=== PATIENT | female | born 1940 | race Caucasian/White ===

== ENCOUNTER → 2016-09-07 | Outpatient (CLI) | payer MEDICARE, OTHER ==
[~2016-09-07] MED LIST: ALB2.5NEB INH; ALBU17IN INH; ALBU20IN INH; AMIT50TA PO; CALC600T57 PO; CHLO25TA PO; EQ A1TAB12 PO; FLUT11IN INH; FLUTISP; LEVO125T3 PO; LIPI10TA PO; MAGN250T2 PO; NEXI40CA PO; OMEG12002 PO; PRESCAP6 PO; REFRSOL OU; SPIR25TA2 PO; VITA-112 PO; VITA-130 PO
--- NOTE | 2016-09-07 17:24 | REP ---
RIGHT KNEE, TWO VIEWS: HISTORY: Contusion. There is no acute fracture or dislocation. There is narrowing of the joint spaces. Osteophytes are present on the patella. IMPRESSION: Degenerative change as described above. Signed by Porfirio Ballard MD 09/07/2016 05:42 P
== END ==
LOC: M ADAMS 14:16
PROVIDERS: ATTEND Physician Assistant
DX: S80.01XA Contusion of right knee, initial encounter (principal); M17.31 Unilateral post-traumatic osteoarthritis, right knee; W19.XXXA Unspecified fall, initial encounter; Y93.9 Activity, unspecified; Y92.9 Unspecified place or not applicable; Y99.8 Other external cause status; X58.XXXA Exposure to other specified factors, initial encounter
CPT/HCPCS: 73560; G0463

== ENCOUNTER → 2016-09-22 | Outpatient (CLI) | payer MEDICARE, OTHER ==
--- NOTE | 2016-09-22 15:22 | REPMRS ---
Patient History The patient states she had a clinical breast exam in 09/21 Patient is postmenopausal. No known family history of cancer. 3 benign excisional biopsies of the left breast, 1965. Digital Woman Screen Mammo: September 22, 2016 - Exam #: [id number] Bilateral CC and MLO view(s) were taken. Technologist: Maureen Lozano, Technologist Prior study comparison: March 05, 2015, digital bilateral screening mammo, performed at [facility]. April 09, 2013, diagnostic bilateral mammo, performed at [facility]. July 01, 2008, diagnostic bilateral mammo, performed at [facility]. FINDINGS: There are scattered fibroglandular densities. There has been no change in the appearance of the mammogram from the prior studies. There is a mild amount of scattered fibroglandular density which is fairly symmetric. There is no interval development of dominant mass, architectural distortion, or clustered microcalcification suggestive of malignancy. ASSESSMENT: BI-RADS/ACR category 1 mammogram. Negative. Recommendation Routine screening mammogram in 1 year (for women over age 40). This mammogram was interpreted with the aid of an FDA-approved computer-aided dectection system. Electronically Signed By: Stefano Santos MD 09/22/16 [id number]
--- NOTE | 2016-10-06 11:20 | DEXA ---
AP SPINE L1 - L4 0.974 -1.8 -1.1 LT FEMUR TOTAL 0.891 -0.9 0.2 RT FEMUR TOTAL 0.897 -0.9 0.2 TOTAL BODY TOTAL OTHER DUAL FEMUR FRAX* ASSESSMENT Risk factors: Family history (parent hip fracture). History of fracture (adult). 10 year probability of fracture Major osteoporotic fracture 32.3 % Hip fracture 18.6 % COMMENTS: There is low bone density of the spine and hips. The density of the spine is increased 23.0% since the initial exam on 2001. The spine density has increased 4.7% since the most recent exam on 04/09/2013. The density of the left hip has decreased 1.2% since the initial exam on 2001. The density of the left hip has decreased 4.9% since the most recent exam on 01/2013. The density of the right hip has increased 1.2% since the initial exam on 2006. The density of the right hip has decreased 4.5% since the most recent exam on . FOLLOW-UP: Recommendation for the next bone density exam: 2 years. FRANKIE
== END ==
LOC: M WHC 13:57
PROVIDERS: ATTEND Nurse Practitioner Women's Health
DX: Z12.31 Encounter for screening mammogram for malignant neoplasm of breast (principal); Z78.0 Asymptomatic menopausal state; M81.0 Age-related osteoporosis without current pathological fracture; Z92.89 Personal history of other medical treatment
CPT/HCPCS: 77080; G0202; G0463

== ENCOUNTER → 2016-10-19 | Outpatient (CLI) | payer MEDICARE, OTHER ==
[2016-10-19 09:45] LABS: MEAN CORPUSCULAR HEMOGLOBIN 31.6 pg (27.0-33.0); MEAN CORPUSCULAR VOLUME 90.3 fl (80.0-96.0); RED CELL DISTRIBUTION WIDTH 11.8 % (11.5-14.5); WHITE BLOOD COUNT 7.2 K/mm3 (4.0-10.0)
[2016-10-19 10:36] LABS: ALBUMIN 3.5 GM/DL (3.2-5.2); ALBUMIN/GLOBULIN RATIO 1.03 (1.00-1.93); ALKALINE PHOSPHATASE 112 U/L (45-117); ALT/SGPT 27 U/L (12-78); ANION GAP 7 MEQ/L (8-16); AST/SGOT 19 U/L (15-37); BILIRUBIN,TOTAL 1.4 MG/DL (0.2-1.0); BLOOD UREA NITROGEN 19 MG/DL (7-18); CARBON DIOXIDE LEVEL 30 MEQ/L (21-32); CHLORIDE LEVEL 104 MEQ/L (98-107); CREATININE FOR GFR 0.95 MG/DL (0.55-1.02); FREE T4 1.37 NG/DL (0.76-1.46); GLOMERULAR FILTRATION RATE > 60.0 (>39); GLUCOSE, FASTING 163 MG/DL (83-110); SODIUM LEVEL 141 MEQ/L (136-145); TOTAL PROTEIN 6.9 GM/DL (6.4-8.2)
== END ==
LOC: M LAB 08:34
PROVIDERS: ATTEND Physician Assistant
DX: I10 Essential (primary) hypertension (principal); E11.21 Type 2 diabetes mellitus with diabetic nephropathy; E03.9 Hypothyroidism, unspecified; I65.22 Occlusion and stenosis of left carotid artery; H35.30 Unspecified macular degeneration; I11.9 Hypertensive heart disease without heart failure; E11.42 Type 2 diabetes mellitus with diabetic polyneuropathy; Z86.73 Personal history of transient ischemic attack (TIA), and cerebral infarction without residual deficits

== ENCOUNTER → 2016-11-30 | Outpatient (CLI) | payer MEDICARE, OTHER ==
--- NOTE | 2016-11-30 15:06 | REP ---
Clinical: Cough . Comparison: 07/22/2016 . Technique: PA and lateral. Findings: The mediastinum and cardiac silhouette are normal. The lung silver are clear and without acute consolidation, effusion, or pneumothorax. Scattered stable calcified granulomata again noted. The skeletal structures are intact and normal. Impression: 1. No acute cardiopulmonary process. 2. Evidence for prior granulomatous disease. Signed by Sukumar Barker MD 11/30/2016 02:57 P
== END ==
LOC: M RAD 14:32
PROVIDERS: ATTEND Internal Medicine Pulmonary Disease
DX: R05 Cough (principal)

== ENCOUNTER 2017-01-05 09:58 | Emergency (ER) | payer MEDICARE, OTHER ==
[~2017-01-05] VITALS: Ht 157.5 cm; Wt 92.5 kg
[2017-01-05] MEDS ORDERED: AMLO5TAB2 PO (10:14)
[2017-01-05] MEDS ORDERED: METF500T PO (10:14)
[2017-01-05] MEDS ORDERED: BIMA01SOL OU (10:14)
[2017-01-05] MEDS ORDERED: CRES20TA PO (10:14)
[2017-01-05] MEDS ORDERED: ACETAMINOPHEN 325 MG TAB PO ONE (10:45)
[2017-01-05] MEDS ORDERED: MAGNESIUM OXIDE 400 MG TAB (MAG-OX) PO ONE (10:45)
--- NOTE | 2017-01-05 11:23 | REP ---
CT HEAD WITHOUT CONTRAST: HISTORY: Headache. COMPARISON: 10/30/2011. An area of decreased attenuation is present in the left thalamus. This represents an old lacunar infarction. Areas of decreased attenuation are present in the periventricular white matter. This represents small vessel ischemic disease. There is no intraparenchymal hemorrhage, mass or midline shift. The ventricular system and cortical sulci as well as subarachnoid space in the posterior fossa are dilated consistent with mild volume loss. There is no extracerebral collection. Mucosal thickening is present in the ethmoid and left maxillary sinuses. IMPRESSION: 1. Old left thalamic lacunar infarction. 2. Small vessel ischemic disease. 3. Mild volume loss. Signed by Porfirio Ballard MD 01/05/2017 11:24 A
[2017-01-05 12:11] VITALS: BP 115/69
== END 2017-01-05 12:12 | disposition home or self-care (01) ==
LOC: M ED 10:38
DX: R51 Headache (principal)

== ENCOUNTER → 2017-01-25 | Outpatient (CLI) | payer MEDICARE, OTHER ==
[~2017-01-25] MED LIST changes: +AMLO5TAB2 PO; +BIMA01SOL OU; +CRES20TA PO; +METF500T PO
[2017-01-25 09:05] LABS: ALBUMIN 3.6 GM/DL (3.2-5.2); ALBUMIN/GLOBULIN RATIO 1.13 (1.00-1.93); BILIRUBIN,TOTAL 1.7 MG/DL (0.2-1.0); CALCIUM LEVEL 9.4 MG/DL (8.8-10.2); CREATININE FOR GFR 0.98 MG/DL (0.55-1.02); GLOMERULAR FILTRATION RATE 58.4 (>39); POTASSIUM SERUM 3.9 MEQ/L (3.5-5.1); TOTAL PROTEIN 6.8 GM/DL (6.4-8.2)
== END ==
LOC: M LAB 08:12
PROVIDERS: ATTEND Family Medicine
DX: E11.21 Type 2 diabetes mellitus with diabetic nephropathy (principal)
CPT/HCPCS: 36415; 80053; 80061; 83036; G0463

== ENCOUNTER → 2017-04-05 | Outpatient (REF) | payer MEDICARE, OTHER ==
[~2017-04-05] MED LIST changes: +ALPH0.156 OD; +BOTO10VL OU; +CIPR-249 PO; +FISH1200 PO; +FLON1SPR; +FLUT22IN INH; +LEVO100T5 PO; -LEVO125T3 PO; +LEVO125T4 PO; +LUBRIFRESH OU; +MACR100C43 PO; -MAGN250T2 PO; +MAGN250T7 PO; +MAGN500T5 PO; +MAPA325T3 PO; -METF500T PO; +METF500T13 PO; +METR1TAB66 PO; +MULT1TAB10 PO; +NORC1TAB4 PO; +PANT40TA2 PO; +PHEN-501 PO; +REFR0.1D OU; +REFR1DRO6 OU; -VITA-130 PO; +VITA200016 PO; +VITA500T PO
== END ==
LOC: M LAB REF 20:37
PROVIDERS: ATTEND Physician Assistant
DX: R30.0 Dysuria (principal)

== ENCOUNTER 2017-04-10 07:38 | Inpatient (IN) | payer MEDICARE, OTHER ==
[~2017-04-10] VITALS: Ht 165.1 cm; Wt 94.0 kg
[~2017-04-10 07:38] MED LIST changes: -ALPH0.156 OD; -BOTO10VL OU; -CIPR-249 PO; -FISH1200 PO; -FLON1SPR; -FLUT22IN INH; -LEVO100T5 PO; -LUBRIFRESH OU; -MACR100C43 PO; -MAGN500T5 PO; -MAPA325T3 PO; -METR1TAB66 PO; -MULT1TAB10 PO; -NORC1TAB4 PO; -PANT40TA2 PO; -PHEN-501 PO; -REFR0.1D OU; -REFR1DRO6 OU; -VITA200016 PO
[2017-04-10] MEDS ORDERED: MACR100C43 PO (07:46)
[2017-04-10] MEDS ORDERED: PHEN-501 PO (07:46)
[2017-04-10] MEDS ORDERED: ALPH0.156 OD (07:53)
[2017-04-10] MEDS: NS 1,000 ML IV SCH ×2 (08:45→17:52)
[2017-04-10 08:53] LABS: BASO # 0.1 K/mm3 (0.0-0.2); BASO % 0.9 % (0.0-1.0); EOS # 0.4 K/mm3 (0.0-0.50); EOS % 4.6 % (0.0-3.0); LARGE UNSTAINED CELL # 0.1 K/mm3 (0.0-0.4); LARGE UNSTAINED CELL % 1.8 % (0.0-4.0); LYMPH # 2.5 K/mm3 (1.5-4.5); LYMPH % 31.4 % (24.0-44.0); MEAN CORPUSCULAR HEMOGLOBIN 31.5 pg (27.0-33.0); MEAN CORPUSCULAR HGB CONC 34.5 g/dl (32.0-36.5); MEAN CORPUSCULAR VOLUME 91.2 fl (80.0-96.0); MONO # 0.4 K/mm3 (0.0-0.8); MONO % 5.5 % (0.0-5.0); NEUTROPHILS # 4.2 K/mm3 (1.8-7.7); NEUTROPHILS % 55.8 % (36.0-66.0); PLATELET COUNT, AUTOMATED 204 k/mm3 (150-450); RED CELL DISTRIBUTION WIDTH 12.2 % (11.5-14.5); WHITE BLOOD COUNT 7.6 K/mm3 (4.0-10.0)
[2017-04-10 09:17] LABS: ALBUMIN 3.6 GM/DL (3.2-5.2); ALBUMIN/GLOBULIN RATIO 1.16 (1.00-1.93); BILIRUBIN,DIRECT 0.3 MG/DL (0.0-0.2); BILIRUBIN,TOTAL 1.2 MG/DL (0.2-1.0); CALCIUM LEVEL 9.2 MG/DL (8.8-10.2); CREATININE FOR GFR 1.06 MG/DL (0.55-1.02); GLOMERULAR FILTRATION RATE 53.4 (>39); POTASSIUM SERUM 3.6 MEQ/L (3.5-5.1); TOTAL PROTEIN 6.7 GM/DL (6.4-8.2)
[2017-04-10] MEDS ORDERED: GASTROGRAFIN SOLUTION 30ML PO ONE (11:20)
--- NOTE | 2017-04-10 11:22 | REP ---
ACUTE ABDOMINAL SERIES: 04/10/2017. Comparison chest x-ray 11/30/2016. Clinical history: Abdominal pain. PA chest: The lung silver are less inflated than on the previous study. Some minor basilar fibrotic change but no effusion, infiltrate or mass. There is some calcified atheromatous change in the bases of both sides. No gross cardiomegaly, vascular redistribution, or edema. The aorta is calcified at the arch without aneurysm. Airway intact. There is no free air under the diaphragm. Flat upright abdomen: Stool and gas in the colon with more stool in the right and transverse colon near the splenic flexure than elsewhere. No dilated loops, air-fluid levels, masses or free air. Small bowel loops are mostly fluid-filled but no air-fluid levels or dilatation. Pelvic phleboliths are seen and minor degenerative changes in the lower lumbar spine more at the thoracolumbar junction and with some bilateral hip degenerative changes. No mass or free air. Impression: 1. Nonspecific gas pattern without obstruction, mass or free air. No abnormal calcifications or masses. Some degenerative changes in the hips and spine. 2. PA chest with some basilar fibrotic changes and calcified granulomas. No acute cardiopulmonary change. Signed by Hong Sawyer MD 04/10/2017 06:01 P
[2017-04-10] MEDS ORDERED: GASTROGRAFIN SOLUTION 30ML (Q9963) PO ONE (11:50)
[2017-04-10] MEDS ORDERED: ISOVUE-370 76% 100ML VIAL (Q9967) As Ordered ONE (12:34)
--- NOTE | 2017-04-10 13:14 | REP ---
RENAL ULTRASOUND: 04/10/2017. Clinical history: Evaluate for possible left hydronephrosis. No prior study. Findings: The right kidney is 11.7 x 3.8 x 4.3 cm. No hydronephrosis, hydroureter, cyst, stone or mass. Sinus lipomatosis is seen. There is a cortical atrophy and thinning. As an incidental note there is calcified shadowing gallstone in the lower or dependent gallbladder, near the neck. Left kidney is 12.8 x 3.7 x 4.7 cm. Sinus lipomatosis is also noted on the left. Cortical thinning is noted. Lower pole cyst 12.8 x 10.4 x 9 mm. No definite stone in either kidney. There are some echogenic linear foci consistent with calcified vessels. Impression: 1. Renal cortex is thinned and there is sinus lipomatosis consistent with some atrophy. Somewhat increased echogenicity of the cortex may reflect some mild chronic medical renal disease. 2. Lower pole cyst 12.8 x 10.4 mm off the left kidney. 3. No hydronephrosis, hydroureter, stone, mass or other cyst. Signed by Hong Sawyer MD 04/10/2017 06:08 P
[2017-04-10] MEDS ORDERED: CIPROFLOXACIN 400 MG in APPROPRIATE DILUENT 1 EA IV ONE (13:45)
[2017-04-10] MEDS ORDERED: metroNIDAZOLE 500 MG in APPROPRIATE DILUENT 1 EA IV ONE (13:45)
[2017-04-10] MEDS ORDERED: ONDANSETRON 4MG/2ML VIAL (J2405) IV ONE (14:00)
[2017-04-10] MEDS ORDERED: MORPHINE 2 MG/ML 1ML SYRINGE IV ONE (14:00)
--- NOTE | 2017-04-10 14:22 | REP ---
CT ABDOMEN AND PELVIS WITH IV AND ORAL CONTRAST: 04/10/2017. Clinical history: Left lower quadrant pain, no diverticulosis. Comparison: Renal ultrasound today. Technique: Oral Gastrografin mixture 10 mL in 290 mL of flavored water for two doses per our bowel contrast protocol and a bolus of 100 mL Isovue 370 scanning through the abdomen pelvis with both coronal and sagittal reconstructions provided. Findings: CT abdomen: Lung bases show dependent atelectatic change without pleural effusion, pulmonary nodules or definite infiltrate. Small Bochdalek hernia posteriorly along the right diaphragm as a benign finding. Prominent epicardial fat pad on the right. There is a small to moderate sized hiatal hernia present. Heart is not enlarged and with no pericardial thickening or effusion. Slight elevation of the right diaphragm. I see no hepatosplenomegaly, focal hepatic or splenic mass nor intrahepatic biliary dilatation. There may be some fatty infiltration of the liver. Dependent stone in the gallbladder up to 9 mm as seen on the renal ultrasound today. Kidneys show symmetric homogeneous enhancement and there is no renal stone, solid mass or hydronephrosis. There is a lower pole cyst on the left about 12 mm. No hydroureter or ureteral stone on either side. The aorta has atherosclerotic calcifications without aneurysm. Small bowel loops are contrast or fluid-filled and otherwise unremarkable. The colon shows diverticulosis on the right, transverse and left segments. Mid left colon does suggest some infiltration of fat adjacent to it and suggesting some diverticulitis. The splenic flexure, transverse colon and hepatic flexure as well as the right colon without definite diverticulitis. No definite colitis, mass or stricture in the colon. Lung window review for all slices shows no perforation, free air or abscess. Bone windows show lumbar spine with degenerative changes mild and slightly greater in the thoracic spine with the facet arthropathy lower lumbar spine. Visualized ribs without focal lesion. CT pelvis: Sacrum, SI joints, pelvis, hips and symphysis pubis show degenerative changes at the hips and SI joints, but no fracture or destructive lesion. The bladder shape is distorted and elevated by pelvic lipomatosis. There is no distal ureteral dilatation or stone. Multiple pelvic phleboliths are seen. Uterus absent and the vaginal cuff intact. No pelvic lymphadenopathy or any definite free fluid. Extensive diverticulosis distal left colon and sigmoid. No definite diverticulitis in this portion. No ventral or inguinal hernia nor pathologic inguinal adenopathy. Impression: 1. There is some mild diverticulitis along the mid course of the left colon at and just above the iliac crest with more extensive diverticulosis distal left colon and sigmoid without definite diverticulitis there. Scattered diverticula elsewhere in the colon without acute finding. 2. Atherosclerotic calcifications aorta without aneurysm. There is no abdominal or pelvic lymphadenopathy of pathologic size. 3. No renal or ureteral stone. 4. Fatty infiltration of liver suspected and there is a calcified gallstone about 9 mm. No biliary dilatation and pancreas unremarkable. Adrenal glands normal. Moderate sized hiatal hernia. Signed by Hong Sawyer MD 04/10/2017 06:19 P
[2017-04-10] MEDS ORDERED: REFR0.1D OU (14:49)
[2017-04-10] MEDS ORDERED: MAGN500T5 PO (14:49)
[2017-04-10] MEDS ORDERED: REFR1DRO6 OU (14:49)
[2017-04-10] MEDS ORDERED: FISH1200 PO (14:49)
[2017-04-10] MEDS ORDERED: BOTO10VL OU (14:49)
[2017-04-10] MEDS ORDERED: PANT40TA2 PO (14:49)
[2017-04-10] MEDS ORDERED: FLON1SPR (14:49)
[2017-04-10] MEDS ORDERED: CHLO25TA PO (14:49)
[2017-04-10] MEDS ORDERED: REFRESH PLUS EYE OU PRN (15:00)
[2017-04-10] MEDS ORDERED: ALBUTEROL SULFATE 2.5 MG/0.5 ML INH NEB SOLN INH PRN (15:00)
[2017-04-10] MEDS ORDERED: PERCOCET 5MG/325MG TAB PO PRN (15:00)
[2017-04-10] MEDS ORDERED: ALBUTEROL 90 MCG/ACT 8GM HFA INHALER INH PRN (15:00)
[2017-04-10] MEDS ORDERED: DEXTROSE 50% 50 ML SYRINGE IV PRN (15:45)
[2017-04-10] MEDS ORDERED: GLUCAGON FOR INJ 1 MG VIAL (J1610) SC PRN (15:45)
[2017-04-10] MEDS ORDERED: GLUCOSE 4 GM CHEW TABLET PO PRN (15:45)
[2017-04-10 16:55] VITALS: BP 177/79
[2017-04-10] MEDS: amLODIPine 5 MG TAB PO SCH (17:59)
[2017-04-10] MEDS: HumaLOG INSULIN (NovoLOG) PER UNIT SC SCH (18:00)
[2017-04-10] MEDS: SPIRONOLACTONE 25 MG TAB PO SCH (18:10)
[2017-04-10] MEDS: BRIMONIDINE 0.15% OPHTH SOLN 5 ML OD SCH (20:34)
[2017-04-10] MEDS: LUMIGAN 0.01% EYE DROPS (PATIENT'S OWN MED) OU SCH (20:34)
[2017-04-10] MEDS: metroNIDAZOLE 500 MG in APPROPRIATE DILUENT 1 EA IV SCH (20:35)
[2017-04-10] MEDS: FLUTICASONE HFA 110 MCG 12 GM INHALER (FLOVENT) INH SCH (21:00)
[2017-04-10 22:00] VITALS: BP 135/68
[2017-04-11] MEDS: metroNIDAZOLE 500 MG in APPROPRIATE DILUENT 1 EA IV SCH ×4 (01:51→20:07)
[2017-04-11] MEDS: CIPROFLOXACIN 400 MG in APPROPRIATE DILUENT 1 EA IV SCH ×2 (03:05→15:20)
[2017-04-11] MEDS: NS 1,000 ML IV SCH ×2 (05:09→08:08)
[2017-04-11] MEDS: LEVOTHYROXINE 125MCG TABLET (0.125MG) PO SCH (05:09)
[2017-04-11 06:00] VITALS: BP 117/56
[2017-04-11 07:12] LABS: ALBUMIN 3.2 GM/DL (3.2-5.2); ALBUMIN/GLOBULIN RATIO 0.94 (1.00-1.93); ALKALINE PHOSPHATASE 81 U/L (45-117); ALT/SGPT 26 U/L (12-78); ANION GAP 6 MEQ/L (8-16); AST/SGOT 22 U/L (15-37); BILIRUBIN,TOTAL 1.8 MG/DL (0.2-1.0); BLOOD UREA NITROGEN 11 MG/DL (7-18); CALCIUM LEVEL 9.1 MG/DL (8.8-10.2); CARBON DIOXIDE LEVEL 28 MEQ/L (21-32); CHLORIDE LEVEL 107 MEQ/L (98-107); GLOMERULAR FILTRATION RATE > 60.0 (>39); GLUCOSE, FASTING 129 MG/DL (83-110); POTASSIUM SERUM 3.8 MEQ/L (3.5-5.1); SODIUM LEVEL 141 MEQ/L (136-145); TOTAL PROTEIN 6.6 GM/DL (6.4-8.2)
[2017-04-11] MEDS: PANTOPRAZOLE 40MG TAB (PROTONIX) PO SCH (08:06)
[2017-04-11] MEDS: amLODIPine 5 MG TAB PO SCH (08:06)
[2017-04-11] MEDS: CHLORTHALIDONE 12.5MG PER 1/2 TABLET PO SCH (08:06)
[2017-04-11] MEDS: HumaLOG INSULIN (NovoLOG) PER UNIT SC SCH ×3 (08:07→16:50)
[2017-04-11] MEDS: SPIRONOLACTONE 25 MG TAB PO SCH (08:07)
[2017-04-11] MEDS: BRIMONIDINE 0.15% OPHTH SOLN 5 ML OD SCH ×2 (08:08→20:07)
[2017-04-11] MEDS: ACETAMINOPHEN TAB 650MG DOSE (2X325MG) PO PRN ×2 (08:16→17:12)
--- NOTE | 2017-04-11 10:01 | IPNPDOC ---
Subjective Date Seen The patient was seen on 04/11/17. Subjective Chief Complaint/HPI The patient is a 76-year-old female admitted with a reason for visit of Diverticulitis. Events since last encounter Pt still with some lower abd discomfort but she states pain is decreasing and she is overall improving. She denies CP, SOB. Constitutional: Denies: Chills, Fever Pulmonary: Denies: Dyspnea Cardiovascular: Denies: Chest Pain Gastrointestinal: Reports: Abdominal Pain Objective Physical Examination General Exam: Positive: Alert, No Acute Distress Neck Exam: Positive: Supple, Negative: JVD Chest Exam: Positive: Clear to auscultation Heart Exam: Positive: Rate Normal, Regular Rhythm Abdomen Exam: Positive: BS Hypoactive, Soft, Tenderness Assessment /Plan Problems (1) Diverticulitis Status: Acute Problem Specific Plan: Monitor Clinically, Repeat Labs Problem Text: On Cipro and Flagyl. Last colonoscopy was in 10/[address] Benson. (2) DM2 (diabetes mellitus, type 2) Status: Chronic Problem Specific Plan: Monitor Clinically, Repeat Labs Problem Text: On Metformin as an outpt. (3) HHD (hypertensive heart disease) Status: Chronic Problem Specific Plan: Monitor Clinically Problem Text: On Norvasc, Chlorthalidone, and Spironolactone. (4) GERD (gastroesophageal reflux disease) Status: Chronic Problem Specific Plan: Monitor Clinically Problem Text: On Protonix. (5) Hypothyroidism Status: Chronic Problem Specific Plan: Monitor Clinically Problem Text: On Synthroid. Plan/VTE VTE Prophylaxis Ordered?: Yes (Start Lovenox) VS, I&O, 24H, Fishbone Vital Signs/I&O Vital Signs Date Time Temp Pulse Resp B/P (MAP) Pulse Ox O2 Delivery O2 Flow Rate FiO2 04/11/17 08:06 62 117/56 04/11/17 06:00 97.4 18 94 Room Air I&O- Last 24 Hours up to 6 AM 04/11/17 06:00 Intake Total 2040 ml Output Total 2331 ml Balance -291 ml Laboratory Data 24H LABS Laboratory Tests 2 04/10/17 17:49: Bedside Glucose (Misc Panel) 129H 04/10/17 20:39: Bedside Glucose (Misc Panel) 110 04/10/17 21:37: Lactic Acid Followup at 4 Hours 1.0 04/11/17 06:10: Anion Gap 6L, Glomerular Filtration Rate > 60.0, Blood Urea Nitrogen 11, Creatinine 0.90, Sodium Level 141, Potassium Level 3.8, Chloride Level 107, Carbon Dioxide Level 28, Calcium Level 9.1, Aspartate Amino Transf (AST/SGOT) 22 , Alanine Aminotransferase (ALT/SGPT) 26, Alkaline Phosphatase 81, Total Bilirubin 1.8H, Total Protein 6.6, Albumin 3.2, Albumin/Globulin Ratio 0.94L CBC/BMP Laboratory Tests 04/11/17 06:10 Calcium Level 9.1, Aspartate Amino Transf (AST/SGOT) 22, Alanine Aminotransferase (ALT/SGPT) 26, Alkaline Phosphatase 81, Total Bilirubin 1.8 H, Total Protein 6.6, Albumin 3.2 Microbiology Microbiology 04/10/17 Urine Culture, Received Pending Georgi Escalante Apr 11, 2017 10:01
[2017-04-11 10:54] LABS: BASO # 0.1 K/mm3 (0.0-0.2); BASO % 0.9 % (0.0-1.0); EOS # 0.2 K/mm3 (0.0-0.50); LARGE UNSTAINED CELL # 0.2 K/mm3 (0.0-0.4); LARGE UNSTAINED CELL % 3.1 % (0.0-4.0); LYMPH # 2.2 K/mm3 (1.5-4.5); LYMPH % 32.2 % (24.0-44.0); MEAN CORPUSCULAR HEMOGLOBIN 31.9 pg (27.0-33.0); MEAN CORPUSCULAR HGB CONC 35.1 g/dl (32.0-36.5); MEAN CORPUSCULAR VOLUME 90.7 fl (80.0-96.0); MONO # 0.4 K/mm3 (0.0-0.8); MONO % 6.3 % (0.0-5.0); NEUTROPHILS # 3.6 K/mm3 (1.8-7.7); NEUTROPHILS % 54.6 % (36.0-66.0); PLATELET COUNT, AUTOMATED 203 k/mm3 (150-450); RED CELL DISTRIBUTION WIDTH 11.9 % (11.5-14.5); WHITE BLOOD COUNT 6.7 K/mm3 (4.0-10.0)
--- NOTE | 2017-04-11 11:17 | HPE ---
DATE OF ADMISSION: 04/10/2017 PRIMARY CARE PHYSICIAN: Dr. Kris Polk. ATTENDING PHYSICIAN: Dr. Gloria Rodriguez. CHIEF COMPLAINT: Lower abdominal pain. HISTORY OF PRESENT ILLNESS: This is a 76-year-old woman who presents with 8 weeks of worsening lower abdominal and lower back pain. Pain has waxed and waned since then but became worse within the last week. She states she was constipated about 4-5 weeks ago but since then, she has been having watery diarrhea. She denies any blood in her stool. She has been nauseated but has not had any vomiting. She has felt chilled but has not had any fevers. She states that she was treated for a urinary tract infection about 8 weeks ago but that she now has recurrence of burning with urination and urinary frequency which prompted her to come to the emergency department. At present, she states her pain is very mild. In the emergency department, she was found to have mild diverticulitis of the descending colon on abdominal/pelvis CT as well as extensive diverticulosis of the left colon and sigmoid without any definitive diverticulitis. PAST MEDICAL HISTORY: 1. History of multiple strokes, major one in 1998 and transient ischemic attack (TIA)s in 1984 and 1985. 2. Atrial septal defect. 3. Diabetes mellitus type 2. 4. Mild intermittent asthma. 5. Obstructive sleep apnea. 6. Osteoarthritis of both hips. 7. History of cataracts and retinitis. 8. Blepharospasm. 9. Hypertension. 10. Hypothyroidism. 11. Gastroesophageal reflux disease (GERD). 12. Hyperlipidemia. 13. Left ICA stenosis. SURGICAL HISTORY: 1. Right knee arthroscopic surgery for torn meniscus in 2004. 2. PFO closure in 2001. 3. Hysterectomy in the . Patient is not certain at the extent of organs that were removed. FAMILY HISTORY: Noncontributory. SOCIAL HISTORY: Patient is not a smoker. Does not drink alcohol and does not use any drugs. She lives at home with her . HOME MEDICATIONS: - Refresh plus one to two drops in both eyes four times daily as needed for dry eyes - vitamin C 500 mg by mouth daily - Botox 70 unit solution injection in both eyes per Dr. River. - magnesium oxide 1000 mg by mouth daily - Flovent 110 mg per actuation two puffs by inhalation twice daily as needed seasonally - Champlin 3 1200 mg capsule once a day - albuterol sulfate HFA two puffs as needed every 4 hours - albuterol sulfate 2.5 mg per 3 mL 0.083% nebulization solution 3 mL inhalation three times a day as needed - Lumigan 0.01% solution one drop into both eyes in the evening - spironolactone 25 mg by mouth daily - chlorthalidone 25 mg one half tablet by mouth once a day - aspirin 325 mg by mouth daily - amlodipine 5 mg by mouth daily - levothyroxine 125 mcg one tablet by mouth daily - Crestor 20 mg by mouth daily - metformin 1000 mg by mouth twice daily REVIEW OF SYSTEMS: General: Positive for chills. Negative for fevers, changes in weight. ENT: Negative for rhinorrhea, ear pain, recent cold symptoms. Cardiac: Negative for chest pain, palpitations, lightheadedness or leg edema. Pulmonary: Negative for shortness of breath, cough, wheezing. Gastroenterology: Positive for watery diarrhea over the past 4 weeks and constipation prior to that. Positive for left lower quadrant abdominal pain. Negative for blood in stool or dark tarry stools. Positive for nausea. Negative for vomiting. Genitourinary: Positive for urinary burning and urinary frequency. Neurologic: Negative for any chronic deficits from prior brenner. Negative for new focal weakness or changes in sensation. Musculoskeletal: Positive for chronic low back pain that is different than the back pain she has been experiencing more recently. PHYSICAL EXAMINATION: Vital signs: Temperature 97.1, pulse 66, respirations 20, blood pressure 131/60 , pulse oximetry 98% on room air. General: Alert and oriented times three, no apparent distress. Head: Normocephalic, atraumatic. ENT: Mucous membranes moist. Extraocular movements are intact. Cardiac: Regular rate and rhythm. No murmurs, rubs or gallops. Pulmonary: Lungs are clear to auscultation bilaterally. No wheezes, rales or rhonchi. Abdominal: Soft, nondistended. Left lower quadrant is tender with deep palpation only. No tenderness with light palpation. Bowel sounds are positive in all four quadrants. Neurologic: No focal neurological deficit. Sensation intact to gross touch in all four extremities. Cranial nerves II-XII intact. Musculoskeletal: Strength 5/5 in all four extremities. Left lower paraspinal muscles are mildly tender to palpation. Back: No costovertebral angle (CVA) tenderness. Skin: No rashes or bruising. Lymphatics: No cervical lymphadenopathy. Labs: WBCs 7.6, Hgb 15.9, Hct 43.5, Plt 2014; CMP within normal limits except for Total bilirubin on 1.2. ASSESSMENT AND PLAN: This is a 76-year-old woman with: 1. Acute mild diverticulitis: Patient has risk factors of advanced age and severe left lower quadrant abdominal pain with deep palpation. We will place on observation on medical floor and start IV ciprofloxacin and IV metronidazole. We will allow a clear liquid diet tonight and will hopefully be able to advance tomorrow as pain is well tolerated. Patient would prefer to not receive opioid medications if possible and so we will give her Tylenol as needed for pain. Blood cultures are pending. 2. Dysuria: Urinalysis is largely unremarkable and urine culture is pending. 3. Chronic blepharitis and dry eye: Will allow patient to use her home eye drops. 4. History of obstructive sleep apnea: Will allow patient to use home CPAP machine. 5. Hypertension: Will continue hypertensive medications. 6. Hypothyroidism: Will continue levothyroxine. 7. Diabetes mellitus: hold metformin; check chemsticks QACHS and cover pre-meal glucose with an insuling sliding scale Will hold all other medications except those noted above. MTDD
[2017-04-11] MEDS: ENOXAPARIN 40 MG/0.4 ML SYRINGE (J1650) SC SCH (11:47)
[2017-04-11 14:00] VITALS: BP 130/65
[2017-04-11] MEDS: LUMIGAN 0.01% EYE DROPS (PATIENT'S OWN MED) OU SCH (20:07)
[2017-04-11] MEDS: FLUTICASONE HFA 110 MCG 12 GM INHALER (FLOVENT) INH SCH (21:16)
[2017-04-11 22:00] VITALS: BP 115/66
[2017-04-12] MEDS: metroNIDAZOLE 500 MG in APPROPRIATE DILUENT 1 EA IV SCH ×2 (01:23→08:57)
[2017-04-12] MEDS: CIPROFLOXACIN 400 MG in APPROPRIATE DILUENT 1 EA IV SCH (02:26)
[2017-04-12] MEDS: LEVOTHYROXINE 125MCG TABLET (0.125MG) PO SCH (05:48)
[2017-04-12 06:00] VITALS: BP 118/86
[2017-04-12 06:55] LABS: BASO % 0.6 % (0.0-1.0); EOS # 0.3 K/mm3 (0.0-0.50); EOS % 4.1 % (0.0-3.0); LARGE UNSTAINED CELL # 0.2 K/mm3 (0.0-0.4); LARGE UNSTAINED CELL % 2.3 % (0.0-4.0); LYMPH # 2.3 K/mm3 (1.5-4.5); LYMPH % 31.6 % (24.0-44.0); MEAN CORPUSCULAR HGB CONC 35.5 g/dl (32.0-36.5); MEAN CORPUSCULAR VOLUME 90.2 fl (80.0-96.0); MONO # 0.6 K/mm3 (0.0-0.8); MONO % 8.1 % (0.0-5.0); NEUTROPHILS # 3.6 K/mm3 (1.8-7.7); NEUTROPHILS % 53.3 % (36.0-66.0); PLATELET COUNT, AUTOMATED 198 k/mm3 (150-450); RED CELL DISTRIBUTION WIDTH 12.2 % (11.5-14.5); WHITE BLOOD COUNT 6.7 K/mm3 (4.0-10.0)
[2017-04-12 07:12] LABS: ALBUMIN 3.2 GM/DL (3.2-5.2); ALKALINE PHOSPHATASE 75 U/L (45-117); ALT/SGPT 26 U/L (12-78); ANION GAP 7 MEQ/L (8-16); AST/SGOT 19 U/L (15-37); BILIRUBIN,TOTAL 1.6 MG/DL (0.2-1.0); BLOOD UREA NITROGEN 7 MG/DL (7-18); CALCIUM LEVEL 9.2 MG/DL (8.8-10.2); CARBON DIOXIDE LEVEL 28 MEQ/L (21-32); CHLORIDE LEVEL 109 MEQ/L (98-107); CREATININE FOR GFR 0.91 MG/DL (0.55-1.02); GLOMERULAR FILTRATION RATE > 60.0 (>39); GLUCOSE, FASTING 118 MG/DL (83-110); POTASSIUM SERUM 3.4 MEQ/L (3.5-5.1); SODIUM LEVEL 144 MEQ/L (136-145); TOTAL PROTEIN 6.4 GM/DL (6.4-8.2)
[2017-04-12] MEDS: BRIMONIDINE 0.15% OPHTH SOLN 5 ML OD SCH (08:55)
[2017-04-12] MEDS: PANTOPRAZOLE 40MG TAB (PROTONIX) PO SCH (08:55)
[2017-04-12] MEDS: SPIRONOLACTONE 25 MG TAB PO SCH (08:55)
[2017-04-12] MEDS: CHLORTHALIDONE 12.5MG PER 1/2 TABLET PO SCH (08:55)
[2017-04-12 08:56] VITALS: BP 118/86
[2017-04-12] MEDS: amLODIPine 5 MG TAB PO SCH (08:56)
[2017-04-12] MEDS: ENOXAPARIN 40 MG/0.4 ML SYRINGE (J1650) SC SCH (08:56)
[2017-04-12] MEDS: HumaLOG INSULIN (NovoLOG) PER UNIT SC SCH ×2 (08:57→12:00)
[2017-04-12] MEDS ORDERED: MAPA325T3 PO (10:26)
[2017-04-12] MEDS ORDERED: CIPR-249 PO (10:26)
[2017-04-12] MEDS ORDERED: METR1TAB66 PO (10:26)
[2017-04-12] MEDS ORDERED: POTASSIUM CHLORIDE 10 MEQ SR TABLET PO ONE (10:45)
--- NOTE | 2017-04-12 11:00 | DSES ---
DATE OF ADMISSION: 04/11/2017 DATE OF DISCHARGE: 04/12/2017 PRIMARY CARE PROVIDER: Dr. Kris Polk ATTENDING PHYSICIAN: Dr. Marilee Clement HISTORY OF PRESENT ILLNESS: Analilia Ramos is a 68-year-old female patient of Dr. Polk who presented to the emergency department with worsening lower abdominal pain. Workup showed acute mild diverticulitis, and the patient was admitted for further evaluation and treatment. She was started on IV Cipro and Flagyl. Diet was gradually increased and on day of discharge the patient was tolerating carbohydrate consistent diet. The patient had a CT of the abdomen and pelvis done in the ER that showed mild diverticulitis. Also showed fatty infiltration of the liver and a calcified gallstone. I will defer to the patient's primary care provider on further evaluation and treatment of gallstone. During the course of hospitalization, the patient was afebrile. WBC was within normal limits. On day of discharge, the patient was doing well with no abdominal discomfort and as noted above was tolerating oral diet. The patient was placed on sliding-scale insulin for diabetes mellitus. She will be discharged back home on her outpatient metformin. She was maintained on her blood pressure medications, including chlorthalidone, spironolactone and Norvasc. She was continued on home dose of Synthroid. She will be discharged home on 10 additional days of oral Cipro and Flagyl. On the day of discharge, the patient' s potassium was slightly low at 3.4. She will be given a dose of potassium 20 mEq prior to discharge. PHYSICAL EXAMINATION: Temperature 97.5, pulse 57, respiratory rate 18, blood pressure 118/86, pulse oximetry 97% on room air. GENERAL: The patient is alert, no acute distress. No respiratory distress. CHEST: Clear to auscultation bilaterally. HEART: Regular rate and rhythm. ABDOMEN: Positive bowel sounds, soft, nontender, nondistended. No rebound or guarding. EXTREMITIES: With no clubbing, cyanosis or edema. LABORATORY DATA: WBC 6.7, hemoglobin 14.2, hematocrit 40.0, platelets 198. Sodium 144, potassium 3.4, chloride 109, carbon dioxide 20, BUN 7, creatinine 0.91, glucose 118, calcium 9.2, total bilirubin 1.6, AST 19, ALT 26, alkaline phosphatase 75, total protein 6.4, albumin 3.2. Urine culture was negative. MEDICATIONS: - acetaminophen 650 mg by mouth every 6 hours as needed for pain - Cipro 500 mg by mouth twice a day times 10 days - metronidazole 5 mg three times a day times 10 days - albuterol nebs every 4 hours as needed for shortness of breath - albuterol puffer two puffs twice a day as needed for shortness of breath - amlodipine 5 mg by mouth daily - vitamin C 500 mg by mouth daily - aspirin 325 mg by mouth daily - Lumigan drops both eyes at night - Alphagan drops OD twice a day - calcium with vitamin D twice a day - chlorthalidone 12.5 mg daily - fish oil by mouth twice a day - Flonase two sprays each nostril daily - Flovent two puffs daily - Synthroid 125 mcg daily - magnesium oxide 500 mg by mouth daily - metformin 500 mg two tablets twice a day - Protonix 40 mg by mouth daily - PreserVision capsules daily - Crestor 20 mg by mouth at night - spironolactone 25 mg by mouth daily DISCHARGE INSTRUCTIONS: Followup with Dr. Polk in 1 week. Diet: Carbohydrate consistent as tolerated. Activity as tolerated. DISCHARGE DIAGNOSES: 1. Diverticulitis. 2. Diabetes mellitus type 2. 3. Hypertensive heart disease. 4. Gastroesophageal reflux disease (GERD). 5. Hypothyroidism. MTDD
[2017-06-13] MEDS ORDERED: FLUT22IN INH (13:05)
[2017-06-13] MEDS ORDERED: LEVO100T5 PO (13:05)
[2017-06-13] MEDS ORDERED: MULT1TAB10 PO (13:05)
[2017-06-13] MEDS ORDERED: LUBRIFRESH OU (13:05)
[2017-06-13] MEDS ORDERED: VITA200016 PO (13:05)
== END 2017-04-12 15:30 | disposition home or self-care (01) | DRG 392 ==
LOC: M ED 07:38 → M ED INP 14:48 → M MS5PR 16:55 → OBSVTOIN 04-11 13:29 → M MS5PR 04-12 00:30
PROVIDERS: ADMIT Family Medicine; ATTEND Family Medicine
DX: K57.32 Diverticulitis of large intestine without perforation or abscess without bleeding (principal); E11.9 Type 2 diabetes mellitus without complications; J45.20 Mild intermittent asthma, uncomplicated; G47.33 Obstructive sleep apnea (adult) (pediatric); M16.0 Bilateral primary osteoarthritis of hip; I11.9 Hypertensive heart disease without heart failure; E03.9 Hypothyroidism, unspecified; K21.9 Gastro-esophageal reflux disease without esophagitis; E78.5 Hyperlipidemia, unspecified; R30.0 Dysuria; M54.5 Low back pain; I65.22 Occlusion and stenosis of left carotid artery; Z79.84 Long term (current) use of oral hypoglycemic drugs; Z79.82 Long term (current) use of aspirin; Z79.899 Other long term (current) drug therapy

== ENCOUNTER 2017-04-14 11:56 | Emergency (ER) | payer MEDICARE, OTHER ==
[~2017-04-14] VITALS: Ht 160 cm; Wt 85.5 kg
[~2017-04-14 11:56] MED LIST changes: +ALPH0.156 OD; +BOTO10VL OU; +CIPR-249 PO; +FISH1200 PO; +FLON1SPR; +MACR100C43 PO; +MAGN500T5 PO; +MAPA325T3 PO; +METR1TAB66 PO; +PANT40TA2 PO; +PHEN-501 PO; +REFR0.1D OU; +REFR1DRO6 OU
[2017-04-14] MEDS ORDERED: NS 1,000 ML IV SCH (12:21)
[2017-04-14 13:04] LABS: BASO # 0.1 K/mm3 (0.0-0.2); BASO % 0.8 % (0.0-1.0); EOS # 0.3 K/mm3 (0.0-0.50); EOS % 4.4 % (0.0-3.0); LARGE UNSTAINED CELL # 0.1 K/mm3 (0.0-0.4); LARGE UNSTAINED CELL % 1.7 % (0.0-4.0); LYMPH # 2.5 K/mm3 (1.5-4.5); LYMPH % 32.2 % (24.0-44.0); MEAN CORPUSCULAR HEMOGLOBIN 32.9 pg (27.0-33.0); MEAN CORPUSCULAR HGB CONC 35.9 g/dl (32.0-36.5); MEAN CORPUSCULAR VOLUME 91.4 fl (80.0-96.0); MONO # 0.5 K/mm3 (0.0-0.8); MONO % 6.7 % (0.0-5.0); NEUTROPHILS # 4.1 K/mm3 (1.8-7.7); NEUTROPHILS % 54.1 % (36.0-66.0); PLATELET COUNT, AUTOMATED 193 k/mm3 (150-450); RED CELL DISTRIBUTION WIDTH 12.3 % (11.5-14.5); WHITE BLOOD COUNT 7.5 K/mm3 (4.0-10.0)
--- NOTE | 2017-04-14 13:07 | REP ---
CHEST, TWO VIEWS: Two views of the chest are performed and compared to prior study of 11/30/2016. Once again, there appear to be a couple of tiny calcified granulomas in the left lung base. There is no acute infiltrate. Heart is normal in size. There is mild calcification of the thoracic aorta. The mediastinal silhouette is unchanged. There are degenerative changes of the spine. IMPRESSION: No evidence of acute infiltrate. Signed by Jd Mas MD 04/14/2017 01:32 P
--- NOTE | 2017-04-14 13:07 | REP ---
CT Head without contrast HISTORY: Weakness COMPARISON: 01/05/2017 An area of decreased attenuation is present in the left thalamus. This represents an old lacunar infarction. Areas of decreased attenuation are present in the periventricular white matter. This represents small-vessel ischemic disease. There is no intraparenchymal hemorrhage, acute infarct, mass or midline shift. The ventricular system and cortical sulci as well as subarachnoid space in the posterior fossa are dilated consistent with mild volume loss. There is no extra cerebral collection. There is no fracture. The visualized sinuses are clear. IMPRESSION: 1. Old left thalamic lacunar infarction. 2. Small vessel ischemic disease. 3. Mild volume loss. Signed by Porfirio Ballard MD 04/14/2017 12:57 P
[2017-04-14 13:41] LABS: ANION GAP 8 MEQ/L (8-16); BLOOD UREA NITROGEN 20 MG/DL (7-18); CALCIUM LEVEL 9.7 MG/DL (8.8-10.2); CARBON DIOXIDE LEVEL 26 MEQ/L (21-32); CHLORIDE LEVEL 105 MEQ/L (98-107); CREATININE FOR GFR 1.06 MG/DL (0.55-1.02); GLOMERULAR FILTRATION RATE 53.4 (>39); GLUCOSE, FASTING 199 MG/DL (83-110); POTASSIUM SERUM 3.4 MEQ/L (3.5-5.1); SODIUM LEVEL 139 MEQ/L (136-145)
[2017-04-14 13:46] LABS: ALBUMIN 3.7 GM/DL (3.2-5.2); ALBUMIN/GLOBULIN RATIO 1.06 (1.00-1.93); BILIRUBIN,DIRECT 0.3 MG/DL (0.0-0.2); BILIRUBIN,TOTAL 1.3 MG/DL (0.2-1.0); TOTAL PROTEIN 7.2 GM/DL (6.4-8.2)
[2017-04-14 14:31] VITALS: O2SAT 96
[2017-04-14 15:03] VITALS: BP 114/89
--- NOTE | 2017-04-14 20:58 | ECGEPIP ---
Stationary ECG Study [facility] - ED Test Date: 2017-04-14 Pat Name: HONG SCALES Department: Room: - Gender: F Hands Parter: jimmy : 1940 Requested By: Germania Singh Order Number: [id number] Reading MD: Germania Singh Measurements Intervals [place] Rate: 57 P: 3 MS: 159 QRS: 11 QRSD: 100 T: 21 QT: 422 QTc: 412 Interpretive Statements SINUS BRADYCARDIA SIMILAR 08/26/16 Electronically Signed On 04-14-2017 20:58:53 EDT by Germania Singh
[2017-06-13] MEDS ORDERED: FLUT22IN INH (13:05)
[2017-06-13] MEDS ORDERED: MULT1TAB10 PO (13:05)
[2017-06-13] MEDS ORDERED: LEVO100T5 PO (13:05)
[2017-06-13] MEDS ORDERED: VITA200016 PO (13:05)
[2017-06-13] MEDS ORDERED: LUBRIFRESH OU (13:05)
== END 2017-04-14 15:04 | disposition home or self-care (01) ==
LOC: M ED 11:56
DX: M79.1 Myalgia (principal); K57.92 Diverticulitis of intestine, part unspecified, without perforation or abscess without bleeding; E11.9 Type 2 diabetes mellitus without complications; I10 Essential (primary) hypertension; E03.9 Hypothyroidism, unspecified; E78.4 Other hyperlipidemia

== ENCOUNTER → 2017-04-22 | Outpatient (REF) | payer MEDICARE, OTHER ==
[~2017-04-22] MED LIST changes: +FLUT22IN INH; +LEVO100T5 PO; +LUBRIFRESH OU; +MULT1TAB10 PO; +NORC1TAB4 PO; +VITA200016 PO
[2017-04-22 11:56] LABS: MEAN CORPUSCULAR HEMOGLOBIN 32.4 pg (27.0-33.0); RED CELL DISTRIBUTION WIDTH 12.4 % (11.5-14.5); WHITE BLOOD COUNT 7.1 K/mm3 (4.0-10.0)
[2017-04-22 12:18] LABS: ANION GAP 9 MEQ/L (8-16); BLOOD UREA NITROGEN 13 MG/DL (7-18); CALCIUM LEVEL 9.3 MG/DL (8.8-10.2); CARBON DIOXIDE LEVEL 27 MEQ/L (21-32); CHLORIDE LEVEL 101 MEQ/L (98-107); CREATININE FOR GFR 0.94 MG/DL (0.55-1.02); FREE T4 1.26 NG/DL (0.76-1.46); GLOMERULAR FILTRATION RATE > 60.0 (>39); GLUCOSE, FASTING 184 MG/DL (83-110); POTASSIUM SERUM 3.8 MEQ/L (3.5-5.1); SODIUM LEVEL 137 MEQ/L (136-145)
== END ==
LOC: M SFHCPLAZ 09:11
PROVIDERS: ATTEND Family Medicine
DX: K57.32 Diverticulitis of large intestine without perforation or abscess without bleeding (principal); E03.9 Hypothyroidism, unspecified; E11.21 Type 2 diabetes mellitus with diabetic nephropathy; T36.8X5D Adverse effect of other systemic antibiotics, subsequent encounter
CPT/HCPCS: 36415; 80048; 83036; 84439; 84443; 85027; G0463

== ENCOUNTER → 2017-05-03 | Outpatient (REF) | payer MEDICARE, OTHER | LOC: M LAB REF 15:00 | PROVIDERS: ATTEND Ophthalmology | DX: L98.9 Disorder of the skin and subcutaneous tissue, unspecified (principal) ==

== ENCOUNTER → 2017-05-04 | Outpatient (CLI) | payer MEDICARE, OTHER ==
[2017-05-04 12:24] LABS: ALBUMIN 3.8 GM/DL (3.2-5.2); ALBUMIN/GLOBULIN RATIO 1.09 (1.00-1.93); BILIRUBIN,DIRECT 0.3 MG/DL (0.0-0.2); BILIRUBIN,TOTAL 1.5 MG/DL (0.2-1.0); TOTAL PROTEIN 7.3 GM/DL (6.4-8.2)
== END ==
LOC: M LAB 11:34
PROVIDERS: ATTEND Physician Assistant Medical
DX: R10.11 Right upper quadrant pain (principal)

== ENCOUNTER → 2017-05-06 | Outpatient (CLI) | payer MEDICARE, OTHER ==
--- NOTE | 2017-05-06 15:22 | REP ---
Right upper quadrant sonography: History: Right upper quadrant pain. Known gallstones. Comparison CT study April 10, 2017. Findings: Scanning through the right upper quadrant of the abdomen demonstrates multiple shadowing calculi within the poorly distended gallbladder. The gallbladder wall is difficult to measure because of lack of filling of the gallbladder. No pericholecystic fluid is seen. Common bile duct is at the upper range of normal measuring 0.7 cm. No focal hepatic lesion is seen. Limited images of the pancreas show no abnormality. There is no evidence of ascites or right renal abnormality. The right kidney measures 11.1 x 5.9 x 4.6 cm. Impression: Cholelithiasis. Signed by Nathan Santos MD 05/06/2017 03:27 P
== END ==
LOC: M RAD 06:25
PROVIDERS: ATTEND Physician Assistant Medical
DX: R10.11 Right upper quadrant pain (principal); K80.20 Calculus of gallbladder without cholecystitis without obstruction; R11.0 Nausea

== ENCOUNTER 2017-05-18 09:15 | Emergency (ER) | payer MEDICARE, OTHER ==
[~2017-05-18] VITALS: Ht 160 cm; Wt 95.5 kg
[~2017-05-18 09:15] MED LIST changes: -FLUT22IN INH; -LEVO100T5 PO; -LUBRIFRESH OU; -MULT1TAB10 PO; -NORC1TAB4 PO; -VITA200016 PO
[2017-05-18] MEDS ORDERED: MORPHINE 2 MG/ML 1ML SYRINGE IV PRN (10:00)
[2017-05-18] MEDS ORDERED: ONDANSETRON 4MG/2ML VIAL (J2405) IV PRN (10:00)
[2017-05-18] MEDS ORDERED: NS 500 ML IV ONE (10:00)
[2017-05-18 10:10] LABS: BASO % 0.4 % (0.0-1.0); EOS # 0.2 K/mm3 (0.0-0.50); EOS % 2.6 % (0.0-3.0); LARGE UNSTAINED CELL # 0.2 K/mm3 (0.0-0.4); LARGE UNSTAINED CELL % 2.3 % (0.0-4.0); LYMPH # 2.2 K/mm3 (1.5-4.5); LYMPH % 23.5 % (24.0-44.0); MEAN CORPUSCULAR HEMOGLOBIN 31.9 pg (27.0-33.0); MEAN CORPUSCULAR HGB CONC 35.2 g/dl (32.0-36.5); MEAN CORPUSCULAR VOLUME 90.5 fl (80.0-96.0); MONO # 0.5 K/mm3 (0.0-0.8); MONO % 4.8 % (0.0-5.0); NEUTROPHILS # 6.3 K/mm3 (1.8-7.7); NEUTROPHILS % 66.4 % (36.0-66.0); PLATELET COUNT, AUTOMATED 237 k/mm3 (150-450); RED CELL DISTRIBUTION WIDTH 11.7 % (11.5-14.5); WHITE BLOOD COUNT 9.5 K/mm3 (4.0-10.0)
[2017-05-18 10:44] LABS: ALBUMIN 3.8 GM/DL (3.2-5.2); BILIRUBIN,DIRECT 0.3 MG/DL (0.0-0.2); BILIRUBIN,TOTAL 1.6 MG/DL (0.2-1.0); CALCIUM LEVEL 9.7 MG/DL (8.8-10.2); CREATININE FOR GFR 0.96 MG/DL (0.55-1.02); GLOMERULAR FILTRATION RATE 59.8 (>39); POTASSIUM SERUM 3.7 MEQ/L (3.5-5.1); TOTAL PROTEIN 7.6 GM/DL (6.4-8.2)
[2017-05-18] MEDS ORDERED: GASTROGRAFIN SOLUTION 30ML (Q9963) As Ordered ONE (11:17)
[2017-05-18] MEDS ORDERED: GASTROGRAFIN SOLUTION 30ML PO ONE (11:30)
[2017-05-18] MEDS ORDERED: GASTROGRAFIN SOLUTION 30ML (Q9963) PO ONE (12:00)
[2017-05-18] MEDS ORDERED: ISOVUE-370 76% 100ML VIAL (Q9967) As Ordered ONE (12:17)
--- NOTE | 2017-05-18 13:17 | REP ---
Clinical: Acute lower abdominal pain. Technique: Axial contrast enhanced images from the lung bases to the pubic symphysis using oral and 100 ml Isovue 370 intravenous contrast material with coronal and sagittal re-formations. Comparison: 04/10/2017. Findings: Lung bases are clear. Mild cardiomegaly along with atherosclerotic changes to the coronary arteries and thoracic aorta noted. Moderate hiatal hernia identified at the gastroesophageal junction. Stable fatty infiltration to the liver and splenic calcifications appreciated. Pancreas, bilateral adrenal glands and kidneys remain stable including a 1.2 cm hyperdense lesion along the posterior aspect of the left kidney (image 79) which likely represents complex cyst although small neoplasm cannot be excluded. Cholelithiasis appreciated without CT evidence for acute cholecystitis. The enteric system demonstrates diffuse diverticulosis without evidence for acute diverticulitis. There is no evidence for bowel obstruction or acute inflammatory process. Pelvis demonstrates normal bladder and evidence for prior hysterectomy. No pelvic fluid or ascites. No free air. No significant adenopathy. Atherosclerotic changes of the aorta without aneurysm. Musculoskeletal structures demonstrate degenerative changes without focal osseous abnormality. Impression: 1. No obvious acute abdominopelvic pathology. 2. Cholelithiasis without evidence for acute cholecystitis. 3. Hepatic steatosis. 4. Diffuse diverticulosis without evidence for acute diverticulitis and no evidence for obstruction or acute inflammatory process involving the enteric system. 5. A 1.2 cm hyperdense lesion along the posterior aspect of the left kidney which was evaluated by ultrasound and felt to reflect complex cyst. 6. No free fluid, free air or adenopathy. Signed by Sukumar Barker MD 05/18/2017 01:08 P
[2017-05-18] MEDS ORDERED: NORC1TAB4 PO (13:29)
[2017-05-18 13:52] VITALS: BP 126/73
[2017-06-13] MEDS ORDERED: LUBRIFRESH OU (13:05)
[2017-06-13] MEDS ORDERED: LEVO100T5 PO (13:05)
[2017-06-13] MEDS ORDERED: FLUT22IN INH (13:05)
[2017-06-13] MEDS ORDERED: MULT1TAB10 PO (13:05)
[2017-06-13] MEDS ORDERED: VITA200016 PO (13:05)
== END 2017-05-18 13:53 | disposition home or self-care (01) ==
LOC: M ED 09:15
DX: K80.20 Calculus of gallbladder without cholecystitis without obstruction (principal); K57.90 Diverticulosis of intestine, part unspecified, without perforation or abscess without bleeding
CPT/HCPCS: 74177; 80048; 80076; 81001; 83690; 85025; 99283; Q9963; Q9967

== ENCOUNTER → 2017-05-31 | Outpatient (CLI) | payer MEDICARE, OTHER ==
[~2017-05-31] MED LIST changes: +FLUT22IN INH; +LEVO100T5 PO; +LUBRIFRESH OU; +MULT1TAB10 PO; +NORC1TAB4 PO; +VITA200016 PO
[2017-05-31 07:51] LABS: BASO # 0.1 10^3/uL (0.0-0.2); BASO % 0.7 % (0.0-1.0); EOS # 0.4 10^3/uL (0.0-0.50); EOS % 5.7 % (0.0-3.0); IMMATURE GRANULOCYTE % 0.4 % (0-0); LYMPH # 2.9 10^3/uL (1.5-4.5); LYMPH % 38.1 % (24.0-44.0); MEAN CORPUSCULAR HEMOGLOBIN 31.4 pg (27.0-33.0); MEAN CORPUSCULAR HGB CONC 34.6 g/dl (32.0-36.5); MEAN CORPUSCULAR VOLUME 90.8 fl (80.0-96.0); MONO # 0.6 10^3/uL (0.0-0.8); MONO % 7.9 % (0.0-5.0); NEUTROPHILS # 3.6 10^3/uL (1.8-7.7); NEUTROPHILS % 47.2 % (36.0-66.0); PLATELET COUNT, AUTOMATED 218 10^3/uL (150-450); RED CELL DISTRIBUTION WIDTH 11.9 % (11.5-14.5); WHITE BLOOD COUNT 7.6 10^3/uL (4.0-10.0)
[2017-05-31 08:25] LABS: ERYTHROCYTE SEDIMENTATION RATE 6 mm/hr (0-30)
[2017-05-31 08:33] LABS: ALBUMIN 3.4 GM/DL (3.2-5.2); ALKALINE PHOSPHATASE 93 U/L (45-117); ALT/SGPT 29 U/L (12-78); ANION GAP 9 MEQ/L (8-16); AST/SGOT 19 U/L (15-37); BILIRUBIN,TOTAL 1.1 MG/DL (0.2-1.0); BLOOD UREA NITROGEN 23 MG/DL (7-18); CALCIUM LEVEL 9.4 MG/DL (8.8-10.2); CARBON DIOXIDE LEVEL 27 MEQ/L (21-32); CHLORIDE LEVEL 106 MEQ/L (98-107); CREATININE FOR GFR 0.92 MG/DL (0.55-1.02); FREE T4 1.13 NG/DL (0.76-1.46); GLOMERULAR FILTRATION RATE > 60.0 (>39); GLUCOSE, FASTING 136 MG/DL (83-110); POTASSIUM SERUM 4.1 MEQ/L (3.5-5.1); SODIUM LEVEL 142 MEQ/L (136-145); TOTAL PROTEIN 6.5 GM/DL (6.4-8.2)
== END ==
LOC: M LAB 07:13
PROVIDERS: ATTEND Physician Assistant
DX: M54.5 Low back pain (principal); E11.21 Type 2 diabetes mellitus with diabetic nephropathy; E03.9 Hypothyroidism, unspecified; G89.29 Other chronic pain; R42 Dizziness and giddiness; K80.12 Calculus of gallbladder with acute and chronic cholecystitis without obstruction; Z79.82 Long term (current) use of aspirin; Z79.84 Long term (current) use of oral hypoglycemic drugs; Z79.899 Other long term (current) drug therapy

== ENCOUNTER → 2017-06-03 | Outpatient (CLI) | payer MEDICARE, OTHER ==
--- NOTE | 2017-06-06 07:36 | REP ---
MR LUMBAR SPINE WITHOUT CONTRAST: HISTORY: Back pain. Decreased signal intensity on T2-weighted images is present in the T12-L1 through L5-S1 intervertebral discs. The L2-3 through L5-S1 intervertebral discs are decreased in height. These findings are consistent with disc degeneration. There is no disc bulge or herniation at the L1-2 through L3-4 levels. There is hypertrophy of the posterior articulating facets at the L2-3 and L3-4 levels. The nerves exit the neural foramina without compression. A diffuse disc bulge is present at the L4-5 level. This abuts the thecal sac. There is hypertrophy of the posterior articulating facets. The L4 nerves exit the neural foramina without compression. A diffuse disc bulge is present at the L5-S1 level. There is no thecal sac compression. There is hypertrophy of the posterior articulating facets. The L5 nerves exit the neural foramina without compression. The conus medullaris is normal in appearance, terminating at the level of the T12-L1 intervertebral disc. Normal signal intensity is present in the lumbar vertebral bodies. IMPRESSION: 1. Diffuse disc bulge at the L4-5 level. This abuts the thecal sac. 2. Diffuse disc bulge at the L5-S1 level without thecal sac or nerve compression. Signed by Porfirio Ballard MD 06/06/2017 09:02 A
== END ==
LOC: M RAD 18:19
PROVIDERS: ATTEND Physician Assistant
DX: M54.5 Low back pain (principal)

== ENCOUNTER → 2017-06-13 | Outpatient (CLI) | payer MEDICARE, OTHER ==
--- NOTE | 2017-06-13 09:37 | REP ---
Gastric emptying nuclear scintigraphy: History: Nausea, early satiety. Technique: 1.06 mCi of technetium-99m sulfur colloid was ingested in two scrambled eggs and 6 ounces of water and sequential anterior and posterior images are acquired for an 89-minute imaging observation period. Regions of interest are drawn around the stomach to plot gastric emptying. Scintigraphic findings: Expected T1/2 is 90 minutes. 51 % emptying is observed in this patient during the 89-minute imaging observation period, for a calculated T1/2 in this patient of 87 minutes. Impression: Normal gastric emptying. Signed by Nathan Santos MD 06/13/2017 09:28 A
== END ==
LOC: M RAD 07:19
PROVIDERS: ATTEND Physician Assistant Medical
DX: R11.0 Nausea (principal); R68.81 Early satiety
CPT/HCPCS: 78264; A9541

== ENCOUNTER 2017-06-17 06:32 | Outpatient (CLI) | payer MEDICARE, OTHER ==
[~2017-06-17] VITALS: Ht 165.1 cm; Wt 94.3 kg
[2017-06-17] MEDS ORDERED: NS 1,000 ML IV ONE (07:30)
[2017-06-17] MEDS ORDERED: PROPOFOL 200 MG/20 ML VIAL As Ordered ONE (07:45)
[2017-06-17] MEDS ORDERED: LIDOCAINE 2% INJ 100 MG/5 ML SDV (FOR ANES.) As Ordered ONE (07:45)
--- NOTE | 2017-06-17 07:52 | ROOR ---
Patient Name: Analilia Ramos Procedure Date: 06/17/2017 7:33 AM Date of : 1940 Age: 76 Room: [facility] Gender: Female Note Status: Finalized Procedure: Upper GI endoscopy Indications: Abdominal pain in the right upper quadrant, Oropharyngeal phase dysphagia, Nausea Providers: Jacobo CARVALHO MD Referring MD: Kris Polk MD Requesting Provider: Medicines: Monitored Anesthesia Care Complications: No immediate complications. Procedure: Pre-Anesthesia Assessment: - The heart rate, respiratory rate, oxygen saturations, blood pressure, adequacy of pulmonary ventilation, and response to care were monitored throughout the procedure. The Endoscope was introduced through the mouth, and advanced to the second part of duodenum. The upper GI endoscopy was accomplished without difficulty. The patient tolerated the procedure well. Findings: A web was found at the cricopharyngeus. The scope was withdrawn. Dilation was performed with a Cox dilator with no resistance at 54 Fr. The dilation site was examined and showed complete resolution of luminal narrowing. A widely patent Schatzki ring (acquired) was found at the gastroesophageal junction. A TTS dilator was passed through the scope. Dilation with an 18-19-20 mm balloon dilator was performed to 20 mm. The dilation site was examined and showed no change. A medium-sized hiatal hernia was present. The exam of the stomach was otherwise normal. The examined duodenum was normal. Impression: - Web at the cricopharyngeus. Dilated. - Widely patent Schatzki ring. Dilated. - Medium-sized hiatal hernia. - Normal examined duodenum. - No specimens collected. Recommendation: - Observe patient's clinical course. - Continue present medications. Jacobo Carvalho MD Jacobo CARVALHO MD 06/17/2017 7:51:39 AM This report has been signed electronically. Number of Addenda: 0 Note Initiated On: 06/17/2017 7:33 AM Estimated Blood Loss: Estimated blood loss: none.
[2017-06-17 08:10] VITALS: BP 124/58
== END 2017-06-17 08:33 | disposition home or self-care (01) ==
LOC: M OPP 06:32
PROVIDERS: ATTEND Internal Medicine Gastroenterology
DX: R10.11 Right upper quadrant pain (principal); R13.12 Dysphagia, oropharyngeal phase; R11.0 Nausea; Q39.4 Esophageal web; K22.2 Esophageal obstruction; K44.9 Diaphragmatic hernia without obstruction or gangrene; I10 Essential (primary) hypertension; E78.5 Hyperlipidemia, unspecified; Z86.79 Personal history of other diseases of the circulatory system; E11.9 Type 2 diabetes mellitus without complications; E03.9 Hypothyroidism, unspecified; K21.9 Gastro-esophageal reflux disease without esophagitis; K80.20 Calculus of gallbladder without cholecystitis without obstruction; K57.32 Diverticulitis of large intestine without perforation or abscess without bleeding; R12 Heartburn; R06.02 Shortness of breath; M54.2 Cervicalgia; M51.9 Unspecified thoracic, thoracolumbar and lumbosacral intervertebral disc disorder; M81.0 Age-related osteoporosis without current pathological fracture; I63.9 Cerebral infarction, unspecified; G24.9 Dystonia, unspecified; Z86.73 Personal history of transient ischemic attack (TIA), and cerebral infarction without residual deficits; Z78.0 Asymptomatic menopausal state; J45.909 Unspecified asthma, uncomplicated; G47.30 Sleep apnea, unspecified; R06.83 Snoring; Z88.8 Allergy status to other drugs, medicaments and biological substances; Z88.1 Allergy status to other antibiotic agents; Z88.0 Allergy status to penicillin; Z91.018 Allergy to other foods; Z79.82 Long term (current) use of aspirin; Z79.899 Other long term (current) drug therapy

== ENCOUNTER 2017-06-18 19:32 | Emergency (ER) | payer MEDICARE, OTHER ==
[~2017-06-18] VITALS: Ht 160 cm; Wt 95.5 kg
[2017-06-18 20:28] LABS: BASO # 0.1 10^3/uL (0.0-0.2); BASO % 0.7 % (0.0-1.0); EOS # 0.5 10^3/uL (0.0-0.50); EOS % 4.9 % (0.0-3.0); IMMATURE GRANULOCYTE % 0.3 % (0-0); LYMPH # 3.2 10^3/uL (1.5-4.5); LYMPH % 34.5 % (24.0-44.0); MEAN CORPUSCULAR HEMOGLOBIN 31.3 pg (27.0-33.0); MEAN CORPUSCULAR HGB CONC 34.9 g/dl (32.0-36.5); MEAN CORPUSCULAR VOLUME 89.7 fl (80.0-96.0); MONO # 0.7 10^3/uL (0.0-0.8); NEUTROPHILS # 4.7 10^3/uL (1.8-7.7); NEUTROPHILS % 51.6 % (36.0-66.0); PLATELET COUNT, AUTOMATED 238 10^3/uL (150-450); RED CELL DISTRIBUTION WIDTH 11.9 % (11.5-14.5); WHITE BLOOD COUNT 9.1 10^3/uL (4.0-10.0)
[2017-06-18 20:40] LABS: INR 0.83
[2017-06-18 20:52] LABS: ANION GAP 8 MEQ/L (8-16); BLOOD UREA NITROGEN 19 MG/DL (7-18); CALCIUM LEVEL 9.8 MG/DL (8.8-10.2); CARBON DIOXIDE LEVEL 28 MEQ/L (21-32); CHLORIDE LEVEL 108 MEQ/L (98-107); CREATININE FOR GFR 0.99 MG/DL (0.55-1.02); GLOMERULAR FILTRATION RATE 57.8 (>39); GLUCOSE, FASTING 118 MG/DL (83-110); POTASSIUM SERUM 3.8 MEQ/L (3.5-5.1); SODIUM LEVEL 144 MEQ/L (136-145)
[2017-06-18] MEDS ORDERED: ISOVUE-370 76% 100ML VIAL (Q9967) As Ordered ONE (20:56)
--- NOTE | 2017-06-18 21:40 | REPUSA ---
CT angiogram of the chest Clinical statement: Chest pain, perforation. Technique: Multiple axial CT images were obtained from the thoracic inlet through the upper abdomen a fter a bolus administration of nonionic intravenous contrast. Coronal and sagittal reconstructions we re also obtained. No comparison is available. Findings: The pulmonary arteries are well-opacified with contrast, with no intraluminal filling defec ts to suggest embolism. The thoracic aorta is unremarkable. Thyroid gland is within normal limits. Th ere is no thoracic lymphadenopathy. There are no pericardial or pleural effusions. The lungs are courtney r. Limited imaging of the upper abdomen demonstrates several gallstones within the gallbladder. No pe richolecystic inflammatory changes are seen. There is a moderate sized hiatal hernia. There are no s uspicious osseous lesions. Impression: No evidence of pulmonary embolism. No acute intrapulmonary disease. Moderate sized hiatal hernia. Cholelithiasis.
--- NOTE | 2017-06-18 21:40 | REPUSA ---
CT of the soft tissue of the neck with contrast. Clinical history: possible perforation. Technique: Multiple axial CT images were obtained from the base of the skull to the upper thorax afte r ministration of non-ionic intravenous contrast. Coronal and sagittal reconstructions were also obta ined. Findings: The visualized paranasal sinuses are clear. The pterygopalatine fossa, pterygoid plates and pterygoid muscles are unremarkable. The mucosa of the naso- and oropharynx appears unremarkable. The hypopharynx and larynx show no pathology. The visualized osseous structures are intact. Mild degener ative disc disease is seen at C5/C6 and C6/C7. The airway is patent. No focal mass is appreciated. Th ere is no evidence of lymphadenopathy. The thyroid gland appears unremarkable. The superficial soft t issues are unremarkable. Impression: Unremarkable CT examination of the soft tissues of the neck. No acute traumatic injury ap preciated.
[2017-06-18] MEDS ORDERED: GI COCKTAIL 50ML BTL(HYOSCYAMINE/MAALOX/LIDOCAINE VISCOUS)(1:3:1) PO ONE (21:45)
[2017-06-18 23:12] LABS: ABG BASE EXCESS 0.4 (-2.0-2.0); ABG HCO3 23.5 MEQ/L (22.0-26.0); ABG PARTIAL PRESSURE CO2 33.6 mmHg (35.0-45.0); ABG PARTIAL PRESSURE O2 66.2 mmHg (75.0-100.0); ABG STANDARD HCO3 24.7 MEQ/L (22.0-26.0); ABG TOTAL CO2 24.5 MEQ/L (23.0-31.0); ABG pH (ARTERIAL) 7.462 UNITS (7.350-7.450)
[2017-06-18 23:44] VITALS: BP 131/90
--- NOTE | 2017-06-19 11:30 | REP ---
Portable chest x-ray: Sitting AP view. History: Chest pain Comparison study April 14, 2017. Findings: EKG electrodes are seen. The lungs are symmetrically aerated and clear. Cardiomediastinal silhouette is unremarkable. No significant bony abnormality is seen. Impression: No active disease. Signed by Nathan Santos MD 06/19/2017 09:39 A
--- NOTE | 2017-06-20 07:55 | ECGEPIP ---
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
== END 2017-06-19 00:15 | disposition home or self-care (01) ==
LOC: M ED 19:32
DX: K21.0 Gastro-esophageal reflux disease with esophagitis (principal); R06.02 Shortness of breath; E11.9 Type 2 diabetes mellitus without complications; I10 Essential (primary) hypertension; J44.9 Chronic obstructive pulmonary disease, unspecified; E78.5 Hyperlipidemia, unspecified; E03.9 Hypothyroidism, unspecified; Z86.73 Personal history of transient ischemic attack (TIA), and cerebral infarction without residual deficits; Z79.899 Other long term (current) drug therapy; Z79.82 Long term (current) use of aspirin; Z79.84 Long term (current) use of oral hypoglycemic drugs; Z79.51 Long term (current) use of inhaled steroids; Z88.0 Allergy status to penicillin; Z88.1 Allergy status to other antibiotic agents; Z88.8 Allergy status to other drugs, medicaments and biological substances; Z91.018 Allergy to other foods
CPT/HCPCS: 36415; 70491; 71010; 71260; 80048; 82550; 82553; 82803; 83880; 84484; 85025; 85610; 93005; 99285; Q9967

== ENCOUNTER → 2017-08-31 | Outpatient (CLI) | payer MEDICARE, OTHER ==
[2017-08-31 09:47] LABS: ANION GAP 5 MEQ/L (8-16); BLOOD UREA NITROGEN 21 MG/DL (7-18); CALCIUM LEVEL 9.3 MG/DL (8.8-10.2); CARBON DIOXIDE LEVEL 30 MEQ/L (21-32); CHLORIDE LEVEL 108 MEQ/L (98-107); CREATININE FOR GFR 0.99 MG/DL (0.55-1.02); FREE T4 0.97 NG/DL (0.76-1.46); GLOMERULAR FILTRATION RATE 57.8 (>39); GLUCOSE, FASTING 140 MG/DL (83-110); POTASSIUM SERUM 4.4 MEQ/L (3.5-5.1); SODIUM LEVEL 143 MEQ/L (136-145)
[2017-08-31 10:01] LABS: ESTIMATED AVERAGE GLUCOSE 137 MG/DL (60-110)
== END ==
LOC: M LAB 08:47
DX: E03.9 Hypothyroidism, unspecified (principal); R73.01 Impaired fasting glucose
CPT/HCPCS: 84443

== ENCOUNTER → 2017-10-21 | Outpatient (CLI) | payer MEDICARE, OTHER | LOC: M WHC 13:17 | DX: Z12.31 Encounter for screening mammogram for malignant neoplasm of breast (principal); Z78.0 Asymptomatic menopausal state; Z92.89 Personal history of other medical treatment | CPT/HCPCS: 77067 ==

== ENCOUNTER → 2017-12-01 | Outpatient (REF) | payer MEDICARE, OTHER ==
[2017-12-01 12:13] LABS: BASO % 0.5 % (0.0-1.0); EOS # 0.4 10^3/uL (0.0-0.50); EOS % 5.3 % (0.0-3.0); HEMATOCRIT 43.5 % (36.0-47.0); HEMOGLOBIN 15.1 g/dl (12.0-15.5); IMMATURE GRANULOCYTE % 0.4 % (0-3.0); LYMPH % 37.9 % (24.0-44.0); MEAN CORPUSCULAR HGB CONC 34.7 g/dl (32.0-36.5); MEAN CORPUSCULAR VOLUME 89.3 fl (80.0-96.0); MONO # 0.7 10^3/uL (0.0-0.8); MONO % 9.2 % (0.0-5.0); NEUTROPHILS # 3.6 10^3/uL (1.8-7.7); NEUTROPHILS % 46.7 % (36.0-66.0); PLATELET COUNT, AUTOMATED 233 10^3/uL (150-450); RED BLOOD COUNT 4.87 10^6/uL (4.00-5.40); RED CELL DISTRIBUTION WIDTH 11.9 % (11.5-14.5); WHITE BLOOD COUNT 7.8 10^3/uL (4.0-10.0)
[2017-12-01 12:45] LABS: C REACTIVE PROTEIN QUANTITATIV 0.47 MG/DL (0.00-0.30)
[2017-12-01 12:45] LABS: RHEUMATOID FACTOR QUANT < 10.0 IU/ML (<15.0)
[2017-12-01 12:51] LABS: ERYTHROCYTE SEDIMENTATION RATE 4 mm/hr (0-30)
[2017-12-02 14:16] LABS: ANTINUCLEAR ANTIBODIES DIRECT Negative (Negative); Lyme Disease IgG/IgM Antibodie <0.91 ISR (0.00-0.90); Lyme Disease IgM Ab Quantitati <0.80 index (0.00-0.79)
== END ==
LOC: M LABDRAW1 11:36
DX: M18.0 Bilateral primary osteoarthritis of first carpometacarpal joints (principal)
CPT/HCPCS: 86140

== ENCOUNTER → 2018-01-03 | Outpatient (CLI) | payer MEDICARE, OTHER | LOC: M WUC 12:27 | DX: S60.022A Contusion of left index finger without damage to nail, initial encounter (principal); W18.30XA Fall on same level, unspecified, initial encounter; Y92.009 Unspecified place in unspecified non-institutional (private) residence as the place of occurrence of the external cause | CPT/HCPCS: 73140 ==

== ENCOUNTER → 2018-01-18 | Outpatient (CLI) | payer MEDICARE, OTHER | LOC: M ADAMS 15:08 | DX: M77.32 Calcaneal spur, left foot (principal) | CPT/HCPCS: 73610 ==

== ENCOUNTER → 2018-03-20 | Outpatient (CLI) | payer MEDICARE, OTHER ==
[2018-03-20 15:26] LABS: ALBUMIN 3.5 GM/DL (3.2-5.2); ALBUMIN/GLOBULIN RATIO 1.09 (1.00-1.93); ALKALINE PHOSPHATASE 106 U/L (45-117); ALT/SGPT 29 U/L (12-78); ANION GAP 10 MEQ/L (8-16); AST/SGOT 19 U/L (7-37); BILIRUBIN,TOTAL 1.2 MG/DL (0.2-1.0); BLOOD UREA NITROGEN 17 MG/DL (7-18); CALCIUM LEVEL 9.3 MG/DL (8.8-10.2); CARBON DIOXIDE LEVEL 24 MEQ/L (21-32); CHLORIDE LEVEL 110 MEQ/L (98-107); CREATININE FOR GFR 1.05 MG/DL (0.55-1.30); GLOMERULAR FILTRATION RATE 53.8 (>39); GLUCOSE, FASTING 174 MG/DL (70-100); POTASSIUM SERUM 4.1 MEQ/L (3.5-5.1); SODIUM LEVEL 144 MEQ/L (136-145); TOTAL PROTEIN 6.7 GM/DL (6.4-8.2)
[2018-03-20 17:21] LABS: ESTIMATED AVERAGE GLUCOSE 146 MG/DL (60-110); HEMOGLOBIN A1c 6.7 %
[2018-03-20 18:12] LABS: FREE T4 > 8.00 NG/DL (0.76-1.46)
== END ==
LOC: M WUC 09:06
DX: E11.21 Type 2 diabetes mellitus with diabetic nephropathy (principal); E03.9 Hypothyroidism, unspecified; I11.9 Hypertensive heart disease without heart failure
CPT/HCPCS: 84443

== ENCOUNTER 2018-05-21 17:59 | Emergency (ER) | payer MEDICARE, OTHER ==
[2018-05-21] MEDS ORDERED: METOCLOPRAMIDE INJ 10MG/2ML VIAL (J2765) IV (18:45)
[2018-05-21] MEDS: diphenhydrAMINE INJ 50MG/ML VIAL (J1200) IV (19:13)
[2018-05-21 19:14] LABS: HEMATOCRIT 46.7 % (36.0-47.0); HEMOGLOBIN 16.2 g/dl (12.0-15.5); MEAN CORPUSCULAR HEMOGLOBIN 31.3 pg (27.0-33.0); MEAN CORPUSCULAR HGB CONC 34.7 g/dl (32.0-36.5); MEAN CORPUSCULAR VOLUME 90.3 fl (80.0-96.0); PLATELET COUNT, AUTOMATED 243 10^3/uL (150-450); RED BLOOD COUNT 5.17 10^6/uL (4.00-5.40); RED CELL DISTRIBUTION WIDTH 11.7 % (11.5-14.5); WHITE BLOOD COUNT 9.5 10^3/uL (4.0-10.0)
[2018-05-21 19:27] LABS: ANION GAP 12 MEQ/L (8-16); BLOOD UREA NITROGEN 20 MG/DL (7-18); CALCIUM LEVEL 9.9 MG/DL (8.8-10.2); CARBON DIOXIDE LEVEL 26 MEQ/L (21-32); CHLORIDE LEVEL 105 MEQ/L (98-107); GLUCOSE, FASTING 122 MG/DL (70-100); INR 0.81; POTASSIUM SERUM 4.4 MEQ/L (3.5-5.1); PROTHROMBIN TIME 11.2 SECONDS (12.1-14.4); SODIUM LEVEL 143 MEQ/L (136-145)
[2018-05-21] MEDS: KETOROLAC 30 MG/ML VIAL (J1885) IV (19:52)
== END 2018-05-21 20:36 | disposition home or self-care (01) ==
LOC: M ED 17:59
DX: G44.209 Tension-type headache, unspecified, not intractable (principal); I51.9 Heart disease, unspecified; E11.9 Type 2 diabetes mellitus without complications; E07.9 Disorder of thyroid, unspecified; J45.909 Unspecified asthma, uncomplicated; Z86.73 Personal history of transient ischemic attack (TIA), and cerebral infarction without residual deficits; Z79.82 Long term (current) use of aspirin; Z79.84 Long term (current) use of oral hypoglycemic drugs; Z79.899 Other long term (current) drug therapy; Z88.1 Allergy status to other antibiotic agents; Z88.0 Allergy status to penicillin; Z88.8 Allergy status to other drugs, medicaments and biological substances; Z91.018 Allergy to other foods
CPT/HCPCS: J1200

== ENCOUNTER → 2018-06-07 | Outpatient (REF) | payer MEDICARE, OTHER ==
[2018-06-07 18:52] LABS: HEMATOCRIT 46.4 % (36.0-47.0); HEMOGLOBIN 15.5 g/dl (12.0-15.5); MEAN CORPUSCULAR HEMOGLOBIN 31.5 pg (27.0-33.0); MEAN CORPUSCULAR HGB CONC 33.4 g/dl (32.0-36.5); MEAN CORPUSCULAR VOLUME 94.3 fl (80.0-96.0); PLATELET COUNT, AUTOMATED 225 10^3/uL (150-450); RED BLOOD COUNT 4.92 10^6/uL (4.00-5.40)
[2018-06-07 18:58] LABS: ANION GAP 9 MEQ/L (8-16); BLOOD UREA NITROGEN 18 MG/DL (7-18); CARBON DIOXIDE LEVEL 29 MEQ/L (21-32); CHLORIDE LEVEL 105 MEQ/L (98-107); CREATININE FOR GFR 1.08 MG/DL (0.55-1.30); GLOMERULAR FILTRATION RATE 52.1 (>39); GLUCOSE, FASTING 151 MG/DL (70-100); SODIUM LEVEL 143 MEQ/L (136-145)
[2018-06-07 20:40] LABS: ERYTHROCYTE SEDIMENTATION RATE 3 mm/hr (0-30)
== END ==
LOC: M SFHCADAM 14:16
DX: M54.2 Cervicalgia (principal)
CPT/HCPCS: 80048

== ENCOUNTER → 2018-07-06 | Outpatient (REF) | payer MEDICARE, OTHER ==
[2018-07-06 14:26] LABS: APPEARANCE, URINE CLEAR (CLEAR); BACTERIA, URINE AUTO NEGATIVE (NEGATIVE); BILIRUBIN, URINE AUTO NEGATIVE (NEGATIVE); BLOOD, URINE BLOOD NEGATIVE (NEGATIVE); COLOR, URINE YELLOW (YELLOW); GLUCOSE, URINE (UA) AUTO 1+ mg/dL (NEGATIVE); KETONE, URINE AUTO NEGATIVE (NEGATIVE); LEUKOCYTE ESTERASE, URINE AUTO TRACE (NEGATIVE); NITRITE, URINE AUTO NEGATIVE (NEGATIVE); PROTEIN, URINE AUTO NEGATIVE (NEGATIVE); RBC, URINE AUTO 0 /HPF (0-3); SPECIFIC GRAVITY URINE AUTO 1.006 (1.002-1.035); SQUAMOUS EPITHELIAL CELL UR AU 0 /HPF (0-6); UROBILINOGEN, URINE AUTO 0.2 mg/dL (0.0-2.0); WBC, URINE AUTO 3 /HPF (0-3)
== END ==
LOC: M LAB REF 13:23
DX: N39.0 Urinary tract infection, site not specified (principal)
CPT/HCPCS: 81001

== ENCOUNTER → 2018-10-31 | Outpatient (CLI) | payer MEDICARE, OTHER ==
[~2018-10-31] MED LIST changes: -AMLO5TAB2 PO; +AMLO5TAB6 PO; +GABA-1171 PO; +METR-201 PO; -METR1TAB66 PO; +NAPR-50 PO; -PANT40TA2 PO; +PANT40TA3 PO; +SPIR-10 PO; -SPIR25TA2 PO
--- NOTE | 2018-10-31 08:56 | REP ---
Clinical: Palpable mass. Technique: Real time sanchez scale and color evaluation using linear high frequency and curved array transducers. Findings: Directed ultrasound examination at the site of palpable mass in the subcutaneous tissues overlying the right upper quadrant demonstrates an ovoid 17 x 5 x 25 mm lesion compatible with small lipoma. No further abnormality appreciated. Impression: Palpable mass may represent small benign appearing lipoma in the subcutaneous tissue. Electronically Signed by Sukumar Barker MD 10/31/2018 08:48 A
== END ==
LOC: M RAD 06:00
PROVIDERS: ATTEND Dermatology
DX: D49.2 Neoplasm of unspecified behavior of bone, soft tissue, and skin (principal)

== ENCOUNTER → 2018-12-13 | Outpatient (REF) | payer MEDICARE, OTHER ==
[~2018-12-13] MED LIST changes: +AKWA1OIN OU; +ARTIDRO OU; +ASPI1TAB22 PO; +CHLO125TA PO; -CRES20TA PO; +CRES20TA2 PO; -EQ A1TAB12 PO; +FLUT50SP12; -FLUTISP; +MAGN1CAP PO; +MAGN500C2 PO; -METR-201 PO; +METR-265 PO; +MULT-77 PO; -NAPR-50 PO; +NAPR-837 PO; -NORC1TAB4 PO; +NORC1TAB7 PO; +PRESCAP PO; +PROAAER10 INH
[2018-12-13 13:28] LABS: APPEARANCE, URINE CLEAR (CLEAR); BACTERIA, URINE AUTO NEGATIVE (NEGATIVE); BILIRUBIN, URINE AUTO NEGATIVE (NEGATIVE); BLOOD, URINE BLOOD NEGATIVE (NEGATIVE); COLOR, URINE YELLOW (YELLOW); GLUCOSE, URINE (UA) AUTO NEGATIVE (NEGATIVE); KETONE, URINE AUTO NEGATIVE (NEGATIVE); LEUKOCYTE ESTERASE, URINE AUTO TRACE (NEGATIVE); MUCUS, URINE SMALL (NEGATIVE); NITRITE, URINE AUTO NEGATIVE (NEGATIVE); PROTEIN, URINE AUTO NEGATIVE (NEGATIVE); RBC, URINE AUTO 0 /HPF (0-3); SPECIFIC GRAVITY URINE AUTO 1.009 (1.002-1.035); SQUAMOUS EPITHELIAL CELL UR AU 0 /HPF (0-6); UROBILINOGEN, URINE AUTO 0.2 mg/dL (0.0-2.0); WBC, URINE AUTO 2 /HPF (0-3)
== END ==
LOC: M LAB REF 12:48
PROVIDERS: ATTEND Physician Assistant
DX: N39.0 Urinary tract infection, site not specified (principal)

== ENCOUNTER 2018-12-22 07:37 | Day surgery (SDC) | payer MEDICARE, OTHER ==
[~2018-12-22] VITALS: Ht 165.1 cm; Wt 98.9 kg
[2018-12-22] MEDS ORDERED: NS 1,000 ML IV SCH (08:00)
[2018-12-22] MEDS ORDERED: PROPOFOL 500 MG/50 ML VIAL As Ordered ONE (09:55)
[2018-12-22] MEDS ORDERED: LIDOCAINE 2% INJ 100 MG/5 ML SDV (FOR ANES.) As Ordered ONE (09:55)
--- NOTE | 2018-12-22 10:01 | ROOR ---
Patient Name: Analilia Ramos Procedure Date: 12/22/2018 9:29 AM Date of : 1940 Age: 78 Room: [facility] Gender: Female Note Status: Finalized Procedure: Colonoscopy Indications: High risk colon cancer surveillance: Personal history of colonic polyps, Last colonoscopy: November 2015 Providers: Jacobo CARVALHO MD Referring MD: MATIAS Mooney Requesting Provider: Medicines: Monitored Anesthesia Care Complications: No immediate complications. Procedure: Pre-Anesthesia Assessment: - The heart rate, respiratory rate, oxygen saturations, blood pressure, adequacy of pulmonary ventilation, and response to care were monitored throughout the procedure. The Colonoscope was introduced through the anus and advanced to the cecum, identified by appendiceal orifice and ileocecal valve. The colonoscopy was somewhat difficult due to inadequate bowel prep. Successful completion of the procedure was aided by lavage. The patient tolerated the procedure well. The quality of the bowel preparation was fair. Findings: The perianal and digital rectal examinations were normal. A 4 mm polyp was found in the hepatic flexure. The polyp was sessile. The polyp was removed with a jumbo cold forceps. Resection and retrieval were complete. Multiple small and large-mouthed diverticula were found in the sigmoid colon. There was evidence of diverticular spasm. The exam was otherwise without abnormality. Impression: - Preparation of the colon was suboptimal/fair after extensive lavage. - One 4 mm polyp at the hepatic flexure, removed with a jumbo cold forceps. Resected and retrieved. - Moderate diverticulosis in the sigmoid colon. There was evidence of diverticular spasm. - The examination was otherwise normal. Recommendation: - Repeat colonoscopy in 2 years because the bowel preparation was suboptimal. - (-Clenpik Prep was not adequate-You will need additional preparation for your next colonoscopy) Jacobo Carvalho MD Jacobo CARVALHO MD 12/22/2018 10:00:27 AM Electronically signed by Jacobo CARVALHO MD Number of Addenda: 0 Note Initiated On: 12/22/2018 9:29 AM Estimated Blood Loss: Estimated blood loss: none.
[2018-12-22 10:15] VITALS: BP 140/64
== END 2018-12-22 10:28 | disposition home or self-care (01) ==
LOC: M OPP 07:37
PROVIDERS: ATTEND Internal Medicine Gastroenterology
DX: Z12.11 Encounter for screening for malignant neoplasm of colon (principal); Z86.010 Personal history of colon polyps; D12.3 Benign neoplasm of transverse colon; K57.30 Diverticulosis of large intestine without perforation or abscess without bleeding; G47.30 Sleep apnea, unspecified; Z79.899 Other long term (current) drug therapy; Z88.0 Allergy status to penicillin; Z88.8 Allergy status to other drugs, medicaments and biological substances; Z91.018 Allergy to other foods

== ENCOUNTER → 2019-01-03 | Outpatient (REF) | payer MEDICARE, OTHER ==
[~2019-01-03] MED LIST changes: +CALC1TAB19 PO; +IBUP200T45 PO; +MV-M1TAB13 PO
== END ==
LOC: M LAB REF 17:40
PROVIDERS: ATTEND Surgery
DX: D17.1 Benign lipomatous neoplasm of skin and subcutaneous tissue of trunk (principal)

== ENCOUNTER 2019-01-07 12:53 | Observation (INO) | payer MEDICARE, OTHER ==
[~2019-01-07] VITALS: Ht 160 cm; Wt 103.8 kg
[~2019-01-07 12:53] MED LIST changes: -CALC1TAB19 PO; -IBUP200T45 PO; -MV-M1TAB13 PO
[2019-01-07 13:33] LABS: BASO # 0.1 10^3/uL (0.0-0.2); BASO % 0.9 % (0.0-1.0); EOS # 0.3 10^3/uL (0.0-0.50); EOS % 4.6 % (0.0-3.0); HEMATOCRIT 44.3 % (36.0-47.0); HEMOGLOBIN 14.9 g/dl (12.0-15.5); LYMPH # 2.6 10^3/uL (1.5-4.5); LYMPH % 37.2 % (24.0-44.0); MEAN CORPUSCULAR HGB CONC 33.6 g/dl (32.0-36.5); MEAN CORPUSCULAR VOLUME 92.1 fl (80.0-96.0); MONO # 0.6 10^3/uL (0.0-0.8); MONO % 8.6 % (0.0-5.0); NEUTROPHILS # 3.3 10^3/uL (1.8-7.7); NEUTROPHILS % 48.4 % (36.0-66.0); PLATELET COUNT, AUTOMATED 215 10^3/uL (150-450); RED BLOOD COUNT 4.81 10^6/uL (4.00-5.40); WHITE BLOOD COUNT 6.9 10^3/uL (4.0-10.0)
[2019-01-07 14:06] LABS: BLOOD UREA NITROGEN 13 MG/DL (7-18); CALCIUM LEVEL 9.4 MG/DL (8.8-10.2); CARBON DIOXIDE LEVEL 27 MEQ/L (21-32); CHLORIDE LEVEL 111 MEQ/L (98-107); CPK CREATINE PHOSPHOKINASE 50 U/L (26-192); CREATININE FOR GFR 0.93 MG/DL (0.55-1.30); GLOMERULAR FILTRATION RATE > 60.0 (>32); GLUCOSE, FASTING 125 MG/DL (70-100); NT-PRO BNP 53 PG/ML (<450); POTASSIUM SERUM 4.2 MEQ/L (3.5-5.1); SODIUM LEVEL 144 MEQ/L (136-145); TROPONIN I < 0.02 NG/ML (< 0.10)
--- NOTE | 2019-01-07 14:14 | REP ---
PORTABLE CHEST: AP portable view of the chest is performed and compared to a prior study of 06/18/2017. There is stable cardiomegaly. Mediastinal silhouette is unchanged. No new infiltrate is seen. There is mild elevation of the right hemidiaphragm. Mild chronic interstitial prominence in the lung bases is stable. IMPRESSION: Cardiomegaly. No evidence of acute pulmonary disease. Electronically Signed by Jd Mas MD 01/07/2019 03:01 P
[2019-01-07] MEDS ORDERED: cefTRIAXone SOD 2 GM in D5W MINI-BAG PLUS 50 ML IV ONE (14:30)
[2019-01-07] MEDS ORDERED: IBUP200T45 PO (15:09)
[2019-01-07] MEDS ORDERED: CALC1TAB19 PO (15:09)
[2019-01-07] MEDS ORDERED: MV-M1TAB13 PO (15:09)
[2019-01-07 17:15] LABS: MAGNESIUM LEVEL 1.4 MG/DL (1.8-2.4)
[2019-01-07 18:00] VITALS: BP 130/80
[2019-01-07] MEDS ORDERED: ALBUTEROL 90 MCG/ACT 8GM HFA INHALER INH PRN (18:30)
[2019-01-07] MEDS ORDERED: ALBUTEROL SULFATE 2.5 MG/0.5 ML INH NEB SOLN INH PRN (18:30)
[2019-01-07] MEDS ORDERED: LACRILUBE (AKWA TEARS) OPHTH OINT 3.5 GM OU ONE (18:30)
[2019-01-07] MEDS ORDERED: IBUPROFEN 400 MG TAB PO PRN (18:30)
[2019-01-07 18:58] LABS: CPK CREATINE PHOSPHOKINASE 50 U/L (26-192); TROPONIN I < 0.02 NG/ML (< 0.10)
[2019-01-07] MEDS ORDERED: GLUCAGON FOR INJ 1 MG VIAL (J1610) SC PRN (19:00)
[2019-01-07] MEDS ORDERED: DEXTROSE 50% 50 ML SYRINGE IV PRN (19:00)
[2019-01-07] MEDS ORDERED: GLUCOSE 4 GM CHEW TABLET PO PRN (19:00)
[2019-01-07 20:00] VITALS: BP 129/84
[2019-01-07] MEDS: HumaLOG INSULIN (NovoLOG) PER UNIT SC SCH (20:27)
[2019-01-07] MEDS: ASPIRIN 325 MG TAB PO SCH (20:39)
[2019-01-07] MEDS: ROSUVASTATIN 10 MG TAB (CRESTOR) PO SCH (20:39)
[2019-01-07] MEDS: MAG SULF 1GM/100ML (MAG RUN) 1 GM in APPROPRIATE DILUENT 1 EA IV SCH ×2 (20:39→21:00)
[2019-01-07] MEDS: BRIMONIDINE 0.15% OPHTH SOLN 5 ML OD SCH (20:51)
[2019-01-07] MEDS: FLUTICASONE PROP 0.05% NASAL SPRAY 16 GM (FLONASE) SCH (20:51)
--- NOTE | 2019-01-07 21:19 | ECGEPIP ---
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
[2019-01-08] VITALS (7 sets, daily range): BP systolic 118–142; BP diastolic 65–92
[2019-01-08 04:22] LABS: HEMOGLOBIN 14.5 g/dl (12.0-15.5); MEAN CORPUSCULAR HEMOGLOBIN 31.7 pg (27.0-33.0); MEAN CORPUSCULAR HGB CONC 33.7 g/dl (32.0-36.5); MEAN CORPUSCULAR VOLUME 94.1 fl (80.0-96.0); PLATELET COUNT, AUTOMATED 204 10^3/uL (150-450); RED BLOOD COUNT 4.57 10^6/uL (4.00-5.40); WHITE BLOOD COUNT 7.6 10^3/uL (4.0-10.0)
[2019-01-08 04:45] LABS: ALBUMIN 3.3 GM/DL (3.2-5.2); ALT/SGPT 21 U/L (12-78); BILIRUBIN,TOTAL 1.1 MG/DL (0.2-1.0); BLOOD UREA NITROGEN 14 MG/DL (7-18); CALCIUM LEVEL 9.1 MG/DL (8.8-10.2); CARBON DIOXIDE LEVEL 28 MEQ/L (21-32); CHLORIDE LEVEL 110 MEQ/L (98-107); CPK CREATINE PHOSPHOKINASE 41 U/L (26-192); CREATININE FOR GFR 1.04 MG/DL (0.55-1.30); GLOMERULAR FILTRATION RATE 54.3 (>32); GLUCOSE, FASTING 132 MG/DL (70-100); MB/CK RELATIVE INDEX 2.44 (< OR =4); SODIUM LEVEL 141 MEQ/L (136-145); TOTAL PROTEIN 6.7 GM/DL (6.4-8.2); TROPONIN I < 0.02 NG/ML (< 0.10)
[2019-01-08] MEDS: LEVOTHYROXINE 100MCG TABLET (0.1MG) PO SCH (05:28)
[2019-01-08] MEDS ORDERED: SLF 3 ML SYR IV PRN (08:45)
[2019-01-08] MEDS: HumaLOG INSULIN (NovoLOG) PER UNIT SC SCH ×4 (08:50→19:39)
[2019-01-08] MEDS: OCUVITE 1 TAB PO SCH (08:51)
[2019-01-08] MEDS: PANTOPRAZOLE 40MG TAB (PROTONIX) PO SCH (08:51)
[2019-01-08] MEDS: SPIRONOLACTONE 12.5MG PER 1/2 TABLET PO SCH (08:51)
[2019-01-08] MEDS: VITAMIN D 1,000 INTERNATIONAL UNITS TABLET PO SCH (08:51)
[2019-01-08] MEDS: amLODIPine 5 MG TAB PO SCH (08:52)
[2019-01-08] MEDS: BRIMONIDINE 0.15% OPHTH SOLN 5 ML OD SCH ×2 (08:54→19:38)
[2019-01-08] MEDS: FLUTICASONE HFA 220 MCG 12 GM INHALER (FLOVENT) INH SCH ×2 (09:02→21:48)
--- NOTE | 2019-01-08 11:35 | IPNPDOC ---
Subjective Date Seen The patient was seen on 01/08/19. Subjective Chief Complaint/HPI Pt this morning reports that for the last week she feels as though her cpap is suffocating her. She has used it for the last 7 years without difficulty. she had an episode this morning of chest pressure, she reports taking her Cpap off and her symptoms resolving. General: Reports: Fatigue Constitutional: Denies: Chills, Fever ENT: Denies: Head Aches Pulmonary: Reports: Dyspnea; Denies: Cough Cardiovascular: Reports: Chest Pain; Denies: Palpitations Gastrointestinal: Denies: Nausea, Vomiting Neurological: Reports: Weakness Psych: Reports: Mood Normal Objective Physical Examination General Exam: Positive: Alert, No Acute Distress ENT Exam: Positive: Mucous membr. moist/pink Neck Exam: Positive: Supple Chest Exam: Positive: Clear to auscultation, Normal air movement Heart Exam: Positive: Rate Normal, Normal S1, Normal S2 Abdomen Exam: Positive: Normal bowel sounds, Soft, Other Extremity Exam: Negative: Edema Neuro Exam: Positive: Normal Speech A-FIB/CHADSVASC A-FIB History Current/History of A-Fib/PAF?: No Assessment /Plan Problems (1) Chest pain Status: Acute Response to Treatment: Stable Discussed With: Nurse, Patient Problem Specific Plan: Consult Specialist, Monitor Clinically Problem Text: favoring viral pleurisy description is ~3D constant pleuritic chest pressure s radiation, improving since 01/0701/07/19 EKG with LBBB new cw 06/2017 check TTE, primary Supervisor Public Message Service consult P 06/2018 NSR: normal SPECT perfusion imaging -serial CIP/T-I x3 01/07 DD 400 Pt with concern for Lyme Disease cause given recent tick bite, lyme titer pending. Given timeframe my suspiscion for lyme carditis is quite low. (2) Fatigue Status: Chronic Response to Treatment: Stable Problem Specific Plan: Monitor Clinically (3) DM2 (diabetes mellitus, type 2) Status: Chronic Response to Treatment: Stable Problem Specific Plan: Monitor Clinically (4) HHD (hypertensive heart disease) Status: Chronic Response to Treatment: Stable Problem Specific Plan: Monitor Clinically (5) Hypothyroidism Status: Chronic Problem Specific Plan: Monitor Clinically Problem Text: on HD LT4 (6) GERD (gastroesophageal reflux disease) Status: Chronic Response to Treatment: Stable Problem Specific Plan: Monitor Clinically (7) LBBB (left bundle branch block) Plan/VTE VTE Prophylaxis Ordered?: Yes VS, I&O, 24H, Fishbone Vital Signs/I&O Vital Signs Date Time Temp Pulse Resp B/P (MAP) Pulse Ox O2 Delivery O2 Flow Rate FiO2 01/08/19 08:52 64 118/64 01/08/19 07:00 97.8 18 94 01/07/19 17:46 Room Air I&O- Last 24 Hours up to 6 AM 01/08/19 05:59 Intake Total 50 ml Output Total 1300 ml Balance -1250 ml Laboratory Data 24H LABS Laboratory Tests 2 01/07/19 13:13: Immature Granulocyte % (Auto) 0.3, White Blood Count 6.9, Red Blood Count 4.81, Hemoglobin 14.9, Hematocrit 44.3, Mean Corpuscular Volume 92.1, Mean Corpuscular Hemoglobin 31.0, Mean Corpuscular Hemoglobin Concent 33.6, Red Cell Distribution Width 12.3, Platelet Count 215, Neutrophils (%) (Auto) 48.4, Lymphocytes (%) (Auto) 37.2, Monocytes (%) (Auto) 8.6H, Eosinophils (%) (Auto) 4.6H, Basophils (%) (Auto) 0.9, Neutrophils # (Auto) 3.3, Lymphocytes # (Auto) 2.6, Monocytes # (Auto) 0.6, Eosinophils # (Auto) 0.3, Basophils # (Auto) 0.1, Nucleated Red Blood Cells % (auto) 0.0, Anion Gap 6L, Glomerular Filtration Rate > 60.0, Blood Urea Nitrogen 13, Creatinine 0.93, Sodium Level 144, Potassium Level 4.2, Chloride Level 111H, Carbon Dioxide Level 27, Calcium Level 9.4, Total Creatine Kinase 50, Magnesium Level 1.4L, Creatine Kinase MB 1.0, Creatine Kinase MB Relative Index 2.60, Troponin I < 0.02, EM-Oxg-R-Type Natriuretic Peptide 53 01/07/19 13:15: 01/07/19 18:08: Total Creatine Kinase 50, Creatine Kinase MB 2.0, Creatine Kinase MB Relative Index 3.60, Troponin I < 0.02 01/07/19 20:18: Bedside Glucose (Misc Panel) 162H 01/07/19 21:19: D-Dimer, Quantitative 400.64 01/08/19 04:00: Nucleated Red Blood Cells % (auto) 0.0, Anion Gap 3L, Glomerular Filtration Rate 54.3, Blood Urea Nitrogen 14, Creatinine 1.04, Sodium Level 141, Potassium Level 4.0, Chloride Level 110H, Carbon Dioxide Level 28, Calcium Level 9.1, Aspartate Amino Transf (AST/SGOT) 17, Alanine Aminotransferase (ALT/SGPT) 21, Total Creatine Kinase 41, Alkaline Phosphatase 98, Total Bilirubin 1.1H, Total Protein 6.7, Albumin 3.3, Creatine Kinase MB 1.0, Creatine Kinase MB Relative Index 2.44, Troponin I < 0.02, Albumin/Globulin Ratio 0.97L CBC/BMP Laboratory Tests 01/07/19 13:13 Red Blood Count 4.81, Mean Corpuscular Volume 92.1, Mean Corpuscular Hemoglobin 31.0, Mean Corpuscular Hemoglobin Concent 33.6, Red Cell Distribution Width 12.3, Neutrophils (%) (Auto) 48.4, Lymphocytes (%) (Auto) 37.2, Monocytes (%) (Auto) 8.6 H, Eosinophils (%) (Auto) 4.6 H, Basophils (%) (Auto) 0.9, Neutrophils # (Auto) 3.3, Lymphocytes # (Auto) 2.6, Monocytes # (Auto) 0.6, Eosinophils # (Auto) 0.3, Basophils # (Auto) 0.1, Calcium Level 9.4, Total Creatine Kinase 50 01/08/19 04:00 Red Blood Count 4.57, Mean Corpuscular Volume 94.1, Mean Corpuscular Hemoglobin 31.7, Mean Corpuscular Hemoglobin Concent 33.7, Red Cell Distribution Width 12.4, Calcium Level 9.1, Total Creatine Kinase 41, Aspartate Amino Transf (AST/SGOT) 17, Alanine Aminotransferase (ALT/SGPT) 21, Alkaline Phosphatase 98, Total Bilirubin 1.1 H, Total Protein 6.7, Albumin 3.3 ANITA BUCK PA-C January 08, 2019 11:35 Greg Asher M.D. January 08, 2019 16:46
[2019-01-08] MEDS: ASCORBIC ACID 500 MG TAB PO SCH (12:36)
[2019-01-08] MEDS: SLF 3 ML SYR IV SCH ×2 (15:29→19:54)
--- NOTE | 2019-01-08 19:06 | HPEPDOC ---
General Date of Admission January 07, 2019 at 16:43 Primary Care Physician: FREDY VILLALOBOS PA-C Attending Physician: SANDRITA JOHN DO Chief Complaint The patient is a 78-year-old female admitted with a reason for visit of Chest Pain, Fatigue. Source: Patient, Family, Old records Exam Limitations: No limitations Timing/Duration: Week(s) History of Present Illness This is an 78 year old female who presents with fatigue and concern about a tick bite. She was working outside on 12/29, and discovered a tick on her R abdomen 12.31. She went to Urgent Care on 01/01, and was treated with an unknown antibiotic for possible Lyme disease. She feels that since that time she has had increased fatigue. Her family is in the room with her and suggest that perhaps her increased fatigue started a bit earlier, perhaps 12/28. This morning she noticed chest pressure, and concern about fatigue, tick bite, and chest pressure brought her to the Emergency Department. An EKG performed in the ED showed a new left bundle branch block, and there was concern for possibly a Lyme carditis or similar situation. She was given 2 grams of ceftriaxone in the ED, and family medicine was called for admission. Home Medications Scheduled Amlodipine Besylate (Amlodipine Besylate) 5 Mg Tab, 5 MG PO DAILY, (Reported) Ascorbic Acid (Vitamin C) 500 Mg Tab, 1,000 MG PO DAILY, (Reported) TAKES AT NOON Aspirin (Aspirin) 325 Mg Tab, 325 MG PO QHS, (Reported) Bimatoprost (Lumigan) 50 Drop/2.5 Ml Frannie, 1 DROP OU QHS, (Reported) Botulinum Toxin Type A (Botox) 100 Units Soln, 1 DOSE OU Q3M, (Reported) Brimonidine Tartrate (Alphagan P) 0.15 % Frannie, 1 DROP OD BID, (Reported) Calcium Carbonate/Vitamin D3 (Calcium 600-Vit D3 800 Tablet) 1 Each Tablet, 1 TAB PO DAILY, (Reported) Cholecalciferol (Vitamin D3) (Vitamin D3) 2,000 Unit Cap, 2,000 UNIT PO DAILY, (Reported) Fluticasone Propionate (Flonase Allergy Relief) 50 Mcg/Act Spr, 2 SPRAY NA QHS, (Reported) Fluticasone Propionate (Flovent Hfa) 12 Gm Aer.w.adap, 2 PUFFS INH BID, (Reported) Levothyroxine Sodium (Levothyroxine Sodium) 100 Mcg Tab, 100 MCG PO DAILY, (Reported) Magnesium Oxide (Magnesium Oxide) 500 Mg Capsule, 500 MG PO DAILY, (Reported) TAKES AT NOON Metformin HCl (Metformin HCl) 500 Mg Tab, 500 MG PO TID, (Reported) WITH MEALS Mineral Oil/Petrolatum,White (Artificial Tears Eye Ointment) 3.5 Gm Oint...g., 1 APLCT OU QHS, (Reported) Mv-Mn/Folic Acid/Calcium/Vit K (Women's 50 Plus Multivit Tab) 1 Each Tablet, 1 EACH PO DAILY, (Reported) Catlett-3 Fatty Acids/Fish Oil (Fish Oil 1,200 mg Softgel) 1 Cap Cap, 2 CAP PO DAILY, (Reported) TAKES AT NOON Pantoprazole Sodium (Pantoprazole Sodium) 40 Mg Tab, 40 MG PO DAILY, (Reported) Rosuvastatin Calcium (Crestor) 20 Mg Tab, 20 MG PO QHS, (Reported) Spironolactone (Spironolactone) 25 Mg Tab, 12.5 MG PO DAILY, (Reported) Vit A/Vit C/Vit E/Zinc/Copper (Preservision Areds Softgel) 1 Each Capsule, 1 CAP PO DAILY, (Reported) Scheduled PRN Albuterol Sulfate (Albuterol Sulfate) 2.5 Mg/0.5 Ml Neb, 2.5 MG INH Q4HP PRN for SHORTNESS OF BREATH, (Reported) Albuterol Sulfate (Proair Hfa) 8.5 Gm Hfa.aer.ad, 2 PUFF INH BIDP PRN for SOB/WHEEZING, (Reported) Ibuprofen (Ibu-200) 200 Mg Tablet, 400 MG PO BID PRN for PAIN, (Reported) Allergies Coded Allergies: Eric (Verified Allergy, Intermediate, rash, 05/18/17) Penicillins (Verified Allergy, Intermediate, RASH, 12/14/18) ciprofloxacin (Verified Allergy, Intermediate, RASH, 12/14/18) cefaclor (Verified Allergy, Unknown, RASH, 01/07/19) metoclopramide (Verified Allergy, Unknown, UNKNOWN, 12/14/18) prochlorperazine (Verified Allergy, Unknown, UNKNOWN, 12/14/18) amitriptyline (Verified Adverse Reaction, Mild, NAUSEA, 12/14/18) cyclosporine (Verified Adverse Reaction, Unknown, BURNING EYES, 01/07/19) Past Medical History Medical History CVA and multiple TIAs, DM type 2, asthma, obstructive sleep apnea, osteoarthritis, hypertension, hypothyroidism, GERD, hyperlipidemia, di verticulitis Surgical History repair of patent foramen ovale, dilation of Schatzki's ring, R knee arthroscopy, hysterectomy, left rotator cuff repair, and excision of a lipoma fr om the R sided abdominal wall near the tick bite, performed on 01/03 Family History father with emphysema, mother with heart disease, and sister with diabetes mellitus type 2 Social History * Smoker: non-smoker Alcohol: Denies She is and lives with her . She states that she can walk a block, or ten minutes on a treadmill. She can climb a flight of stairs, but is a bit winded by the time she does so. A-FIB/CHADSVASC A-FIB History Current/History of A-Fib/PAF?: No Review of Systems Constitutional: Reports: Chills, Malaise, Fatigue; Denies: Fever Eyes: Reports: Vision change (chronic double vision) Skin: Reports: Rash (states erythema around tick bite initially visible, though now it is indistinguishable from bruising associated with recent surgical procedure), Other (incision with sutures intact in R sided abdomen) Cardiovascular: Reports: Chest Pain (specifically pressure), Edema (chronic, when on her feet); Denies: Palpitations Gastrointestinal: Denies: Nausea, Vomiting, Diarrhea, Constipation Genitourinary: Denies: Dysuria Hematologic: Reports: Bruising Musculoskeletal: Reports: Joint Pain (chronic), Muscle Pain (top of feet) Psych: Reports: Mood Normal Physical Examination General Exam: Positive: Alert, No Acute Distress ENT Exam: Positive: Mucous membr. moist/pink Neck Exam: Positive: Supple Chest Exam: Positive: Clear to auscultation, Normal air movement Heart Exam: Positive: Rate Normal, Normal S1, Normal S2 Abdomen Exam: Positive: Normal bowel sounds, Soft, Other Extremity Exam: Negative: Edema (she reports this is an intermittent problem; not present now) Skin Exam: Positive: Nl turgor and temperature, Lesion (incision healing well, with some surrounding bruising R abdomen) Neuro Exam: Positive: Normal Speech Vital Signs Vital Signs Date Time Temp Pulse Resp B/P (MAP) Pulse Ox O2 Delivery O2 Flow Rate FiO2 01/08/19 16:00 97.2 70 17 118/70 (86) 97 01/07/19 17:46 Room Air Laboratory Data Labs 24H Laboratory Tests 2 01/07/19 20:18: Bedside Glucose (Misc Panel) 162H 01/07/19 21:19: D-Dimer, Quantitative 400.64 01/08/19 04:00: Nucleated Red Blood Cells % (auto) 0.0, Anion Gap 3L, Glomerular Filtration Rate 54.3, Blood Urea Nitrogen 14, Creatinine 1.04, Sodium Level 141, Potassium Level 4.0, Chloride Level 110H, Carbon Dioxide Level 28, Calcium Level 9.1, Aspartate Amino Transf (AST/SGOT) 17, Alanine Aminotransferase (ALT/SGPT) 21, Total Crea yifan Kinase 41, Alkaline Phosphatase 98, Total Bilirubin 1.1H, Total Protein 6.7, Albumin 3.3, Creatine Kinase MB 1.0, Creatine Kinase MB Relative Index 2.44, Troponin I < 0.02, Albumin/Globulin Ratio 0.97L 01/08/19 12:30: Bedside Glucose (Misc Panel) 197H 01/08/19 17:35: Bedside Glucose (Misc Panel) 125H CBC/BMP Laboratory Tests 01/08/19 04:00 Red Blood Count 4.57, Mean Corpuscular Volume 94.1, Mean Corpuscular Hemoglobin 31.7, Mean Corpuscular Hemoglobin Concent 33.7, Red Cell Distribution Width 12.4, Calcium Level 9.1, Aspartate Amino Transf (AST/SGOT) 17, Alanine Aminotransferase (ALT/SGPT) 21, Total Creatine Kinase 41, Alkaline Phosphatase 98, Total Bilirubin 1.1 H, Total Protein 6.7, Albumin 3.3 Problems (1) Chest pain Status: Acute Response to Treatment: Stable Discussed With: Nurse, Patient Problem Specific Plan: Consult Specialist, Monitor Clinically Problem Text: favoring viral pleurisy description is ~3D constant pleuritic chest pressure s radiation, improving since 01/0701/07/19 EKG with LBBB new cw 06/2017 check TTE, 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 Given timeframe my suspiscion for lyme carditis is quite low. 01/07/19 -- Spoke with Dr. Hinds, covering for Dr. Baeza' office, who felt that the likelihood that this was Lyme carditis was low. Patient had Regadenoson stress test 06/2018, read as low risk for ischemia. Dr. Hinds advised that he would "just do a typical rule out." Cardiac enzymes negative twice in the ED, and a third set was ordered for the morning after admission. Admitted to telemetry. Cardiology consult. (2) Fatigue Status: Chronic Response to Treatment: Stable Problem Specific Plan: Monitor Clinically Problem Text: 01/07/19 -- labwork is, thus far, noncontributory. (3) DM2 (diabetes mellitus, type 2) Status: Chronic Response to Treatment: Stable Problem Specific Plan: Monitor Clinically Problem Text: 01/07/19 -- sliding scale insulin (4) HHD (hypertensive heart disease) Status: Chronic Response to Treatment: Stable Problem Specific Plan: Monitor Clinically (5) Hypothyroidism Status: Chronic Problem Specific Plan: Monitor Clinically Problem Text: on HD LT4 (6) GERD (gastroesophageal reflux disease) Status: Chronic Response to Treatment: Stable Problem Specific Plan: Monitor Clinically (7) LBBB (left bundle branch block) Problem Text: 01/07/19 -- This is a new finding, and of uncertain clinical significance. It is not a typical manifestation of Lyme disease. She is monitored on telemetry. (8) Tick bite of abdomen Problem Text: Assured patient that this did not necessarily indicate Lyme disease. She was given 2 g of ceftriaxone in the ED, but as my clinical suspicion is low, I did not continue her antibiotics. She states that this is the only tick bite she can ever remember having. Testing for Lyme and other tick-borne illnesses was drawn in the ED. Plan / VTE VTE Prophylaxis Ordered?: Yes SANDRITA JOHN DO January 08, 2019 19:06
[2019-01-08] MEDS: ASPIRIN 325 MG TAB PO SCH (19:37)
[2019-01-08] MEDS: ROSUVASTATIN 10 MG TAB (CRESTOR) PO SCH (19:37)
[2019-01-08] MEDS: FLUTICASONE PROP 0.05% NASAL SPRAY 16 GM (FLONASE) SCH (19:38)
--- NOTE | 2019-01-08 20:26 | ECHO ---
DATE OF PROCEDURE: 01/08/2019 Date of : 1940 Age: 78 Gender: Female. Height: 63 inches. Weight: 227 pounds Body surface area: 2.04 meters squared Inpatient: Progressive care unit (PCU), room 3216 REFERRING PHYSICIAN: Dr. Greg Asher INDICATION: Abnormal EKG - left bundle branch block. MEASUREMENTS: 2D Measurements: RV: 4.2 cm LV: 4.2 cm Septum: 1.2 cm Posterior wall: 1.2 cm Aortic root: 2.9 cm LA: 4.4 cm LVEF: 60% Doppler Measurements: AV: 1.52 meters per second LVOT: 1.28 meters per second LVOT diameter: 2.2 cm MV-E: 59, A: 82, EA ratio: 0.7 Early mitral deceleration time: 250 milliseconds E prime: 7.6, A prime: 10.6, E/E prime ratio: 7.8 PV: 1.0 meters per second Pulmonary artery acceleration time: 100 milliseconds PASP: 37 mmHg IVC: 1.9 cm COMMENTS: Normal sinus rhythm with left bundle branch block. Somewhat technically challenging study in light of the patient's body habitus but diagnostically useful information was still obtained. M-mode and two-dimensional echocardiography was performed with pulsed, continuous wave, color flow and tissue Doppler studies. Mild concentric left ventricular hypertrophy with proximal septal hypokinesis (related to left bundle branch block) yet other left ventricular mcelroy segments were hyperkinetic. Mildly dilated left atrium with Doppler evidence of an impairment of left ventricular (LV) diastolic function but currently normal estimated mean left atrial pressure. Mildly dilated right heart chambers with normal wall motion and Doppler evidence of mild pulmonary hypertension. Normal inferior vena cava (IVC) size and collapse against an elevated central venous pressure. Mild aortic valvular sclerosis without stenosis but mild insufficiency. Normal aortic root size. Normal appearing and functioning mitral valvular apparatus. Mild pulmonary and tricuspid insufficiency with normal appearing valvular structures. Obvious device closure of atrial septal defect with no persistent [id number] or [id number] intra-atrial shunting. No separate intracardiac mass or pericardial effusion. MTDD
[2019-01-08] MEDS ORDERED: ENOXAPARIN 40 MG/0.4 ML SYRINGE (J1650) SC SCH (21:00)
[2019-01-09 03:53] LABS: HEMATOCRIT 42.2 % (36.0-47.0); HEMOGLOBIN 14.1 g/dl (12.0-15.5); MEAN CORPUSCULAR HEMOGLOBIN 31.3 pg (27.0-33.0); MEAN CORPUSCULAR HGB CONC 33.4 g/dl (32.0-36.5); MEAN CORPUSCULAR VOLUME 93.8 fl (80.0-96.0); PLATELET COUNT, AUTOMATED 200 10^3/uL (150-450); WHITE BLOOD COUNT 7.7 10^3/uL (4.0-10.0)
[2019-01-09 04:00] VITALS: BP 118/55
[2019-01-09 04:19] LABS: ALBUMIN 3.3 GM/DL (3.2-5.2); BILIRUBIN,TOTAL 1.2 MG/DL (0.2-1.0); CALCIUM LEVEL 9.1 MG/DL (8.8-10.2); CREATININE FOR GFR 1.02 MG/DL (0.55-1.30); GLOMERULAR FILTRATION RATE 55.5 (>32); TOTAL PROTEIN 6.3 GM/DL (6.4-8.2)
[2019-01-09] MEDS: SLF 3 ML SYR IV SCH (06:00)
[2019-01-09] MEDS: LEVOTHYROXINE 100MCG TABLET (0.1MG) PO SCH (06:00)
[2019-01-09 07:16] VITALS: BP 136/71
[2019-01-09] MEDS: FLUTICASONE HFA 220 MCG 12 GM INHALER (FLOVENT) INH SCH (07:23)
[2019-01-09] MEDS: HumaLOG INSULIN (NovoLOG) PER UNIT SC SCH ×2 (08:37→12:00)
[2019-01-09] MEDS: VITAMIN D 1,000 INTERNATIONAL UNITS TABLET PO SCH (08:38)
[2019-01-09] MEDS: OCUVITE 1 TAB PO SCH (08:38)
[2019-01-09] MEDS: SPIRONOLACTONE 12.5MG PER 1/2 TABLET PO SCH (08:38)
[2019-01-09 08:39] VITALS: BP 136/71
[2019-01-09] MEDS: amLODIPine 5 MG TAB PO SCH (08:39)
[2019-01-09] MEDS: BRIMONIDINE 0.15% OPHTH SOLN 5 ML OD SCH (08:39)
[2019-01-09] MEDS: PANTOPRAZOLE 40MG TAB (PROTONIX) PO SCH (08:39)
--- NOTE | 2019-01-09 11:43 | DSES ---
DATE OF ADMISSION: 01/07/2019 DATE OF DISCHARGE: BRIEF HISTORY AND PHYSICAL: The patient is an 78-year-old patient who presented with complaints of fatigue and pleuritic heavy chest pain in her anterior chest as though an elephant was sitting on her chest but worse with deep breath. She had sustained a tick bite during the week of 12/29/2018, found a tick in the right abdomen on 12/31/2018, went to urgent care on 01/01/2019, was treated with antibiotics for Lyme and Lyme prophylaxis. Sounds like probably doxycycline. She said she took two tablets, one dose. She has had increased fatigue since then and then developed some chest pressure. EKG showed a left bundle branch block which was new and there was concern for Lyme carditis or similar situation. She was given 2 grams of ceftriaxone in the emergency room. Past medical history is significant for cerebrovascular accident (CVA), multiple transient ischemic attacks (TIAs), diabetes mellitus type 2, asthma, obstructive sleep apnea (PAUL), osteoarthritis, hypertension, hypothyroidism, gastroesophageal reflux disease, hyperlipidemia, diverticulitis. In the past, she has had surgical repair of paten foramen ovale, dilation of a Schatzki's ring. Pertinent labs on admission: White count 6.9, hemoglobin 14.9, platelets 215,000. Sodium 144, potassium 4.2, BUN 13, creatinine 0.93, magnesium 1.4, potassium 125. CIP and troponin and BNP were all normal. Serology including Babesia and Lyme, chaffeensis, and a phagocytophila DNA testing are all pending. Chest x-ray Showed cardiomegaly with no evidence of acute pulmonary disease. EKG showed left broad bundle branch block which was new compared with 06/18/2017. HOSPITAL COURSE: The patient was admitted for atypical chest type pain and generalized fatigue. Serial cardiac enzymes and troponins were negative. The chest pain is described as 3 days of constant pleuritic chest pain that has been improving since admission. D-dimer was normal. Therefore, pulmonary embolism was unlikely. CT was not obtained. Cardiology was consulted, however, it does not appear that they have yet seen the patient. I spoke with Dr. Baeza on the phone this morning he did not think, based on her echocardiogram, that there was any particularly concerning issues. She has normal sinus rhythm with left bundle branch block, mild concentric LVH with proximal septal hypokinesis related to the left bundle branch block. Yet other left ventricular wall segments were hyperkinetic. Mildly dilated left atrium with Doppler evidence of impairment of left ventricular diastolic function but currently normal estimated mean left atrial pressure and mildly dilated right heart chambers with normal wall motion and Doppler evidence of mild pulmonary hypertension, normal inferior cava size and collapse against an elevated central venous pressure. Mild aortic valve sclerosis without stenosis but mild insufficiency. Normal aortic root size. The patient feels better today. She feels she is not having any further chest discomfort. I have asked physical therapy is see her this morning do a home safety evaluation to determine if she is safe to go home. Her medications have not changed from admission. She will be discharged on her usual albuterol nebulizer every 4 hours as needed, amlodipine 5 mg daily, ascorbic acid 1000 mg daily, aspirin 325 mg daily, Lumigan one drop both eyes at bedtime, Botox one dose both eyes every 3 months, Alphagan one drop OD, twice a day, calcium carbonate on tablet daily, vitamin D 2000 international units daily, Flonase 2 sprays per nostril at bedtime, fluticasone two puffs twice a day, ibuprofen 400 mg twice a day, levothyroxine 100 mcg daily, magnesium 5 mg daily, metformin 500 mg three times a day, artificial tears supplement, omega 3 fatty acids pantoprazole 40 mg daily, rosuvastatin 20 mg at bedtime, spironolactone 12.5 mg daily, PreserVision one capsule daily. DISCHARGE DIAGNOSES: 1. Atypical chest pain. Myocardial infarction (GA) ruled out. 2. New left bundle branch block. 3. Recent tick bite without sequela of Lyme. Lyme titers are pending. 4. Diabetes.
[2019-01-09] MEDS: ASCORBIC ACID 500 MG TAB PO SCH (12:33)
[2019-01-10 00:06] LABS: Lyme Disease IgG/IgM Antibodie <0.91 ISR (0.00-0.90); Lyme Disease IgM Ab Quantitati <0.80 index (0.00-0.79)
--- NOTE | 2019-01-10 00:12 | ECGEPIP ---
Stationary ECG Study [facility] Test Date: 2019-01-08 Pat Name: HONG SCALES Department: Room: [place] [address] Gender: F French [employer] Binder: : 1940 Requested By: Greg TURNER Order Number: [id number] Reading MD: Max Banegas Measurements Intervals [place] Rate: 65 P: 18 OK: 171 QRS: -22 QRSD: 148 T: 125 QT: 443 QTc: 464 Interpretive Statements SINUS RHYTHM LEFT BUNDLE BRANCH BLOCK PRIOR TRACING ON 01/07/2019 AT 13:06:40 P.M.. LEFT BUNDLE-BRANCH BLOCK ALSO WAS PRESENT BUT NOT NOTED ON 06/18/2017 Electronically Signed On 01-10-2019 0:11:46 EDT by Max Banegas
== END 2019-01-09 14:19 | disposition home or self-care (01) ==
LOC: M ED 12:53 → M ED INP 16:43 → M PCU 17:53
PROVIDERS: ADMIT Family Medicine; ATTEND Family Medicine
DX: R07.89 Other chest pain (principal); I10 Essential (primary) hypertension; R53.83 Other fatigue; E11.9 Type 2 diabetes mellitus without complications; J45.909 Unspecified asthma, uncomplicated; G47.33 Obstructive sleep apnea (adult) (pediatric); I44.7 Left bundle-branch block, unspecified; E03.9 Hypothyroidism, unspecified; E78.49 Other hyperlipidemia; K21.9 Gastro-esophageal reflux disease without esophagitis; Z79.82 Long term (current) use of aspirin; Z79.84 Long term (current) use of oral hypoglycemic drugs; Z88.0 Allergy status to penicillin; Z88.1 Allergy status to other antibiotic agents; Z88.8 Allergy status to other drugs, medicaments and biological substances; Z86.73 Personal history of transient ischemic attack (TIA), and cerebral infarction without residual deficits
CPT/HCPCS: 36415; 71045; 80048; 80053; 82550; 82553; 83735; 83880; 84484; 85025; 85027; 85379; 86617; 87798; 93005; 93041; 93306; 94640; 94760; 96365; 96366; 96372; 97161; 99285; G0378; J0696; J1650; J3475

== ENCOUNTER → 2019-01-10 | Outpatient (CLI) | payer MEDICARE ==
[~2019-01-10] MED LIST changes: +CALC1TAB19 PO; +IBUP200T45 PO; +MV-M1TAB13 PO
[2019-01-10 09:37] LABS: BASO # 0.1 10^3/uL (0.0-0.2); BASO % 0.8 % (0.0-1.0); EOS # 0.3 10^3/uL (0.0-0.50); EOS % 3.6 % (0.0-3.0); HEMATOCRIT 45.6 % (36.0-47.0); HEMOGLOBIN 15.5 g/dl (12.0-15.5); LYMPH # 2.6 10^3/uL (1.5-4.5); LYMPH % 33.9 % (24.0-44.0); MEAN CORPUSCULAR HEMOGLOBIN 31.6 pg (27.0-33.0); MEAN CORPUSCULAR VOLUME 93.1 fl (80.0-96.0); MONO # 0.6 10^3/uL (0.0-0.8); MONO % 8.3 % (0.0-5.0); NEUTROPHILS # 4.1 10^3/uL (1.8-7.7); NEUTROPHILS % 52.9 % (36.0-66.0); PLATELET COUNT, AUTOMATED 209 10^3/uL (150-450); WHITE BLOOD COUNT 7.7 10^3/uL (4.0-10.0)
[2019-01-10 10:09] LABS: HEMOGLOBIN A1c 7.1 %
[2019-01-10 10:11] LABS: ALBUMIN 3.9 GM/DL (3.2-5.2); BILIRUBIN,TOTAL 1.5 MG/DL (0.2-1.0); CALCIUM LEVEL 9.6 MG/DL (8.8-10.2); CHOLESTEROL RISK RATIO 2.98 (<5); CREATININE FOR GFR 1.04 MG/DL (0.55-1.30); FREE T4 1.07 NG/DL (0.76-1.46); GLOMERULAR FILTRATION RATE 54.3 (>32); MAGNESIUM LEVEL 1.8 MG/DL (1.8-2.4); POTASSIUM SERUM 4.4 MEQ/L (3.5-5.1); THYROID STIMULATING HORMONE 4.54 uIU/ML (0.358-3.740); TOTAL PROTEIN 6.9 GM/DL (6.4-8.2)
== END ==
LOC: M WUC 08:19
PROVIDERS: ATTEND Physician Assistant
DX: I11.9 Hypertensive heart disease without heart failure (principal); E03.9 Hypothyroidism, unspecified; E55.9 Vitamin D deficiency, unspecified; E11.21 Type 2 diabetes mellitus with diabetic nephropathy; E78.49 Other hyperlipidemia

== ENCOUNTER → 2019-06-13 | Outpatient (CLI) | payer MEDICARE, OTHER ==
[2019-06-13 16:44] LABS: CALCIUM LEVEL 10.2 MG/DL (8.8-10.2); CREATININE FOR GFR 0.96 MG/DL (0.55-1.30); GLOMERULAR FILTRATION RATE 59.5 (>32); POTASSIUM SERUM 4.4 MEQ/L (3.5-5.1)
== END ==
LOC: M WUC 11:52
PROVIDERS: ATTEND Physician Assistant
DX: I44.7 Left bundle-branch block, unspecified (principal)

== ENCOUNTER → 2019-06-26 | Outpatient (REF) | payer MEDICARE, OTHER ==
[2019-06-26 14:15] LABS: APPEARANCE, URINE CLEAR (CLEAR); BACTERIA, URINE AUTO NEGATIVE (NEGATIVE); BILIRUBIN, URINE AUTO NEGATIVE (NEGATIVE); BLOOD, URINE BLOOD NEGATIVE (NEGATIVE); COLOR, URINE YELLOW (YELLOW); GLUCOSE, URINE (UA) AUTO 2+ mg/dL (NEGATIVE); KETONE, URINE AUTO NEGATIVE (NEGATIVE); LEUKOCYTE ESTERASE, URINE AUTO TRACE (NEGATIVE); MUCUS, URINE SMALL (NEGATIVE); NITRITE, URINE AUTO NEGATIVE (NEGATIVE); PROTEIN, URINE AUTO NEGATIVE (NEGATIVE); RBC, URINE AUTO 0 /HPF (0-3); SPECIFIC GRAVITY URINE AUTO 1.009 (1.002-1.035); SQUAMOUS EPITHELIAL CELL UR AU 1 /HPF (0-6); UROBILINOGEN, URINE AUTO 0.2 mg/dL (0.0-2.0); WBC, URINE AUTO 5 /HPF (0-3)
== END ==
LOC: M LAB REF 13:00
PROVIDERS: ATTEND Physician Assistant
DX: N39.0 Urinary tract infection, site not specified (principal)

== ENCOUNTER → 2019-07-10 | Outpatient (REF) | payer MEDICARE, OTHER ==
[2019-07-10 11:56] LABS: APPEARANCE, URINE CLEAR (CLEAR); BACTERIA, URINE AUTO NEGATIVE (NEGATIVE); BILIRUBIN, URINE AUTO NEGATIVE (NEGATIVE); BLOOD, URINE BLOOD NEGATIVE (NEGATIVE); COLOR, URINE YELLOW (YELLOW); GLUCOSE, URINE (UA) AUTO 2+ mg/dL (NEGATIVE); KETONE, URINE AUTO NEGATIVE (NEGATIVE); LEUKOCYTE ESTERASE, URINE AUTO TRACE (NEGATIVE); NITRITE, URINE AUTO NEGATIVE (NEGATIVE); PROTEIN, URINE AUTO NEGATIVE (NEGATIVE); RBC, URINE AUTO 0 /HPF (0-3); SPECIFIC GRAVITY URINE AUTO 1.011 (1.002-1.035); SQUAMOUS EPITHELIAL CELL UR AU 0 /HPF (0-6); UROBILINOGEN, URINE AUTO 0.2 mg/dL (0.0-2.0); WBC, URINE AUTO 3 /HPF (0-3)
== END ==
LOC: M LAB REF 11:37
PROVIDERS: ATTEND Physician Assistant Medical
DX: N39.0 Urinary tract infection, site not specified (principal)

== ENCOUNTER 2019-07-15 07:44 | Emergency (ER) | payer MEDICARE, OTHER ==
[~2019-07-15] VITALS: Ht 167.6 cm; Wt 99.5 kg
[2019-07-15 09:17] LABS: BASO # 0.1 10^3/uL (0.0-0.2); BASO % 0.7 % (0.0-1.0); EOS # 0.4 10^3/uL (0.0-0.5); HEMATOCRIT 45.7 % (36.0-47.0); HEMOGLOBIN 15.2 g/dl (12.0-15.5); LYMPH # 2.5 10^3/uL (1.5-5.0); LYMPH % 26.7 % (24.0-44.0); MEAN CORPUSCULAR HEMOGLOBIN 31.3 pg (27.0-33.0); MEAN CORPUSCULAR HGB CONC 33.3 g/dl (32.0-36.5); MONO # 0.7 10^3/uL (0.0-0.8); MONO % 6.9 % (0.0-5.0); NEUTROPHILS # 5.7 10^3/uL (1.5-8.5); NEUTROPHILS % 61.3 % (36.0-66.0); PLATELET COUNT, AUTOMATED 207 10^3/uL (150-450); RED BLOOD COUNT 4.86 10^6/uL (4.00-5.40); WHITE BLOOD COUNT 9.4 10^3/uL (4.0-10.0)
[2019-07-15 09:40] LABS: ALBUMIN 3.7 GM/DL (3.2-5.2); BILIRUBIN,TOTAL 1.6 MG/DL (0.2-1.0); CREATININE FOR GFR 1.11 MG/DL (0.55-1.30); GLOMERULAR FILTRATION RATE 50.3 (>32); TOTAL PROTEIN 7.2 GM/DL (6.4-8.2)
[2019-07-15] MEDS ORDERED: ISOVUE-370 76% 100ML VIAL (Q9967) As Ordered ONE (10:00)
--- NOTE | 2019-07-15 11:05 | REP ---
CT of the pelvis with IV contrast: The additional imaging is performed during the arterial phase of enhancement from the iliac crests to just below the pubic symphysis. A repeat scan is performed after a delay of approximately 30 minutes to allow for contrast to enter the bladder. Comparison is the abdomen/pelvis CT dated 04/10/2017. There are no bladder polyps or masses on either phase of the study. There is no focal fluid collection in the pelvis. There is no extravasation of the intraluminal bladder contrast on the delayed image. The bladder is unremarkable. There is a hysterectomy. Vaginal cuff and adnexa are unremarkable and unchanged. There is no pelvic adenopathy or ascites. There is colonic diverticulosis involving the visualized portions of the ascending colon, transverse colon, descending colon and sigmoid colon . There is no CT evidence of diverticulitis within the visualized portions of the colon. Impression: Diverticulosis without diverticulitis. No adenopathy or ascites. No focal fluid collections. No extravasation from the bladder. Hysterectomy. Electronically Signed by Jd Hernadez MD 07/15/2019 10:56 A
[2019-07-15] MEDS ORDERED: MACR100C43 PO (11:37)
[2019-07-15] MEDS ORDERED: NITROFURANTOIN (MACROBID) 100 MG CAP PO ONE (11:45)
[2019-07-15 11:50] VITALS: BP 169/81
== END 2019-07-15 11:51 | disposition home or self-care (01) ==
LOC: M ED 07:44
DX: S37.33XD Laceration of urethra, subsequent encounter (principal); X58.XXXA Exposure to other specified factors, initial encounter; K57.30 Diverticulosis of large intestine without perforation or abscess without bleeding; N39.0 Urinary tract infection, site not specified; Z78.0 Asymptomatic menopausal state; Z79.51 Long term (current) use of inhaled steroids; Z79.84 Long term (current) use of oral hypoglycemic drugs; Z79.82 Long term (current) use of aspirin; Z88.0 Allergy status to penicillin; Z88.8 Allergy status to other drugs, medicaments and biological substances; Z91.018 Allergy to other foods
CPT/HCPCS: 72193; 80053; 81001; 85025; 87086; 99284; Q9967

== ENCOUNTER → 2019-07-23 | Outpatient (CLI) | payer MEDICARE, OTHER ==
[2019-07-23 11:05] LABS: HEMOGLOBIN A1c 7.4 %
[2019-07-23 11:22] LABS: FOLATE 15.6 NG/ML
[2019-07-23 11:25] LABS: ALBUMIN 3.5 GM/DL (3.2-5.2); BILIRUBIN,TOTAL 1.4 MG/DL (0.2-1.0); CALCIUM LEVEL 9.5 MG/DL (8.8-10.2); CREATININE FOR GFR 1.06 MG/DL (0.55-1.30); FREE T4 0.97 NG/DL (0.76-1.46); GLOMERULAR FILTRATION RATE 53.1 (>32); POTASSIUM SERUM 4.4 MEQ/L (3.5-5.1); THYROID STIMULATING HORMONE 6.21 uIU/ML (0.358-3.740); TOTAL 25(OH) VITAMIN D 67.6 NG/ML (30.0-100.0); TOTAL PROTEIN 6.9 GM/DL (6.4-8.2)
[2019-07-23 11:27] LABS: MALB URINE SIEMENS 10.2 MG/L
== END ==
LOC: M LAB 08:52
PROVIDERS: ATTEND Physician Assistant
DX: E11.21 Type 2 diabetes mellitus with diabetic nephropathy (principal); G57.93 Unspecified mononeuropathy of bilateral lower limbs; E55.9 Vitamin D deficiency, unspecified

== ENCOUNTER → 2019-09-24 | Outpatient (CLI) | payer MEDICARE, OTHER ==
--- NOTE | 2019-09-24 11:50 | REP ---
Digital diagnostic unilateral right breast mammography with CAD and focused right breast sonography: History: History of two palpable lumps in the right breast one of which, the patient reports having been present for 1 year. Mammographic findings: Skin markers are affixed to the skin at the site of the two palpable lumps which project roughly at 12 o'clock and 6 o'clock. Routine views are obtained along with magnified focal spot compression images. There is a needle biopsy marker clip in the upper outer quadrant of the right breast. There are benign calcifications in the right breast. There is a stable nodular opacity medially in the right breast unchanged from September 22, 2016. No new density is seen mammographically at the site of either palpable lump. No architectural distortion or microcalcification is seen. Some vascular calcification is observed. No mammographically suspicious finding. Sonographic findings: Heterogeneous fibroglandular background echotexture is seen. At 6 o'clock there is a 6 mm x 5 mm x 4 mm simple cyst located 25 mm from the nipple. At 1 o'clock in the right breast there is a cluster of microcysts with overall dimensions of 19 x 7 x 10 mm. This is felt to account for the mammographic opacity which has been stable. Adjacent to the nipple at 12 to 1 o'clock position, there is an essentially isoechoic area 5 mm in greatest diameter which is not considered suspicious. Impression: BIRADS 3: BI-RADS/ACR category 3 mammogram. Probably Benign Findings. Recommend 6-month followup right breast sonography and mammography. This mammogram was interpreted with the aid of an FDA-approved computer-aided detection system. The patient states she had a clinical breast exam in over a year ago. The patient letter being requested is m3. This patient's estimated Tyrer-Cuzick lifetime risk assessment for the breast cancer is 1.3 %. Electronically Signed by Nathan Santos MD 09/24/2019 07:46 P
== END ==
LOC: M RAD 09:31
PROVIDERS: ATTEND Physician Assistant
DX: Z12.31 Encounter for screening mammogram for malignant neoplasm of breast (principal); D48.61 Neoplasm of uncertain behavior of right breast
CPT/HCPCS: 76642; 77065; G0279

== ENCOUNTER → 2019-10-23 | Outpatient (CLI) | payer MEDICARE, OTHER ==
--- NOTE | 2019-10-23 15:34 | REP ---
Focused right breast sonography: History: Palpable lump 9 o'clock and 11 o'clock in the right breast. Recent sonography showed a cluster of cysts at 1 o'clock and the simple cyst at 6 o'clock. Comparison mammography and sonography September 24, 2019. Findings: Scanning in the area of the palpable lump in the upper outer quadrant right breast demonstrates normal lymph nodes in the right axillary region. Normal breast parenchyma is seen. No cyst or mass is observed. Lymph nodes have a thin sliver of cortical tissue surrounding echogenic fatty hilus. They have a benign appearance. The largest measures 5.7 x 1.5 x 2.1 cm. There is a 1.2 x 0.5 x 0.8 cm lymph node seen as well. No suspicious finding. Impression: BIRADS category 2 benign findings. Clinical followup is advised.
== END ==
LOC: M WHC 14:11
PROVIDERS: ATTEND Surgery
DX: N63.15 Unspecified lump in the right breast, overlapping quadrants (principal)

== ENCOUNTER → 2019-10-24 | Outpatient (REF) | payer MEDICARE, OTHER | LOC: M LAB REF 11:37 | PROVIDERS: ATTEND Dermatology | DX: L57.0 Actinic keratosis (principal) ==

== ENCOUNTER → 2019-12-11 | Outpatient (REF) | payer MEDICARE, OTHER ==
[~2019-12-11] MED LIST changes: +ACET325T42 PO; -MAPA325T3 PO; +VITA-243 PO; -VITA500T PO
[2019-12-11 17:11] LABS: BASO # 0.1 10^3/uL (0.0-0.2); BASO % 0.6 % (0.0-1.0); EOS # 0.4 10^3/uL (0.0-0.5); EOS % 4.4 % (0.0-3.0); HEMATOCRIT 47.5 % (36.0-47.0); HEMOGLOBIN 15.7 g/dl (12.0-15.5); MEAN CORPUSCULAR HEMOGLOBIN 31.2 pg (27.0-33.0); MEAN CORPUSCULAR HGB CONC 33.1 g/dl (32.0-36.5); MEAN CORPUSCULAR VOLUME 94.2 fl (80.0-96.0); MONO # 0.7 10^3/uL (0.0-0.8); MONO % 7.9 % (0.0-5.0); NEUTROPHILS # 4.7 10^3/uL (1.5-8.5); NEUTROPHILS % 52.8 % (36.0-66.0); PLATELET COUNT, AUTOMATED 209 10^3/uL (150-450); RED BLOOD COUNT 5.04 10^6/uL (4.00-5.40); WHITE BLOOD COUNT 8.8 10^3/uL (4.0-10.0)
[2019-12-11 17:15] LABS: ALBUMIN 3.9 GM/DL (3.2-5.2); BILIRUBIN,TOTAL 1.3 MG/DL (0.2-1.0); CALCIUM LEVEL 10.5 MG/DL (8.8-10.2); CHOLESTEROL RISK RATIO 2.98 (<5); FREE T4 1.14 NG/DL (0.76-1.46); GLOMERULAR FILTRATION RATE 56.6 (>32); MAGNESIUM LEVEL 1.6 MG/DL (1.8-2.4); POTASSIUM SERUM 4.4 MEQ/L (3.5-5.1); THYROID STIMULATING HORMONE 1.9 uIU/ML (0.358-3.740); TOTAL PROTEIN 7.4 GM/DL (6.4-8.2)
[2019-12-11 17:19] LABS: FOLATE 19.9 NG/ML; TOTAL 25(OH) VITAMIN D 41.1 NG/ML (30.0-100.0)
[2019-12-11 17:22] LABS: HEMOGLOBIN A1c 7.3 %
== END ==
LOC: M SFHCADAM 12:25
PROVIDERS: ATTEND Physician Assistant
DX: K21.9 Gastro-esophageal reflux disease without esophagitis (principal); E03.9 Hypothyroidism, unspecified; I11.9 Hypertensive heart disease without heart failure; E11.21 Type 2 diabetes mellitus with diabetic nephropathy; E55.9 Vitamin D deficiency, unspecified; M79.661 Pain in right lower leg
CPT/HCPCS: 80053; 80061; 82306; 82607; 82746; 83036; 83735; 84439; 84443; 85025; G0463

== ENCOUNTER → 2020-01-06 | Outpatient (CLI) | payer MEDICARE, OTHER ==
[2020-01-06 17:41] LABS: ALBUMIN 3.5 GM/DL (3.2-5.2); CALCIUM LEVEL 9.6 MG/DL (8.8-10.2); CREATININE FOR GFR 0.97 MG/DL (0.55-1.30); GLOMERULAR FILTRATION RATE 58.7 (>32); MAGNESIUM LEVEL 1.7 MG/DL (1.8-2.4); POTASSIUM SERUM 4.2 MEQ/L (3.5-5.1); TOTAL PROTEIN 7.1 GM/DL (6.4-8.2)
[2020-01-07 10:24] LABS: PTH INTACT 62.8 PG/ML (18.5-88.0)
== END ==
LOC: M WUC 14:10
PROVIDERS: ATTEND Physician Assistant
DX: E83.52 Hypercalcemia (principal)

== ENCOUNTER → 2020-01-08 | Outpatient (REF) | payer MEDICARE, OTHER ==
[2020-01-08 19:02] LABS: APPEARANCE, URINE CLEAR (CLEAR); BACTERIA, URINE AUTO NEGATIVE (NEGATIVE); BILIRUBIN, URINE AUTO NEGATIVE (NEGATIVE); BLOOD, URINE BLOOD NEGATIVE (NEGATIVE); COLOR, URINE STRAW (YELLOW); GLUCOSE, URINE (UA) AUTO NEGATIVE (NEGATIVE); KETONE, URINE AUTO NEGATIVE (NEGATIVE); LEUKOCYTE ESTERASE, URINE AUTO NEGATIVE (NEGATIVE); NITRITE, URINE AUTO NEGATIVE (NEGATIVE); PROTEIN, URINE AUTO NEGATIVE (NEGATIVE); RBC, URINE AUTO 0 /HPF (0-3); SPECIFIC GRAVITY URINE AUTO 1.003 (1.002-1.035); SQUAMOUS EPITHELIAL CELL UR AU 0 /HPF (0-6); UROBILINOGEN, URINE AUTO 0.2 mg/dL (0.0-2.0); WBC, URINE AUTO 0 /HPF (0-3)
== END ==
LOC: M SFHCADAM 17:01
PROVIDERS: ATTEND Physician Assistant
DX: N30.00 Acute cystitis without hematuria (principal)

== ENCOUNTER → 2020-04-02 | Outpatient (REF) | payer MEDICARE, OTHER ==
[~2020-04-02] MED LIST changes: +AMLO1TAB24 PO; -AMLO5TAB6 PO; +DOXY100C37 PO; +PANT40TA29 PO; -PANT40TA3 PO
== END ==
LOC: M LAB REF 09:41
PROVIDERS: ATTEND Dermatology
DX: L08.9 Local infection of the skin and subcutaneous tissue, unspecified (principal)
CPT/HCPCS: 11102; 88305; 88313; G0463

== ENCOUNTER → 2020-04-28 | Outpatient (CLI) | payer MEDICARE, OTHER ==
[2020-04-28 09:03] LABS: HEMATOCRIT 44.3 % (36.0-47.0); HEMOGLOBIN 14.5 g/dl (12.0-15.5); MEAN CORPUSCULAR HEMOGLOBIN 30.8 pg (27.0-33.0); MEAN CORPUSCULAR HGB CONC 32.7 g/dl (32.0-36.5); MEAN CORPUSCULAR VOLUME 94.1 fl (80.0-96.0); PLATELET COUNT, AUTOMATED 201 10^3/uL (150-450); RED BLOOD COUNT 4.71 10^6/uL (4.00-5.40); WHITE BLOOD COUNT 7.1 10^3/uL (4.0-10.0)
[2020-04-28 09:21] LABS: ALBUMIN 3.7 GM/DL (3.2-5.2); BILIRUBIN,TOTAL 0.8 MG/DL (0.2-1.0); CALCIUM LEVEL 9.8 MG/DL (8.8-10.2); CREATININE FOR GFR 1.31 MG/DL (0.55-1.30); GLOMERULAR FILTRATION RATE 41.5 (>32); MAGNESIUM LEVEL 1.8 MG/DL (1.8-2.4); POTASSIUM SERUM 4.8 MEQ/L (3.5-5.1); TOTAL PROTEIN 6.8 GM/DL (6.4-8.2)
[2020-04-28 09:33] LABS: HEMOGLOBIN A1c 7.3 %
== END ==
LOC: M LAB 07:51
PROVIDERS: ATTEND Physician Assistant
DX: E83.42 Hypomagnesemia (principal); E11.21 Type 2 diabetes mellitus with diabetic nephropathy; Z86.73 Personal history of transient ischemic attack (TIA), and cerebral infarction without residual deficits; K21.9 Gastro-esophageal reflux disease without esophagitis; E83.52 Hypercalcemia; I11.9 Hypertensive heart disease without heart failure

== ENCOUNTER → 2020-05-20 | Outpatient (CLI) | payer MEDICARE, OTHER | LOC: M LABSMTC 09:42 | PROVIDERS: ATTEND Family Medicine | DX: Z20.828 Contact with and (suspected) exposure to other viral communicable diseases (principal) | CPT/HCPCS: C9803; U0003 ==

== ENCOUNTER → 2020-05-30 | Outpatient (CLI) | payer MEDICARE, OTHER ==
--- NOTE | 2020-06-06 11:20 | REP ---
RIGHT SHOULDER SERIES: 3-VIEWS HISTORY: Shoulder pain. FINDINGS: There is diffuse osteopenia. Osteoarthritic narrowing and minimal hypertrophy are noted at the acromioclavicular (AC) joint. The glenohumeral and acromioclavicular joints are normally aligned. Periarticular soft tissues are unremarkable. There is a granulomatous calcification in the right lung. IMPRESSION: Mild osteoarthritis of the acromioclavicular (AC) joint. Diffuse osteopenia. Otherwise negative. MTDD
== END ==
LOC: M ADAMS 08:47
PROVIDERS: ATTEND Family Medicine
DX: M85.811 Other specified disorders of bone density and structure, right shoulder (principal); M19.011 Primary osteoarthritis, right shoulder; R91.8 Other nonspecific abnormal finding of lung field; M25.511 Pain in right shoulder

== ENCOUNTER → 2020-06-04 | Outpatient (CLI) | payer MEDICARE, OTHER ==
[2020-06-04 09:38] LABS: CALCIUM LEVEL 9.6 MG/DL (8.8-10.2); CREATININE FOR GFR 0.96 MG/DL (0.55-1.30); GLOMERULAR FILTRATION RATE 59.4 (>32); POTASSIUM SERUM 4.3 MEQ/L (3.5-5.1)
== END ==
LOC: M LAB 08:19
PROVIDERS: ATTEND Physician Assistant
DX: N17.9 Acute kidney failure, unspecified (principal); E11.9 Type 2 diabetes mellitus without complications

== ENCOUNTER → 2020-06-04 | Outpatient (CLI) | payer MEDICARE, OTHER ==
[2020-06-04 09:38] LABS: C REACTIVE PROTEIN QUANTITATIV 0.31 MG/DL (0.00-0.30); RHEUMATOID FACTOR QUANT < 10.0 IU/ML (<15.0)
[2020-06-05 16:08] LABS: ANTINUCLEAR ANTIBODIES DIRECT Negative (Negative); Lyme Disease IgG/IgM Antibodie <0.91 ISR (0.00-0.90); Lyme Disease IgM Ab Quantitati <0.80 index (0.00-0.79)
== END ==
LOC: M LAB 08:17
PROVIDERS: ATTEND Family Medicine
DX: M25.50 Pain in unspecified joint (principal); N17.9 Acute kidney failure, unspecified; E11.9 Type 2 diabetes mellitus without complications

== ENCOUNTER 2020-07-01 14:48 | Emergency (ER) | payer MEDICARE, OTHER ==
[~2020-07-01] VITALS: Ht 165.1 cm; Wt 98.2 kg
[~2020-07-01 14:48] MED LIST changes: -DOXY100C37 PO
[2020-07-01] MEDS ORDERED: BOOSTRIX/ADACEL VACCINE (DIPHTH/PERTUSS/ACELL/TETANUS) 0.5ML SYR IM ONE (15:15)
--- NOTE | 2020-07-01 15:38 | REP ---
INDICATION: fall, heavy equipment fell on it, open lac. COMPARISON: Comparison left ankle radiographs January 18, 2018.. TECHNIQUE: Four views. FINDINGS: Four views left ankle demonstrate soft tissue swelling and an overlying dressing in the pretibial soft tissues above the ankle. Soft tissue irregularity and clothing artifacts are seen about the foot and ankle. There is plantar calcaneal spurring. Ankle mortise is intact. No fracture is seen. No opaque foreign body noted. IMPRESSION: No acute fracture noted. Clothing artifact and bandaging artifact noted. Pretibial soft tissue swelling and irregularity. Plantar heel spur. <Electronically signed by Stefano Santos > 07/01/20 [id number]
--- NOTE | 2020-07-01 15:40 | REP ---
INDICATION: fall, heavy equipment fell on it, open lac. COMPARISON: Comparison left ankle radiographs January 18, 2018.. TECHNIQUE: Four views. FINDINGS: Four views of the left tib fib demonstrate moderate pretibial soft tissue swelling over the distal calf. There is no evidence of acute fracture. Ankle mortise is intact. There is mild medial compartment knee joint space narrowing. Chondrocalcinosis is noted in the lateral compartment at the knee.. There is non articular spurring at the superior pole of the patella at the quadriceps tendon insertion site. Mild articular spurring of the patella superior pole is observed.. No opaque foreign body noted. IMPRESSION: Moderate area of soft tissue swelling in the pretibial soft tissues of the distal calf. Degenerative changes at the knee. No fracture or other acute abnormality seen. <Electronically signed by Stefano Santos > 07/01/20 [id number]
[2020-07-01] MEDS ORDERED: LIDOCAINE 2% MDV 20ML VIAL SC ONE (15:45)
[2020-07-01] MEDS ORDERED: LIDOCAINE W/EPINEPHRINE 1% 20ML VIAL SC ONE (17:15)
[2020-07-01 18:17] LABS: BASO # 0.1 10^3/uL (0.0-0.2); BASO % 0.5 % (0.0-1.0); EOS # 0.3 10^3/uL (0.0-0.5); HEMATOCRIT 45.1 % (36.0-47.0); LYMPH # 3.3 10^3/uL (1.5-5.0); LYMPH % 25.7 % (24.0-44.0); MEAN CORPUSCULAR HEMOGLOBIN 30.7 pg (27.0-33.0); MEAN CORPUSCULAR HGB CONC 33.3 g/dl (32.0-36.5); MEAN CORPUSCULAR VOLUME 92.2 fl (80.0-96.0); MONO # 0.8 10^3/uL (0.0-0.8); NEUTROPHILS # 8.3 10^3/uL (1.5-8.5); NEUTROPHILS % 65.3 % (36.0-66.0); PLATELET COUNT, AUTOMATED 229 10^3/uL (150-450); RED BLOOD COUNT 4.89 10^6/uL (4.00-5.40); WHITE BLOOD COUNT 12.7 10^3/uL (4.0-10.0)
[2020-07-01 18:29] LABS: INR 0.92; PROTHROMBIN TIME 12.5 SECONDS (12.5-14.3)
[2020-07-01 18:30] LABS: PARTIAL THROMBOPLASTIN TIME 28.6 SECONDS (24.2-38.5)
[2020-07-01] MEDS ORDERED: DOXY100C37 PO (20:08)
[2020-07-01 20:14] VITALS: BP 138/72
== END 2020-07-01 20:36 | disposition home or self-care (01) ==
LOC: M ED 14:48
DX: S81.812A Laceration without foreign body, left lower leg, initial encounter (principal); W20.8XXA Other cause of strike by thrown, projected or falling object, initial encounter; Y92.9 Unspecified place or not applicable; Y93.9 Activity, unspecified; Y99.9 Unspecified external cause status; K21.9 Gastro-esophageal reflux disease without esophagitis; E03.9 Hypothyroidism, unspecified; E11.9 Type 2 diabetes mellitus without complications; I10 Essential (primary) hypertension; Z79.51 Long term (current) use of inhaled steroids; Z79.82 Long term (current) use of aspirin; Z79.84 Long term (current) use of oral hypoglycemic drugs; Z79.899 Other long term (current) drug therapy; Z88.0 Allergy status to penicillin; Z88.1 Allergy status to other antibiotic agents; Z88.8 Allergy status to other drugs, medicaments and biological substances; Z91.018 Allergy to other foods

== ENCOUNTER → 2020-07-07 | Outpatient (CLI) | payer MEDICARE, OTHER ==
[~2020-07-07] MED LIST changes: +DOXY100C37 PO
[2020-07-07 11:06] LABS: BASO # 0.1 10^3/uL (0.0-0.2); BASO % 0.7 % (0.0-1.0); EOS # 0.3 10^3/uL (0.0-0.5); EOS % 4.2 % (0.0-3.0); HEMATOCRIT 39.4 % (36.0-47.0); HEMOGLOBIN 13.1 g/dl (12.0-15.5); LYMPH # 2.2 10^3/uL (1.5-5.0); LYMPH % 27.5 % (24.0-44.0); MEAN CORPUSCULAR HEMOGLOBIN 31.3 pg (27.0-33.0); MEAN CORPUSCULAR HGB CONC 33.2 g/dl (32.0-36.5); MEAN CORPUSCULAR VOLUME 94.3 fl (80.0-96.0); MONO # 0.7 10^3/uL (0.0-0.8); MONO % 8.3 % (0.0-5.0); NEUTROPHILS # 4.8 10^3/uL (1.5-8.5); NEUTROPHILS % 58.7 % (36.0-66.0); PLATELET COUNT, AUTOMATED 221 10^3/uL (150-450); RED BLOOD COUNT 4.18 10^6/uL (4.00-5.40); WHITE BLOOD COUNT 8.1 10^3/uL (4.0-10.0)
[2020-07-07 11:40] LABS: ERYTHROCYTE SEDIMENTATION RATE 12 mm/hr (0-30)
== END ==
LOC: M LAB 10:19
PROVIDERS: ATTEND Physician Assistant Surgical
DX: S80.12XD Contusion of left lower leg, subsequent encounter (principal); X58.XXXD Exposure to other specified factors, subsequent encounter; Y92.89 Other specified places as the place of occurrence of the external cause

== ENCOUNTER → 2020-09-11 | Outpatient (CLI) | payer MEDICARE, OTHER ==
[2020-09-11 09:44] LABS: ALBUMIN 3.7 GM/DL (3.2-5.2); BILIRUBIN,TOTAL 1.3 MG/DL (0.2-1.0); CALCIUM LEVEL 9.8 MG/DL (8.8-10.2); CHOLESTEROL RISK RATIO 2.578 (<5); CREATININE FOR GFR 1.01 MG/DL (0.55-1.30); POTASSIUM SERUM 4.3 MEQ/L (3.5-5.1); TOTAL PROTEIN 6.8 GM/DL (6.4-8.2)
== END ==
LOC: M LAB 08:37
PROVIDERS: ATTEND Physician Assistant
DX: E78.00 Pure hypercholesterolemia, unspecified (principal); I11.9 Hypertensive heart disease without heart failure

== ENCOUNTER → 2020-10-01 | Outpatient (CLI) | payer MEDICARE, OTHER ==
--- NOTE | 2020-10-01 14:16 | REP ---
INDICATION: RAINA BREAST PAIN, BIRADS3; BREAST LUMP - RIGHT. Patient reports that her lump is not changed from the previous year's study but she had difficulty placing the skin marker for today's exam and finding the lump. Intermittent pain in the region of the right breast upper outer quadrant. COMPARISON: Mammography from 24 September 2019, 23 November 2018, and 21 October 2017. TECHNIQUE: Bilateral CC and MLO) view(s) were taken. 3D tomography is carried out and targeted right breast sonography was performed. FINDINGS: There is a needle biopsy marker clip again noted in the upper outer quadrant of the right breast. The skin marker is affixed to the skin laterally in the upper outer quadrant on the right. Breast parenchyma in this location is predominantly fat replaced. No yrn density is seen. There are stable nodular densities bilaterally. Benign calcifications are observed bilaterally. There are normal appearing lymph nodes in each axilla. 3D tomography shows no new abnormality. The Volpara volumetric breast density pattern is B. Targeted sonography: Scanning of the right breast in the area the palpable lumps at 9 o'clock and 12 o'clock pointed out by the patient shows normal fairly homogeneous background echotexture. No cyst, mass or acoustic shadowing is seen. No suspicious sonographic finding... IMPRESSION: BIRADS/ACR category benign mammographic and sonographic findings. Clinical follow-up is advised.. This patient's Tyrer-Cuzick lifetime breast cancer risk assessment score is 1.1%. This mammogram was interpreted with the aid of an FDA-approved computer-aided detection system. The patient states she had a clinical breast exam in September of 2020. The patient letter being requested is M2. RECOMMENDATION: Repeat screening mammography recommended 1 year (for women over 40). <Electronically signed by Stefano Santos > 10/01/20 [id number]
== END ==
LOC: M WHC 11:59
PROVIDERS: ATTEND Surgery
DX: N63.15 Unspecified lump in the right breast, overlapping quadrants (principal); N64.4 Mastodynia; N64.52 Nipple discharge
CPT/HCPCS: 76642; 77066; G0279; G0463

== ENCOUNTER → 2020-10-30 | Outpatient (CLI) | payer MEDICARE, OTHER ==
--- NOTE | 2020-10-30 16:08 | REP ---
INDICATION: RIGHT BREAST LUMP. At 1 o'clock in the right breast, 3.5 cm from the nipple. Cluster of cysts. Previous BI-RADS 3. COMPARISON: Comparison mammography and targeted sonography 01 October 2020.. Comparison sonography 24 September 2019. TECHNIQUE: Targeted right breast sonography 1 o'clock position as requested. FINDINGS: 3.5 cm from the nipple in the 1 o'clock position of the right breast there is a 1.5 x 1.1 x 1.0 cm area characterized by clustered microcysts. This is felt to be unchanged from comparison sonography 24 September 2019. IMPRESSION: BI-RADS category 2 benign findings. <Electronically signed by Stefano Santos > 10/30/20 [id number]
== END ==
LOC: M WHC 15:00
PROVIDERS: ATTEND Surgery
DX: N63.12 Unspecified lump in the right breast, upper inner quadrant (principal)

== ENCOUNTER 2021-01-07 12:29 | Outpatient (CLI) | payer MEDICARE, OTHER ==
[~2021-01-07] VITALS: Ht 167.6 cm; Wt 96.2 kg
[2021-01-07] VITALS (7 sets, daily range): BP systolic 134–178; BP diastolic 65–90
[~2021-01-07 12:29] MED LIST changes: +ALBUTEROL 90 MCG/ACT 8GM HFA INHALER INH PRN; +ALBUTEROL SULFATE 2.5 MG/0.5 ML INH NEB SOLN INH PRN; +EPINEPHrine INJ 1 MG/ML 1ML AMP IM PRN; +NS 1,000 ML IV SCH; +diphenhydrAMINE 50MG/ML VIAL (J1200) IV ONE; +diphenhydrAMINE 50MG/ML VIAL (J1200) IV PRN; +methylPREDNISolone 125MG 2ML VIAL IV ONE; +methylPREDNISolone 125MG 2ML VIAL IV PRN
[2021-01-07 13:54] LABS: BASO % 0.4 % (0.0-1.0); EOS # 0.1 10^3/uL (0.0-0.5); EOS % 0.7 % (0.0-3.0); HEMATOCRIT 46.8 % (36.0-47.0); HEMOGLOBIN 15.9 g/dl (12.0-15.5); LYMPH # 3.3 10^3/uL (1.5-5.0); LYMPH % 34.1 % (24.0-44.0); MEAN CORPUSCULAR VOLUME 91.2 fl (80.0-96.0); MONO # 0.9 10^3/uL (0.0-0.8); MONO % 9.2 % (2.0-8.0); NEUTROPHILS # 5.3 10^3/uL (1.5-8.5); NEUTROPHILS % 54.5 % (36.0-66.0); PLATELET COUNT, AUTOMATED 238 10^3/uL (150-450); RED BLOOD COUNT 5.13 10^6/uL (4.00-5.40); WHITE BLOOD COUNT 9.7 10^3/uL (4.0-10.0)
[2021-01-07 14:17] LABS: ALBUMIN 3.6 GM/DL (3.2-5.2); BILIRUBIN,TOTAL 1.1 MG/DL (0.2-1.0); CALCIUM LEVEL 10.5 MG/DL (8.8-10.2); CREATININE FOR GFR 1.15 MG/DL (0.55-1.30); GLOMERULAR FILTRATION RATE 48.1 (>32); MAGNESIUM LEVEL 1.7 MG/DL (1.8-2.4); POTASSIUM SERUM 4.1 MEQ/L (3.5-5.1); TOTAL PROTEIN 7.1 GM/DL (6.4-8.2)
[2021-01-07] MEDS ORDERED: BAMLANIVIMAB 700 MG, ETESEVIMAB 1,400 MG in NS 250 ML IV ONE (15:00)
== END 2021-01-07 16:20 | disposition home or self-care (01) ==
LOC: M OPCLI4PR 12:29 → M 4MAIN 12:35 → M OPCLI4PR 16:20
PROVIDERS: ATTEND Family Medicine
DX: U07.1 COVID-19 (principal); Z88.0 Allergy status to penicillin; Z88.1 Allergy status to other antibiotic agents; Z88.8 Allergy status to other drugs, medicaments and biological substances
CPT/HCPCS: 36415; 80053; 83735; 85025; 96375; J1200; J2930; M0239; U0003

== ENCOUNTER → 2021-01-07 | Outpatient (REF) | payer MEDICARE, OTHER | LOC: M SFHCADAM 11:30 | PROVIDERS: ATTEND Physician Assistant | DX: J98.9 Respiratory disorder, unspecified (principal) ==

== ENCOUNTER 2021-01-12 12:44 | Emergency (ER) | payer MEDICARE, OTHER ==
[~2021-01-12] VITALS: Ht 160 cm; Wt 100.0 kg
[~2021-01-12 12:44] MED LIST changes: -ALBUTEROL 90 MCG/ACT 8GM HFA INHALER INH PRN; -ALBUTEROL SULFATE 2.5 MG/0.5 ML INH NEB SOLN INH PRN; -EPINEPHrine INJ 1 MG/ML 1ML AMP IM PRN; -NS 1,000 ML IV SCH; -diphenhydrAMINE 50MG/ML VIAL (J1200) IV ONE; -diphenhydrAMINE 50MG/ML VIAL (J1200) IV PRN; -methylPREDNISolone 125MG 2ML VIAL IV ONE; -methylPREDNISolone 125MG 2ML VIAL IV PRN
[2021-01-12 12:58] VITALS: BP 143/76
== END 2021-01-12 17:00 | disposition left against medical advice (07) ==
LOC: M ED 12:44
DX: Z53.21 Procedure and treatment not carried out due to patient leaving prior to being seen by health care provider (principal)

== ENCOUNTER → 2021-02-12 | Outpatient (CLI) | payer MEDICARE, OTHER ==
[2021-02-12 12:38] LABS: CALCIUM LEVEL 9.8 MG/DL (8.8-10.2); GLOMERULAR FILTRATION RATE 56.5 (>32); POTASSIUM SERUM 4.3 MEQ/L (3.5-5.1)
== END ==
LOC: M LAB 10:48
PROVIDERS: ATTEND Physician Assistant
DX: I11.9 Hypertensive heart disease without heart failure (principal)

== ENCOUNTER → 2021-02-19 | Outpatient (REF) | payer MEDICARE, OTHER ==
[~2021-02-19] MED LIST changes: -DOXY100C37 PO; +DOXY1CAP62 PO
[2021-02-19 17:54] LABS: BILIRUBIN,TOTAL 1.4 MG/DL (0.2-1.0); CHOLESTEROL RISK RATIO 2.735 (<5); CREATININE FOR GFR 1.02 MG/DL (0.55-1.30); FREE T4 1.1 NG/DL (0.76-1.46); GLOMERULAR FILTRATION RATE 55.2 (>32); POTASSIUM SERUM 4.3 MEQ/L (3.5-5.1); THYROID STIMULATING HORMONE 1.29 uIU/ML (0.358-3.740); TOTAL PROTEIN 7.1 GM/DL (6.4-8.2)
[2021-02-19 19:03] LABS: HEMOGLOBIN A1c 7.4 %
== END ==
LOC: M SFHCADAM 14:18
PROVIDERS: ATTEND Family Medicine
DX: E11.21 Type 2 diabetes mellitus with diabetic nephropathy (principal); E03.9 Hypothyroidism, unspecified; E78.49 Other hyperlipidemia
CPT/HCPCS: 80053; 80061; 83036; 84439; 84443; G0463

== ENCOUNTER 2021-04-03 09:10 | Emergency (ER) | payer MEDICARE, OTHER ==
[~2021-04-03] VITALS: Ht 160 cm; Wt 97.8 kg
[2021-04-03] MEDS: COMBIVENT RESPIMAT 100-20MCG INHALER 4GM INH SCH ×3 (09:45→10:25)
[2021-04-03] MEDS ORDERED: predniSONE 20 MG TAB PO ONE (09:45)
--- NOTE | 2021-04-03 10:05 | REP ---
INDICATION: DYSPNEA/COUGH. COMPARISON: CT and AP portable 06/18/2017 TECHNIQUE: AP upright FINDINGS: There are some scattered granulomatous calcifications and nodules in the lower lobes as on CT. There is no pleural effusion, lateral pleural thickening or apical scarring. No dense consolidation or parenchymal mass. The left atrium is mildly prominent but the heart is not grossly enlarged. The aorta is calcified at the arch and mildly tortuous but without aneurysm. Airway midline. No widening of the mediastinum. There is some very mild venous hypertension with engorgement of upper lobe vessels but the vessel margins are distinct. No interstitial edema. Bones show minor dextroconvex curve midthoracic spine with some degenerative changes spine and shoulders. IMPRESSION: 1. Some scattered granulomatous nodules at the bases and some mild pulmonary venous hypertension without evidence for interstitial edema, pleural effusion or acute infiltrate. 2. No cardiomegaly. There is some left atrial enlargement. Calcified aortic arch without aneurysm. <Electronically signed by Hong Sawyer > 04/03/21 1007
[2021-04-03 10:12] LABS: VENOUS BASE EXCESS -1.5 (-2.0-2.0); VENOUS HCO3 23.9 MEQ/L (23.0-27.0); VENOUS O2 SATURATION 84.7 % (60.0-80.0); VENOUS PARTIAL PRESSURE CO2 42.4 mmHg (38.0-50.0); VENOUS PARTIAL PRESSURE O2 48.6 mmHg (30.0-50.0); VENOUS PH 7.368 UNITS (7.330-7.430); VENOUS STANDARD HCO3 22.9 MEQ/L; VENOUS TOTAL CO2 25.2 MEQ/L (24.0-28.0)
[2021-04-03 10:22] LABS: BASO % 0.5 % (0.0-1.0); EOS # 0.2 10^3/uL (0.0-0.5); EOS % 2.8 % (0.0-3.0); HEMATOCRIT 41.4 % (36.0-47.0); HEMOGLOBIN 13.9 g/dl (12.0-15.5); LYMPH # 3.1 10^3/uL (1.5-5.0); LYMPH % 40.6 % (24.0-44.0); MEAN CORPUSCULAR HEMOGLOBIN 31.8 pg (27.0-33.0); MEAN CORPUSCULAR HGB CONC 33.6 g/dl (32.0-36.5); MEAN CORPUSCULAR VOLUME 94.7 fl (80.0-96.0); MONO # 0.7 10^3/uL (0.0-0.8); MONO % 8.9 % (2.0-8.0); NEUTROPHILS # 3.6 10^3/uL (1.5-8.5); NEUTROPHILS % 46.7 % (36.0-66.0); PLATELET COUNT, AUTOMATED 204 10^3/uL (150-450); RED BLOOD COUNT 4.37 10^6/uL (4.00-5.40); WHITE BLOOD COUNT 7.6 10^3/uL (4.0-10.0)
[2021-04-03 10:48] LABS: ALBUMIN 3.5 GM/DL (3.2-5.2); BILIRUBIN,DIRECT 0.2 MG/DL (0.0-0.2); THYROID STIMULATING HORMONE 1.92 uIU/ML (0.358-3.740); TOTAL PROTEIN 6.5 GM/DL (6.4-8.2)
[2021-04-03] MEDS ORDERED: PRED20TA PO (12:20)
[2021-04-03 12:32] VITALS: BP 119/60
--- NOTE | 2021-04-04 09:01 | ECGEPIP ---
[facility] - ED Test Date: 2021-04-03 Pat Name: HONG SCALES Department: Room: - Gender: Female Rand Butter: RS : 1940 Requested By: Germania Singh Order Number: [id number] Reading MD: Germania Singh Measurements Intervals [place] Rate: 64 P: 38 KS: 150 QRS: 19 QRSD: 86 T: 39 QT: 418 QTc: 431 Interpretive Statements Normal sinus rhythm prior LEFT BUNDLE BRANCH BLOCK not seen 01/08/19 Electronically Signed on 04-04-2021 9:01:24 EDT by Germania Singh
--- NOTE | 2021-04-04 09:47 | ED PDOC ---
Post-Departure Follow-Up radiology report faxed to Germania Connolly MD Apr 04, 2021 09:47
== END 2021-04-03 12:34 | disposition home or self-care (01) ==
LOC: M ED 09:10
DX: J44.1 Chronic obstructive pulmonary disease with (acute) exacerbation (principal); E11.9 Type 2 diabetes mellitus without complications; I10 Essential (primary) hypertension; J45.909 Unspecified asthma, uncomplicated; E78.5 Hyperlipidemia, unspecified; G47.33 Obstructive sleep apnea (adult) (pediatric); Z79.84 Long term (current) use of oral hypoglycemic drugs; Z79.890 Hormone replacement therapy; Z79.51 Long term (current) use of inhaled steroids; Z79.899 Other long term (current) drug therapy; Z79.82 Long term (current) use of aspirin; Z91.018 Allergy to other foods; Z88.0 Allergy status to penicillin; Z88.8 Allergy status to other drugs, medicaments and biological substances; Z88.1 Allergy status to other antibiotic agents; Z87.19 Personal history of other diseases of the digestive system; Z82.49 Family history of ischemic heart disease and other diseases of the circulatory system
CPT/HCPCS: 71045; 80047; 80076; 81001; 82803; 83880; 84443; 84484; 85025; 87086; 87798; 93005; 93041; 94640; 99285; J7512

== ENCOUNTER 2021-05-04 11:00 | Emergency (ER) | payer MEDICARE, OTHER ==
[~2021-05-04] VITALS: Ht 165.1 cm; Wt 92.3 kg
[~2021-05-04 11:00] MED LIST changes: +PRED20TA PO
--- NOTE | 2021-05-04 11:42 | REP ---
INDICATION: CHEST PAIN. COMPARISON: 04/03/2021. TECHNIQUE: Single portable AP view of the chest was performed. FINDINGS: There is no acute infiltrate or pulmonary edema. Lungs are clear. The heart appears slightly enlarged. The mediastinal silhouette is unremarkable and unchanged. The visualized osseous structures are intact.There is mild elevation of the right hemidiaphragm. IMPRESSION: No acute pulmonary disease. <Electronically signed by Jd Mas > 05/04/21 2077
[2021-05-04 11:51] LABS: BASO # 0.1 10^3/uL (0.0-0.2); BASO % 0.8 % (0.0-1.0); EOS # 0.3 10^3/uL (0.0-0.5); EOS % 3.8 % (0.0-3.0); HEMATOCRIT 44.7 % (36.0-47.0); HEMOGLOBIN 15.1 g/dl (12.0-15.5); LYMPH # 2.6 10^3/uL (1.5-5.0); LYMPH % 33.1 % (24.0-44.0); MEAN CORPUSCULAR HEMOGLOBIN 31.4 pg (27.0-33.0); MEAN CORPUSCULAR HGB CONC 33.8 g/dl (32.0-36.5); MEAN CORPUSCULAR VOLUME 92.9 fl (80.0-96.0); MONO # 0.7 10^3/uL (0.0-0.8); MONO % 8.8 % (2.0-8.0); NEUTROPHILS # 4.2 10^3/uL (1.5-8.5); NEUTROPHILS % 53.1 % (36.0-66.0); PLATELET COUNT, AUTOMATED 204 10^3/uL (150-450); RED BLOOD COUNT 4.81 10^6/uL (4.00-5.40); WHITE BLOOD COUNT 7.9 10^3/uL (4.0-10.0)
[2021-05-04 12:42] LABS: BLOOD UREA NITROGEN 13 MG/DL (7-18); CALCIUM LEVEL 9.7 MG/DL (8.8-10.2); CARBON DIOXIDE LEVEL 24 MEQ/L (21-32); CHLORIDE LEVEL 110 MEQ/L (98-107); CK-MB VALUE MASS 2.1 NG/ML (<3.6); CPK CREATINE PHOSPHOKINASE 58 U/L (26-192); CREATININE FOR GFR 0.93 MG/DL (0.55-1.30); GLOMERULAR FILTRATION RATE > 60.0 (>32); GLUCOSE, FASTING 151 MG/DL (70-100); MB/CK RELATIVE INDEX 3.62 (< OR =4); POTASSIUM SERUM 4.6 MEQ/L (3.5-5.1); SODIUM LEVEL 141 MEQ/L (136-145); TROPONIN I < 0.02 NG/ML (< 0.10)
--- NOTE | 2021-05-04 13:38 | REP ---
INDICATION: bilateral calf pain and swelling x3 days, post covid. COMPARISON: None. TECHNIQUE: Bilateral lower extremity duplex venous scanning is performed from the groin to the ankle level. FINDINGS: The deep veins are anechoic and fully compressible from the groin to the popliteal fossa in the left and right lower extremity. Color flow imaging is homogeneous. Spectral Doppler interrogation demonstrates intact respiratory variation in flow and normal manual augmentation of flow. There is no evidence of deep vein thrombosis in the femoropopliteal veins. There is no evidence of deep vein thrombosis in the visualized calf veins. IMPRESSION: No evidence of DVT in the femoropopliteal veins. No DVT in the visible portions of the calf veins. <Electronically signed by Stefano Santos > 05/04/21 0175
[2021-05-04 14:30] VITALS: BP 155/72
--- NOTE | 2021-05-05 15:43 | ECGEPIP ---
[facility] - ED Test Date: 2021-05-04 Pat Name: HONG SCALES Department: Room: - Gender: Female Medical Social Consultant: : 1940 Requested By: Leydi Brownlee Order Number: [id number] Reading MD: Germania Singh Measurements Intervals [place] Rate: 71 P: 30 OR: 148 QRS: -7 QRSD: 80 T: 65 QT: 394 QTc: 428 Interpretive Statements Normal sinus rhythm Low voltage QRS Cannot rule out Anterior infarct , age undetermined Electronically Signed on 05-05-2021 15:43:04 EDT by Germania Singh
== END 2021-05-04 14:56 | disposition home or self-care (01) ==
LOC: M ED 11:00
DX: G25.81 Restless legs syndrome (principal); U07.1 COVID-19; I50.9 Heart failure, unspecified; I11.0 Hypertensive heart disease with heart failure; J44.9 Chronic obstructive pulmonary disease, unspecified; J45.909 Unspecified asthma, uncomplicated; E11.9 Type 2 diabetes mellitus without complications; Z79.899 Other long term (current) drug therapy; Z79.890 Hormone replacement therapy; Z79.84 Long term (current) use of oral hypoglycemic drugs; Z79.82 Long term (current) use of aspirin; Z79.51 Long term (current) use of inhaled steroids; Z88.0 Allergy status to penicillin; Z88.1 Allergy status to other antibiotic agents; Z88.8 Allergy status to other drugs, medicaments and biological substances; Z91.018 Allergy to other foods
CPT/HCPCS: 36415; 71045; 80048; 82550; 82553; 84484; 85025; 93005; 93041; 93970; 94760; 99285; U0002

== ENCOUNTER 2021-05-04 19:19 | Emergency (ER) | payer MEDICARE, OTHER ==
[~2021-05-04] VITALS: Ht 160 cm; Wt 92.3 kg
[~2021-05-04 19:19] MED LIST changes: +DOXY-443 PO; -DOXY1CAP62 PO; -IBUP200T45 PO; +IBUP200T46 PO
[2021-05-04 19:20] VITALS: BP 136/85
== END 2021-05-04 21:48 | disposition left against medical advice (07) ==
LOC: M ED 19:19
DX: Z53.29 Procedure and treatment not carried out because of patient's decision for other reasons (principal)

== ENCOUNTER 2021-05-05 10:31 | Outpatient (CLI) | payer MEDICARE, OTHER ==
[2021-05-05] VITALS (7 sets, daily range): BP systolic 115–176; BP diastolic 53–79
[~2021-05-05] VITALS: Ht 160 cm; Wt 95.6 kg
[~2021-05-05 10:31] MED LIST changes: -DOXY-443 PO; +DOXY1CAP62 PO; +IBUP200T45 PO; -IBUP200T46 PO; +NS 1,000 ML IV SCH
[2021-05-05] MEDS ORDERED: diphenhydrAMINE 50MG CAP PO ONE (12:30)
[2021-05-05] MEDS ORDERED: ACETAMINOPHEN TAB 650MG DOSE (2X325MG) PO ONE (12:30)
[2021-05-05] MEDS ORDERED: methylPREDNISolone 40MG 1ML VIAL IV ONE (12:30)
[2021-05-05] MEDS ORDERED: ALBUTEROL 90 MCG/ACT 8GM HFA INHALER INH PRN (13:00)
[2021-05-05] MEDS ORDERED: EPINEPHrine INJ 1 MG/ML 1ML AMP IM PRN (13:00)
[2021-05-05] MEDS ORDERED: methylPREDNISolone 125MG 2ML VIAL IV PRN (13:00)
[2021-05-05] MEDS ORDERED: ALBUTEROL SULFATE 2.5 MG/0.5 ML INH NEB SOLN INH PRN (13:00)
[2021-05-05] MEDS ORDERED: diphenhydrAMINE 50MG/ML VIAL (J1200) IV PRN (13:00)
[2021-05-05] MEDS ORDERED: CASIRIVIMAB/IMDEVIMAB 1,200 MG in NS 250 ML IV ONE (13:00)
== END 2021-05-05 15:11 | disposition home or self-care (01) ==
LOC: M OPCLI4 10:31 → M 4MAIN 10:35 → M OPCLI4 15:11
PROVIDERS: ATTEND Physician Assistant
DX: U07.1 COVID-19 (principal); Z88.0 Allergy status to penicillin; Z88.1 Allergy status to other antibiotic agents; Z88.8 Allergy status to other drugs, medicaments and biological substances
CPT/HCPCS: 96375; J2920; M0243

== ENCOUNTER 2021-05-07 10:01 | Emergency (ER) | payer MEDICARE, OTHER ==
[~2021-05-07 10:01] MED LIST changes: -NS 1,000 ML IV SCH
[2021-05-07] MEDS ORDERED: ACETAMINOPHEN 500 MG TAB PO ONE (10:15)
[2021-05-07] MEDS ORDERED: LIDOCAINE 5% (LIDODERM) PATCH TD ONE (10:15)
[2021-05-07 10:56] LABS: BASO # 0.1 10^3/uL (0.0-0.2); BASO % 0.6 % (0.0-1.0); EOS # 0.3 10^3/uL (0.0-0.5); EOS % 2.5 % (0.0-3.0); HEMATOCRIT 46.6 % (36.0-47.0); HEMOGLOBIN 15.5 g/dl (12.0-15.5); LYMPH % 39.4 % (24.0-44.0); MEAN CORPUSCULAR HEMOGLOBIN 31.4 pg (27.0-33.0); MEAN CORPUSCULAR HGB CONC 33.3 g/dl (32.0-36.5); MEAN CORPUSCULAR VOLUME 94.5 fl (80.0-96.0); MONO # 0.8 10^3/uL (0.0-0.8); MONO % 7.8 % (2.0-8.0); NEUTROPHILS % 49.5 % (36.0-66.0); PLATELET COUNT, AUTOMATED 234 10^3/uL (150-450); RED BLOOD COUNT 4.93 10^6/uL (4.00-5.40)
[2021-05-07 11:21] LABS: ALBUMIN 3.6 GM/DL (3.2-5.2); BILIRUBIN,TOTAL 1.2 MG/DL (0.2-1.0); CALCIUM LEVEL 9.9 MG/DL (8.8-10.2); CREATININE FOR GFR 1.06 MG/DL (0.55-1.30); GLOMERULAR FILTRATION RATE 52.8 (>32); POTASSIUM SERUM 4.1 MEQ/L (3.5-5.1); TOTAL PROTEIN 6.9 GM/DL (6.4-8.2)
--- NOTE | 2021-05-07 12:12 | REP ---
INDICATION: flank pain COMPARISON: 05/18/2017. TECHNIQUE: CT Scan of the abdomen and pelvis was performed without intravenous contrast. Sagittal and coronal reconstruction images performed. FINDINGS: Lung bases: There are calcified granulomas in each lung base. There is a large hiatal hernia. Liver: Grossly unremarkable. Gallbladder: Gallstones are seen in the gallbladder, without gallbladder wall edema or thickening. Spleen: There are a few tiny calcified granulomas in the spleen. Adrenals: Normal. Pancreas: Grossly unremarkable.. Kidneys: No hydronephrosis or nephrolithiasis. Ureters demonstrate no dilatation or calculus. There is an exophytic hyperdense nodule the lower pole the left kidney posteriorly measuring 1.4 cm in diameter most compatible with a hyperdense cyst, not significantly changed since the prior exam. Small and large bowel: There is diffuse colonic diverticulosis without acute diverticulitis. There is no free air or obstruction. Free fluid: None. Abdominal aorta: No aneurysm. Adenopathy: None. Appendix: Not inflamed. Osseous structures: There are degenerative changes of the spine without compression deformity. Pelvis: No mass. Prior hysterectomy. No bladder calculus seen. IMPRESSION: Cholelithiasis. No CT evidence of gallbladder wall edema or biliary dilatation. No free air, free fluid or bowel obstruction. No evidence of bowel inflammation. <Electronically signed by Jd Mas > 05/07/21 4102
[2021-05-07] MEDS ORDERED: LIDO5DIS41 TD (13:55)
[2021-05-07 15:06] VITALS: BP 162/79
[2021-05-07] MEDS ORDERED: **NOTE PATIENT COMMENT** MISC XX SCH (21:00)
== END 2021-05-07 15:05 | disposition home or self-care (01) ==
LOC: EDBD 10:01 → M ED 10:01
DX: M54.9 Dorsalgia, unspecified (principal); K80.20 Calculus of gallbladder without cholecystitis without obstruction; U07.1 COVID-19; Z91.018 Allergy to other foods; Z79.52 Long term (current) use of systemic steroids; Z79.899 Other long term (current) drug therapy; Z79.82 Long term (current) use of aspirin; Z79.890 Hormone replacement therapy; Z79.51 Long term (current) use of inhaled steroids; Z79.84 Long term (current) use of oral hypoglycemic drugs; Z88.0 Allergy status to penicillin; Z88.8 Allergy status to other drugs, medicaments and biological substances; Z88.1 Allergy status to other antibiotic agents

== ENCOUNTER → 2021-05-19 | Outpatient (REF) | payer MEDICARE, OTHER ==
[~2021-05-19] MED LIST changes: +LIDO5DIS41 TD
== END ==
LOC: M SFHCADAM 12:06
PROVIDERS: ATTEND Physician Assistant
DX: E11.69 Type 2 diabetes mellitus with other specified complication (principal)
CPT/HCPCS: 83036; G0463

== ENCOUNTER → 2021-05-26 | Outpatient (CLI) | payer MEDICARE, OTHER ==
[~2021-05-26] MED LIST changes: +PROHANCE 279.3MG/ML 5ML VIAL As Ordered ONE
--- NOTE | 2021-05-26 10:52 | REP ---
INDICATION: LUMBAR PAIN W/ RAINA RADICULAR SYMPTOMS H/O DDD. COMPARISON: Comparison MRI study of the lumbar spine is from June 03, 2017. TECHNIQUE: Sagittal and axial T1 and T2-weighted scans are acquired in the usual fashion with and without fat saturation. Sequences include spin echo, turbo spin-echo, and STIR imaging sequences. Gadolinium enhancement dose is given is 10 mL of intravenous ProHance. Post gadolinium enhanced T1 fat sat sagittal and T1 axial images are included. FINDINGS: Lumbar vertebral body heights are preserved. Alignment is normal. Cortical and medullary bone signal intensity are normal. No bony destructive lesion is seen. No extra vertebral abnormality is observed. The tip of the conus medullaris is normal in position and appearance at the T12-L1 disc level. At the L1-2 disc level, axial and sagittal images show minimal diffuse disc bulging. No central canal stenosis or foraminal narrowing is seen. At L2-3, there is degenerative narrowing of the disc and mild diffuse disc bulging of its margin. This is slightly more prominent than on the 2017 prior study but there is no evidence of spinal stenosis or foraminal narrowing. There is somewhat asymmetric facet hypertrophy on the right at L2-3 and there is some arthritis associated enhancement at the medial aspect of the L2-3 facet. Minimal ligamentum flavum hypertrophy is present. At L3-4, there is minimal diffuse disc bulging. Mild facet hypertrophy and ligamentum flavum hypertrophy are seen at L3-4. Findings are unchanged. No foraminal narrowing is seen. At L4-5, there is mild decreased disc space height and signal intensity. Minimal diffuse disc bulging is present. There is facet hypertrophy. These findings are unchanged. At L5-S1, there is facet hypertrophy bilaterally, left more advanced than right. No disc protrusion or thecal sac compression is seen. No other abnormal gadolinium enhancement is seen. IMPRESSION: Degenerative spondylosis changes as noted above. No evidence of focal disc protrusion or central canal stenosis seen. Osteoarthritic facet hypertrophy noted at multiple levels. <Electronically signed by Stefano Santos > 05/26/21 9947
== END ==
LOC: M RAD 09:14
PROVIDERS: ATTEND Physician Assistant
DX: M51.9 Unspecified thoracic, thoracolumbar and lumbosacral intervertebral disc disorder (principal)
CPT/HCPCS: 72158; A9576

== ENCOUNTER 2021-06-19 11:04 | Emergency (ER) | payer MEDICARE, OTHER ==
[~2021-06-19] VITALS: Ht 160 cm; Wt 95.3 kg
[~2021-06-19 11:04] MED LIST changes: -PROHANCE 279.3MG/ML 5ML VIAL As Ordered ONE
[2021-06-19 11:06] VITALS: BP 149/72
--- OUTSIDE RECORDS SUMMARY | 2021-06-19 11:18 | CCD ---
Author Author [facility] Organization [facility] Address Unknown Phone Unavailable Care Team Providers Care Cat Operator Name Role Phone Lilian Polk Unavailable PROBLEMS Type Condition ICD9-CM Code [id number] Code Onset Dates Condition S tatus W/U Status Risk SNOMED Code Notes Problem Calculus of gallbladder with acute on chronic cholecystitis without obstruction K80.12 Active confirmed 022790918 Problem Diverticulitis of large inte irvin without perforation or abscess without bleeding K57.32 Active confirmed 1525533 Problem Adverse effect of ciprofloxacin, subsequent encounter T36.8X5D Active confirmed 783989068 Problem Esophageal dysphagia R13.10 Active confirmed 44679734 Problem Other chronic pain G89.29 Active confirmed 8 7047139 Problem Neuropathy G62.9 Active confirmed 433179991 Problem Other hyperlipidemia E78.4 Active confirmed 07128550 Problem 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.710 Active confirmed 002083041 Problem Melanocytic nevi of face D22.30 Active confirmed 582546499 Problem Occipital neuralgia of right side M54.81 Active confirmed 75258198 Problem Xerosis of skin L85.3 Active confirmed 8910 5000 Problem Osteoporosis M81.0 Active confirmed 3791513 6 Problem Dry mouth R68.2 Active confirmed 48286840 Problem Lumbago with sciatica, left side M54.42 Active confirmed 997044923 Problem Melanocytic nevi of left lower limb, including hip D22.72 Active confirmed 990482534 Problem 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 Active confirmed 68102 01 Problem Melanocytic nevi of left upper limb, including shoulder D22.62 Active confirmed 645749088 Problem H/O: CVA (cerebrovascular accident) Z86.73 Acti ve confirmed 972650381 Problem Melanocytic nevi of right lower limb, including hip D22.71 Active confirmed 222665095 Problem Amaurosis fugax, both eyes G45.3 Active confirmed 43670065 Problem Melanocytic nevi of trunk D22.5 Active confirmed 914337446 Problem Hypertensive heart disease without heart failure I 11.9 Active confirmed 78990034 Problem Melanocytic nevi of right upper limb, including shoulder D22.61 Active confirmed 873305238 Problem Left carotid stenosis I65.22 Active confirmed 792809477283808 Problem Sebaceous hyperplasia L73.8 Active confirmed 827277083 Problem Macular degeneration H35.30 Active confirmed 755106347 Problem SK (seborrheic keratosis) L82.1 Active confirmed 995309266 Problem 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 Active confir med 138225978 Problem Lipoma of abdominal wall D17.1 Active confirmed 849063815 Problem Intertrigo L30.4 Active confirmed 45660468 Problem Type 2 diabetes mellitus wit h other specified complication, unspecified whether vermin 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 E11.69 Active confirmed 72853569 Problem Type 2 diabetes mellitus with other specified complication E11.69 Active confirmed 12047139 Problem Neuropathy of both feet G57.93 Active confirmed 952570837 Problem Personal history of transien t ischemic attack (TIA), and cerebral infarction without residual deficits Z86.73 Active confirmed 351215633 Problem History of COVID-19 Z86.16 Active confirmed 657721016269771394 Problem Unspecified osteoarthritis, unspecified site M19.9 0 Active confirmed 665430604 Problem Vitamin D deficiency, unspecified E55.9 Active con firmed 06095809 Problem Hypothyroidism, unspecified E03.9 Active confirmed 82341157 Problem New onset left bundle branch block (LBBB) I44.7 Active confirmed 20687100 Problem Type 2 diabetes mellitus with diabetic nephropathy E11.21 Active confirmed 745370280 Problem Hypercalcemia E83.52 Active confirmed 710772 09 Problem Hypomagnesemia E83.42 Active confirmed 83123 5004 Problem GERD (gastroesophageal reflux disease) K21.9 A ctive confirmed 748363509 Problem Non-pressure chronic ulcer o f other part of left lower leg with fat layer exposed L97.822 Active confirmed 71554657 Problem Chronic venous hypertension (idiopathic) with ulcer of left lower extremity I87.312 Active confirmed 453676278919872 ALLERGIES Allergen (clinical drug ingredient) Drug/Non Drug Allergy do cumented on EMR Reaction Allergy Type Onset Date Status POLLEN/ DUST/MOLD RESPIRATORY Non Drug Allergy Active gabapentin Gabapentin hallucinations Non Drug Allergy Acti ve ENVIRONMENTAL RESPIRATORY Non Drug Allergy 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) Non Drug Allergy Acti ve antipsychotics/ anti-nausea meds Compazine/Reglan Avoid Non Drug Allergy Active Penicillin PENICILLIN Rash Non Drug Allergy Active fluconazole Fluconazole([facility] Code:[address]-26) Concern for drug reaction Drug Allergy Active CATS/DOGS DANDER RESPIRATORY Non Drug Allergy A ctive ceclor Rash Drug Allergy Active amitriptyline Amitriptyline HCl([facility] Code:[address]-55) Halluc inations Drug Allergy Active narinder Hives, rash Non Drug Allergy Active ENCOUNTERS from 1940 to 2021-06-11 Encounter Location Date Provider Diagnosis [facility] [address] [place] [address], Lilian Polk Hypothyroidism, unspecified E03.9 IMMUNIZATIONS Vaccine Route Administration Date Status COVID-19 dose #2 given elsewhere Unspecified Unknown Nov Administered COVID-19 dose #1 given elsewhere Unspecified Unknown Oct 31, 2020 Administered Influenza (High Dose 65 & up) IM Intramuscular Aug 06, 2016 A dministered Influenza (High Dose 65 & up) IM Intramuscular Jul 29, 2015 A dministered Influenza (High Dose 65 & up) IM Intramuscular Jul 24, 2014 A dministered Pneumococcal Adult 0.5mL Pneumovax 23 IM Intramuscular Sep 29 013 Administered Influenza 18 yrs & older Flublok IM Intramuscular Aug 01, 2018 Administered TDAP IM Intramuscular January 24, 2013 Administered Influenza 18 yrs & older Flublok IM Intramuscular Jul 24, 2019 Administered Pneumococcal 0.5mL Prevnar 13 IM Intramuscular Jul 19, 2012 A dministered Influenza 6mo & up Fluzone IM Intramuscular Jul 23, 2013 Admi nistered SOCIAL HISTORY Tobacco Use: Social History Observation Description Date Details (start date - stop date) Never Smoker Sex Assigned At : Social History Observation Description Sex Assigned At Unknown Education: Question Answer Notes Level of Education: High School Audit Question Answer Notes Total Score: 0 Interpretation: Alcohol Education Scientology: Question Answer Notes Scientology No orthodoxy beliefs that would impact health care. Drug and Alcohol Question Answer Notes Total Score: 0 Interpretation: No problems reported Alcohol Screening: Question Answer Notes Did you have a drink containing alcohol in the past year? No Points 0 Interpretation Negative BMI Care Goal Follow-Up Question Answer Notes Above Normal BMI Follow-Up Dietary management educatio n, guidance, and counseling Tobacco Use: Question Answer Notes Are you a: never smoker never smoker REASON FOR REFERRAL No Information VITAL SIGNS No information MEDICATIONS Medication SIG (Take, Route, Frequency, Duration) Notes Start Da te End Date Status PreserVision AREDS 2 - Orally Ac tive Ibuprofen 200 MG 2 tablets Orally twice daily as needed Active metFORMIN HCl 500 MG 1 tablet with meals Orally 1 tab am, 2 tabs at noon, 1 tab in pm Oct, Active Flonase Allergy Relief 50 MCG/ACT 2 sprays Nasally Once a day si g change January, Active Vitamin B-12 1000 MCG 1 tablet Orally Once a day for 90 days Dec, Active Spironolactone 25 mg 1/2 tablet Orally daily Active Lumigan 0.01 % 1 drop into each eye in the evening Ophthalmic Once a day Active Doxycycline Monohydrate 100 MG 1 tablet Orally twice daily for 1 0 day(s) Mar, Not-Taking CPAP mask Active Multivitamin Adult - Orally daily women's 50 plus Active Alphagan P 0.1 % 1 drop into right eye Ophthalmic twice daily si g change January, Active Magnesium Oxide 400 MG 1 cap Orally daily for 90 day(s) January, Active Buffered Aspirin 325 MG 1 tab(s) Orally daily Active Vitamin C 1000 MG 1 tablet Orally Once a day for 30 day(s) Active FreeStyle Lite Test - as directed In Vitro dx:e11.21 Daily for 9 0 day(s) January, Active Botox 70 units injections Injection both eyes DR. River every thre e months Active Flovent HFA 110 MCG/ACT 2 puff Inhalation Twice daily sig change Active Protonix 40 MG 1 tablet Orally Once a day for 90 days Active Calcium Carbonate-Vit D-Min 600-800 MG-UNIT 1 tablet Orally Once a da y Active Vitamin D 2000 units Orally Daily A ctive Levothyroxine Sodium 100 MCG 1 tablet in the morning o n an empty stomach Orally Once a day for 90 day(s) Sep, Active Amlodipine 5mg 1 tab(s) oral daily for 90 day(s) Active Albuterol Sulfate (2.5 MG/3ML) 0.083% 3 ml Inhalation every 4 hours as neede for SOB sig change January, Active Vitamin D 1000 UNIT 2 tablet Orally Once a day for 90 days Active Crestor 20 MG 1 tablet Orally Once a day for 90 day(s) May, Active PROCEDURES No Information RESULTS No Results REASON FOR VISIT New Refill Request 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) Medical History ASD , PFO closed with Amplat zer Septal Occluder, 15mm (06-04-02)- [facility] Medical History DM-2 () with Neuropathy Medical History Asthma - mild intermittent - normal spirometry 08/2015 - per pulmonary Medical History PAUL Medical History Schatzki's ring, s/p dilatio n w/balloon EGD at [facility] 07-21-04, Dr Benson 06/21 Medical History 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 Bloom -Antonioing levels of stenosis per testing done (MRA 60% stenosis LEft ICA origin, CTA 1 - 30% stenosis Left ICA origin ) Medical History diverticulitis 04/21 admitted Medical History fatty liver 04/21 CT Medical History normal gastric emptying study 06/21 Medical History DDD L/S spine MRI 05/22 Medical History Diabetic NEuropathy per [facility] Medical History Stress Test 06/2018 - low risk Medical History DDD Cervical Spine per MRI 06/2018 - SOS Medical History yeast infection under breast Medical History R breast biopsy 2007 Medical History abnormal EKG lef tbundle branch block Medical History R endoscopic carpal tunnel release Medical History Tibia Fibula lower leg, left, laceration , complex repair Medical History botox injections both eyes Medical History sleep apnea Medical History COVID vaccines given - Had C OVID 19 (01/23), received Monoclonal ab, COVID again 04/2021, another monoclonal ab given Surgical History Right knee arthroscopic surgery for torn meniscus 04/2005 Surgical History PFO closure Surgical History EGD with dilation Surgical History Colonoscopy at [facility] 04/2013 Surgical History Colonoscopy, tubular adenoma tous polyps and hyoperplastic polyps 10/2013 & 2018 Surgical History hysterectomy pt not sure if total or not Surgical History left rotator cuff surgery 08/2001 Surgical History bottom leg suture 08/24 Hospitalization History CVA and surgeries Hospitalization History diverticulosis 04/10/17 Hospitalization History stroke 1990 Hospitalization History chest pain 01/2019 Goals Section No Information Health Concerns No Information MEDICAL EQUIPMENT No Information MENTAL STATUS No Information FUNCTIONAL STATUS No Information ASSESSMENTS Encounter Date Diagnosis Assessment Notes Treatment Notes Treatm ent Clinical Notes Jun, Hypothyroidism, unspecified (ICD-10 - E03.9) PLAN OF TREATMENT Medication Medication Name Sig Start Date Stop Date Amlodipine 5mg 1 tab(s) oral daily for 90 day(s) Crestor 20 MG 1 tablet Orally Once a day for 90 day(s) May, Protonix 40 MG 1 tablet Orally Once a day for 90 days Levothyroxine Sodium 100 MCG 1 tablet in the morning o n an empty stomach Orally Once a day for 90 day(s) Sep, metFORMIN HCl 500 MG 1 tablet with meals Orally 1 tab am, 2 tabs at noon, 1 tab in pm Oct, Next Appt Details Provider Name:Lilian Polk, 2021-08 08:30:00 AM, [address], , [place], [address], Provider Name:Martha Salas, 2021-10-26 11:00:00 AM, [address] [place] [address], , [place], [address], Insurance Providers Payer Name Payer Address Payer Phone Insured Name Patient Relati onship to Insured Coverage Start Date Coverage End Date MEDICARE Part A and B [address] [facility] [address] HONG SCALES self FOR LIFE [address] [facility] [address] HONG SCALES [id number]
--- OUTSIDE RECORDS SUMMARY | 2021-06-19 11:18 | CCD ---
Author Author [facility] Organization [facility] Address Unknown Phone Unavailable Care Team Providers Care Self Pay Specialist Name Role Phone Lilian Polk Unavailable PROBLEMS Type Condition ICD9-CM Code [id number] Code Onset Dates Condition S tatus W/U Status Risk SNOMED Code Notes Problem Calculus of gallbladder with acute on chronic cholecystitis without obstruction K80.12 Active confirmed 044268710 Problem Diverticulitis of large inte irvin without perforation or abscess without bleeding K57.32 Active confirmed 7312655 Problem Adverse effect of ciprofloxacin, subsequent encounter T36.8X5D Active confirmed 727013735 Problem Esophageal dysphagia R13.10 Active confirmed 20369201 Problem Other chronic pain G89.29 Active confirmed 8 4664492 Problem Neuropathy G62.9 Active confirmed 220825290 Problem Other hyperlipidemia E78.4 Active confirmed 44942664 Problem 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.710 Active confirmed 414767938 Problem Melanocytic nevi of face D22.30 Active confirmed 364458273 Problem Occipital neuralgia of right side M54.81 Active confirmed 74300874 Problem Xerosis of skin L85.3 Active confirmed 8910 5000 Problem Osteoporosis M81.0 Active confirmed 0584270 6 Problem Dry mouth R68.2 Active confirmed 30930835 Problem Lumbago with sciatica, left side M54.42 Active confirmed 075714564 Problem Melanocytic nevi of left lower limb, including hip D22.72 Active confirmed 212288226 Problem 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 Active confirmed 86569 01 Problem Melanocytic nevi of left upper limb, including shoulder D22.62 Active confirmed 688636216 Problem H/O: CVA (cerebrovascular accident) Z86.73 Acti ve confirmed 689422254 Problem Melanocytic nevi of right lower limb, including hip D22.71 Active confirmed 776516178 Problem Amaurosis fugax, both eyes G45.3 Active confirmed 78417570 Problem Melanocytic nevi of trunk D22.5 Active confirmed 390779105 Problem Hypertensive heart disease without heart failure I 11.9 Active confirmed 38474125 Problem Melanocytic nevi of right upper limb, including shoulder D22.61 Active confirmed 709703489 Problem Left carotid stenosis I65.22 Active confirmed 006366360840217 Problem Sebaceous hyperplasia L73.8 Active confirmed 210682330 Problem Macular degeneration H35.30 Active confirmed 824160418 Problem SK (seborrheic keratosis) L82.1 Active confirmed 606652490 Problem 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 Active confir med 283453843 Problem Lipoma of abdominal wall D17.1 Active confirmed 798999676 Problem Intertrigo L30.4 Active confirmed 33148284 Problem Type 2 diabetes mellitus wit h other specified complication, 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.69 Active confirmed 37142363 Problem Type 2 diabetes mellitus with other specified complication E11.69 Active confirmed 56307984 Problem Neuropathy of both feet G57.93 Active confirmed 747065127 Problem Personal history of transien t ischemic attack (TIA), and cerebral infarction without residual deficits Z86.73 Active confirmed 434756675 Problem History of COVID-19 Z86.16 Active confirmed 355781146157079495 Problem Unspecified osteoarthritis, unspecified site M19.9 0 Active confirmed 686705554 Problem Vitamin D deficiency, unspecified E55.9 Active con firmed 75359041 Problem Hypothyroidism, unspecified E03.9 Active confirmed 52160312 Problem New onset left bundle branch block (LBBB) I44.7 Active confirmed 83374703 Problem Type 2 diabetes mellitus with diabetic nephropathy E11.21 Active confirmed 291548635 Problem Hypercalcemia E83.52 Active confirmed 280862 09 Problem Hypomagnesemia E83.42 Active confirmed 59784 5004 Problem GERD (gastroesophageal reflux disease) K21.9 A ctive confirmed 943955995 Problem Non-pressure chronic ulcer o f other part of left lower leg with fat layer exposed L97.822 Active confirmed 52341976 Problem Chronic venous hypertension (idiopathic) with ulcer of left lower extremity I87.312 Active confirmed 965713783117920 ALLERGIES Allergen (clinical drug ingredient) Drug/Non Drug Allergy do cumented on EMR Reaction Allergy Type Onset Date Status POLLEN/ DUST/MOLD RESPIRATORY Non Drug Allergy Active gabapentin Gabapentin hallucinations Non Drug Allergy Acti ve ENVIRONMENTAL RESPIRATORY Non Drug Allergy 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) Non Drug Allergy Acti ve antipsychotics/ anti-nausea meds Compazine/Reglan Avoid Non Drug Allergy Active Penicillin PENICILLIN Rash Non Drug Allergy Active fluconazole Fluconazole([facility] Code:[address]-04) Concern for drug reaction Drug Allergy Active CATS/DOGS DANDER RESPIRATORY Non Drug Allergy A ctive ceclor Rash Drug Allergy Active amitriptyline Amitriptyline HCl([facility] Code:[address]-49) Halluc inations Drug Allergy Active narinder Hives, rash Non Drug Allergy Active ENCOUNTERS from 1938 to 2021-06-12 Encounter Location Date Provider Diagnosis [facility] [address] [place] [address] Jun, Lilian Polk Type 2 diabetes mellitus with other spec ified complication E11.69 and History of COVID-19 Z86.16 IMMUNIZATIONS Vaccine Route Administration Date Status Influenza 18 yrs & older Flublok IM Intramuscular Jul 24, 2019 Administered Influenza 18 yrs & older Flublok IM Intramuscular Aug 01, 2018 Administered Influenza (High Dose 65 & up) IM Intramuscular Aug 06, 2016 A dministered Influenza (High Dose 65 & up) IM Intramuscular Jul 29, 2015 A dministered Influenza (High Dose 65 & up) IM Intramuscular Jul 24, 2014 A dministered Pneumococcal Adult 0.5mL Pneumovax 23 IM Intramuscular Sep 29 013 Administered COVID-19 dose #1 given elsewhere Unspecified Unknown Oct 31, 2020 Administered TDAP IM Intramuscular January 24, 2013 Administered COVID-19 dose #2 given elsewhere Unspecified Unknown Nov Administered Pneumococcal 0.5mL Prevnar 13 IM Intramuscular [...] Notes Total Score: 0 Interpretation: Alcohol Education Adventist: Question Answer Notes Adventist No anglican beliefs that would impact health care. Drug [...] REASON FOR REFERRAL No Information VITAL SIGNS Weight 212.2 lbs Jun, Height 64 in Jun, BMI 36.42 kg/m2 Jun, Heart Rate 96 /min Jun, Respiratory Rate 18 /min Jun, Temperature 98.6 degrees Fahrenheit Jun, Oximetry 96 Jun, Blood pressure systolic 122 mm Hg Jun, Blood pressure diastolic 68 mm Hg Jun, MEDICATIONS Medication SIG (Take, Route, Frequency, Duration) [...] 70 units injections Injection both eyes DR. 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 Bloom -[place] levels of stenosis per testing done (MRA [...] EGD with dilation Surgical History Colonoscopy at [facility] 04/2013 Surgical History Colonoscopy, tubular adenoma [...] Treatment Notes Treatm ent Clinical Notes Jun, Type 2 diabetes mellitus wit h other specified complication (ICD-10 - E11.69) Well controlled Jun, History of COVID-19 (ICD-10 - Z86.16) She received monoclonal ab and so is advised to wait 90 days until getting Booster PLAN OF TREATMENT Medication Medication Name Sig [...] at noon, 1 tab in pm Oct, Treatment Notes Assessment Notes Clinical Notes Type 2 diabetes mellitus with other specified complication Well controlled History of COVID-19 She received monoclo nal ab and so is advised to wait 90 days until getting Booster Next Appt Details as scheduled Reason: Provider Name:Lilian Polk, 2021-08 - 08:30:00 AM, [address], , [place], [address], Provider Name:Martha Salas, 2021-10-26 11:00:00 AM, [address] [facility], , [place], [address], Insurance Providers Payer Name Payer Address Payer Phone Insured Name Patient Relati onship to Insured Coverage Start Date Coverage End Date MEDICARE Part A and B [address] [facility] [address] [phone] HONG SCALES self FOR LIFE [address] [facility] [address] HONG SCALES [id number]
--- OUTSIDE RECORDS SUMMARY | 2021-06-19 11:18 | CCD ---
Author Author [facility] Organization [facility] Address Unknown Phone Unavailable Care Team Providers Care Retread Builder Name Role Phone Lilian Polk Unavailable PROBLEMS Type Condition ICD9-CM Code [id number] Code Onset Dates Condition S tatus W/U Status Risk SNOMED Code Notes Problem Calculus of gallbladder with acute on chronic cholecystitis without obstruction K80.12 Active confirmed 077461202 Problem Diverticulitis of large inte irvin without perforation or abscess without bleeding K57.32 Active confirmed 1913003 Problem Adverse effect of ciprofloxacin, subsequent encounter T36.8X5D Active confirmed 018919326 Problem Esophageal dysphagia R13.10 Active confirmed 88610081 Problem Other chronic pain G89.29 Active confirmed 8 3162423 Problem Neuropathy G62.9 Active confirmed 203869437 Problem Other hyperlipidemia E78.4 Active confirmed 39091074 Problem 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.710 Active confirmed 504675952 Problem Melanocytic nevi of face D22.30 Active confirmed 115539817 Problem Occipital neuralgia of right side M54.81 Active confirmed 96646051 Problem Xerosis of skin L85.3 Active confirmed 8910 5000 Problem Osteoporosis M81.0 Active confirmed 2966929 6 Problem Dry mouth R68.2 Active confirmed 02137307 Problem Lumbago with sciatica, left side M54.42 Active confirmed 555208404 Problem Melanocytic nevi of left lower limb, including hip D22.72 Active confirmed 345937773 Problem 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 Active confirmed 08097 01 Problem Melanocytic nevi of left upper limb, including shoulder D22.62 Active confirmed 698000391 Problem H/O: CVA (cerebrovascular accident) Z86.73 Acti ve confirmed 356911822 Problem Melanocytic nevi of right lower limb, including hip D22.71 Active confirmed 991968732 Problem Amaurosis fugax, both eyes G45.3 Active confirmed 85516102 Problem Melanocytic nevi of trunk D22.5 Active confirmed 211376355 Problem Hypertensive heart disease without heart failure I 11.9 Active confirmed 59937929 Problem Melanocytic nevi of right upper limb, including shoulder D22.61 Active confirmed 592907279 Problem Left carotid stenosis I65.22 Active confirmed 631627527246515 Problem Sebaceous hyperplasia L73.8 Active confirmed 851837200 Problem Macular degeneration H35.30 Active confirmed 258280724 Problem SK (seborrheic keratosis) L82.1 Active confirmed 311529392 Problem 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 Active confir med 663639889 Problem Lipoma of abdominal wall D17.1 Active confirmed 626197018 Problem Intertrigo L30.4 Active confirmed 76857296 Problem Type 2 diabetes mellitus wit h other specified complication, 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.69 Active confirmed 66783466 Problem Type 2 diabetes mellitus with other specified complication E11.69 Active confirmed 56415594 Problem Neuropathy of both feet G57.93 Active confirmed 113909196 Problem Personal history of transien t ischemic attack (TIA), and cerebral infarction without residual deficits Z86.73 Active confirmed 675640840 Problem History of COVID-19 Z86.16 Active confirmed 084884530015063966 Problem Unspecified osteoarthritis, unspecified site M19.9 0 Active confirmed 460000828 Problem Vitamin D deficiency, unspecified E55.9 Active con firmed 31310006 Problem Hypothyroidism, unspecified E03.9 Active confirmed 44533649 Problem New onset left bundle branch block (LBBB) I44.7 Active confirmed 45321529 Problem Type 2 diabetes mellitus with diabetic nephropathy E11.21 Active confirmed 458775697 Problem Hypercalcemia E83.52 Active confirmed 615651 09 Problem Hypomagnesemia E83.42 Active confirmed 60211 5004 Problem GERD (gastroesophageal reflux disease) K21.9 A ctive confirmed 259374501 Problem Non-pressure chronic ulcer o f other part of left lower leg with fat layer exposed L97.822 Active confirmed 15241645 Problem Chronic venous hypertension (idiopathic) with ulcer of left lower extremity I87.312 Active confirmed 848577724176823 ALLERGIES Allergen (clinical drug ingredient) Drug/Non Drug Allergy do cumented on EMR Reaction Allergy Type Onset Date Status POLLEN/ DUST/MOLD RESPIRATORY Non Drug Allergy Active gabapentin Gabapentin hallucinations Non Drug Allergy Acti ve ENVIRONMENTAL RESPIRATORY Non Drug Allergy 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) Non Drug Allergy Acti ve antipsychotics/ anti-nausea meds Compazine/Reglan Avoid Non Drug Allergy Active Penicillin PENICILLIN Rash Non Drug Allergy Active fluconazole Fluconazole([facility] Code:[address]-42) Concern for drug reaction Drug Allergy Active CATS/DOGS DANDER RESPIRATORY Non Drug Allergy A ctive ceclor Rash Drug Allergy Active amitriptyline Amitriptyline HCl([facility] Code:[address]-46) Halluc inations Drug Allergy Active narinder Hives, rash Non Drug Allergy Active ENCOUNTERS from 1938 to 2021-06-11 Encounter Location Date Provider Diagnosis [facility] [address] [place] [address] Jun, 2021 Lilian Polk GERD (gastroesophageal reflux disease) K 21.9 and Type 2 diabetes mellitus with diabetic nephropathy E11.21 IMMUNIZATIONS Vaccine Route Administration Date Status COVID-19 [...] Notes Total Score: 0 Interpretation: Alcohol Education Rastafari: Question Answer Notes Rastafari No pentecostal beliefs that would impact health care. Drug [...] zer Septal Occluder, 15mm (06-04-02)- [facility] Medical History DM-2 () with Neuropathy Medical History Asthma - mild intermittent - normal spirometry 08/2015 - per pulmonary Medical History PAUL Medical History Schatzki's ring, s/p dilatio n w/balloon EGD at [place] 07-21-04, Dr Benson 06/21 Medical History OA [...] ICA stenosis followed b y Dr. Bloom -Varrying levels of stenosis per testing done (MRA [...] EGD with dilation Surgical History Colonoscopy at [facility] 04/2013 Surgical History Colonoscopy, tubular adenoma [...] Treatment Notes Treatm ent Clinical Notes Jun, GERD (gastroesophageal reflux disease) (ICD-10 - K21.9) Jun, Type 2 diabetes mellitus wit h diabetic nephropathy (ICD-10 - E11.21) PLAN OF TREATMENT Medication Medication Name Sig [...] in pm Oct, Next Appt Details Provider Name:Liilan Polk, 2021-08 08:30:00 AM, [address] [address], , [place], [address], Provider Name:Martha Salas, 2021-10-26 11:00:00 AM, [address] [place] [address], , [place], [address], Insurance Providers Payer Name Payer Address Payer Phone Insured Name Patient Relati onship to Insured Coverage Start Date Coverage End Date FOR LIFE [address] [facility] [address] HONG SCALES [id number] MEDICARE Part A and B [address] [facility] [address] HONG SCALES self
--- OUTSIDE RECORDS SUMMARY | 2021-06-19 11:18 | CCD ---
Author Author [facility] em[facility] Organization [facility] ems Address Unknown Phone Unavailable Care Team Providers Care Machine Operator Packaging Name Role Phone Lilian Polk Unavailable PROBLEMS Type Condition ICD9-CM Code LMI24-TA Code Onset Dates Condition S tatus W/U Status Risk SNOMED Code Notes Problem Calculus of gallbladder with acute on chronic cholecystitis without obstruction K80.12 Active confirmed 183323457 Problem Diverticulitis of large inte irvin without perforation or abscess without bleeding K57.32 Active confirmed 6089654 Problem Adverse effect of ciprofloxacin, subsequent encounter T36.8X5D Active confirmed 116005721 Problem Esophageal dysphagia R13.10 Active confirmed 77906079 Problem Other chronic pain G89.29 Active confirmed 8 2024792 Problem Neuropathy G62.9 Active confirmed 344328409 Problem Other hyperlipidemia E78.4 Active confirmed 90131356 Problem 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.710 Active confirmed 016759291 Problem Melanocytic nevi of face D22.30 Active confirmed 094390125 Problem Occipital neuralgia of right side M54.81 Active confirmed 15933400 Problem Xerosis of skin L85.3 Active confirmed 8910 5000 Problem Osteoporosis M81.0 Active confirmed 8567379 6 Problem Dry mouth R68.2 Active confirmed 19797926 Problem Lumbago with sciatica, left side M54.42 Active confirmed 034127079 Problem Melanocytic nevi of left lower limb, including hip D22.72 Active confirmed 048541651 Problem 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 Active confirmed 75905 01 Problem Melanocytic nevi of left upper limb, including shoulder D22.62 Active confirmed 356618709 Problem H/O: CVA (cerebrovascular accident) Z86.73 Acti ve confirmed 230844884 Problem Melanocytic nevi of right lower limb, including hip D22.71 Active confirmed 816964279 Problem Amaurosis fugax, both eyes G45.3 Active confirmed 54672664 Problem Melanocytic nevi of trunk D22.5 Active confirmed 963058453 Problem Hypertensive heart disease without heart failure I 11.9 Active confirmed 17181352 Problem Melanocytic nevi of right upper limb, including shoulder D22.61 Active confirmed 193707906 Problem Left carotid stenosis I65.22 Active confirmed 198755130554157 Problem Sebaceous hyperplasia L73.8 Active confirmed 492738910 Problem Macular degeneration H35.30 Active confirmed 433792409 Problem SK (seborrheic keratosis) L82.1 Active confirmed 781018430 Problem 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 Active confir med 159097061 Problem Lipoma of abdominal wall D17.1 Active confirmed 830442978 Problem Intertrigo L30.4 Active confirmed 67426396 Problem Type 2 diabetes mellitus wit h other specified complication, unspecified whether certified medical assistant insulin use E11.69 Active confirmed 93927664 Problem Type 2 diabetes mellitus with other specified complication E11.69 Active confirmed 18294369 Problem Neuropathy of both feet G57.93 Active confirmed 245395223 Problem Personal history of transien t ischemic attack (TIA), and cerebral infarction without residual deficits Z86.73 Active confirmed 083705503 Problem History of COVID-19 Z86.16 Active confirmed 586114665496751931 Problem Unspecified osteoarthritis, unspecified site M19.9 0 Active confirmed 912936257 Problem Vitamin D deficiency, unspecified E55.9 Active con firmed 25710406 Problem Hypothyroidism, unspecified E03.9 Active confirmed 12580468 Problem New onset left bundle branch block (LBBB) I44.7 Active confirmed 19084280 Problem Type 2 diabetes mellitus with diabetic nephropathy E11.21 Active confirmed 280178695 Problem Hypercalcemia E83.52 Active confirmed 644711 09 Problem Hypomagnesemia E83.42 Active confirmed 94444 5004 Problem GERD (gastroesophageal reflux disease) K21.9 A ctive confirmed 545776190 Problem Non-pressure chronic ulcer o f other part of left lower leg with fat layer exposed L97.822 Active confirmed 95557778 Problem Chronic venous hypertension (idiopathic) with ulcer of left lower extremity I87.312 Active confirmed 509642337139672 ALLERGIES Allergen (clinical drug ingredient) Drug/Non Drug Allergy do cumented on EMR Reaction Allergy Type Onset Date Status POLLEN/ DUST/MOLD RESPIRATORY Non Drug Allergy Active gabapentin Gabapentin hallucinations Non Drug Allergy Acti ve ENVIRONMENTAL RESPIRATORY Non Drug Allergy 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) Non Drug Allergy Acti ve antipsychotics/ anti-nausea meds Compazine/Reglan Avoid Non Drug Allergy Active Penicillin PENICILLIN Rash Non Drug Allergy Active fluconazole Fluconazole([facility] Code:[address]-16) Concern for drug reaction Drug Allergy Active CATS/DOGS DANDER RESPIRATORY Non Drug Allergy A ctive ceclor Rash Drug Allergy Active amitriptyline Amitriptyline HCl([facility] Code:[address]-56) Halluc inations Drug Allergy Active narinder Hives, rash Non Drug Allergy Active ENCOUNTERS from 1940 to 2021-05-23 Encounter Location Date Provider Diagnosis [facility] [address] [place] [address] 14 May, 2021 Lilian Wetterhaalejandra Lumbar pain M54.5 and Type 2 diabetes me llitus with other specified complication E11.69 IMMUNIZATIONS Vaccine Route Administration Date Status Influenza [...] Notes Total Score: 0 Interpretation: Alcohol Education Mormon: Question Answer Notes Mormon No evangelical beliefs that would impact health care. Drug [...] never smoker never smoker REASON FOR REFERRAL from 1940 to 2021-05-23 Reason Inovative PT, right lumbar p ain with BL radicualr pain in calves Diagnosis 1 Lumbar pain (M54.5) Referral Organization [facility] Referring Provider First Name Lilian Referring Provider Last Name Felicitas Referring Provider Specialty Family Medicine Referred Provider Tonya,Physical Therapy Referred Provider Specialty Physical Therapist Referral Priority Routine General Notes 05/20/2021 5:45:03 PM > faxed VITAL SIGNS Weight 208.6 lbs May, Height 64 in May, BMI 35.80 kg/m2 May, Heart Rate 99 /min May, Respiratory Rate 18 /min May, Temperature 98.3 degrees Fahrenheit May, Oximetry 99 May, Blood pressure systolic 110 mm Hg May, Blood pressure diastolic 70 mm Hg May, MEDICATIONS Medication SIG (Take, Route, Frequency, Duration) Notes Start Da te End Date Status Botox 70 units injections Injection both eyes DR. River every thre e months Active Albuterol Sulfate (2.5 MG/3ML) 0.083% 3 ml Inhalation every 4 hours as neede for SOB sig change January, Active Doxycycline Monohydrate 100 MG 1 tablet Orally twice daily for 1 0 day(s) Mar, Not-Taking Alphagan P 0.1 % 1 drop into right eye Ophthalmic twice daily si g change January, Active Crestor 20 MG 1 tablet Orally Once a day for 90 day(s) May, Active metFORMIN HCl 500 MG 1 tablet with meals Orally 1 tab am, 2 tabs at noon, 1 tab in pm Oct, Active Levothyroxine Sodium 100 MCG 1 tablet in the morning o n an empty stomach Orally Once a day for 90 day(s) Sep, Active Amlodipine 5mg 1 tab(s) oral daily for 90 day(s) Active Ibuprofen 200 MG 2 tablets Orally twice daily as needed Active Lumigan 0.01 % 1 drop into each eye in the evening Ophthalmic Once a day Active Vitamin B-12 1000 MCG 1 tablet Orally Once a day for 90 days Dec, Active Flovent HFA 110 MCG/ACT 2 puff Inhalation Twice daily sig change Active Calcium Carbonate-Vit D-Min 600-800 MG-UNIT 1 tablet Orally Once a da y Active PreserVision AREDS 2 - Orally Ac tive Flonase Allergy Relief 50 MCG/ACT 2 sprays Nasally Once a day si g change January, Active Vitamin D 1000 UNIT 2 tablet Orally Once a day for 90 days Active Magnesium Oxide 400 MG 1 cap Orally daily for 90 day(s) January, Active Spironolactone 25 mg 1/2 tablet Orally daily Active Buffered Aspirin 325 MG 1 tab(s) Orally daily Active Protonix 40 MG 1 tablet Orally Once a day for 90 days Active Vitamin C 1000 MG 1 tablet Orally Once a day for 30 day(s) Active Multivitamin Adult - Orally daily women's 50 plus Active Vitamin D 2000 units Orally Daily A ctive CPAP mask Active FreeStyle Lite Test - as directed In Vitro dx:e11.21 Daily for 9 0 day(s) January, Active PROCEDURES No Information RESULTS Component Value Reference Range HEMOGLOBIN A1c Reviewed date:05/20/2021 19:16:47 Interpretation: Performing Lab:[facility], [facility] [address] [address] , ,[place] [address] HEMOGLOBIN A1c 7.0 ESTIMATED AVERAGE GLUCOSE 154 60-110 REASON FOR VISIT Pt is having bl hip pain that shoots down her legs, pt was using voltaran gel. 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) Medical History ASD , PFO closed with Amplat zer Septal Occluder, 15mm (06-04-02)- [facility] Medical History DM-2 (-2009) with Neuropathy Medical History Asthma - mild intermittent - normal spirometry 08/2015 - per pulmonary Medical History PAUL Medical History Schatzki's ring, s/p dilatio n w/balloon EGD at [place] 07-21-04, Dr Benson 06/21 Medical History OA [...] EGD with dilation Surgical History Colonoscopy at [facility] 04/2013 Surgical History Colonoscopy, tubular adenoma [...] Notes Treatment Notes Treatm ent Clinical Notes May, Lumbar pain (ICD-10 - M54.5) CT abd/pelvis done in ER - no stones. No compression fractures. Has Lumbar DDD per MRI 2016 Using Voltaren gel with only slight releif. 14 May, 2021 Type 2 diabetes mellitus wit h other specified complication (ICD-10 - E11.69) PLAN OF TREATMENT Medication Medication Name Sig Start Date Stop Date Vitamin B-12 1000 MCG 1 tablet Orally Once a day for 90 days Dec, Treatment Notes Assessment Notes Clinical Notes Lumbar pain CT abd/pelvis done i n ER - no stones. No compression fractures. Has Lumbar DDD per MRI 2017Using Voltaren gel with only slight releif. Treatment Notes Test Name Order Date [facility] MRI LS SPINE W/O AND WITH CONT 2021-05-19 Referrals Referral Date Details Inovative PT, right lumbar p ain with BL radicualr pain in calves, Physical Therapy [facility] Next Appt Details cancel 05/22 appt Reason: Provider Name:Lilian Polk, 2021-06 08:30:00 AM, [address], , [place], [address], Provider Name:Lilian Polk, 2021-08 08:30:00 AM, [address], , [place], [address], Provider Name:Martha Salas, 2021-10-26 11:00:00 AM, [address] [place] [address], , [place], [address], Insurance Providers Payer Name Payer Address Payer Phone Insured Name Patient Relati onship to Insured Coverage Start Date Coverage End Date MEDICARE Part A and B [address] [facility] [address] [employer] self FOR LIFE [address] [facility] [address] [employer] [id number]
--- OUTSIDE RECORDS SUMMARY | 2021-06-19 11:18 | CCD ---
Author Author 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 Name Role Phone Lilian Polk Unavailable PROBLEMS Type Condition ICD9-CM Code OEJ53-WH Code Onset Dates Condition S tatus W/U Status Risk SNOMED Code Notes Problem Calculus of gallbladder with acute on chronic cholecystitis without obstruction K80.12 Active confirmed 608252039 Problem Diverticulitis of large inte irvin without perforation or abscess without bleeding K57.32 Active confirmed 6161159 Problem Adverse effect of ciprofloxacin, subsequent encounter T36.8X5D Active confirmed 679990083 Problem Esophageal dysphagia R13.10 Active confirmed 01666801 Problem Other chronic pain G89.29 Active confirmed 8 9577049 Problem Neuropathy G62.9 Active confirmed 995273993 Problem Other hyperlipidemia E78.4 Active confirmed 90542678 Problem 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.710 Active confirmed 461165345 Problem Melanocytic nevi of face D22.30 Active confirmed 003989416 Problem Occipital neuralgia of right side M54.81 Active confirmed 00308017 Problem Xerosis of skin L85.3 Active confirmed 8910 5000 Problem Osteoporosis M81.0 Active confirmed 3991014 6 Problem Dry mouth R68.2 Active confirmed 43944517 Problem Lumbago with sciatica, left side M54.42 Active confirmed 628156657 Problem Melanocytic nevi of left lower limb, including hip D22.72 Active confirmed 064374085 Problem 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 Active confirmed 24828 01 Problem Melanocytic nevi of left upper limb, including shoulder D22.62 Active confirmed 698641196 Problem H/O: CVA (cerebrovascular accident) Z86.73 Acti ve confirmed 372412962 Problem Melanocytic nevi of right lower limb, including hip D22.71 Active confirmed 505905223 Problem Amaurosis fugax, both eyes G45.3 Active confirmed 51345470 Problem Melanocytic nevi of trunk D22.5 Active confirmed 168372596 Problem Hypertensive heart disease without heart failure I 11.9 Active confirmed 68179476 Problem Melanocytic nevi of right upper limb, including shoulder D22.61 Active confirmed 438486178 Problem Left carotid stenosis I65.22 Active confirmed 974339648251629 Problem Sebaceous hyperplasia L73.8 Active confirmed 012071186 Problem Macular degeneration H35.30 Active confirmed 516889068 Problem SK (seborrheic keratosis) L82.1 Active confirmed 430357530 Problem 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 Active confir med 772328368 Problem Lipoma of abdominal wall D17.1 Active confirmed 781739903 Problem Intertrigo L30.4 Active confirmed 57411292 Problem Type 2 diabetes mellitus wit h other specified complication, unspecified whether joint terminal attack controller insulin use E11.69 Active confirmed 47229030 Problem Type 2 diabetes mellitus with other specified complication E11.69 Active confirmed 61854979 Problem Neuropathy of both feet G57.93 Active confirmed 792430166 Problem Personal history of transien t ischemic attack (TIA), and cerebral infarction without residual deficits Z86.73 Active confirmed 191324819 Problem History of COVID-19 Z86.16 Active confirmed 306510101949668166 Problem Unspecified osteoarthritis, unspecified site M19.9 0 Active confirmed 069528611 Problem Vitamin D deficiency, unspecified E55.9 Active con firmed 26956786 Problem Hypothyroidism, unspecified E03.9 Active confirmed 66207945 Problem New onset left bundle branch block (LBBB) I44.7 Active confirmed 80931967 Problem Type 2 diabetes mellitus with diabetic nephropathy E11.21 Active confirmed 560556942 Problem Hypercalcemia E83.52 Active confirmed 983749 09 Problem Hypomagnesemia E83.42 Active confirmed 32516 5004 Problem GERD (gastroesophageal reflux disease) K21.9 A ctive confirmed 954610248 Problem Non-pressure chronic ulcer o f other part of left lower leg with fat layer exposed L97.822 Active confirmed 27176211 Problem Chronic venous hypertension (idiopathic) with ulcer of left lower extremity I87.312 Active confirmed 863329354011337 ALLERGIES Allergen (clinical drug ingredient) Drug/Non Drug Allergy do cumented on EMR Reaction Allergy Type Onset Date Status POLLEN/ DUST/MOLD RESPIRATORY Non Drug Allergy Active gabapentin Gabapentin hallucinations Non Drug Allergy Acti ve ENVIRONMENTAL RESPIRATORY Non Drug Allergy 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 Code:[address]-91) Concern for drug reaction Drug Allergy Active CATS/DOGS DANDER RESPIRATORY Non Drug Allergy A ctive ceclor Rash Drug Allergy Active amitriptyline Amitriptyline HCl([facility] Code:[address]-39) Halluc inations Drug Allergy Active narinder Hives, rash Non Drug Allergy Active ENCOUNTERS from 1940 to 2021-05-22 Encounter Location Date Provider Diagnosis [id number] [facility] [phone] [place] [address] 17 May, 2021 Lilian Polk IMMUNIZATIONS Vaccine Route Administration Date Status COVID-19 dose #1 given elsewhere Unspecified Unknown Oct 31, 2020 Administered Influenza 18 yrs & older Flublok [...] Intramuscular Sep 29 013 Administered COVID-19 dose #2 given elsewhere Unspecified Unknown Nov Administered TDAP IM Intramuscular January 24, 2013 [...] Notes Total Score: 0 Interpretation: Alcohol Education Confucianism: Question Answer Notes Confucianism No jainism beliefs that would impact health care. 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) Medical History ASD , PFO closed with Amplat zer Septal Occluder, 15mm (06-04-02)- [facility] Medical History DM-2 () with Neuropathy Medical History Asthma - mild intermittent - normal spirometry 08/2015 - per pulmonary Medical History PAUL Medical History Schatzki's ring, s/p dilatio n w/balloon EGD at [place] 07-21-04, Dr Benson 06/21 Medical History OA [...] EGD with dilation Surgical History Colonoscopy at [facility] 04/2013 Surgical History Colonoscopy, tubular adenoma tous [...] No Information FUNCTIONAL STATUS No Information ASSESSMENTS No Information PLAN OF TREATMENT Medication Medication Name Sig Start Date Stop Date Vitamin B-12 1000 MCG 1 tablet Orally Once a day for 90 days Dec, Next Appt Details Provider Name:Lilian Polk, 2021-06 08:30:00 AM, [address], , [place], [address], Provider Name:Lilian Polk, 2021-08 08:30:00 AM, [address], , [place], [address], Provider Name:Martha Salas, 2021-10-26 11:00:00 AM, [address] [place] [address], , [place], [address], Insurance Providers Payer Name Payer Address Payer Phone Insured Name Patient Relati onship to Insured Coverage Start Date Coverage End Date MEDICARE Part A and B [address] [facility] [address] [employer] self FOR LIFE [address] [facility] [address] [employer] [id number]
--- OUTSIDE RECORDS SUMMARY | 2021-06-19 11:18 | CCD ---
Author Author [facility] Organization [facility] [employer] Address Unknown Phone Unavailable Care Team Providers Care Machine Group Leader Name Role Phone Lilian Polk Unavailable PROBLEMS Type Condition ICD9-CM Code IJQ47-FT Code Onset Dates Condition S tatus W/U Status Risk SNOMED Code Notes Problem Calculus of gallbladder with acute on chronic cholecystitis without obstruction K80.12 Active confirmed 336440409 Problem Diverticulitis of large inte irvin without perforation or abscess without bleeding K57.32 Active confirmed 7351931 Problem Adverse effect of ciprofloxacin, subsequent encounter T36.8X5D Active confirmed 624562688 Problem Esophageal dysphagia R13.10 Active confirmed 45843040 Problem Other chronic pain G89.29 Active confirmed 8 3239091 Problem Neuropathy G62.9 Active confirmed 493997036 Problem Other hyperlipidemia E78.4 Active confirmed 31755936 Problem 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.710 Active confirmed 232298957 Problem Melanocytic nevi of face D22.30 Active confirmed 662424805 Problem Occipital neuralgia of right side M54.81 Active confirmed 96474631 Problem Xerosis of skin L85.3 Active confirmed 8910 5000 Problem Osteoporosis M81.0 Active confirmed 8203834 6 Problem Dry mouth R68.2 Active confirmed 05875152 Problem Lumbago with sciatica, left side M54.42 Active confirmed 865467636 Problem Melanocytic nevi of left lower limb, including hip D22.72 Active confirmed 018390803 Problem 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 Active confirmed 45930 01 Problem Melanocytic nevi of left upper limb, including shoulder D22.62 Active confirmed 940233970 Problem H/O: CVA (cerebrovascular accident) Z86.73 Acti ve confirmed 400352612 Problem Melanocytic nevi of right lower limb, including hip D22.71 Active confirmed 090745905 Problem Amaurosis fugax, both eyes G45.3 Active confirmed 82356071 Problem Melanocytic nevi of trunk D22.5 Active confirmed 360442090 Problem Hypertensive heart disease without heart failure I 11.9 Active confirmed 29604913 Problem Melanocytic nevi of right upper limb, including shoulder D22.61 Active confirmed 774657527 Problem Left carotid stenosis I65.22 Active confirmed 561099552228074 Problem Sebaceous hyperplasia L73.8 Active confirmed 648097866 Problem Macular degeneration H35.30 Active confirmed 546915317 Problem SK (seborrheic keratosis) L82.1 Active confirmed 735063128 Problem 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 Active confir med 757456660 Problem Lipoma of abdominal wall D17.1 Active confirmed 400228799 Problem Intertrigo L30.4 Active confirmed 43737955 Problem Type 2 diabetes mellitus wit h other specified complication, unspecified whether residential insulin use E11.69 Active confirmed 86316254 Problem Type 2 diabetes mellitus with other specified complication E11.69 Active confirmed 17322239 Problem Neuropathy of both feet G57.93 Active confirmed 556797931 Problem Personal history of transien t ischemic attack (TIA), and cerebral infarction without residual deficits Z86.73 Active confirmed 174435485 Problem History of COVID-19 Z86.16 Active confirmed 232741414965453141 Problem Unspecified osteoarthritis, unspecified site M19.9 0 Active confirmed 543848416 Problem Vitamin D deficiency, unspecified E55.9 Active con firmed 95728447 Problem Hypothyroidism, unspecified E03.9 Active confirmed 13865100 Problem New onset left bundle branch block (LBBB) I44.7 Active confirmed 05817267 Problem Type 2 diabetes mellitus with diabetic nephropathy E11.21 Active confirmed 488371735 Problem Hypercalcemia E83.52 Active confirmed 588527 09 Problem Hypomagnesemia E83.42 Active confirmed 77854 5004 Problem GERD (gastroesophageal reflux disease) K21.9 A ctive confirmed 917833708 Problem Non-pressure chronic ulcer o f other part of left lower leg with fat layer exposed L97.822 Active confirmed 52694931 Problem Chronic venous hypertension (idiopathic) with ulcer of left lower extremity I87.312 Active confirmed 220978798425224 ALLERGIES Allergen (clinical drug ingredient) Drug/Non Drug Allergy do cumented on EMR Reaction Allergy Type Onset Date Status POLLEN/ DUST/MOLD RESPIRATORY Non Drug Allergy Active gabapentin Gabapentin hallucinations Non Drug Allergy Acti ve ENVIRONMENTAL RESPIRATORY 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) Non Drug Allergy Acti ve antipsychotics/ anti-nausea meds Compazine/Reglan Avoid Non Drug Allergy Active Penicillin PENICILLIN Rash Non Drug Allergy Active fluconazole Fluconazole([facility] Code:[address]-99) Concern for drug reaction Drug Allergy Active CATS/DOGS DANDER RESPIRATORY Non Drug Allergy A ctive ceclor Rash Drug Allergy Active amitriptyline Amitriptyline HCl([facility] Code:[address]-03) Halluc inations Drug Allergy Active narinder Hives, rash Non Drug Allergy Active ENCOUNTERS from 1940 to 2021-06-11 Encounter Location Date Provider Diagnosis [facility] [address] [place] [address] Jun, Lilian Polk Hypertensive heart disease without heart failure I11.9 IMMUNIZATIONS Vaccine Route Administration Date Status COVID-19 [...] Notes Total Score: 0 Interpretation: Alcohol Education Mu-Ism: Question Answer Notes Mu-Ism No protestant beliefs that would impact health care. Drug [...] with Amplat zer Septal Occluder, 15mm (06-04-02)- [facility] Medical History DM-2 () with Neuropathy Medical History Asthma - mild intermittent - normal spirometry 08/2015 - per pulmonary Medical History PAUL Medical History Schatzki's ring, s/p dilatio n w/balloon EGD at [facility] 07-21-04, Dr Benson 06/21 Medical History OA [...] ICA stenosis followed b y Dr. Bloom -Gertruderying levels of stenosis per testing done (MRA [...] dilation Surgical History Colonoscopy at [facility] 04/2013 Surgical History Colonoscopy, tubular adenoma [...] Treatment Notes Treatm ent Clinical Notes Jun, Hypertensive heart disease without heart failure (ICD-10 - I11.9) PLAN OF TREATMENT Medication Medication Name Sig [...] Details Provider Name:Lilian Polk, 2021-08 08:30:00 AM, [address], , [place], [address], Provider Name:Martha Salas, 2021-10-26 11:00:00 AM, [address] [place] [address], , [place], [address], Insurance Providers Payer Name Payer Address Payer Phone Insured Name Patient Relati onship to Insured Coverage Start Date Coverage End Date FOR LIFE [address] [facility] [address] HONG SCALES [id number] MEDICARE Part A and B [address] [facility] [address] HONG SACLES self
--- OUTSIDE RECORDS SUMMARY | 2021-06-19 11:19 | CCD | Continuity of Care Document ---
Author Author Analilia BALLESTEROS MD Organization Unknown Address [address] [place] [address], [facility] [address] [place] [address] Phone [phone] Care Team Providers Care Concierge Name Role Phone Annalee Tripathi RPA AUTM [phone] Problems Active Problems Provider Date Essential hypertension Onset: 03/25/2021 Pure hypercholesterolemia Onset: 021 Social History Type Date Description Comments Sex Unknown Tobacco Use Start: Unknown Patient has never smoked Smoking Status Reviewed: 03/26/21 Patient has never smoked Allergies, Adverse Reactions, Alerts Description No Information Available Medications Active Medications SIG Qnty Indications Ordering Provide r Date Januvia 100mg Tablets take 1 tablet by mouth once daily . 90tabs E11.65 Ora Ballesteros MD 1 Metformin HCL 500mg Tablets 1 by mouth 4 times daily Unknown Amlodipine Besylate 5mg Tablets 1 by mouth daily Unknown Aspirin Adult 325mg Tablets 1 by mouth every day Unknown Fexofenadine HCL 180mg Tablets 1 by mouth every day as needed Unknown Flovent HFA 220mcg/Act Aerosol 2 puffs twice daily Unknown Ibuprofen 200mg Capsules 2 tablets by mouth twice daily as needed Unknown Levothyroxine Sodium 112mcg Tablet s 1 by mouth every day Unknown Lumigan 0.01% Solution prn Unknown Magnesium Oxide 400mg Capsules 1 by mouth daily 1 by mouth twice a day Unknown Preservision Areds 2 Areds 2 Capsu les 1 by mouth daily Unknown Rosuvastatin Calcium 20mg Tablets 1 by mouth daily Unknown Spironolactone 25mg Tablets 1/2 tablet by mouth daily Unknown Vitamin D 25mcg (1000 Ut) Tablets 2 by mouth every day Unknown Multivitamin Women 50+ 50+ Tablets 1 by mouth every day Unknown Freestyle Lancets Misc use as directed to check blood sugars Unknown Freestyle Lite Test Strips use as directed to check blood sugars Unknown 0 Freestyle Troy Lite W/Device Ki t instructed to check 1 x/daily e11.65 Unknown Immunizations Description No Information Available Vital Signs Date Vital Result Comment 03/26/2021 12:55pm BP Systolic 126 mmHg BP Diastolic 70 mmHg Heart Rate 70 /min Height 63.6 inches 5'3.60" Weight 219.50 lb BMI (Body Mass Index) 38.1 kg/m2 O2 % BldC Oximetry 98 % Results Description No Information Available Procedures Date Code Description Status 03/26/2021 03625 Office/Outpatient New Moderate M DM 45-59 Minutes Completed 03/26/2021 062602916 Diabetic Foot Exam Completed Medical Devices Description No Information Available Encounters Type Date Location Provider Dx Diagnosis Office Visit 03/26/2021 1:00p DR. 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 Ora Ballesteros 03/26/2021 - rOa Ballesteros MD* E11.65 Type 2 diabetes mellitus with hyperglycemia* New Medication:* Januvia 100 mg - take 1 tablet by mouth once daily . * Comments:* Out of office A1c = 7.4%, 02/19/2021: Patient had [facility] virus testing which was +01/07/2021:Metered down loaded and reviewedfasting 130- 160predinner 140-170Current medications, metformin 500 mg : One with breakfast 2 with lunch 1 at dinner Had Covid 01/07 2021 and had shoulder injection of right shoulder at same time.Impression: higher blood sugars than prior to Covid. She is concerned.Had metformin raised from 3 tabs to 4 tabs a day.Based on her advanced age we will decrease back to 3 daily (1500 mg) and add in Januvia 100 ng.she has normal kidney function and there is no risk of hypoglycemia.Sees [facility] May and then will see us again in August. * Follow up:* - any day- easy dm Functional Status Description No Information Available Mental Status Description No Information Available Referrals Description No Information Available
--- OUTSIDE RECORDS SUMMARY | 2021-06-19 11:19 | CCD ---
Author Author [facility] Organization [facility] [facility] Address Unknown Phone Unavailable Care Team Providers Care Concrete Panel Installer Name Role Phone Lilian Polk Unavailable PROBLEMS Type Condition ICD9-CM Code XYS08-OD Code Onset Dates Condition S tatus W/U Status Risk SNOMED Code Notes Problem Calculus of gallbladder with acute on chronic cholecystitis without obstruction K80.12 Active confirmed 402370182 Problem Diverticulitis of large inte irvin without perforation or abscess without bleeding K57.32 Active confirmed 3766526 Problem Adverse effect of ciprofloxacin, subsequent encounter T36.8X5D Active confirmed 449514732 Problem Esophageal dysphagia R13.10 Active confirmed 05196946 Problem Other chronic pain G89.29 Active confirmed 8 9518724 Problem Neuropathy G62.9 Active confirmed 587532733 Problem Other hyperlipidemia E78.4 Active confirmed 70702200 Problem 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.710 Active confirmed 989116339 Problem Melanocytic nevi of face D22.30 Active confirmed 363131936 Problem Occipital neuralgia of right side M54.81 Active confirmed 14882290 Problem Xerosis of skin L85.3 Active confirmed 8910 5000 Problem Osteoporosis M81.0 Active confirmed 7086914 6 Problem Dry mouth R68.2 Active confirmed 97015018 Problem Lumbago with sciatica, left side M54.42 Active confirmed 568984356 Problem Melanocytic nevi of left lower limb, including hip D22.72 Active confirmed 475763710 Problem 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 Active confirmed 56475 01 Problem Melanocytic nevi of left upper limb, including shoulder D22.62 Active confirmed 486330612 Problem H/O: CVA (cerebrovascular accident) Z86.73 Acti ve confirmed 461409638 Problem Melanocytic nevi of right lower limb, including hip D22.71 Active confirmed 910132075 Problem Amaurosis fugax, both eyes G45.3 Active confirmed 13323205 Problem Melanocytic nevi of trunk D22.5 Active confirmed 470653498 Problem Hypertensive heart disease without heart failure I 11.9 Active confirmed 67041876 Problem Melanocytic nevi of right upper limb, including shoulder D22.61 Active confirmed 784496566 Problem Left carotid stenosis I65.22 Active confirmed 469421168442388 Problem Sebaceous hyperplasia L73.8 Active confirmed 351665985 Problem Macular degeneration H35.30 Active confirmed 903997086 Problem SK (seborrheic keratosis) L82.1 Active confirmed 851436424 Problem 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 Active confir med 902471834 Problem Lipoma of abdominal wall D17.1 Active confirmed 815055161 Problem Intertrigo L30.4 Active confirmed 31722053 Problem Type 2 diabetes mellitus wit h other specified complication, unspecified whether oil heaterman insulin use E11.69 Active confirmed 87466209 Problem Type 2 diabetes mellitus with other specified complication E11.69 Active confirmed 78288722 Problem Neuropathy of both feet G57.93 Active confirmed 564217813 Problem Personal history of transien t ischemic attack (TIA), and cerebral infarction without residual deficits Z86.73 Active confirmed 199715573 Problem History of COVID-19 Z86.16 Active confirmed 745463555055501418 Problem Unspecified osteoarthritis, unspecified site M19.9 0 Active confirmed 151331471 Problem Vitamin D deficiency, unspecified E55.9 Active con firmed 67415433 Problem Hypothyroidism, unspecified E03.9 Active confirmed 78572980 Problem New onset left bundle branch block (LBBB) I44.7 Active confirmed 64811245 Problem Type 2 diabetes mellitus with diabetic nephropathy E11.21 Active confirmed 033774674 Problem Hypercalcemia E83.52 Active confirmed 438705 09 Problem Hypomagnesemia E83.42 Active confirmed 40596 5004 Problem GERD (gastroesophageal reflux disease) K21.9 A ctive confirmed 384692397 Problem Non-pressure chronic ulcer o f other part of left lower leg with fat layer exposed L97.822 Active confirmed 83372461 Problem Chronic venous hypertension (idiopathic) with ulcer of left lower extremity I87.312 Active confirmed 960630588242262 ALLERGIES Allergen (clinical drug ingredient) Drug/Non Drug Allergy do cumented on EMR Reaction Allergy Type Onset Date Status POLLEN/ DUST/MOLD RESPIRATORY Non Drug Allergy Active gabapentin Gabapentin hallucinations Non Drug Allergy Acti ve ENVIRONMENTAL RESPIRATORY Non Drug Allergy Acti ve cipro AGED OR DISABLED CARER (see 04/21) Non Drug Allergy Acti ve antipsychotics/ anti-nausea meds Compazine/Reglan Avoid Non Drug Allergy Active Penicillin PENICILLIN Rash Non Drug Allergy Active fluconazole Fluconazole([facility] Code:[address]-66) Concern for drug reaction Drug Allergy Active CATS/DOGS DANDER RESPIRATORY Non Drug Allergy A ctive ceclor Rash Drug Allergy Active amitriptyline Amitriptyline HCl([facility] Code:[address]-01) Halluc inations Drug Allergy Active narinder Hives, rash Non Drug Allergy Active ENCOUNTERS from 1940 to 2021-05-05 Encounter Location Date Provider Diagnosis [place] [id number] [facility] [phone] [place] [address] Apr, Lilian Polk IMMUNIZATIONS Vaccine Route Administration Date Status Influenza (High Dose 65 & up) IM Intramuscular Aug 06, 2016 A dministered Influenza (High Dose 65 & up) IM Intramuscular Jul 29, 2015 A dministered Influenza (High Dose 65 & up) IM Intramuscular Jul 24, 2014 A dministered COVID-19 dose #2 given elsewhere Unspecified Unknown Nov Administered COVID-19 dose #1 given elsewhere Unspecified Unknown Oct 31, 2020 Administered Pneumococcal Adult 0.5mL Pneumovax 23 IM Intramuscular [...] Notes Total Score: 0 Interpretation: Alcohol Education Restoration: Question Answer Notes Restoration No taoism beliefs that would impact health care. Drug [...] Notes Start Da te End Date Status Lumigan 0.01 % 1 drop into each eye in the evening Ophthalmic Once a day Active metFORMIN HCl 500 MG 1 tablet with meals Orally 1 tab am, 2 tabs at noon, 1 tab in pm Oct, Active CPAP mask Active Multivitamin Adult - Orally daily women's 50 plus Active PreserVision AREDS 2 - Orally Ac tive Protonix 40 MG 1 tablet Orally Once a day for 90 days Active Ibuprofen 200 MG 2 tablets Orally twice daily as needed Active Spironolactone 25 mg 1/2 tablet Orally daily Active Flovent HFA 110 MCG/ACT 2 puff Inhalation Twice daily sig change Active Buffered Aspirin 325 MG 1 tab(s) Orally daily Active Albuterol Sulfate (2.5 MG/3ML) 0.083% 3 ml Inhalation every 4 hours as neede for SOB sig change January, Active FreeStyle Lite Test - as directed In Vitro dx:e11.21 Daily for 9 0 day(s) January, Active Vitamin C 1000 MG 1 tablet Orally Once a day for 30 day(s) Active Amlodipine 5mg 1 tab(s) oral daily for 90 day(s) Active Flonase Allergy Relief 50 MCG/ACT 2 sprays Nasally Once a day si g change January, Active Vitamin B-12 1000 MCG 1 tablet Orally Once a day for 90 days Dec, Active Vitamin D 2000 units Orally Daily A ctive Alphagan P 0.1 % 1 drop into right eye Ophthalmic twice daily si g change January, Active Levothyroxine Sodium 100 MCG 1 tablet in the morning o n an empty stomach Orally Once a day for 90 day(s) Sep, Active Botox 70 units injections Injection both eyes DR. 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) Medical History ASD , PFO closed with Amplat zer Septal Occluder, 15mm (06-04-02)- [facility] Medical History DM-2 () with Neuropathy Medical History Asthma - mild intermittent - normal spirometry 08/2015 - per pulmonary Medical History PAUL Medical History Schatzki's ring, s/p dilatio n w/balloon EGD at [facility] 07-21-04, Dr Benson 06/21 Medical History OA [...] eyes Medical History sleep apnea Medical History Covid 19 (01/23) Surgical History Right knee arthroscopic surgery for torn meniscus 04/2005 Surgical History PFO closure Surgical History EGD with dilation Surgical History Colonoscopy at [facility] 04/2013 Surgical History Colonoscopy, tubular adenoma tous [...] Medication Name Sig Start Date Stop Date metFORMIN HCl 500 MG 1 tablet with meals Orally 1 tab am, 2 tabs at noon, 1 tab in pm Oct, Next Appt Details Provider Name:Lilian Polk, 2021-06 08:30:00 AM, [address], , [place], [address], Provider Name:Lilian Polk, 2021-08 08:30:00 AM, [address], , [place], [address], Provider Name:Martha Salas, 2021-10-26 11:00:00 AM, [address] [place] [address], , [place], [address], Insurance Providers Payer Name Payer Address Payer Phone Insured Name Patient Relati onship to Insured Coverage Start Date Coverage End Date MEDICARE Part A and B [address] [facility] [address] HONG SCALES self FOR LIFE [address] [facility] [address] HONG SCALES [id number]
--- OUTSIDE RECORDS SUMMARY | 2021-06-19 11:19 | CCD ---
Author Author [facility] em[facility] Organization [facility] ems Address Unknown Phone Unavailable Care Team Providers Care Medical Manager Name Role Phone Lilian Polk Unavailable PROBLEMS Type Condition ICD9-CM Code [id number] Code Onset Dates Condition S tatus W/U Status Risk SNOMED Code Notes Problem Calculus of gallbladder with acute on chronic cholecystitis without obstruction K80.12 Active confirmed 681311297 Problem Diverticulitis of large inte irvin without perforation or abscess without bleeding K57.32 Active confirmed 8865152 Problem Adverse effect of ciprofloxacin, subsequent encounter T36.8X5D Active confirmed 630505876 Problem Esophageal dysphagia R13.10 Active confirmed 72997628 Problem Other chronic pain G89.29 Active confirmed 8 6492669 Problem Neuropathy G62.9 Active confirmed 019591122 Problem Other hyperlipidemia E78.4 Active confirmed 44578247 Problem 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.710 Active confirmed 203646497 Problem Melanocytic nevi of face D22.30 Active confirmed 420702339 Problem Occipital neuralgia of right side M54.81 Active confirmed 57051481 Problem Xerosis of skin L85.3 Active confirmed 8910 5000 Problem Osteoporosis M81.0 Active confirmed 5514949 6 Problem Dry mouth R68.2 Active confirmed 26432943 Problem Lumbago with sciatica, left side M54.42 Active confirmed 131728599 Problem Melanocytic nevi of left lower limb, including hip D22.72 Active confirmed 855255453 Problem 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 Active confirmed 68818 01 Problem Melanocytic nevi of left upper limb, including shoulder D22.62 Active confirmed 985125025 Problem H/O: CVA (cerebrovascular accident) Z86.73 Acti ve confirmed 428891686 Problem Melanocytic nevi of right lower limb, including hip D22.71 Active confirmed 304373984 Problem Amaurosis fugax, both eyes G45.3 Active confirmed 02330152 Problem Melanocytic nevi of trunk D22.5 Active confirmed 660899276 Problem Hypertensive heart disease without heart failure I 11.9 Active confirmed 95695261 Problem Melanocytic nevi of right upper limb, including shoulder D22.61 Active confirmed 516904205 Problem Left carotid stenosis I65.22 Active confirmed 921558309322111 Problem Sebaceous hyperplasia L73.8 Active confirmed 694677815 Problem Macular degeneration H35.30 Active confirmed 290301792 Problem SK (seborrheic keratosis) L82.1 Active confirmed 464920163 Problem 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 Active confir med 530489797 Problem Lipoma of abdominal wall D17.1 Active confirmed 611029012 Problem Intertrigo L30.4 Active confirmed 13572629 Problem Type 2 diabetes mellitus wit h other specified complication, unspecified whether online media buyer insulin use E11.69 Active confirmed 30432211 Problem Type 2 diabetes mellitus with other specified complication E11.69 Active confirmed 27040784 Problem Neuropathy of both feet G57.93 Active confirmed 913182076 Problem Personal history of transien t ischemic attack (TIA), and cerebral infarction without residual deficits Z86.73 Active confirmed 716222462 Problem History of COVID-19 Z86.16 Active confirmed 384238656624140841 Problem Unspecified osteoarthritis, unspecified site M19.9 0 Active confirmed 953893182 Problem Vitamin D deficiency, unspecified E55.9 Active con firmed 90709876 Problem Hypothyroidism, unspecified E03.9 Active confirmed 03994483 Problem New onset left bundle branch block (LBBB) I44.7 Active confirmed 08276775 Problem Type 2 diabetes mellitus with diabetic nephropathy E11.21 Active confirmed 472709102 Problem Hypercalcemia E83.52 Active confirmed 466576 09 Problem Hypomagnesemia E83.42 Active confirmed 22111 5004 Problem GERD (gastroesophageal reflux disease) K21.9 A ctive confirmed 347685539 Problem Non-pressure chronic ulcer o f other part of left lower leg with fat layer exposed L97.822 Active confirmed 73997444 Problem Chronic venous hypertension (idiopathic) with ulcer of left lower extremity I87.312 Active confirmed 040709241169521 ALLERGIES Allergen (clinical drug ingredient) Drug/Non Drug Allergy do cumented on EMR Reaction Allergy Type Onset Date Status POLLEN/ DUST/MOLD RESPIRATORY Non Drug Allergy Active gabapentin Gabapentin hallucinations Non Drug Allergy Acti ve ENVIRONMENTAL RESPIRATORY Non Drug Allergy Acti ve 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/21) Non Drug Allergy Acti ve antipsychotics/ anti-nausea meds Compazine/Reglan Avoid Non Drug Allergy Active Penicillin PENICILLIN Rash Non Drug Allergy Active fluconazole Fluconazole([facility] Code:[address]-84) Concern for drug reaction Drug Allergy Active CATS/DOGS DANDER RESPIRATORY Non Drug Allergy A ctive ceclor Rash Drug Allergy Active amitriptyline Amitriptyline HCl([facility] Code:[address]-11) Halluc inations Drug Allergy Active narinder Hives, rash Non Drug Allergy Active ENCOUNTERS from 1938 to 2021-05-19 Encounter Location Date Provider Diagnosis [place] [id number] [facility] [phone] [place] [address] 13 May, 2021 Lilian Polk IMMUNIZATIONS Vaccine Route [...] Notes Total Score: 0 Interpretation: Alcohol Education Yazidi: Question Answer Notes Yazidi No religion beliefs that would impact health care. 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) Medical History ASD , PFO closed with Amplat zer Septal Occluder, 15mm (06-04-02)- [facility] Medical History DM-2 () with Neuropathy Medical History Asthma - mild intermittent - normal spirometry 08/2015 - per pulmonary Medical History PAUL Medical History Schatzki's ring, s/p dilatio n w/balloon EGD at [facility] 07-21-04, Dr Benson 06/21 Medical History OA [...] EGD with dilation Surgical History Colonoscopy at [facility] 04/2013 Surgical History Colonoscopy, tubular adenoma [...] Information ASSESSMENTS No Information PLAN OF TREATMENT Next Appt Details Provider Name:Lilian Polk, 2021-06 08:30:00 AM, [address], , [place], [address], Provider Name:Lilian Polk, 2021-08 08:30:00 AM, [address], , [place], [address], Provider Name:Martha Salas, 2021-10-26 11:00:00 AM, [address] [place] [address], , [place], [address], Insurance Providers Payer Name Payer Address Payer Phone Insured Name Patient Relati onship to Insured Coverage Start Date Coverage End Date FOR LIFE [address] [facility] [address] [employer] [id number] MEDICARE Part A and B [address] [facility] [address] [employer] self
--- OUTSIDE RECORDS SUMMARY | 2021-06-19 11:19 | CCD ---
Author Author [facility] ems Organization [facility] ems Address Unknown Phone Unavailable Care Team Providers Care Automation Consultant Name Role Phone Lilian Polk Unavailable PROBLEMS Type Condition ICD9-CM Code [id number] Code Onset Dates Condition S tatus W/U Status Risk SNOMED Code Notes Problem Calculus of gallbladder with acute on chronic cholecystitis without obstruction K80.12 Active confirmed 594760937 Problem Diverticulitis of large inte irvin without perforation or abscess without bleeding K57.32 Active confirmed 9526455 Problem Adverse effect of ciprofloxacin, subsequent encounter T36.8X5D Active confirmed 848465710 Problem Esophageal dysphagia R13.10 Active confirmed 43113464 Problem Other chronic pain G89.29 Active confirmed 8 8245825 Problem Neuropathy G62.9 Active confirmed 943187463 Problem Other hyperlipidemia E78.4 Active confirmed 47479354 Problem 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.710 Active confirmed 241500813 Problem Melanocytic nevi of face D22.30 Active confirmed 624607300 Problem Occipital neuralgia of right side M54.81 Active confirmed 51960400 Problem Xerosis of skin L85.3 Active confirmed 8910 5000 Problem Osteoporosis M81.0 Active confirmed 8123443 6 Problem Dry mouth R68.2 Active confirmed 48851902 Problem Lumbago with sciatica, left side M54.42 Active confirmed 194046625 Problem Melanocytic nevi of left lower limb, including hip D22.72 Active confirmed 244521660 Problem 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 Active confirmed 47023 01 Problem Melanocytic nevi of left upper limb, including shoulder D22.62 Active confirmed 239454939 Problem H/O: CVA (cerebrovascular accident) Z86.73 Acti ve confirmed 981053663 Problem Melanocytic nevi of right lower limb, including hip D22.71 Active confirmed 883102763 Problem Amaurosis fugax, both eyes G45.3 Active confirmed 46516645 Problem Melanocytic nevi of trunk D22.5 Active confirmed 634528372 Problem Hypertensive heart disease without heart failure I 11.9 Active confirmed 72671010 Problem Melanocytic nevi of right upper limb, including shoulder D22.61 Active confirmed 970675562 Problem Left carotid stenosis I65.22 Active confirmed 493392336278603 Problem Sebaceous hyperplasia L73.8 Active confirmed 465560477 Problem Macular degeneration H35.30 Active confirmed 169659590 Problem SK (seborrheic keratosis) L82.1 Active confirmed 804772430 Problem 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 Active confir med 776847955 Problem Lipoma of abdominal wall D17.1 Active confirmed 689796240 Problem Intertrigo L30.4 Active confirmed 95997123 Problem Type 2 diabetes mellitus wit h other specified complication, unspecified whether 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 insulin use E11.69 Active confirmed 17691597 Problem Type 2 diabetes mellitus with other specified complication E11.69 Active confirmed 75544030 Problem Neuropathy of both feet G57.93 Active confirmed 660377169 Problem Personal history of transien t ischemic attack (TIA), and cerebral infarction without residual deficits Z86.73 Active confirmed 920151340 Problem History of COVID-19 Z86.16 Active confirmed 397600098849155360 Problem Unspecified osteoarthritis, unspecified site M19.9 0 Active confirmed 734563308 Problem Vitamin D deficiency, unspecified E55.9 Active con firmed 92701288 Problem Hypothyroidism, unspecified E03.9 Active confirmed 26337260 Problem New onset left bundle branch block (LBBB) I44.7 Active confirmed 95643169 Problem Type 2 diabetes mellitus with diabetic nephropathy E11.21 Active confirmed 725184484 Problem Hypercalcemia E83.52 Active confirmed 285824 09 Problem Hypomagnesemia E83.42 Active confirmed 36008 5004 Problem GERD (gastroesophageal reflux disease) K21.9 A ctive confirmed 814941461 Problem Non-pressure chronic ulcer o f other part of left lower leg with fat layer exposed L97.822 Active confirmed 70556269 Problem Chronic venous hypertension (idiopathic) with ulcer of left lower extremity I87.312 Active confirmed 352706476825750 ALLERGIES Allergen (clinical drug ingredient) Drug/Non Drug Allergy do cumented on EMR Reaction Allergy Type Onset Date Status POLLEN/ DUST/MOLD RESPIRATORY Non Drug Allergy Active gabapentin Gabapentin hallucinations Non Drug Allergy Acti ve ENVIRONMENTAL RESPIRATORY Non Drug Allergy Acti 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 (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 04/21) Non Drug Allergy Acti ve antipsychotics/ anti-nausea meds Compazine/Reglan Avoid Non Drug Allergy Active Penicillin PENICILLIN Rash Non Drug Allergy Active fluconazole Fluconazole([facility] Code:[address]-56) Concern for drug reaction Drug Allergy Active CATS/DOGS DANDER RESPIRATORY Non Drug Allergy A ctive ceclor Rash Drug Allergy Active amitriptyline Amitriptyline HCl([facility] Code:[address]-58) Halluc inations Drug Allergy Active narinder Hives, rash Non Drug Allergy Active ENCOUNTERS from 1940 to 2021-05-20 Encounter Location Date Provider Diagnosis [facility] [address] [place] [address] 15 May, 2021 Lilianefra Espinosaterhaalejandra Pain in right lower leg M79.661 IMMUNIZATIONS Vaccine Route Administration Date Status Influenza [...] Notes Total Score: 0 Interpretation: Alcohol Education Congregational: Question Answer Notes Congregational No advent beliefs that would impact health care. Drug [...] zer Septal Occluder, 15mm (06-04-02)- [facility] Medical History DM-2 () with Neuropathy Medical History Asthma - mild intermittent - normal spirometry 08/2015 - per pulmonary Medical History PAUL Medical History Schatzki's ring, s/p dilatio n w/balloon EGD at [facility] 07-21-04, Dr Benson 06/21 Medical History OA [...] with dilation Surgical History Colonoscopy at [facility] 04/2013 Surgical History Colonoscopy, tubular adenoma tous [...] Treatment Notes Treatm ent Clinical Notes May, Pain in right lower leg (ICD-10 - M79.661) PLAN OF TREATMENT Medication Medication Name Sig Start Date Stop Date Vitamin B-12 1000 MCG 1 tablet Orally Once a day for 90 days Dec, Next Appt Details Provider Name:Lilian Polk, 2021-06 08:30:00 AM, [address], , [place], [address], Provider Name:Lilian Polk, 2021-08 08:30:00 AM, [address], , [place], [address], Provider Name:Martha Salas, 2021-10-26 11:00:00 AM, [address] [place] [address], , [place], [address], Insurance Providers Payer Name Payer Address Payer Phone Insured Name Patient Relati onship to Insured Coverage Start Date Coverage End Date FOR LIFE [address] [facility] [address] [employer] [id number] MEDICARE Part A and B [address] [facility] [phone] H[employer] SCALES self
--- OUTSIDE RECORDS SUMMARY | 2021-06-19 11:19 | CCD ---
Author Author [facility] em[facility] Organization [facility] [employer] ems Address Unknown Phone Unavailable Care Team Providers Care Tool Grinder Operator Surface Name Role Phone Lilian Polk Unavailable PROBLEMS Type Condition ICD9-CM Code [id number] Code Onset Dates Condition S tatus W/U Status Risk SNOMED Code Notes Problem Calculus of gallbladder with acute on chronic cholecystitis without obstruction K80.12 Active confirmed 183493226 Problem Diverticulitis of large inte irvin without perforation or abscess without bleeding K57.32 Active confirmed 7623040 Problem Adverse effect of ciprofloxacin, subsequent encounter T36.8X5D Active confirmed 585714021 Problem Esophageal dysphagia R13.10 Active confirmed 02744187 Problem Other chronic pain G89.29 Active confirmed 8 8795018 Problem Neuropathy G62.9 Active confirmed 793207624 Problem Other hyperlipidemia E78.4 Active confirmed 36575430 Problem 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.710 Active confirmed 740155214 Problem Melanocytic nevi of face D22.30 Active confirmed 030342944 Problem Occipital neuralgia of right side M54.81 Active confirmed 23423896 Problem Xerosis of skin L85.3 Active confirmed 8910 5000 Problem Osteoporosis M81.0 Active confirmed 2885684 6 Problem Dry mouth R68.2 Active confirmed 15036203 Problem Lumbago with sciatica, left side M54.42 Active confirmed 894230458 Problem Melanocytic nevi of left lower limb, including hip D22.72 Active confirmed 543681508 Problem 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 Active confirmed 07494 01 Problem Melanocytic nevi of left upper limb, including shoulder D22.62 Active confirmed 806189153 Problem H/O: CVA (cerebrovascular accident) Z86.73 Acti ve confirmed 659860766 Problem Melanocytic nevi of right lower limb, including hip D22.71 Active confirmed 254342119 Problem Amaurosis fugax, both eyes G45.3 Active confirmed 15275292 Problem Melanocytic nevi of trunk D22.5 Active confirmed 722654476 Problem Hypertensive heart disease without heart failure I 11.9 Active confirmed 74580999 Problem Melanocytic nevi of right upper limb, including shoulder D22.61 Active confirmed 065032121 Problem Left carotid stenosis I65.22 Active confirmed 814641948603347 Problem Sebaceous hyperplasia L73.8 Active confirmed 422738987 Problem Macular degeneration H35.30 Active confirmed 993391267 Problem SK (seborrheic keratosis) L82.1 Active confirmed 439133168 Problem 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 Active confir med 067910657 Problem Lipoma of abdominal wall D17.1 Active confirmed 942478865 Problem Intertrigo L30.4 Active confirmed 88601177 Problem Type 2 diabetes mellitus wit h other specified complication, unspecified whether 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 E11.69 Active confirmed 75472280 Problem Type 2 diabetes mellitus with other specified complication E11.69 Active confirmed 48265984 Problem Neuropathy of both feet G57.93 Active confirmed 804069595 Problem Personal history of transien t ischemic attack (TIA), and cerebral infarction without residual deficits Z86.73 Active confirmed 781308700 Problem History of COVID-19 Z86.16 Active confirmed 158983885305544752 Problem Unspecified osteoarthritis, unspecified site M19.9 0 Active confirmed 900039989 Problem Vitamin D deficiency, unspecified E55.9 Active con firmed 87018907 Problem Hypothyroidism, unspecified E03.9 Active confirmed 18766814 Problem New onset left bundle branch block (LBBB) I44.7 Active confirmed 94744650 Problem Type 2 diabetes mellitus with diabetic nephropathy E11.21 Active confirmed 768779473 Problem Hypercalcemia E83.52 Active confirmed 910703 09 Problem Hypomagnesemia E83.42 Active confirmed 36291 5004 Problem GERD (gastroesophageal reflux disease) K21.9 A ctive confirmed 094089455 Problem Non-pressure chronic ulcer o f other part of left lower leg with fat layer exposed L97.822 Active confirmed 04253786 Problem Chronic venous hypertension (idiopathic) with ulcer of left lower extremity I87.312 Active confirmed 538539279648155 ALLERGIES Allergen (clinical drug ingredient) Drug/Non Drug Allergy do cumented on EMR Reaction Allergy Type Onset Date Status POLLEN/ DUST/MOLD RESPIRATORY Non Drug Allergy Active gabapentin Gabapentin hallucinations Non Drug Allergy Acti ve ENVIRONMENTAL RESPIRATORY Non Drug Allergy Acti ve 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 (see 04/21) Non Drug Allergy Acti ve antipsychotics/ anti-nausea meds Compazine/Reglan Avoid Non Drug Allergy Active Penicillin PENICILLIN Rash Non Drug Allergy Active fluconazole Fluconazole([facility] Code:[address]-34) Concern for drug reaction Drug Allergy Active CATS/DOGS DANDER RESPIRATORY Non Drug Allergy A ctive ceclor Rash Drug Allergy Active amitriptyline Amitriptyline HCl([facility] Code:[address]-98) Halluc inations Drug Allergy Active narinder Hives, rash Non Drug Allergy Active ENCOUNTERS from 1938 to 2021-05-01 Encounter Location Date Provider Diagnosis [facility] [address] [place] [address] Apr, Lilian Polk Type 2 diabetes mellitus with other spec ified complication E11.69 IMMUNIZATIONS Vaccine Route Administration Date Status COVID-19 [...] Notes Total Score: 0 Interpretation: Alcohol Education Druze: Question Answer Notes Druze No nondenominational beliefs that would impact health care. 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) Medical History ASD , PFO closed with Amplat zer Septal Occluder, 15mm (06-04-02)- [facility] Medical History DM-2 () with Neuropathy Medical History Asthma - mild intermittent - normal spirometry 08/2015 - per pulmonary Medical History PAUL Medical History Schatzki's ring, s/p dilatio n w/balloon EGD at [place] 07-21-04, Dr Benson 06/21 Medical History OA [...] EGD with dilation Surgical History Colonoscopy at [facility] 04/2013 Surgical History Colonoscopy, tubular adenoma tous [...] Notes Treatment Notes Treatm ent Clinical Notes Apr, Type 2 diabetes mellitus wit h other specified complication (ICD-10 - E11.69) Her blood sugars have gone up since having COVID, but overall, her readings at home reasonable for her age. Cont current regimen for now and check HbA1c next month Could consider GLiptin but she will need to be reassured that there is no risk to her vision on this PLAN OF TREATMENT Medication Medication Name Sig Start Date Stop Date metFORMIN HCl 500 MG 1 tablet with meals Orally 1 tab am, 2 tabs at noon, 1 tab in pm Oct, Treatment Notes Assessment Notes Clinical Notes Type 2 diabetes mellitus with other specified complication Her blood sugars have gone up since having COVID, but overall, her readings at home reasonable for her age. Cont current regimen for now and check HbA1c next monthCould consider GLiptin but she will need to be reassured that there is no risk to her vision on this Future Test Test Name Order Date HEMOGLOBIN A1c [id number] Comprehensive Metabolic Profile (CMP) [id number] CBC - Complete Blood Count [id number] Next Appt Details as scheduled Reason: Provider Name:Lilian Polk 2021-06 08:30:00 AM, [address], , [place], [address], Provider Name:Lilian Polk 2021-08 08:30:00 AM, [address], , [place], [address], Provider Name:Martha Scherer Josue, 2021-10-26 11:00:00 AM, [address] [place] [address], , [place], [address], Insurance Providers Payer Name Payer Address Payer Phone Insured Name Patient Relati onship to Insured Coverage Start Date Coverage End Date [facility] [address] [facility] [address] [employer] [id number] MEDICARE Part A and B [address] [facility] [address] [employer] SCAL[employer] self
--- OUTSIDE RECORDS SUMMARY | 2021-06-19 11:19 | CCD | Continuity of Care Document ---
Author Author Analilia BALLESTEROS PA-C Organization Unknown Address [address] [place] [address] Phone [phone] Care Team Providers Care Wellness Ambassador Name Role Phone Nan James MATIAS AUTM [phone] Lilian Briggs AUTM [phone] Problems Active Problems Provider Date Essential hypertension Devin Martinez MD Onset: 7 Pure hypercholesterolemia Devin Martinez MD Onset: 2016 Esophageal dysphagia Onset: 06/22/2017 Cervico-occipital neuralgia Onset: 06/02 Gallbladder calculus with acute cholecystitis and no obstruc tion Onset: 06/02/2017 Chronic low back pain Onset: 06/02/2017 Xerostomia Onset: 06/02/2017 Chronic pain Onset: 05/20/2017 Diverticulitis of large intestine Onset: 04/22/2017 Ciprofloxacin adverse reaction Onset: Diabetic peripheral neuropathy Onset: Hypertensive heart disease without congestive heart failure Onset: 10/20/2016 Degenerative disorder of macula Onset: 0 10/20/2016 Osteoporosis Onset: 09/22/2016 Left carotid artery stenosis Onset: 07/07 History of cerebrovascular accident Onse t: 07/26/2016 Amaurosis fugax Onset: 06/04/2016 Vitamin D deficiency Onset: 12/03/2015 Hyperlipidemia Onset: 12/03/2015 History of cerebrovascular accident without residual deficit s Onset: 12/03/2015 Disorder of kidney due to diabetes mellitus Onset: 12/03/2015 Gastroesophageal reflux disease Onset: 0 12/03/2015 Hypothyroidism Onset: 12/03/2015 Social History Type Date Description Comments Sex Unknown ETOH Use Denies alcohol use Tobacco Use Start: Unknown Denies Smoking Allergies, Adverse Reactions, Alerts Active Allergies Reaction Severity Comments Date Ceclor 09/20/2016 Penicillin 09/20/2016 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 (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 04/21) 09/07/2017 Amitriptyline 10/17/2017 Shelley 10/17/2017 Gabapentin 10/18/2018 Medications Active Medications SIG Qnty Indications Ordering Provide r Date Bactrim DS 800-160mg Tablets 1 by mouth twice a day 8tabs S80.12xD Glenn Portillo MD 07/07/2020 Levothyroxine Sodium 100mcg Tablet s 1 tablet on an empty stomach in the morning Unknow n 05/20/2017 Metformin HCL 500mg Tablets 1 tablet with meals Unknown 10/20/2016 Refresh Optive Sensitive 0.5-0.9% Solution 2 drops both eyes 4 times daily Devin Martinez MD 09/20/2016 Rosuvastatin Calcium 20mg Tablets 1 po daily Devin Martinez MD 09/20/2016 C- Pap Machine Unknown Buffered Aspirin 325mg Tablets Unknown Pantoprazole Sodium 40mg Tablets D R 1 tablet Unknown Alphagan P 0.1% Solution 1 drop into affected eye Unknown [facility] High-Potency Vitamin D 1000Unit Tablets 2 tablet Unknown Flovent HFA 110mcg/Act Aerosol 2 puff Unknown Major Tears Op Oint Ointment both eyes Unknown [facility] Artificial Tears 1.4-0.6% Solu tion 1 drop into affected eye Unknown 0 Multivitamin Adult Tablets 1 by mouth every day Unknown Vitamin D3 [id number] Capsules 1 po daily Unknown Vitamin C 500mg Capsules 1 by mouth every day Unknown Spironolactone 25mg Tablets 1 by mouth every day Unknown Refresh 1.4-0.6% Solution 1 drop both eyes as needed Unknown Preservision Areds Capsules 1 po daily Unknown Allyn 3 1200mg Capsules 2 by mouth every day Unknown Magnesium 500mg Tablets 1 by mouth every day Unknown Lumigan 0.01% Solution 1 drop both eyes at hs Unknown Fluticasone Propionate 50mcg/Act Suspension 2 sprays each nostril daily Unknown Botulinum Toxin untis to be determined by dr. zhou Unknown Amlodipine Besylate 5mg Tablets 1 by mouth every day Unknown Albuterol Aersol 2 puffs bid prn Unknown Albuterol Sulfate (2 .5mg/3ML) 0.083% Nebulizer 1 unit dose ampule in nebulizer and inha led up to 4 times a day for coughing and wheezing Unknown Immunizations CPT Code Status Date Vaccine Lot # [id number] Given 08/06/2016 Influenza Vaccine Split Viru s Preservative [place] 39697 Given 07/29/2015 Influenza Vaccine Split Viru s Preservative Free [place] Use 99642 Given 07/24/2014 Influenza Vaccine Split Viru s Preservative Free [place] Use 36884 Given 07/23/2013 Influenza Virus Vaccine, Quadrivalent, Split, Preservative Free 90948 Given 01/24/2013 Tetanus, Diphthe derik Toxoids/Acellular Pertussis Vaccine 7 Or > 91365 Given 09/29/2012 Pneumococcal Vaccine 55483 Given 07/19/2012 Pneumococcal Con jugate Vaccine 13 Valent For Intramuscular Use Vital Signs Date Vital Result Comment 07/02/2020 10:59am Body Temperature 96.1 F Height 65 inches 5'5" Weight 212.00 lb BMI (Body Mass Index) 35.3 kg/m2 10/18/2018 1:15pm Body Temperature 97.4 F Height 63 inches 5'3" Weight 217.00 lb BMI (Body Mass Index) 38.4 kg/m2 Results Description No Information Available Procedures Date Code Description Status 04/02/2021 35358 Phone Evaluation/Management By Surekha melgar 5-10 Mins Completed 02/27/2021 41737 Office/Outpatient Established Lo w MDM 20-29 Min Completed 01/02/2021 24911 Office/Outpatient Established Mo d MDM 30-39 Min Completed 01/02/2021 31130 X-Ray Shoulder Complete Complete d 01/02/2021 63263 Inject/Drain Joint/Bursa Major C ompleted 06/2020 740880057 Diabetic Foot Exam Completed 12/2018 71227410 Colonoscopy Completed Medical Devices Description No Information Available Encounters Type Date Location Provider Dx Diagnosis Office Visit 04/02/2021 2:20p Oliva Mohr MARY Ballesteros M19.011 Primary osteoarthritis, right shoulder M75.41 [facility]ing[facility] syndrome of [facility] shoulder Office Visit 02/27/2021 10:30a [place] MARY Ballesteros M19.011 Primary osteoarthritis, right shoulder M75.41 Impingement syndrome of [facility] shoulder Office Visit 01/02/2021 9:00a [place] [facility] MARY Ballesteros M19.011 Primary osteoarthritis, right shoulder M75.41 [facility]ing[facility] syndrome [address] [facility] t shoulder Assessments Date Code Description Provider 04/02/2021 M19.011 Primary osteoarthritis, right sh laureano Castellano L. TIMO BallesterosC 04/02/2021 M75.41 Impingement syndrome of right sh lubnaer Nona L. TIMO BallesterosC 02/27/2021 M19.011 Primary osteoarthritis, right sh lubnaer Nona L. TIMO BallesterosC 02/27/2021 M75.41 Impingement syndrome of right sh lubnaer Nona L. TIMO BallesterosC 01/02/2021 M19.011 Primary osteoarthritis, right sh lubnaer Nona L. TIMO BallesterosC 01/02/2021 M75.41 Impingement syndrome of right sh lubnaer Nona L. MARY Ballesteros Plan of Treatment No Information Available Functional Status Description No Information Available Mental Status Description No Information Available Referrals Description No Information Available
--- OUTSIDE RECORDS SUMMARY | 2021-06-19 11:19 | CCD ---
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 Role Phone Lilian Polk Unavailable PROBLEMS Type Condition ICD9-CM Code XEH12-EV Code Onset Dates Condition S tatus W/U Status Risk SNOMED Code Notes Problem Calculus of gallbladder with acute on chronic cholecystitis without obstruction K80.12 Active confirmed 543380240 Problem Diverticulitis of large inte irvin without perforation or abscess without bleeding K57.32 Active confirmed 5926367 Problem Adverse effect of ciprofloxacin, subsequent encounter T36.8X5D Active confirmed 693809927 Problem Esophageal dysphagia R13.10 Active confirmed 25301509 Problem Other chronic pain G89.29 Active confirmed 8 1342960 Problem Neuropathy G62.9 Active confirmed 311969143 Problem Other hyperlipidemia E78.4 Active confirmed 27980132 Problem 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.710 Active confirmed 135366060 Problem Melanocytic nevi of face D22.30 Active confirmed 497058029 Problem Occipital neuralgia of right side M54.81 Active confirmed 90331333 Problem Xerosis of skin L85.3 Active confirmed 8910 5000 Problem Osteoporosis M81.0 Active confirmed 4186438 6 Problem Dry mouth R68.2 Active confirmed 67954267 Problem Lumbago with sciatica, left side M54.42 Active confirmed 479813961 Problem Melanocytic nevi of left lower limb, including hip D22.72 Active confirmed 122528995 Problem 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 Active confirmed 35302 01 Problem Melanocytic nevi of left upper limb, including shoulder D22.62 Active confirmed 076992679 Problem H/O: CVA (cerebrovascular accident) Z86.73 Acti ve confirmed 473912154 Problem Melanocytic nevi of right lower limb, including hip D22.71 Active confirmed 219410933 Problem Amaurosis fugax, both eyes G45.3 Active confirmed 38078849 Problem Melanocytic nevi of trunk D22.5 Active confirmed 820284964 Problem Hypertensive heart disease without heart failure I 11.9 Active confirmed 21878505 Problem Melanocytic nevi of right upper limb, including shoulder D22.61 Active confirmed 632475551 Problem Left carotid stenosis I65.22 Active confirmed 725203860718117 Problem Sebaceous hyperplasia L73.8 Active confirmed 613324695 Problem Macular degeneration H35.30 Active confirmed 660828508 Problem SK (seborrheic keratosis) L82.1 Active confirmed 868389860 Problem 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 Active confir med 337129191 Problem Lipoma of abdominal wall D17.1 Active confirmed 698001563 Problem Intertrigo L30.4 Active confirmed 23054093 Problem Type 2 diabetes mellitus wit h other specified complication, unspecified whether terminologist insulin use E11.69 Active confirmed 03221246 Problem Type 2 diabetes mellitus with other specified complication E11.69 Active confirmed 41637196 Problem Neuropathy of both feet G57.93 Active confirmed 149467855 Problem Personal history of transien t ischemic attack (TIA), and cerebral infarction without residual deficits Z86.73 Active confirmed 123849852 Problem History of COVID-19 Z86.16 Active confirmed 664371127346703120 Problem Unspecified osteoarthritis, unspecified site M19.9 0 Active confirmed 795145362 Problem Vitamin D deficiency, unspecified E55.9 Active con firmed 52265547 Problem Hypothyroidism, unspecified E03.9 Active confirmed 21855800 Problem New onset left bundle branch block (LBBB) I44.7 Active confirmed 69013449 Problem Type 2 diabetes mellitus with diabetic nephropathy E11.21 Active confirmed 498407094 Problem Hypercalcemia E83.52 Active confirmed 715981 09 Problem Hypomagnesemia E83.42 Active confirmed 83697 5004 Problem GERD (gastroesophageal reflux disease) K21.9 A ctive confirmed 695949494 Problem Non-pressure chronic ulcer o f other part of left lower leg with fat layer exposed L97.822 Active confirmed 23856861 Problem Chronic venous hypertension (idiopathic) with ulcer of left lower extremity I87.312 Active confirmed 073610202158719 ALLERGIES Allergen (clinical drug ingredient) Drug/Non Drug Allergy do cumented on EMR Reaction Allergy Type Onset Date Status POLLEN/ DUST/MOLD RESPIRATORY Non Drug Allergy Active gabapentin Gabapentin hallucinations Non Drug Allergy Acti ve ENVIRONMENTAL RESPIRATORY Non Drug Allergy Acti ve 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/21) Non Drug Allergy Acti ve antipsychotics/ anti-nausea meds Compazine/Reglan Avoid Non Drug Allergy Active Penicillin PENICILLIN Rash Non Drug Allergy Active fluconazole Fluconazole([facility] Code:[address]-31) Concern for drug reaction Drug Allergy Active CATS/DOGS DANDER RESPIRATORY Non Drug Allergy A ctive ceclor Rash Drug Allergy Active amitriptyline Amitriptyline HCl([facility] Code:[address]-38) Halluc inations Drug Allergy Active narinder Hives, rash Non Drug Allergy Active ENCOUNTERS from 1940 to 2021-05-04 Encounter Location Date Provider Diagnosis [facility] [address] [place] [address], Lilian Polk IMMUNIZATIONS Vaccine Route Administration [...] Notes Total Score: 0 Interpretation: Alcohol Education Samaritan: Question Answer Notes Samaritan No zoroastrian beliefs that would impact health care. 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) Medical History ASD , PFO closed with Amplat zer Septal Occluder, 15mm (06-04-02)- [facility] Medical History DM-2 () with Neuropathy Medical History Asthma - mild intermittent - normal spirometry 08/2015 - per pulmonary Medical History PAUL Medical History Schatzki's ring, s/p dilatio n w/balloon EGD at [place] 07-21-04, Dr Benson 06/21 Medical History OA [...] EGD with dilation Surgical History Colonoscopy at [facility] 04/2013 Surgical History Colonoscopy, tubular adenoma [...] Details Provider Name:Lilian Polk, 2021-06 08:30:00 AM, [address], , [place], [address], Provider Name:Lilian Polk, 2021-08 08:30:00 AM, [address], , [place], [address], Provider Name:Martha Salas, 2021-10-26 11:00:00 AM, [address] [place] [address], , [place], [address], Insurance Providers Payer Name Payer Address Payer Phone Insured Name Patient Relati onship to Insured Coverage Start Date Coverage End Date FOR LIFE [address] [facility] [address] [employer] SCALES [id number] MEDICARE Part A and B [address] [place] [id number] [employer] SCALES self
--- OUTSIDE RECORDS SUMMARY | 2021-06-19 11:19 | CCD | Continuity of Care Document ---
Author Author Analilia BALLESTEROS PA-C Organization Unknown Address [address] [place] [address] Phone [phone] Care Team Providers Care Table Games Manager Name Role Phone Nan James MATIAS AUTM [phone] Lilian Briggs AUTM Problems Active Problems Provider Date Essential hypertension [...] Comments Date Ceclor 09/20/2016 Penicillin 09/20/2016 Cipro MEDIATOR (see 04/21) 09/07/2017 Amitriptyline 10/17/2017 [place] 10/17/2017 Gabapentin 10/18/2018 Medications Active Medications SIG [...] by mouth every day Unknown Vitamin D3 70369Huzp Capsules 1 po daily Unknown Vitamin C 500mg Capsules 1 by mouth every day Unknown Spironolactone 25mg Tablets 1 by mouth every day Unknown Refresh 1.4-0.6% Solution 1 drop both eyes as needed Unknown Preservision Areds Capsules 1 po daily Unknown Bailey 3 1200mg Capsules 2 by mouth every [...] CPT Code Status Date Vaccine Lot # [id number] Given 08/06/2016 Influenza Vaccine Split Viru s Pres[place] [address] Given 07/29/2015 Influenza Vaccine Split Viru s Preservative Free Im Use 26344 Given 07/24/2014 Influenza Vaccine Split Viru s Preservative Free Im Use 66588 Given 07/23/2013 Influenza Virus Vaccine, Quadrivalent, Split, Preservative Free 04253 Given 01/24/2013 Tetanus, Diphthe derik Toxoids/Acellular Pertussis Vaccine 7 Or > 13595 Given 09/29/2012 Pneumococcal Vaccine 89336 Given 07/19/2012 Pneumococcal Con jugate Vaccine 13 [...] Available Procedures Date Code Description Status 04/02/2021 59506 Phone Evaluation/Management By Surekha melgar 5-10 Mins Completed 02/27/2021 21509 Office/Outpatient Established Lo w MDM 20-29 Min Completed 01/02/2021 86512 Office/Outpatient Established Mo d MDM 30-39 Min Completed 01/02/2021 35765 X-Ray Shoulder Complete Complete d 01/02/2021 87387 Inject/Drain Joint/Bursa Major C ompleted 06/2020 301210702 Diabetic Foot Exam Completed 12/2018 10050651 Colonoscopy Completed Medical Devices Description No Information Available Encounters Type Date Location Provider Dx Diagnosis Office Visit 04/02/2021 2:20p Oliva Mohr MARY Ballesteros M19.011 Primary osteoarthritis, right shoulder M75.41 [facility] shoulder Office Visit 02/27/2021 10[place] M19.011 Primary osteoarthritis, right shoulder M75.41 [facility] shoulder Office Visit 01/02/2021 9:00a [place] Ball[place] M19.011 Primary osteoarthritis, right shoulder M75.41 Impingement syndrome of [facility] t shoulder Assessments Date Code Description Provider 04/02/2021 M19.011 Primary osteoarthritis, right sh laureaon Castellano L. TIMO BallesterosC 04/02/2021 M75.41 Impingement [...]
--- OUTSIDE RECORDS SUMMARY | 2021-06-19 11:19 | CCD ---
Author Author [facility] Syst ems Organization [facility] ems Address Unknown Phone Unavailable Care Team Providers Care Pharmacy Operations Specialist Name Role Phone Lilian Polk Unavailable PROBLEMS Type Condition ICD9-CM Code [id number] Code Onset Dates Condition S tatus W/U Status Risk SNOMED Code Notes Problem Calculus of gallbladder with acute on chronic cholecystitis without obstruction K80.12 Active confirmed 844430320 Problem Diverticulitis of large inte irvin without perforation or abscess without bleeding K57.32 Active confirmed 5485961 Problem Adverse effect of ciprofloxacin, subsequent encounter T36.8X5D Active confirmed 549974638 Problem Esophageal dysphagia R13.10 Active confirmed 29378156 Problem Other chronic pain G89.29 Active confirmed 8 8820065 Problem Neuropathy G62.9 Active confirmed 052612739 Problem Other hyperlipidemia E78.4 Active confirmed 80649814 Problem 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.710 Active confirmed 836495198 Problem Melanocytic nevi of face D22.30 Active confirmed 355612777 Problem Occipital neuralgia of right side M54.81 Active confirmed 86122945 Problem Xerosis of skin L85.3 Active confirmed 8910 5000 Problem Osteoporosis M81.0 Active confirmed 7590906 6 Problem Dry mouth R68.2 Active confirmed 06978390 Problem Lumbago with sciatica, left side M54.42 Active confirmed 239239050 Problem Melanocytic nevi of left lower limb, including hip D22.72 Active confirmed 849441235 Problem 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 Active confirmed 37489 01 Problem Melanocytic nevi of left upper limb, including shoulder D22.62 Active confirmed 558710946 Problem H/O: CVA (cerebrovascular accident) Z86.73 Acti ve confirmed 376811320 Problem Melanocytic nevi of right lower limb, including hip D22.71 Active confirmed 154415623 Problem Amaurosis fugax, both eyes G45.3 Active confirmed 94792737 Problem Melanocytic nevi of trunk D22.5 Active confirmed 831400596 Problem Hypertensive heart disease without heart failure I 11.9 Active confirmed 97109280 Problem Melanocytic nevi of right upper limb, including shoulder D22.61 Active confirmed 326523423 Problem Left carotid stenosis I65.22 Active confirmed 910461787924919 Problem Sebaceous hyperplasia L73.8 Active confirmed 615477835 Problem Macular degeneration H35.30 Active confirmed 474262984 Problem SK (seborrheic keratosis) L82.1 Active confirmed 891203772 Problem 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 Active confir med 661727767 Problem Lipoma of abdominal wall D17.1 Active confirmed 874032618 Problem Intertrigo L30.4 Active confirmed 56032087 Problem Type 2 diabetes mellitus wit h other specified complication, 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 E11.69 Active confirmed 84149556 Problem Type 2 diabetes mellitus with other specified complication E11.69 Active confirmed 16405450 Problem Neuropathy of both feet G57.93 Active confirmed 691853616 Problem Personal history of transien t ischemic attack (TIA), and cerebral infarction without residual deficits Z86.73 Active confirmed 100884413 Problem History of COVID-19 Z86.16 Active confirmed 118339131472751682 Problem Unspecified osteoarthritis, unspecified site M19.9 0 Active confirmed 360999907 Problem Vitamin D deficiency, unspecified E55.9 Active con firmed 87138385 Problem Hypothyroidism, unspecified E03.9 Active confirmed 05320263 Problem New onset left bundle branch block (LBBB) I44.7 Active confirmed 47871327 Problem Type 2 diabetes mellitus with diabetic nephropathy E11.21 Active confirmed 384941689 Problem Hypercalcemia E83.52 Active confirmed 419471 09 Problem Hypomagnesemia E83.42 Active confirmed 14020 5004 Problem GERD (gastroesophageal reflux disease) K21.9 A ctive confirmed 483775704 Problem Non-pressure chronic ulcer o f other part of left lower leg with fat layer exposed L97.822 Active confirmed 10634121 Problem Chronic venous hypertension (idiopathic) with ulcer of left lower extremity I87.312 Active confirmed 469984523099278 ALLERGIES Allergen (clinical drug ingredient) Drug/Non Drug Allergy do cumented on EMR Reaction Allergy Type Onset Date Status POLLEN/ DUST/MOLD RESPIRATORY Non Drug Allergy Active gabapentin Gabapentin hallucinations Non Drug Allergy Acti ve ENVIRONMENTAL RESPIRATORY Non Drug Allergy Acti ve 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 (see 04/21) Non Drug Allergy Acti ve amitriptyline Amitriptyline HCl([facility] Code:[address]-19) Halluc inations Drug Allergy Active antipsychotics/ anti-nausea meds Compazine/Reglan Avoid Non Drug Allergy Active fluconazole Fluconazole([facility] Code:[address]-50) Concern for drug reaction Drug Allergy Active CATS/DOGS DANDER RESPIRATORY Non Drug Allergy A ctive PENICILLIN Rash Drug Allergy Active ceclor Rash Drug Allergy Active narinder Hives, rash Non Drug Allergy Active ENCOUNTERS from 1938 to 2021-04-14 Encounter Location Date Provider Diagnosis [facility] [address] [facility] [phone] [place] [address] Mar, Lilian Polk IMMUNIZATIONS Vaccine Route Administration Date [...] Notes Total Score: 0 Interpretation: Alcohol Education Buddhism: Question Answer Notes Buddhism No worship beliefs that would impact health care. Drug [...] Notes Start Da te End Date Status CPAP mask Active Vitamin D 2000 units Orally Daily A ctive Ibuprofen 200 MG 2 tablets Orally twice daily as needed Active Vitamin C 1000 MG 1 tablet Orally Once a day for 30 day(s) Active Levothyroxine Sodium 100 MCG 1 tablet in the morning o n an empty stomach Orally Once a day for 90 day(s) Sep, Active FreeStyle Lite Test - as directed In Vitro dx:e11.21 Daily for 9 0 day(s) January, Active Multivitamin Adult - Orally daily women's 50 plus Active Protonix 40 MG 1 tablet Orally Once a day for 90 days Active Botox 70 units injections Injection both eyes DR. River every thre e months Active Amlodipine 5mg 1 tab(s) oral daily for 90 day(s) Active metFORMIN HCl 500 MG 1 tablet with meals Orally 1 tab am, 2 tabs at noon, 1 tab in pm for 90 days Oct, Active Flovent HFA 110 MCG/ACT 2 puff Inhalation Twice daily sig change Active Spironolactone 25 mg 1/2 tablet Orally daily Active Alphagan P 0.1 % 1 drop into right eye Ophthalmic twice daily si g change January, Active Buffered Aspirin 325 MG 1 tab(s) Orally daily Active PreserVision AREDS 2 - Orally Ac tive Vitamin B-12 1000 MCG 1 tablet Orally Once a day for 90 days Dec, Active Albuterol Sulfate (2.5 MG/3ML) 0.083% 3 ml Inhalation every 4 hours as neede for SOB sig change January, Active Flonase Allergy Relief 50 MCG/ACT 2 sprays Nasally Once a day si g change January, Active Doxycycline Monohydrate 100 MG 1 tablet Orally twice daily for 1 0 day(s) Mar, Active Crestor 20 MG 1 tablet Orally Once a day for 90 day(s) May, Active Calcium Carbonate-Vit D-Min 600-800 MG-UNIT 1 tablet Orally Once a da y Active Vitamin D 1000 UNIT 2 tablet Orally Once a day for 90 days Active Magnesium Oxide 400 MG 1 cap Orally daily for 90 day(s) January, Active Lumigan 0.01 % 1 drop into each eye in the evening Ophthalmic Once a day Active PROCEDURES No Information RESULTS No Results REASON FOR VISIT SOB worsening 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 Medical History DM-2 () with Neuropathy Medical History Asthma - mild intermittent - normal spirometry 08/2015 - per pulmonary Medical History PAUL Medical History Schatzki's ring, s/p dilatio n w/balloon EGD at [place] 07-21-04, Dr Benson 06/21 Medical History OA [...] EGD with dilation Surgical History Colonoscopy at [facility] 04/2013 Surgical History Colonoscopy, tubular [...] Medication Name Sig Start Date Stop Date Doxycycline Monohydrate 100 MG 1 tablet Orally twice daily f or 10 day(s) Mar, Next Appt Details Provider Name:Lilian Polk, 2021-04 01:30:00 PM, [address], , [place], [address], Provider Name:Lilian Polk, 2021-06 08:30:00 AM, [address], , [place], [address], Provider Name:Lilian Polk, 2021-08 08:30:00 AM, [address], , [place], [address], Provider Name:Martha Salas, 2021-10-26 11:00:00 AM, [address] [place] [address], , [place], [address], Insurance Providers Payer Name Payer Address Payer Phone Insured Name Patient Relati onship to Insured Coverage Start Date Coverage End Date MEDICARE Part A and B [address] [facility] [address] [employer] self FOR LIFE [address] [facility] [address] [employer] [id number]
--- OUTSIDE RECORDS SUMMARY | 2021-06-19 11:19 | CCD ---
Author Author [facility] Syst ems Organization [facility] ems Address Unknown Phone Unavailable Care Team Providers Care Project Analyst Name Role Phone Annalee Tripathi Unavailable PROBLEMS Type Condition ICD9-CM Code [id number] Code Onset Dates Condition S tatus W/U Status Risk SNOMED Code Notes Problem Calculus of gallbladder with acute on chronic cholecystitis without obstruction K80.12 Active confirmed 059429394 Problem Diverticulitis of large inte irvin without perforation or abscess without bleeding K57.32 Active confirmed 9498529 Problem Adverse effect of ciprofloxacin, subsequent encounter T36.8X5D Active confirmed 080108151 Problem Esophageal dysphagia R13.10 Active confirmed 45420991 Problem Other chronic pain G89.29 Active confirmed 8 3828147 Problem Neuropathy G62.9 Active confirmed 249599598 Problem Other hyperlipidemia E78.4 Active confirmed 54910015 Problem 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.710 Active confirmed 139184917 Problem Melanocytic nevi of face D22.30 Active confirmed 975464863 Problem Occipital neuralgia of right side M54.81 Active confirmed 13603131 Problem Xerosis of skin L85.3 Active confirmed 8910 5000 Problem Osteoporosis M81.0 Active confirmed 0885426 6 Problem Dry mouth R68.2 Active confirmed 61168637 Problem Lumbago with sciatica, left side M54.42 Active confirmed 407341141 Problem Melanocytic nevi of left lower limb, including hip D22.72 Active confirmed 210270620 Problem 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 Active confirmed 23806 01 Problem Melanocytic nevi of left upper limb, including shoulder D22.62 Active confirmed 518043202 Problem H/O: CVA (cerebrovascular accident) Z86.73 Acti ve confirmed 265145625 Problem Melanocytic nevi of right lower limb, including hip D22.71 Active confirmed 054115217 Problem Amaurosis fugax, both eyes G45.3 Active confirmed 92220735 Problem Melanocytic nevi of trunk D22.5 Active confirmed 150409633 Problem Hypertensive heart disease without heart failure I 11.9 Active confirmed 72349087 Problem Melanocytic nevi of right upper limb, including shoulder D22.61 Active confirmed 787783073 Problem Left carotid stenosis I65.22 Active confirmed 183650759484337 Problem Sebaceous hyperplasia L73.8 Active confirmed 397155674 Problem Macular degeneration H35.30 Active confirmed 113583868 Problem SK (seborrheic keratosis) L82.1 Active confirmed 778298360 Problem 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 Active confir med 830835984 Problem Lipoma of abdominal wall D17.1 Active confirmed 562115480 Problem Intertrigo L30.4 Active confirmed 41490698 Problem Type 2 diabetes mellitus wit h other specified complication, unspecified whether intermediate manager insulin use E11.69 Active confirmed 97113043 Problem Type 2 diabetes mellitus with other specified complication E11.69 Active confirmed 65083764 Problem Neuropathy of both feet G57.93 Active confirmed 808810143 Problem Personal history of transien t ischemic attack (TIA), and cerebral infarction without residual deficits Z86.73 Active confirmed 159178344 Problem History of COVID-19 Z86.16 Active confirmed 980423961845005042 Problem Unspecified osteoarthritis, unspecified site M19.9 0 Active confirmed 893737425 Problem Vitamin D deficiency, unspecified E55.9 Active con firmed 36508266 Problem Hypothyroidism, unspecified E03.9 Active confirmed 57909438 Problem New onset left bundle branch block (LBBB) I44.7 Active confirmed 25199494 Problem Type 2 diabetes mellitus with diabetic nephropathy E11.21 Active confirmed 800356881 Problem Hypercalcemia E83.52 Active confirmed 650198 09 Problem Hypomagnesemia E83.42 Active confirmed 01018 5004 Problem GERD (gastroesophageal reflux disease) K21.9 A ctive confirmed 838685582 Problem Non-pressure chronic ulcer o f other part of left lower leg with fat layer exposed L97.822 Active confirmed 79384730 Problem Chronic venous hypertension (idiopathic) with ulcer of left lower extremity I87.312 Active confirmed 763124719945651 ALLERGIES Allergen (clinical drug ingredient) Drug/Non Drug Allergy do cumented on EMR Reaction Allergy Type Onset Date Status POLLEN/ DUST/MOLD RESPIRATORY Non Drug Allergy Active Gabapentin hallucinations Non Drug Allergy Acti ve ENVIRONMENTAL RESPIRATORY Non Drug Allergy 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 Code:[address]-22) Halluc inations Drug Allergy Active antipsychotics/ anti-nausea meds Compazine/Reglan Avoid Non Drug Allergy Active fluconazole Fluconazole([facility] Code:[address]-26) Concern for drug reaction Drug Allergy Active CATS/DOGS DANDER RESPIRATORY Non Drug Allergy A ctive PENICILLIN Rash Drug Allergy Active ceclor Rash Drug Allergy Active narinder Hives, rash Non Drug Allergy Active ENCOUNTERS from 1938 to 2021-03-20 Encounter Location Date Provider Diagnosis [facility] [address] [place] [address] Mar, 2021 Annalee Tripathi Cellulitis of left upper extremity L03.1 14 ; Type 2 diabetes mellitus with diabetic nephropathy E11.21 and Neuropathy G62.9 IMMUNIZATIONS Vaccine Route Administration Date Status Influenza [...] Notes Total Score: 0 Interpretation: Alcohol Education Lutheran: Question Answer Notes Lutheran No quaker beliefs that would impact health care. Drug [...] FOR REFERRAL No Information VITAL SIGNS Weight 214 lbs Mar, Height 64 in Mar, BMI 36.73 kg/m2 Mar, Heart Rate 89 /min Mar, Respiratory Rate 18 /min Mar, Temperature 97.3 degrees Fahrenheit Mar, Oximetry 99 Mar, Blood pressure systolic 164 mm Hg Mar, Blood pressure diastolic 92 mm Hg Mar, MEDICATIONS Medication SIG (Take, Route, Frequency, Duration) [...] January, Active Multivitamin Adult - Orally daily A ctive Protonix 40 MG 1 tablet Orally Once [...] 110 MCG/ACT 2 puff Inhalation Twice daily Active Spironolactone 25 mg 1/2 tablet Orally daily Active Alphagan P 0.1 % 1 drop into right eye Ophthalmic twice daily January, Active Buffered Aspirin 325 MG 1 tab(s) Orally daily Active PreserVision AREDS 2 - Orally Ac tive Vitamin B-12 1000 MCG 1 tablet Orally Once a day for 90 days Dec, Active Albuterol Sulfate (2.5 MG/3ML) 0.083% 3 ml Inhalation every 4 hours as neede for SOB January, Active Flonase Allergy Relief 50 MCG/ACT 2 sprays Nasally Once a day January, Active Doxycycline Monohydrate 100 MG 1 [...] Information RESULTS No Results REASON FOR VISIT numbness to legs 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 Medical History DM-2 () with Neuropathy Medical History Asthma - mild intermittent - normal spirometry 08/2015 - per pulmonary Medical History PAUL Medical History Schatzki's ring, s/p dilatio n w/balloon EGD at [place] 07-21-04, Dr Benson 06/21 Medical History OA [...] Notes Treatment Notes Treatm ent Clinical Notes Mar, Cellulitis of left upper extremity (ICD-10 - L03 .114) Rec starting Doxy, counseled on risks and benefits, can use topical benadyl cream. Mar, Type 2 diabetes mellitus wit h diabetic nephropathy (ICD-10 - E11.21) Per pts request refer to Endo. Mar, Neuropathy (ICD-10 - G62.9) Allergy to Gabapentin, could be a candidate for Lyrica, defer to PCP. PLAN OF TREATMENT Medication Medication Name Sig Start Date Stop Date Doxycycline Monohydrate 100 MG 1 tablet Orally twice daily f or 10 day(s) Mar, Treatment Notes Assessment Notes Clinical Notes Cellulitis of left upper extremity Rec starting Doxy, counseled on risks and benefits, can use topical benadyl cream. Type 2 diabetes mellitus with diabetic nephropathy Per pts request refer to Endo. Neuropathy Allergy to Gabapentin, could be a candidate for Lyrica, defer to PCP. Next Appt Details prn Reason: Provider Name:Lilian Polk, 2021-06 08:30:00 AM, [address], , [place], [address], Provider Name:Martha Salas, 2021-10-26 11:00:00 AM, [address] [place] [address], , [place], [address], Insurance Providers Payer Name Payer Address Payer Phone Insured Name Patient Relati onship to Insured Coverage Start Date Coverage End Date MEDICARE Part A and B [address] [facility] [phone] [phone] [employer] self FOR LIFE [address] [facility] [address] [employer] [id number]
--- OUTSIDE RECORDS SUMMARY | 2021-06-19 11:19 | CCD ---
Author Author [facility] Syst ems Organization [facility] ems Address Unknown Phone Unavailable Care Team Providers Care Dress Designer Name Role Phone Lilian Polk Unavailable PROBLEMS Type Condition ICD9-CM Code KRH46-PD Code Onset Dates Condition S tatus W/U Status Risk SNOMED Code Notes Problem Calculus of gallbladder with acute on chronic cholecystitis without obstruction K80.12 Active confirmed 951734534 Problem Diverticulitis of large inte irvin without perforation or abscess without bleeding K57.32 Active confirmed 9605998 Problem Adverse effect of ciprofloxacin, subsequent encounter T36.8X5D Active confirmed 867896485 Problem Esophageal dysphagia R13.10 Active confirmed 19527008 Problem Other chronic pain G89.29 Active confirmed 8 9803331 Problem Neuropathy G62.9 Active confirmed 685747042 Problem Other hyperlipidemia E78.4 Active confirmed 44572947 Problem 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.710 Active confirmed 283143695 Problem Melanocytic nevi of face D22.30 Active confirmed 988285433 Problem Occipital neuralgia of right side M54.81 Active confirmed 70388406 Problem Xerosis of skin L85.3 Active confirmed 8910 5000 Problem Osteoporosis M81.0 Active confirmed 0923040 6 Problem Dry mouth R68.2 Active confirmed 65956011 Problem Lumbago with sciatica, left side M54.42 Active confirmed 992066889 Problem Melanocytic nevi of left lower limb, including hip D22.72 Active confirmed 548723303 Problem 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 Active confirmed 72914 01 Problem Melanocytic nevi of left upper limb, including shoulder D22.62 Active confirmed 814744919 Problem H/O: CVA (cerebrovascular accident) Z86.73 Acti ve confirmed 790291998 Problem Melanocytic nevi of right lower limb, including hip D22.71 Active confirmed 656414468 Problem Amaurosis fugax, both eyes G45.3 Active confirmed 35152494 Problem Melanocytic nevi of trunk D22.5 Active confirmed 131886945 Problem Hypertensive heart disease without heart failure I 11.9 Active confirmed 83769015 Problem Melanocytic nevi of right upper limb, including shoulder D22.61 Active confirmed 304311690 Problem Left carotid stenosis I65.22 Active confirmed 450017455738921 Problem Sebaceous hyperplasia L73.8 Active confirmed 481449588 Problem Macular degeneration H35.30 Active confirmed 053742855 Problem SK (seborrheic keratosis) L82.1 Active confirmed 832836613 Problem 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 Active confir med 105101878 Problem Lipoma of abdominal wall D17.1 Active confirmed 609183541 Problem Intertrigo L30.4 Active confirmed 65929931 Problem Type 2 diabetes mellitus wit h other specified complication, unspecified whether associate research scientist insulin use E11.69 Active confirmed 19451796 Problem Type 2 diabetes mellitus with other specified complication E11.69 Active confirmed 76982455 Problem Neuropathy of both feet G57.93 Active confirmed 132743953 Problem Personal history of transien t ischemic attack (TIA), and cerebral infarction without residual deficits Z86.73 Active confirmed 716321312 Problem History of COVID-19 Z86.16 Active confirmed 936414195755962313 Problem Unspecified osteoarthritis, unspecified site M19.9 0 Active confirmed 698104927 Problem Vitamin D deficiency, unspecified E55.9 Active con firmed 69336962 Problem Hypothyroidism, unspecified E03.9 Active confirmed 88971016 Problem New onset left bundle branch block (LBBB) I44.7 Active confirmed 46787172 Problem Type 2 diabetes mellitus with diabetic nephropathy E11.21 Active confirmed 063038164 Problem Hypercalcemia E83.52 Active confirmed 450068 09 Problem Hypomagnesemia E83.42 Active confirmed 48154 5004 Problem GERD (gastroesophageal reflux disease) K21.9 A ctive confirmed 943343226 Problem Non-pressure chronic ulcer o f other part of left lower leg with fat layer exposed L97.822 Active confirmed 66028711 Problem Chronic venous hypertension (idiopathic) with ulcer of left lower extremity I87.312 Active confirmed 134791771742346 ALLERGIES Allergen (clinical drug ingredient) Drug/Non Drug Allergy do cumented on EMR Reaction Allergy Type Onset Date Status POLLEN/ DUST/MOLD RESPIRATORY Non Drug Allergy Active gabapentin Gabapentin hallucinations Non Drug Allergy Acti ve ENVIRONMENTAL RESPIRATORY Non Drug Allergy 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) Non Drug Allergy Acti ve antipsychotics/ anti-nausea meds Compazine/Reglan Avoid Non Drug Allergy Active Penicillin PENICILLIN Rash Non Drug Allergy Active fluconazole Fluconazole([facility] Code:[address]-78) Concern for drug reaction Drug Allergy Active CATS/DOGS DANDER RESPIRATORY Non Drug Allergy A ctive ceclor Rash Drug Allergy Active amitriptyline Amitriptyline HCl([facility] Code:[address]-71) Halluc inations Drug Allergy Active narinder Hives, rash Non Drug Allergy Active ENCOUNTERS from 1940 to 2021-05-11 Encounter Location Date Provider Diagnosis [facility] [address] [place] [address] May, Lilian Polk IMMUNIZATIONS Vaccine Route Administration Date [...] Notes Total Score: 0 Interpretation: Alcohol Education Faith: Question Answer Notes Faith No episcopal beliefs that would impact health care. 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) Medical History ASD , PFO closed with Amplat zer Septal Occluder, 15mm (06-04-02)- [facility] Medical History DM-2 () with Neuropathy Medical History Asthma - mild intermittent - normal spirometry 08/2015 - per pulmonary Medical History PAUL Medical History Schatzki's ring, s/p dilatio n w/balloon EGD at [place] 07-21-04, Dr Benson 06/21 Medical History OA [...] EGD with dilation Surgical History Colonoscopy at [facility] 04/2013 Surgical History Colonoscopy, tubular adenoma tous [...] Details Provider Name:Lilian Polk, 2021-06 08:30:00 AM, [address], , [place], [address], Provider Name:Lilian Polk, 2021-08 08:30:00 AM, [address], , [place], [address], Provider Name:Martha Salas, 2021-10-26 11:00:00 AM, [address] [place] [address], , [place], [address], Insurance Providers Payer Name Payer Address Payer Phone Insured Name Patient Relati onship to Insured Coverage Start Date Coverage End Date MEDICARE Part A and B [address] [facility] [id number] [phone] [employer] self FOR LIFE [address] [facility] [address] [employer] [id number]
--- OUTSIDE RECORDS SUMMARY | 2021-06-19 11:19 | CCD ---
Continuity of Care Document (CCD) Created on: 03/26/2021 Analilia Ramos External Reference #: [id number] : [id number] Sex: Female Author Author Analilia BALLESTEROS MD Organization Unknown Address [address] [place] [address], [facility] [address] [place] [address] Phone [phone] Care Team Providers Care Consumer Affairs Manager Name Role Phone Annalee Tripathi RPA AUTM [phone] Problems Active Problems Provider Date Essential hypertension [...] daily . 90tabs E11.65 Ora Ballesteros MD Metformin HCL 500mg Tablets 1 by mouth [...] to check blood sugars Unknown 0 Freestyle [place] Lite W/Device Ki t instructed to check 1 x/daily e11.65 Unknown Immunizations Description No Information Available Vital Signs Date Vital Result Comment 03/26/2021 12:55pm BP Systolic 126 mmHg BP Diastolic 70 mmHg Heart Rate 70 /min Height 63.6 inches 5'3.60" Weight 219.50 lb BMI (Body Mass Index) 38.1 kg/m2 O2 % BldC Oximetry 98 % Results Description No Information Available Procedures Description No Information Available Medical Devices Description No Information Available Encounters Description No Information Available Assessments Date Code Description Provider 03/26/2021 E11.65 Type 2 diabetes mellitus with hy perglycemia Ora Ballesteros MD Plan of Treatment 03/26/2021 - Ora Ballesteros MD* E11.65 Type 2 diabetes mellitus with hyperglycemia* New Medication:* Januvia 100 mg - take 1 tablet by mouth once daily . * Comments:* Out of office A1c = 7.4%, 02/19/2021: Patient had [facility] virus testing which was +01/07/2021:Metered down loaded and reviewedCurrent medications, metformin 500 mg : One with breakfast 2 with lunch 1 at dinner Hd Covid 01/07 2021 and had shoulder injection of right shoulder at asame time.bs were 110-140 150-200 * Follow up:* aug- - any day- easy dm Functional Status Description No Information Available Mental Status Description No Information Available Referrals Description No Information Available
--- OUTSIDE RECORDS SUMMARY | 2021-06-19 11:19 | CCD ---
Author Author [facility] Organization [facility] Address Unknown Phone Unavailable Care Team Providers Care Billing Department Supervisor Name Role Phone Lilain Polk Unavailable PROBLEMS Type Condition ICD9-CM Code HPI29-UF Code Onset Dates Condition S tatus W/U Status Risk SNOMED Code Notes Problem Calculus of gallbladder with acute on chronic cholecystitis without obstruction K80.12 Active confirmed 619190153 Problem Diverticulitis of large inte irvin without perforation or abscess without bleeding K57.32 Active confirmed 5521249 Problem Adverse effect of ciprofloxacin, subsequent encounter T36.8X5D Active confirmed 898703793 Problem Esophageal dysphagia R13.10 Active confirmed 27973366 Problem Other chronic pain G89.29 Active confirmed 8 3133333 Problem Neuropathy G62.9 Active confirmed 616096868 Problem Other hyperlipidemia E78.4 Active confirmed 70719996 Problem 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.710 Active confirmed 934752748 Problem Melanocytic nevi of face D22.30 Active confirmed 816995272 Problem Occipital neuralgia of right side M54.81 Active confirmed 15846674 Problem Xerosis of skin L85.3 Active confirmed 8910 5000 Problem Osteoporosis M81.0 Active confirmed 4661466 6 Problem Dry mouth R68.2 Active confirmed 44583891 Problem Lumbago with sciatica, left side M54.42 Active confirmed 120916732 Problem Melanocytic nevi of left lower limb, including hip D22.72 Active confirmed 684347041 Problem 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 Active confirmed 35539 01 Problem Melanocytic nevi of left upper limb, including shoulder D22.62 Active confirmed 299209624 Problem H/O: CVA (cerebrovascular accident) Z86.73 Acti ve confirmed 273210736 Problem Melanocytic nevi of right lower limb, including hip D22.71 Active confirmed 964542061 Problem Amaurosis fugax, both eyes G45.3 Active confirmed 88823319 Problem Melanocytic nevi of trunk D22.5 Active confirmed 750295638 Problem Hypertensive heart disease without heart failure I 11.9 Active confirmed 65919661 Problem Melanocytic nevi of right upper limb, including shoulder D22.61 Active confirmed 753086222 Problem Left carotid stenosis I65.22 Active confirmed 433786731860852 Problem Sebaceous hyperplasia L73.8 Active confirmed 606144380 Problem Macular degeneration H35.30 Active confirmed 898542159 Problem SK (seborrheic keratosis) L82.1 Active confirmed 070422504 Problem 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 Active confir med 631604725 Problem Lipoma of abdominal wall D17.1 Active confirmed 888658486 Problem Intertrigo L30.4 Active confirmed 94506686 Problem Type 2 diabetes mellitus wit h other specified complication, unspecified whether terminal block assembler insulin use E11.69 Active confirmed 54283621 Problem Type 2 diabetes mellitus with other specified complication E11.69 Active confirmed 85418841 Problem Neuropathy of both feet G57.93 Active confirmed 173391575 Problem Personal history of transien t ischemic attack (TIA), and cerebral infarction without residual deficits Z86.73 Active confirmed 550076007 Problem History of COVID-19 Z86.16 Active confirmed 294229714444333764 Problem Unspecified osteoarthritis, unspecified site M19.9 0 Active confirmed 981535263 Problem Vitamin D deficiency, unspecified E55.9 Active con firmed 90114874 Problem Hypothyroidism, unspecified E03.9 Active confirmed 51253131 Problem New onset left bundle branch block (LBBB) I44.7 Active confirmed 72142681 Problem Type 2 diabetes mellitus with diabetic nephropathy E11.21 Active confirmed 054758565 Problem Hypercalcemia E83.52 Active confirmed 638594 09 Problem Hypomagnesemia E83.42 Active confirmed 74965 5004 Problem GERD (gastroesophageal reflux disease) K21.9 A ctive confirmed 477578990 Problem Non-pressure chronic ulcer o f other part of left lower leg with fat layer exposed L97.822 Active confirmed 28217310 Problem Chronic venous hypertension (idiopathic) with ulcer of left lower extremity I87.312 Active confirmed 621057086993319 ALLERGIES Allergen (clinical drug ingredient) Drug/Non Drug Allergy do cumented on EMR Reaction Allergy Type Onset Date Status POLLEN/ DUST/MOLD RESPIRATORY Non Drug Allergy Active gabapentin Gabapentin hallucinations Non Drug Allergy Acti ve ENVIRONMENTAL RESPIRATORY Non Drug Allergy 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) Non Drug Allergy Acti ve antipsychotics/ anti-nausea meds Compazine/Reglan Avoid Non Drug Allergy Active Penicillin PENICILLIN Rash Non Drug Allergy Active fluconazole Fluconazole([facility] Code:[address]-06) Concern for drug reaction Drug Allergy Active CATS/DOGS DANDER RESPIRATORY Non Drug Allergy A ctive ceclor Rash Drug Allergy Active amitriptyline Amitriptyline HCl([facility] Code:[address]-93) Halluc inations Drug Allergy Active narinder Hives, rash Non Drug Allergy Active ENCOUNTERS from 1940 to 2021-05-05 Encounter Location Date Provider Diagnosis [facility] [address] [place] [address] Apr, Lilian Polk IMMUNIZATIONS Vaccine Route Administration [...] Notes Total Score: 0 Interpretation: Alcohol Education Baptism: Question Answer Notes Baptism No baptist beliefs that would impact health care. 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) Medical History ASD , PFO closed with Amplat zer Septal Occluder, 15mm (06-04-02)- [facility] Medical History DM-2 () with Neuropathy Medical History Asthma - mild intermittent - normal spirometry 08/2015 - per pulmonary Medical History PAUL Medical History Schatzki's ring, s/p dilatio n w/balloon EGD at [facility] 07-21-04, Dr Benson 06/21 Medical History OA [...] EGD with dilation Surgical History Colonoscopy at [facility] 04/2013 Surgical History Colonoscopy, tubular adenoma tous [...] Details Provider Name:Lilian Polk, 2021-06 08:30:00 AM, [address], , [place], [address], Provider Name:Lilian Polk, 2021-08 08:30:00 AM, [address], , [place], [address], Provider Name:Martha Salas, 2021-10-26 11:00:00 AM, [address] [place] [address], , [place], [address], Insurance Providers Payer Name Payer Address Payer Phone Insured Name Patient Relati onship to Insured Coverage Start Date Coverage End Date MEDICARE Part A and B [address] [facility] [id number] [employer] self [employer] LIFE [address] [facility] [id number] [employer] [id number]
--- OUTSIDE RECORDS SUMMARY | 2021-06-19 11:20 | CCD ---
Author Author [facility] Organization [facility] Address Unknown Phone Unavailable Care Team Providers Care Nail Tech Name Role Phone NÉSTOR CARVALHO MD Unavailable Unavailable REINDL, NÉSTOR GONZALEZ Unavailable Unavailable REINDL, NÉSTOR GONZALEZ Unavailable Unavailable REINDL, NÉSTOR GONZALEZ Unavailable Unavailable REINDL, NÉSTOR GONZALEZ Unavailable Unavailable KELLEY, NÉSTOR GONZALEZ Unavailable Unavailable KELLEY, NÉSTOR GONZALEZ Unavailable Unavailable REINWALTER, NÉSTOR GONZALEZ Unavailable Unavailable REINWALTER, NÉSTOR GONZALEZ Unavailable Unavailable REINWALTER, NÉSTOR GONZALEZ Unavailable Unavailable KELLEY, NÉSTOR GONZALEZ Unavailable Unavailable KELLEY, NÉSTOR GONZALEZ Unavailable Unavailable KELLEY, NÉSTOR GONZALEZ Unavailable Unavailable REINWALTER, NÉSTOR GONZALEZ Unavailable Unavailable REINWALTER, NÉSTOR GONZALEZ Unavailable Unavailable REINDL, NÉSTOR GONZALEZ Unavailable Unavailable REINDL, NÉSTOR GONZALEZ Unavailable Unavailable REINDL, NÉSTOR GONZALEZ Unavailable Unavailable REINDL, NÉSTOR GONZALEZ Unavailable Unavailable REINDL, NÉSTOR GONZALEZ Unavailable Unavailable REINDLNÉSTOR MD Unavailable Unavailable REINDLNÉSTOR MD Unavailable Unavailable REINWALTER, NÉSTOR GONZALEZ Unavailable Unavailable KELLEY, NÉSTOR GONZALEZ Unavailable Unavailable REINWALTER, NÉSTOR GONZALEZ Unavailable Unavailable REINDL, NÉSTOR GONZALEZ Unavailable Unavailable REINWALTER, NÉSTOR GONZALEZ Unavailable Unavailable KELLEY, NÉSTOR GONZALEZ Unavailable Unavailable KELLEY, NÉSTOR GONZALEZ Unavailable Unavailable KELLEY, NÉSTOR GONZALEZ Unavailable Unavailable KELLEY, NÉSTOR GONZALEZ Unavailable Unavailable KELLEY, NÉSTOR GONZALEZ Unavailable Unavailable KELLEY, NÉSTOR GONZALEZ Unavailable Unavailable KELLEY, NÉSTOR GONZALEZ Unavailable Unavailable KELLEY, NÉSTOR GONZALEZ Unavailable Unavailable KELLEY, NÉSTOR GONZALEZ Unavailable Unavailable KELLEY, NÉSTOR GONZALEZ Unavailable Unavailable REINWALTER, NÉSTOR GONZALEZ Unavailable Unavailable REINDL, NÉSTOR GONZALEZ Unavailable Unavailable REINDL, NÉSTOR MD Unavailable Unavailable NÉSTOR CARVALHO MD Unavailable Unavailable REINNÉSTOR WATSON MD Unavailable Unavailable Fish, [facility], PA-C Unavailable Unavailabl e Fish, [facility], PA-C Unavailable Unavailabl e Fish, [facility], PA-C Unavailable Unavailabl e Fish, [facility], PA-C Unavailable Unavailabl e Fish, [facility], PA-C Unavailable Unavailabl e Fish, [facility], PA-C Unavailable Unavailabl e Fish, [facility], PA-C Unavailable Unavailabl e Fish, [facility], PA-C Unavailable Unavailabl e Fish, [facility], PA-C Unavailable Unavailabl e Fish, [facility], PA-C Unavailable Unavailabl e Fish, [facility], PA-C Unavailable Unavailabl e Fish, [facility], PA-C Unavailable Unavailabl e Fish, [facility], PA-C Unavailable Unavailabl e Fish, [facility], PA-C Unavailable Unavailabl e Fish, [facility], PA-C Unavailable Unavailabl e Fish, [facility], PA-C Unavailable Unavailabl e Fish, [facility], PA-C Unavailable Unavailabl e Fish, [facility], PA-C Unavailable Unavailabl e Fish, [facility], PA-C Unavailable Unavailabl e Fish, [facility], PA-C Unavailable Unavailabl e Fish, [facility], PA-C Unavailable Unavailabl e Fish, [facility], PA-C Unavailable Unavailabl e Fish, [facility], PA-C Unavailable Unavailabl e Fish, [facility], PA-C Unavailable Unavailabl e Fish, [facility], PA-C Unavailable Unavailabl e Fish, [facility], PA-C Unavailable Unavailabl e Fish, [facility], PA-C Unavailable Unavailabl e Fish, [facility], PA-C Unavailable Unavailabl e Fish, [facility], PA-C Unavailable Unavailabl e Fish, Michelle Nona MPAS, PA-C Unavailable Unavailabl e Fish, Michelle Castellano MPAS, PA-C Unavailable Unavailabl e Fish, Michelle Castellano MPAS, PA-C Unavailable Unavailabl e Fish, Michelle Castellano MPAS, PA-C Unavailable Unavailabl e Fish, Michelle Castellano MPAS, PA-C Unavailable Unavailabl e Fish, Michelle Castellano MPAS, PA-C Unavailable Unavailabl e Symenow, Sagrario Gloria PA Unavailable Unavailable Symenow, Sagrario Gloria PA Unavailable Unavailable Symenow, Sagrario Castro PA Unavailable Unavailable Symenow, Sagrario Castro PA Unavailable Unavailable Symenow, Sagrario Gloria PA Unavailable Unavailable Symenow, Sagrario Gloria PA Unavailable Unavailable Symenow, Sagrario Gloria PA Unavailable Unavailable Symenow, Sagrario Gloria PA Unavailable Unavailable Symenow, aSgrario Gloria PA Unavailable Unavailable Symenow, Sagrario Gloria PA Unavailable Unavailable Symenow, Sagrario Gloria PA Unavailable Unavailable Symenow, Sagrario Gloria PA Unavailable Unavailable Symenow, Sagrario Alexandere PA Unavailable Unavailable Symenow, Sagrario Alexandere PA Unavailable Unavailable Symenow, Sagrario Gloria PA Unavailable Unavailable Symenow, Sagrario Gloria PA Unavailable Unavailable Symenow, Sagrario Gloria PA Unavailable Unavailable Symenow, Sagrario Gloria PA Unavailable Unavailable Symenow, Sagrario Gloria PA Unavailable Unavailable Symenow, Sagrario Gloria PA Unavailable Unavailable Symenow, Sagrario Gloria PA Unavailable Unavailable Symenow, Sagrario Gloria PA Unavailable Unavailable Symenow, Sagrario Gloria PA Unavailable Unavailable Symenow, Sagrario Lgoria PA Unavailable Unavailable Symenow, Sagrario Gloria PA Unavailable Unavailable Symenow, Sagrario Gloria PA Unavailable Unavailable Symenow, Sagrario Gloria PA Unavailable Unavailable Symenow, Sagrario Gloria PA Unavailable Unavailable Symenow, Sagrario Gloria PA Unavailable Unavailable Symenow, Sagrario Gloria PA Unavailable Unavailable Symenow, Sagrario Gloria PA Unavailable Unavailable Symenow, Sagrario Gloria PA Unavailable Unavailable Symenow, Sagrario Castro PA Unavailable Unavailable Symenow, Sagrario Castro PA Unavailable Unavailable SEARS, A UMAIR DO Unavailable Unavailable SEARS, A UMAIR DO Unavailable Unavailable SEARS, A UMAIR DO Unavailable Unavailable SEARS, A UMAIR DO Unavailable Unavailable SEARS, A UMAIR DO Unavailable Unavailable SEARS, A UMAIR DO Unavailable Unavailable SEARS, A UMAIR DO Unavailable Unavailable SEARS, A UMAIR DO Unavailable Unavailable SEARS, A UMAIR DO Unavailable Unavailable SEARS, A UMAIR DO Unavailable Unavailable SEARS, A UMAIR DO Unavailable Unavailable SEARS, A UMAIR DO Unavailable Unavailable SEARS, A UMAIR DO Unavailable Unavailable SEARS, A UMAIR DO Unavailable Unavailable SEARS, A UMAIR DO Unavailable Unavailable SEARS, A UMAIR DO Unavailable Unavailable SEARS, A UMAIR DO Unavailable Unavailable SEARS, A UMAIR DO Unavailable Unavailable SEARS, A UMAIR DO Unavailable Unavailable SEARS, A UMAIR DO Unavailable Unavailable SEARS, A UMAIR DO Unavailable Unavailable SEARS, A UMAIR DO Unavailable Unavailable SEARS, A UMAIR DO Unavailable Unavailable SEARS, A UMAIR DO Unavailable Unavailable SEARS, A UMAIR DO Unavailable Unavailable SEARS, A UMAIR DO Unavailable Unavailable SEARS, A UMAIR DO Unavailable Unavailable SEARS, A UMAIR DO Unavailable Unavailable SEARS, A UMAIR DO Unavailable Unavailable SEARS, A UMAIR DO Unavailable Unavailable SEARS, A UMAIR DO Unavailable Unavailable SEARS, A UMAIR DO Unavailable Unavailable SEARS, A UMAIR DO Unavailable Unavailable SEARS, A UMAIR DO Unavailable Unavailable SEARS, A UMAIR DO Unavailable Unavailable SEARS, A UMAIR DO Unavailable Unavailable SEARS, A UMAIR DO Unavailable Unavailable SEARS, A UMAIR DO Unavailable Unavailable SEARS, A UMAIR DO Unavailable Unavailable SEARS, A UMAIR DO Unavailable Unavailable SEARS, A UMAIR DO Unavailable Unavailable SEARS, A UMAIR DO Unavailable Unavailable SEARS, A UMAIR DO Unavailable Unavailable SEARS, A UMAIR DO Unavailable Unavailable SEARS, A UMAIR DO Unavailable Unavailable SEARS, A UMAIR DO Unavailable Unavailable SEARS, A UMAIR DO Unavailable Unavailable SEARS, A UMAIR DO Unavailable Unavailable TURRIN, CONTRERAS Unavailable Unavailable TURRIN, CONTRERAS Unavailable Unavailable TURRIN, CONTRERAS Unavailable Unavailable CARLOSRIN, CONTRERAS Unavailable Unavailable Kris Polk MD Unavailable Unavailable Wetterhahn, Kris GONZALEZ Unavailable Unavailable Wetterhahn, Kris GONZALEZ Unavailable Unavailable Wetterhahn, Kris GONZALEZ Unavailable Unavailable Wetterhahn, Kris GONZALEZ Unavailable Unavailable Wetterhahn, Kris GONZALEZ Unavailable Unavailable Wetterhahn, Kris GONZALEZ Unavailable Unavailable Wetterhahn, Kris GONZALEZ Unavailable Unavailable Wetterhahn, Kris GONZALEZ Unavailable Unavailable Wetterhahn, Kris GONZALEZ Unavailable Unavailable Wetterhahn, Kirs GONZALEZ Unavailable Unavailable Wetterhahn, Kris GONZALEZ Unavailable Unavailable Wetterhahn, Kris GONZALEZ Unavailable Unavailable Wetterhahn, Kris GONZALEZ Unavailable Unavailable Wetterhahn, Kris GONZALEZ Unavailable Unavailable Wetterhahn, Kris GONZALEZ Unavailable Unavailable Wetterhahn, Kris GONZALEZ Unavailable Unavailable Wetterhahn, Kris GONZALEZ Unavailable Unavailable Wetterhahn, Kris GONZALEZ Unavailable Unavailable Wetterhahn, Kris GONZALEZ Unavailable Unavailable Wetterhahn, Kris GONZALEZ Unavailable Unavailable Wetterhahn, Kris GONZALEZ Unavailable Unavailable WetterhahnKris MD Unavailable Unavailable WetterhahnKris MD Unavailable Unavailable WetterhahnKris MD Unavailable Unavailable Wetterhahn, Kris GONZALEZ Unavailable Unavailable Wetterhahn, Kris GONZALEZ Unavailable Unavailable Wetterhahn, Kris GONZALEZ Unavailable Unavailable Wetterhahn, Kris GONZALEZ Unavailable Unavailable Wetterhahn, Kris GONZALEZ Unavailable Unavailable Wetterhahn, Kris GONZALEZ Unavailable Unavailable Wetterhahn, Kris GONZALEZ Unavailable Unavailable Wetterhahn, Kris GONZALEZ Unavailable Unavailable Wetterhahn, Kris GONZALEZ Unavailable Unavailable Wetterhahn, Kris GONZALEZ Unavailable Unavailable WetterhahnKris MD Unavailable Unavailable WetterhahnKris MD Unavailable Unavailable WetterhahnKris MD Unavailable Unavailable WetterhahnKris MD Unavailable Unavailable Wetterhahn, Kris GONZALEZ Unavailable Unavailable Wetterhahn, Kris GONZALEZ Unavailable Unavailable Wetterhahn, Kris GONZALEZ Unavailable Unavailable Wetterhahn, Kris GONZALEZ Unavailable Unavailable WetterhahnKris MD Unavailable Unavailable Wetterhahn, Kris GONZALEZ Unavailable Unavailable Wetterhahn, Kris GONZALEZ Unavailable Unavailable Wetterhahn, Kris GONZALEZ Unavailable Unavailable Wetterhahn, Kris GONZALEZ Unavailable Unavailable Wetterhahn, Kris GONZALEZ Unavailable Unavailable Wetterhahn, Kris GONZALEZ Unavailable Unavailable WetterhahnKris MD Unavailable Unavailable WetterhahnKris MD Unavailable Unavailable WetterhahnKris MD Unavailable Unavailable WetterhahnKris MD Unavailable Unavailable WetterhahnKris MD Unavailable Unavailable WetterhahnKris MD Unavailable Unavailable WetterhahnKris MD Unavailable Unavailable WetterhahnKris MD Unavailable Unavailable WetterhahnKris MD Unavailable Unavailable WetterhahnKris MD Unavailable Unavailable Wetterhahn, Kris GONZALEZ Unavailable Unavailable Wetterhahn, Kris GONZALEZ Unavailable Unavailable Wetterhahn, Kris GONZALEZ Unavailable Unavailable WetterhahnKris MD Unavailable Unavailable WetterhahnKris MD Unavailable Unavailable WetterhahnKris MD Unavailable Unavailable WetterhahnKris MD Unavailable Unavailable WetterhahnKris MD Unavailable Unavailable WetterhahnKris MD Unavailable Unavailable WetterhahnKris MD Unavailable Unavailable WetterhahnKris MD Unavailable Unavailable WetterhahnKris MD Unavailable Unavailable Portillo, Ta Elizabeth MD Unavailable Unavailable Portillo, Ta Elizabeth MD Unavailable Unavailable Portillo, Ta Elizabeth MD Unavailable Unavailable Portillo, Ta Elizabeth MD Unavailable Unavailable Portillo, Ta Elizabeth MD Unavailable Unavailable Portillo, Ta Elizabeth MD Unavailable Unavailable Portillo, Ta Elizabeth MD Unavailable Unavailable Portillo, Ta Elizabeth MD Unavailable Unavailable Portillo, Ta Elizabeth MD Unavailable Unavailable Portillo, Ta Elizabeth MD Unavailable Unavailable Portillo, Ta Elizabeth MD Unavailable Unavailable Portillo, Ta Elizabeth MD Unavailable Unavailable Portillo, Ta Elizabeth MD Unavailable Unavailable Portillo, Ta Elizabeth MD Unavailable Unavailable Portillo, Ta Elizabeth MD Unavailable Unavailable Portillo, Ta Elizabeth MD Unavailable Unavailable Portillo, Ta Elizabeth MD Unavailable Unavailable Portillo, Ta Elizabeth MD Unavailable Unavailable Portillo, Ta Elizabeth MD Unavailable Unavailable Portillo, Ta Elizabeth MD Unavailable Unavailable Portillo, Ta Elizabeth MD Unavailable Unavailable Portillo, Ta Elizabeth MD Unavailable Unavailable Portillo, Ta Elizabeth MD Unavailable Unavailable Portillo, Ta Elizabeth MD Unavailable Unavailable Portillo, Ta Elizabeth MD Unavailable Unavailable Portillo, Ta Elizabeth MD Unavailable Unavailable Portillo, Ta Elizabeth MD Unavailable Unavailable Portillo, Ta Elizabeth MD Unavailable Unavailable Portillo, Ta Elizabeth MD Unavailable Unavailable Portillo, Ta Elizabeth MD Unavailable Unavailable Portillo, Ta Elizabeth MD Unavailable Unavailable Portillo, Ta Elizabeth MD Unavailable Unavailable Portillo, Ta Elizabeth MD Unavailable Unavailable Portillo, Ta Elizabeth MD Unavailable Unavailable Portillo, Ta Elizabeth MD Unavailable Unavailable Portillo, Ta Elizabeth MD Unavailable Unavailable Portillo, Ta Elizabeth MD Unavailable Unavailable Portillo, Ta Elizabeth MD Unavailable Unavailable Portillo, Ta Elizabeth MD Unavailable Unavailable Portillo, Ta Elizabeth MD Unavailable Unavailable Portillo, Ta Elizabeth MD Unavailable Unavailable Portillo, Ta Elizabeth MD Unavailable Unavailable Portillo, Ta Elizabeth MD Unavailable Unavailable Portillo, Ta Elizabeth MD Unavailable Unavailable Portillo, Ta Elizabeth MD Unavailable Unavailable Portillo, L Glenn GONZALEZ Unavailable Unavailable Portillo, L Glenn GONZALEZ Unavailable Unavailable Portillo, L Glenn GONZALEZ Unavailable Unavailable Portillo, L Glenn GONZALEZ Unavailable Unavailable Fish, Fermin Payan MD Unavailable Unavailable Fish, Fermin Payan MD Unavailable Unavailable Fish, Fermin Payan MD Unavailable Unavailable Fish, Fermin Payan MD Unavailable Unavailable Fish, Fermin Payan MD Unavailable Unavailable Fish, Fermin Payan MD Unavailable Unavailable Fish, Fermin Payan MD Unavailable Unavailable Fish, Fermin Payan MD Unavailable Unavailable Fish, Fermin Payan MD Unavailable Unavailable Fish, Fermin Payan MD Unavailable Unavailable Fish, Fermin Payan MD Unavailable Unavailable Fish, Fermin Payan MD Unavailable Unavailable Fish, Fermin Payan MD Unavailable Unavailable Fish, Fermin Payan MD Unavailable Unavailable Fish, B Ora GONZALEZ Unavailable Unavailable Fish, B Ora GONZALEZ Unavailable Unavailable Fish, B Ora GONZALEZ Unavailable Unavailable Fish, B Ora GONZALEZ Unavailable Unavailable Fish, Fermin Payan MD Unavailable Unavailable Fish, Fermin Payan MD Unavailable Unavailable Fish, Fermin Payan MD Unavailable Unavailable Fish, Fermin Payan MD Unavailable Unavailable Fish, Fermin Payan MD Unavailable Unavailable Fish, Fermin Payan MD Unavailable Unavailable Fish, Fermin Payan MD Unavailable Unavailable Fish, Fermin Payan MD Unavailable Unavailable Fish, Fermin Payan MD Unavailable Unavailable Fish, Fermin Payan MD Unavailable Unavailable Fish, Fermin Payan MD Unavailable Unavailable Fish, Fermin Payan MD Unavailable Unavailable Fish, Fermin Payan MD Unavailable Unavailable Fish, Fermin Payan MD Unavailable Unavailable Fish, Fermin Payan MD Unavailable Unavailable Fish, Fermin Payan MD Unavailable Unavailable Fish, Fermin Payan MD Unavailable Unavailable Fish, Fermin Payan MD Unavailable Unavailable Fish, Fermin Payan MD Unavailable Unavailable Fish, Fermin Payan MD Unavailable Unavailable Fish, Fermin Payan MD Unavailable Unavailable Fish, Fermin Payan MD Unavailable Unavailable Fish, Fermin Payan MD Unavailable Unavailable Fish, Fermin Payan MD Unavailable Unavailable Fish, Fermin Payan MD Unavailable Unavailable Fish, Fermin Payan MD Unavailable Unavailable Fish, Fermin Payan MD Unavailable Unavailable Fish, Fermin Payan MD Unavailable Unavailable Fish, Fermin Payan MD Unavailable Unavailable Fish, Fermin Payan MD Unavailable Unavailable Fish, Fermin Payan MD Unavailable Unavailable Fish, Fermin Payan MD Unavailable Unavailable Fish, Fermin Payan MD Unavailable Unavailable Fish, Fermin Payan MD Unavailable Unavailable Fish, Fermin Payan MD Unavailable Unavailable Fish, Fermin Payan MD Unavailable Unavailable Fish, Fermin Payan MD Unavailable Unavailable Fish, Fermin Payan MD Unavailable Unavailable Fish, Fermin Payan MD Unavailable Unavailable Fish, Fermin Payan MD Unavailable Unavailable Fish, Fermin Payan MD Unavailable Unavailable Fish, Fermin Payan MD Unavailable Unavailable Fish, Fermin Payan MD Unavailable Unavailable Fish, Fermin Payan MD Unavailable Unavailable Fish, Fermin Payan MD Unavailable Unavailable Fish, Fermin Payan MD Unavailable Unavailable Fish, Fermin Payan MD Unavailable Unavailable Hernandez Owusu, Devendra Centeno MD, FACS Unavailable Unavailable Hernandez Owusu, Devendra Centeno MD, FACS Unavailable Unavailable Hernandez Owusu, Devendra Centeno MD, FACS Unavailable Unavailable Hernandez Owusu, Devendra Centeno MD, FACS Unavailable Unavailable Hernandez Owusu, Devendra Centeno MD, FACS Unavailable Unavailable Hernandez Owusu, Devendra Centeno MD, FACS Unavailable Unavailable Hernandez Owusu, Devendra Centeno MD, FACS Unavailable Unavailable Hernandez Owusu, Devendra Centeno MD, FACS Unavailable Unavailable Hernandez Owusu, Devendra Centeno MD, FACS Unavailable Unavailable Hernandez Owusu, Devendra Centeno MD, FACS Unavailable Unavailable Hernandez Owusu, Devendra Centeno MD, FACS Unavailable Unavailable Hernandez Owusu, Devendra Centeno MD, FACS Unavailable Unavailable Hernandez Owusu, Devendra Centeno MD, FACS Unavailable Unavailable Hernandez Owusu, Devendra Centeno MD, FACS Unavailable Unavailable Hernandez Owusu, Devendra Centeno MD, FACS Unavailable Unavailable Hernandez Owusu, Devendra Centeno MD, FACS Unavailable Unavailable Hernandez Wousu, Devendra Centeno MD, FACS Unavailable Unavailable Hernandez Owusu, Devendra Centeno MD, FACS Unavailable Unavailable Hernandez Owusu, Devendra Centeno MD, FACS Unavailable Unavailable Hernandez Owusu, Devendra Centeno MD, FACS Unavailable Unavailable Hernandez Owusu, Devendra Centeno MD, FACS Unavailable Unavailable Hernandez Owusu, Devendra Centeno MD, FACS Unavailable Unavailable Hernandez Owusu, Devendra Centeno MD, FACS Unavailable Unavailable Hernandez Owusu, Devendra Centeno MD, FACS Unavailable Unavailable Hernandez Owusu, Devendra Centeno MD, FACS Unavailable Unavailable Hernandez Owusu, Devendra Centeno MD, FACS Unavailable Unavailable Hernandez Owusu, Devendra Centeno MD, FACS Unavailable Unavailable Hernandez Owusu, Devendra Centeno MD, FACS Unavailable Unavailable Hernandez Owusu, Devendra Centeno MD, FACS Unavailable Unavailable Hernandez Owusu, Devendra Centeno MD, FACS Unavailable Unavailable Hernandez Owusu, Devendra Centeno MD, FACS Unavailable Unavailable Hernandez Owusu, Devendra Centeno MD, FACS Unavailable Unavailable Hernandez Owusu, Devendra Centeno MD, FACS Unavailable Unavailable Hernandez Owusu, Devendra Centeno MD, FACS Unavailable Unavailable Hernandez Owusu, Devendra Centeno MD, FACS Unavailable Unavailable Hernandez Owusu, Devendra Centeno MD, FACS Unavailable Unavailable Hernandez Owusu, Devendra Centeno MD, FACS Unavailable Unavailable Hernandez Owusu, Devendra Centeno MD, FACS Unavailable Unavailable Hernandez Owusu, Devendra Centeno MD, FACS Unavailable Unavailable VEE, A HUGO DO Unavailable Unavailable VEE, A HUGO DO Unavailable Unavailable VEE, A HUGO DO Unavailable Unavailable VEE, A HUGO DO Unavailable Unavailable VEE, A HUGO DO Unavailable Unavailable VEE, A HUGO DO Unavailable Unavailable VEE, A HUGO DO Unavailable Unavailable VEE, A HUGO DO Unavailable Unavailable VEE, A HUGO DO Unavailable Unavailable VEE, A HUGO DO Unavailable Unavailable VEE, A HUGO DO Unavailable Unavailable VEE, A HUGO DO Unavailable Unavailable VEE, A HUGO DO Unavailable Unavailable VEE, A HUGO DO Unavailable Unavailable VEE, A HUGO DO Unavailable Unavailable VEE, A HUGO DO Unavailable Unavailable VEE, A HUGO DO Unavailable Unavailable VEE, A HUGO DO Unavailable Unavailable VEE, A HUGO DO Unavailable Unavailable VEE, A HUGO DO Unavailable Unavailable VEE, A HUGO DO Unavailable Unavailable VEE, A HUGO DO Unavailable Unavailable Re-disclosure Warning The records that you are about to access may contain information from federally-assisted alcohol or drug abuse programs. If such information is present, then the following federally mandated warning applies: This information has been disclosed to you from records protected by federal confidentiality rules (42 CFR part 2). The federal rules prohibit you from making any further disclosure of this information unless further disclosure is expressly permitted by the written consent of the person to whom it pertains or as otherwise permitted by 42 CFR part 2. A general authorization for the release of medical or other information is NOT sufficient for this purpose. The Federal rules restrict any use of the information to criminally investigate or prosecute any alcohol or drug abuse patient.The records that you are about to access may contain highly sensitive health information, the redisclosure of which is protected by Article 27-F of the [facility] Public Health law. If you continue you may have access to information: Regarding HIV / AIDS; Provided by facilities licensed or operated by the [facility] Office of Mental Health; or Provided by the [facility] Office for People With Developmental Disabilities. If such information is present, then the following [facility] mandated warning applies: This information has been disclosed to you from confidential records which are protected by state law. State law prohibits you from making any further disclosure of this information without the specific written consent of the person to whom it pertains, or as otherwise permitted by law. Any unauthorized further disclosure in violation of state law may result in a fine or half-way sentence or both. A general authorization for the release of medical or other information is NOT sufficient authorization for further disc losure. Family History Family Member Name Family Member Gender Family Member Status Date o f Status Description Data Source(s) Unknown Unknown Problem [facility] ([facility], ) Encounters Encounter Providers Location Date Indications Data Source(s ) Unknown [address] [facility] [address] 06/11/2021 12:00:00 AM EDT [facility] [place] [address] [facility] [address] 06/11/2021 12:00:00 AM EDT [facility]1 ([facility] [place] [address] [facility] [address] 06/11/2021 12:00:00 AM EDT eCW1 ([facility]) Office Visit, Est Pt., Level 3 PC [address] [place] [address] 06/09/2021 12:00:00 AM EDT eCW1 ([facility]) Unknown [address] [facility] [address] 05/22/2021 12:00:00 AM EDT eCW1 ([facility] [place] [address] [facility] [address] 05/20/2021 12:00:00 AM EDT eCW1 ([facility]) Outpatient [address] [facility] [facility] [address] 05/19/2021 12:00:00 AM EDT eCW1 ([facility]) Unknown [address] [facility] [address] 05/18/2021 12:00:00 AM EDT eCW1 ([facility]) Unknown [address] [facility] [place] [address] 05/07/2021 12:00:00 AM EDT eCW1 ([facility]) Unknown [address] [facility] [place] [address] 05/05/2021 12:00:00 AM EDT eCW1 ([facility]) Unknown [address] [facility] [place] [address] 05/04/2021 12:00:00 AM EDT eCW1 ([facility]) Unknown [address] [facility], [place] [address] 05/04/2021 12:00:00 AM EDT eCW1 ([facility]) Outpatient [address] [facility] [address] 04/23/2021 12:00:00 AM EDT eCW1 ([facility]) Unknown [address] [facility] [address] 04/03/2021 12:00:00 AM EDT eCW1 ([facility]) Office Visit Attender: Nona MULLER PA-C Physical Therapy 04/02/2021 02:20:00 PM EDT MEDENT ([facility]) Outpatient Attender: Ora Alicia MD Physical Therapy 03/26 01:00:00 PM EDT MEDENT ([facility]) Office Visit, Est Pt., Level 4 PC [address] [place] [address] 03/19/2021 12:00:00 AM EDT eCW1 ([facility]) Unknown [address] [facility], [place] [address] 03/19/2021 12:00:00 AM EDT eCW1 ([facility]) <td ID="encounterTypeDescriptionID0">TRI AGE NON URGENT</td><td>Néstor Owusu MD, FACS</td><td>Néstor Aj MD [facility]</td><td>03/10/2021</td><td>9:20AM</td><td>10:13AM</td><td><content ID="encounterDiagnosisID0-0">Blepharospasm</content>, <content ID="encounterDiagnosisID0-1">Assessment of Taking Medication For Diabetes Long- term Use of Oral Hypoglycemics</content>, <content ID="encounterDiagnosisID0- 2">Diabetes Mellitus Type 2 - Uncomplicated, Controlled</content>, <content ID="encounterDiagnosisID0-3">Dry Eye Syndrome Both Eyes</content>, <content ID="encounterDiagnosisID0-4">Borderline Glaucoma Open Angle with Borderline Findings Both Eyes</content>, <content ID="encounterDiagnosisID0- 5">Chorioretinal Scar</content>, <content ID="encounterDiagnosisID0-6">Transient Visual Loss</content></td>Outpatient Attender: Néstor Owusu MD, FACS Néstor Aj MD [facility] 03/10/2021 09:20:00 AM EDT - 03/10/2021 10:13:00 AM ED T Chorioretinal ScarTransient Visual LossBorderline Glaucoma Open Angle with Borderline Findings Both EyesDry Eye Syndrome Both EyesDiabetes Mellitus Type 2 - Uncomplicated, ControlledAssessment of Taking Medication For Diabetes Long- term Use of Oral HypoglycemicsBlepharospasm TSERING (Néstor Owusu MD [facility]) Chorioretinal Scar Transient Visual Loss Borderline Glaucoma Open Angle with Bord jose Findings Both Eyes Dry Eye Syndrome Both Eyes Diabetes Mellitus Type 2 - Uncomplicated , Controlled Assessment of Taking Medication For Diab etes Long-term Use of Oral Hypoglycemics Blepharospasm Outpatient [address] [facility], [facility] [address] 03/05/2021 12:00:00 AM EDT eCW1 ([facility]) Outpatient Attender: Gloria Maxwell PA Main Office 03/04/2021 09:45:00 AM EDT MEDENT ([facility]) Outpatient Attender: UMAIR Sotelo/Jessee/Armaan/Kelley 03/03/2021 02:30:00 PM EDT MEDENT ([facility]) OFFICE OUTPATIENT VISIT 15 MINUTES Attender: Nona MULLER PA-C Physical Therapy 02/27/2021 10:30:00 AM EDT MEDENT ([facility]) Outpatient [address] [facility], [place] [address] 02/19/2021 12:00:00 AM EDT eCW1 ([facility]) Unknown [address] [facility] [address] 01/19/2021 12:00:00 AM EDT eCW1 ([facility]) Emergency Attender: CONTRERAS Rosenant: Kris sharma MD 01/12/2021 03:46:00 PM EDT - 01/12/2021 04:27:00 PM EDT [facility] Patient discharged. Unknown [address] [facility] [address] 01/10/2021 12:00:00 AM EDT eCW1 ([facility]) Office Visit, Est Pt., Level 4 PC [address] [place] [address] 01/07/2021 12:00:00 AM EDT eCW1 ([facility]) Unknown [address] [facility] [address] 01/06/2021 12:00:00 AM EDT eCW1 ([facility]) Outpatient Attender: UMAIR Sotelo/Jessee/Armaan/Kelley 01/02/2021 10:45:00 AM EDT MEDENT ([facility]) Outpatient Attender: Nona MULLER PADavC Physical Therapy 01/02/2021 09:00:00 AM EDT MEDENT ([facility]) Outpatient Attender: NÉSTOR Christopher/Jessee/Armaan/Rein dl 12/31/2020 08:30:00 AM EDT MEDENT ([facility]) Unknown [address] [facility], [place] [address] 11/14/2020 12:00:00 AM EST eCW1 ([facility]) Unknown [address] [facility] [address] 11/14/2020 12:00:00 AM EST eCW1 ([facility]) Outpatient<td ID="encounterTypeDescripti onID1">7 Month Follow-Up</td><td>Hugo Reich DO</td><td>Néstor Aj MD [facility]</td><td>11/11/2020</td><td>1:56PM</td><td>2:57PM</td><td><content ID="encounterDiagnosisID1-0">Blepharospasm</content>, <content ID="encounterDiagnosisID1-1">Assessment of Taking Medication For Diabetes Long- term Use of Oral Hypoglycemics</content>, <content ID="encounterDiagnosisID1- 2">Diabetes Mellitus Type 2 - Uncomplicated, Controlled</content>, <content ID="encounterDiagnosisID1-3">Dry Eye Syndrome Both Eyes</content>, <content ID="encounterDiagnosisID1-4">Borderline Glaucoma Open Angle with Borderline Findings Both Eyes</content>, <content ID="encounterDiagnosisID1- 5">Chorioretinal Scar</content></td> Attender: HUGO Gill MD [facility] 11/11/2020 01:56:00 PM EST - 11/11/2020 02:57:00 PM ES T Chorioretinal ScarChorioretinal ScarBorderline Glaucoma Open Angle with Borderline Findings Both EyesDry Eye Syndrome Both EyesDiabetes Mellitus Type 2 - Uncomplicated, ControlledAssessment of Taking Medication For Diabetes Long- term Use of Oral HypoglycemicsBlepharospasmBorderline Glaucoma Open Angle with Borderline Findings Both EyesDry Eye Syndrome Both EyesDiabetes Mellitus Type 2 - Uncomplicated, ControlledAssessment of Taking Medication For Diabetes Long- term Use of Oral HypoglycemicsBlepharospasm ANNA MARIA (Néstor Owusu MD [facility]) Chorioretinal Scar Chorioretinal Scar Borderline Glaucoma Open Angle with Bord jose Findings Both Eyes Dry Eye Syndrome Both Eyes Diabetes Mellitus Type 2 - Uncomplicated , Controlled Assessment of Taking Medication For Diab etes Long-term Use of Oral Hypoglycemics Blepharospasm Borderline Glaucoma Open Angle with Bord jose Findings Both Eyes Dry Eye Syndrome Both Eyes Diabetes Mellitus Type 2 - Uncomplicated , Controlled Assessment of Taking Medication For Diab etes Long-term Use of Oral Hypoglycemics Blepharospasm Outpatient Attender: UMAIR Sotelo/Jessee/Armaan/Kelley 11/11/2020 10:00:00 AM EST MEDJUANITO ([facility]) Outpatient [address] [place] [address], [place] [address] 10/30/2020 12:00:00 AM EST eCW1 ([facility]) Outpatient [address] [facility] [place] [address] 10/22/2020 12:00:00 AM EST eCW1 ([facility]) Unknown [address] [facility] Y [address] 10/13/2020 12:00:00 AM EST eCW1 ([facility]) Unknown [address] [facility] Y [address] 10/13/2020 12:00:00 AM EST eCW1 ([facility]) ([id number]) Est New Patient 60 [address] [place] [address] 10/07/2020 12:00:00 AM EST eCW1 ([facility]) Office Visit, Est Pt., Level 2 PC [address] [place] [address] 10/01/2020 12:00:00 AM EST eCW1 ([facility]) Outpatient Attender: UMAIR Sotelo/Jessee/Armaan/Kelley 09/09/2020 08:30:00 AM EST MEDENT [facility] Outpatient Attender: Gloria SALCEDO Main Office 09/03/2020 07:15:00 AM EST MEDENT ([facility]) Unknown [address] [facility] [address] 08/20/2020 12:00:00 AM EST eCW1 ([facility]) ([id number]) For Template Thompson [address] [place] [address] 08/13/2020 12:00:00 AM EST eCW1 ([facility]) Unknown [address] [facility] [address] 08/07/2020 12:00:00 AM EST eCW1 ([facility]) (WND [id number]) New Patient [address] [place] [address] 08/06/2020 12:00:00 AM EST eCW1 ([facility]) Unknown [address] [facility] [address] 08/06/2020 12:00:00 AM EST eCW1 ([facility]) Unknown [address] [facility] [address] 08/04/2020 12:00:00 AM EST eCW1 ([facility]) OFFICE OUTPATIENT VISIT 15 MINUTES Attender: Nona MULLER PA-C Physical Therapy 07/18/2020 12:45:00 PM EST MEDENT ([facility]) Outpatient Attender: Glenn Portillo MD Physical Therapy 07/02/2020 0 2:15:00 PM EDT MEDENT ([facility]) Unknown [address] [facility] [address] 06/06/2020 12:00:00 AM EDT eCW1 ([facility]) Outpatient Attender: UMAIR Sotelo/Jessee/Armaan/Reindl 06/03/2020 09:30:00 AM EDT MEDENT ([facility]) Immunizations Vaccine Date Status Description Data Source(s) COVID-19 dose #2 given elsewhere Unspecified 11/28/2020 11:2 5:00 AM EDT completed eCW1 ([facility]) COVID-19 dose #2 given elsewhere Unspecified 11/28/2020 11:2 5:00 AM EDT completed eCW1 ([facility]) COVID-19 dose #2 given elsewhere Unspecified 11/28/2020 11:2 5:00 AM EDT completed eCW1 ([facility]) COVID-19 dose #2 given elsewhere Unspecified 11/28/2020 11:2 5:00 AM EDT completed eCW1 ([facility]) COVID-19 dose #2 given elsewhere Unspecified 11/28/2020 11:2 5:00 AM EDT completed eCW1 ([facility]) COVID-19 dose #2 given elsewhere Unspecified 11/28/2020 11:2 5:00 AM EDT completed eCW1 ([facility]) COVID-19 dose #2 given elsewhere Unspecified 11/28/2020 11:2 5:00 AM EDT completed eCW1 ([facility]) COVID-19 dose #2 given elsewhere Unspecified 11/28/2020 11:2 5:00 AM EDT completed eCW1 ([facility]) COVID-19 dose #2 given elsewhere Unspecified 11/28/2020 11:2 5:00 AM EDT completed eCW1 ([facility]) COVID-19 dose #2 given elsewhere Unspecified 11/28/2020 11:2 5:00 AM EDT completed eCW1 ([facility]) COVID-19 dose #2 given elsewhere Unspecified 11/28/2020 11:2 5:00 AM EDT completed eCW1 ([facility]) COVID-19 dose #2 given elsewhere Unspecified 11/28/2020 11:2 5:00 AM EDT completed eCW1 ([facility]) COVID-19 dose #2 given elsewhere Unspecified 11/28/2020 11:2 5:00 AM EDT completed eCW1 ([facility]) COVID-19 dose #2 given elsewhere Unspecified 11/28/2020 11:2 5:00 AM EDT completed eCW1 ([facility]) COVID-19 dose #2 given elsewhere Unspecified 11/28/2020 11:2 5:00 AM EDT completed eCW1 ([facility]) COVID-19 dose #2 given elsewhere Unspecified 11/28/2020 11:2 5:00 AM EDT completed eCW1 ([facility]) COVID-19 dose #2 given elsewhere Unspecified 11/28/2020 11:2 5:00 AM EDT completed eCW1 ([facility]) COVID-19 dose #2 given elsewhere Unspecified 11/28/2020 11:2 5:00 AM EDT completed eCW1 ([facility]) COVID-19 dose #2 given elsewhere Unspecified 11/28/2020 11:2 5:00 AM EDT completed eCW1 ([facility]) COVID-19 dose #2 given elsewhere Unspecified 11/28/2020 11:2 5:00 AM EDT completed eCW1 ([facility]) COVID-19 dose #2 given elsewhere Unspecified 11/28/2020 11:2 5:00 AM EDT completed eCW1 ([facility]) COVID-19 VACCINE Moderna 11/28/2020 12:00:00 AM EDT completed NYSIIS Vaccine Series Complete: YESThis Data wa s Submitted to [facility] Via [employer]. COVID-19 dose #1 given elsewhere Unspecified 10/31/2020 11:2 5:00 AM EST completed eCW1 ([facility]) COVID-19 dose #1 given elsewhere Unspecified 10/31/2020 11:2 5:00 AM EST completed eCW1 ([facility]) COVID-19 dose #1 given elsewhere Unspecified 10/31/2020 11:2 5:00 AM EST completed eCW1 ([facility]) COVID-19 dose #1 given elsewhere Unspecified 10/31/2020 11:2 5:00 AM EST completed eCW1 ([facility]) COVID-19 dose #1 given elsewhere Unspecified 10/31/2020 11:2 5:00 AM EST completed eCW1 ([facility]) COVID-19 dose #1 given elsewhere Unspecified 10/31/2020 11:2 5:00 AM EST completed eCW1 ([facility]) COVID-19 dose #1 given elsewhere Unspecified 10/31/2020 11:2 5:00 AM EST completed eCW1 ([facility]) COVID-19 dose #1 given elsewhere Unspecified 10/31/2020 11:2 5:00 AM EST completed eCW1 ([facility]) COVID-19 dose #1 given elsewhere Unspecified 10/31/2020 11:2 5:00 AM EST completed eCW1 ([facility]) COVID-19 dose #1 given elsewhere Unspecified 10/31/2020 11:2 5:00 AM EST completed eCW1 ([facility]) COVID-19 dose #1 given elsewhere Unspecified 10/31/2020 11:2 5:00 AM EST completed eCW1 ([facility]) COVID-19 dose #1 given elsewhere Unspecified 10/31/2020 11:2 5:00 AM EST completed eCW1 ([facility]) COVID-19 dose #1 given elsewhere Unspecified 10/31/2020 11:2 5:00 AM EST completed eCW1 ([facility]) COVID-19 dose #1 given elsewhere Unspecified 10/31/2020 11:2 5:00 AM EST completed eCW1 ([facility]) COVID-19 dose #1 given elsewhere Unspecified 10/31/2020 11:2 5:00 AM EST completed eCW1 ([facility]) COVID-19 dose #1 given elsewhere Unspecified 10/31/2020 11:2 5:00 AM EST completed eCW1 ([facility]) COVID-19 dose #1 given elsewhere Unspecified 10/31/2020 11:2 5:00 AM EST completed eCW1 ([facility]) COVID-19 dose #1 given elsewhere Unspecified 10/31/2020 11:2 5:00 AM EST completed eCW1 ([facility]) COVID-19 dose #1 given elsewhere Unspecified 10/31/2020 11:2 5:00 AM EST completed eCW1 ([facility]) COVID-19 dose #1 given elsewhere Unspecified 10/31/2020 11:2 5:00 AM EST completed eCW1 ([facility]) COVID-19 dose #1 given elsewhere Unspecified 10/31/2020 11:2 5:00 AM EST completed eCW1 ([facility]) COVID-19 VACCINE Moderna 10/31/2020 12:00:00 AM EST completed NYSIIS Vaccine Series Complete: NOThis Data was Submitted to [facility] Via [employer]. Medications Medication Brand Name Start Date Product Form Dose Route Admi nistrative Instructions Pharmacy Instructions Status Indications Reaction Description Data Source(s) sitagliptin 100 MG Oral Tablet [Januvia] Januvia 03/26/2021 12:00: 00 AM EDT ORAL active MEDENT ([facility] Doxycycline Monohydrate 100 MG Oral Tablet Doxycycline Monoh ydrate 100 MG 03/19/2021 12:00:00 AM EDT 1.0 {tablet} suspende d Doxycycline Monohydrate 100 MG eCW1 ([facility]) Doxycycline Monohydrate 100 MG Oral Tablet Doxycycline Monoh ydrate 100 MG 03/19/2021 12:00:00 AM EDT 1.0 {tablet} suspende d Doxycycline Monohydrate 100 MG eCW1 ([facility]) Doxycycline Monohydrate 100 MG Oral Tablet Doxycycline Monoh ydrate 100 MG 03/19/2021 12:00:00 AM EDT 1.0 {tablet} suspende d Doxycycline Monohydrate 100 MG eCW1 ([facility]) Doxycycline Monohydrate 100 MG Oral Tablet Doxycycline Monoh ydrate 100 MG 03/19/2021 12:00:00 AM EDT 1.0 {tablet} suspende d Doxycycline Monohydrate 100 MG eCW1 ([facility]) Doxycycline Monohydrate 100 MG Oral Tablet Doxycycline Monoh ydrate 100 MG 03/19/2021 12:00:00 AM EDT 1.0 {tablet} suspende d Doxycycline Monohydrate 100 MG eCW1 ([facility]) Doxycycline Monohydrate 100 MG Oral Tablet Doxycycline Monoh ydrate 100 MG 03/19/2021 12:00:00 AM EDT 1.0 {tablet} suspende d Doxycycline Monohydrate 100 MG eCW1 ([facility]) Doxycycline Monohydrate 100 MG Oral Tablet Doxycycline Monoh ydrate 100 MG 03/19/2021 12:00:00 AM EDT 1.0 {tablet} suspende d Doxycycline Monohydrate 100 MG eCW1 ([facility]) Doxycycline Monohydrate 100 MG Oral Tablet Doxycycline Monoh ydrate 100 MG 03/19/2021 12:00:00 AM EDT 1.0 {tablet} suspende d Doxycycline Monohydrate 100 MG eCW1 ([facility]) Doxycycline Monohydrate 100 MG Oral Tablet Doxycycline Monoh ydrate 100 MG 03/19/2021 12:00:00 AM EDT 1.0 {tablet} suspende d Doxycycline Monohydrate 100 MG eCW1 ([facility]) Doxycycline Monohydrate 100 MG Oral Tablet Doxycycline Monoh ydrate 100 MG 03/19/2021 12:00:00 AM EDT 1.0 {tablet} suspende d Doxycycline Monohydrate 100 MG eCW1 ([facility]) Doxycycline Monohydrate 100 MG Oral Tablet Doxycycline Monoh ydrate 100 MG 03/19/2021 12:00:00 AM EDT 1.0 {tablet} active Doxycycline Monohydrate 100 MG eCW1 ([facility]) Doxycycline Monohydrate 100 MG Oral Tablet Doxycycline Monoh ydrate 100 MG 03/19/2021 12:00:00 AM EDT 1.0 {tablet} suspende d Doxycycline Monohydrate 100 MG eCW1 ([facility]) Doxycycline Monohydrate 100 MG Oral Tablet Doxycycline Monoh ydrate 100 MG 03/19/2021 12:00:00 AM EDT 1.0 {tablet} active Doxycycline Monohydrate 100 MG eCW1 ([facility]) Doxycycline Monohydrate 100 MG Oral Tablet Doxycycline Monoh ydrate 100 MG 03/19/2021 12:00:00 AM EDT 1.0 {tablet} suspende d Doxycycline Monohydrate 100 MG eCW1 ([facility]) Doxycycline Monohydrate 100 MG Oral Tablet Doxycycline Monoh ydrate 100 MG 03/19/2021 12:00:00 AM EDT 1.0 {tablet} suspende d Doxycycline Monohydrate 100 MG eCW1 ([facility]) Doxycycline Monohydrate 100 MG Oral Tablet Doxycycline Monoh ydrate 100 MG 03/19/2021 12:00:00 AM EDT 1.0 {tablet} active Doxycycline Monohydrate 100 MG eCW1 ([facility]) Brimonidine tartrate 1 MG/ML Ophthalmic Solution [Alphagan] Alphagan P 0.1% Ophthalmic Solution Alphagan P 0.1% Ophthalmic Solution 03/10/2021 12:00:0 0 AM EDT active brimonid ine tartrate 1 MG/ML Ophthalmic Solution [Alphagan] TSERING (Néstor Owusu MD [facility]) Cyclosporine 0.5 MG/ML Ophthalmic Suspen clark [Restasis] Restasis 0.05% Ophthalmic Emulsion Restasis 0.05% Ophthalmic Emulsion 03/10/2021 12:00:00 AM EDT active cyclospo rine 0.5 MG/ML Ophthalmic Suspension [Restasis] TSERING (Néstor Owusu MD [facility]) bimatoprost 0.1 MG/ML Ophthalmic Solutio n [Lumigan] Lumigan 0.01% Ophthalmic Solution Lumigan 0.01% Ophthalmic Solution 03/10/2021 12:00:00 AM EDT 1 active bimatoprost 0.1 MG/ML Ophthalmic Solution [Lumigan] TSERING (Néstor Owusu MD [facility]) Vitamin B 12 0.1 MG Oral Tablet Vitamin B12 03/03/2021 12:00:00 AM EDT active MEDENT ([facility] Ascorbic Acid 500 MG Chewable Tablet Vitamin C 03/03/2021 12:00:00 AM EDT active MEDENT ([facility]) montelukast 10 MG Oral Tablet Montelukast Sodium 03/03/2021 12:00:00 AM EDT ORAL active MEDENT ([facility]) Prednisone 20 MG Oral Tablet Prednisone 01/02/2021 12:00:00 AM EDT ORAL completed MEDENT ([facility], ) benzonatate 100 MG Oral Capsule Benzonatate 01/02/2021 12:00:00 AM EDT ORAL completed MEDENT ([facility], ) Bisacodyl 5 MG Delayed Release Oral Tablet [Dulcolax] Dulcol ax 12/31/2020 12:00:00 AM EDT completed MEDENT ([facility], ) Sutab Sutab 12/31/2020 12:00:00 AM EDT completed MEDENT ([facility], ) magnesium citrate 58.2 MG/ML Oral Solution Magnesium Citrate 12/31/2020 12:00:00 AM EDT completed MEDENT ([facility], ) Magnesium Hydroxide 80 MG/ML Oral Suspension Milk Of Magnesi a 12/31/2020 12:00:00 AM EDT ORAL completed MEDENT ([facility], ) POLYETHYLENE GLYCOL 3350 142 MG/ML Oral Solution [Miralax] M iralax 12/31/2020 12:00:00 AM EDT active M EDENT ([facility], ) Covid-19 vaccine, Unspecified 11/28/2020 12:00:00 AM EDT completed MEDENT ([facility]) Medication administered onsite Covid-19 vaccine, Unspecified 10/31/2020 12:00:00 AM EST completed MEDENT ([facility]) Medication administered onsite montelukast 10 MG Oral Tablet [Singulair] Singulair 2020 12:00:00 AM EST ORAL active MEDENT ( [facility], ) Fexofenadine hydrochloride 180 MG Oral Tablet Joyce Allerg y 09/09/2020 12:00:00 AM EST ORAL active M EDENT ([facility], ) Azithromycin 250 MG Oral Tablet Azithromycin 09/09/2020 12:00:[address] ORAL completed MEDENT ([facility], ) Sulfamethoxazole 800 MG / Trimethoprim 160 MG Oral Tablet [B actrim] Bactrim DS 07/07/2020 12:00:00 AM EST ORAL active MEDENT ([facility]) bimatoprost 0.1 MG/ML Ophthalmic Solutio n [Lumigan] Lumigan 0.01% Ophthalmic Solution Lumigan 0.01% Ophthalmic Solution 02/12/2020 12:00:00 AM EDT 1 aborted bimatoprost 0.1 MG/ML Ophthalmic Solution [Lumigan] TSERING (Néstor Owusu MD [facility]) Brimonidine tartrate 1 MG/ML Ophthalmic Solution [Alphagan] Alphagan P 0.1% Ophthalmic Solution Alphagan P 0.1% Ophthalmic Solution 02/12/2020 12:00:0 0 AM EDT aborted brimonid ine tartrate 1 MG/ML Ophthalmic Solution [Alphagan] TSERING (Néstor Owusu MD [facility]) Cyclosporine 0.5 MG/ML Ophthalmic Suspen clark [Restasis] Restasis 0.05% Ophthalmic Emulsion Restasis 0.05% Ophthalmic Emulsion 11/22/2018 12:00:00 AM EDT aborted cyclospo rine 0.5 MG/ML Ophthalmic Suspension [Restasis] TSERING (Néstor Owusu MD [facility]) Carboxymethylcellulose Sodium 5 MG/ML Op hthalmic Solution Refresh Plus 0.5% Ophthalmic Solution Refresh Plus 0.5% Ophthalmic Solution 07/03/2018 12:00 :00 AM EDT aborted carboxym ethylcellulose sodium 5 MG/ML Ophthalmic Solution TSERING (Néstor Owusu MD [facility]) Refresh Optive 1-0.9% Ophthalmic Gel Refresh Optive 1-0.9% O phthalmic Gel 06/28/2018 12:00:00 AM EDT aborted carboxymethylcellulose sodium 0.01 MG/MG / glycerin 0.009 MG/MG Ophthalmic Gel TSERING (Néstor Owusu MD [facility]) Mineral Oil 0.425 MG/MG / Petrolatum 0.5 73 MG/MG Ophthalmic Ointment Refresh P.M. Ophthalmic Ointment Refresh P.M. Ophthalmic Ointment 06/28/2018 12:00:00 A M EDT aborted mineral oil 0.425 MG/MG / petrolatum 0.573 MG/MG Ophthalmic Ointment TSERING (Néstor Owusu MD [facility]) Insurance Providers Payer name Policy type / Coverage type Policy ID Covered libertarian ID Covered libertarian's relationship to thompson Policy Thompson Plan Information Medicare (Part B) Medicare Primary [id number] Self [id number] MEDICARE [id number] SP [id number] Medicare (Part B) Medicare Primary [id number] Self 3 [id number] Medicare (Part B) Medicare Primary [id number] Self 5 [id number] Medicare (Part B) Medicare Primary [id number] Self 5 [id number] Medicare (Part B) Medicare Primary [id number] Self [id number] Medicare (Part B) Medicare Primary [id number] Self Medicare Medicare Primary [id number] Self MEDICARE [id number] SP [id number] B [employer] (TFL) Medigap Part B [id number] [employer] ([place]) Medigap Part B [id number] [employer] ([place]) Medigap Part B [id number] [employer] ([place]FL) Medigap Part B [id number] [employer] ([place]FL) Medigap Part B [id number] [employer] ([place]FL) Medigap Part B [id number] [employer] (TFL) Medigap Part B [id number] [place] [facility] ([place]) Medigap Part B [id number] 2.16.840.1.626974.3.227.99.991.533246.0 [id number] [place] [facility] [place] Medigap Part B [id number] 2.16.840.1.228025.3.227.99.991.222402.0 [id number] [place] [facility] ([place]FL) Medigap Part B [id number] 2.16.840.1.773445.3.227.99.991.988769.0 [id number] [place] [facility] [place] Medigap Part B [id number] 2.16840.1.801687.3.227.99.991.613441.0 [id number] Medicare [place] Medicare Primary [id number] 2.16840.1.604887.3.227.99.991.978468.0 Self [id number] Medicare [place] Medicare Primary [id number] 2.16840.1.667224.3.227.99.991.494207.0 Self [id number] Medicare [place] Medicare Primary [id number] 2.840.1.662959.3.227.99.991.985264.0 Self [id number] Medicare [place] Medicare Primary [id number] 2.16840.1.547320.3.227.99.991.142228.0 Self [id number] Medicare [place] Medicare Primary [id number] 2.16840.1.779765.3.227.99.991.696207.0 Self [id number] [place] Medicare Primary [id number] 2.16840.1.789777.3.227.99.991.516121.0 Self [id number] [place] Medicare Primary [id number] 2.16840.1.251077.3.227.99.991.929558.0 Self [id number] Medicare [place] Medicare Primary [id number] 2.16840.1.138121.3.227.99.991.470047.0 Self [id number] Medicare [place] Medicare Primary [id number] 2.16840.1.176263.3.227.99.991.672536.0 Self [id number] Medicare [place] Medicare Primary 2.16.840.1.996697.3. 227.99.991.763779.0 Self Medicare [place] Medicare Primary [id number] 2.16.840.1.673472.3.227.99.991.446604.0 Self [id number] FOR LIFE [id number] HU2 [id number] WPS For Life [facility] Part B [id number] 2.16.840.1.930870.3.227.99.8646.88869.0 Family Dependent [id number] FOR LIFE [id number] SP [id number] For Life F [id number] SPOUSE [id number] Medicare C [id number] SELF [id number] DME Jurisdiction A [facility] C [id number] SELF [id number] ANSI-Commercial [id number] ANSI-Medicare Part B [id number] ANSI-Medicare Part B [id number] ANSI-Commercial [id number] ANSI-Medicare Part B [id number] ANSI-Commercial [id number] MEDICARE [id number] SP [id number] B [facility] [id number] 2..1.589623.3.227.99.572.07399.0 Family Dependent 3 [id number] ANSI-Medicare Part B [id number] ANSI-Commercial [id number] ANSI-Medicare Part B [id number] ANSI-Commercial [id number] ANSI-Commercial [id number] ANSI-Medicare Part B [id number] Medicare Dme Supplies Medigap Part B [id number] .1.401884.3.227.99.991.436453.0 Self [id number] Medicare Dme Supplies [facility] [id number] ..1.362794.3.227.99.991.439225.0 Self [id number] MEDICARE C [id number] S [id number] B For Life WPS Medigap Part B [id number] ..1.606606.3.227.99.1767.50030.0 Family Dependent [id number] Medicare Natl Gov't Servi Medicare Primary [id number] 2.840.1.574880.3.227.99.1767.53078.0 Self [id number] WPS For Life Medigap Part B [id number] 2.840.1.244620.3.227.99.8646.72309.0 Family Dependent [id number] Medicare Upstate/NGS Medicare Primary [id number] 2.0.1.559725.3.227.99.8646.04588.0 Self [id number] For Life - WPS Medigap Part B [id number] 2.0.1.430135.3.227.99.572.49101.0 Family Dependent 3 [id number] WPS For Life Medigap Part B [id number] 2.0.1.377525.3.227.99.8646.63390.0 Family Dependent [id number] Medicare [place]state/NGS Medicare Primary [id number] 2.0.1.348130.3.227.99.8646.69162.0 Self [id number] FOR LIFE [id number] [facility] [id number] WPS For Life Medigap Part B [id number] 2.0.1.727711.3.227.99.8646.84843.0 Family Dependent [id number] Medicare [place]state/NGS Medicare Primary [id number] 2.0.1.003720.3.227.99.8646.26078.0 Self [id number] For Life WPS Medigap Part B [id number] 2.840.1.520241.3.227.99.1767.15714.0 Family Dependent [id number] Medicare Natl Gov't Servi Medicare Primary [id number] 2.840.1.157164.3.227.99.1767.91519.0 Self [id number] For Life Commercial [id number] 2.840.1.728648.3.227. 99.936.46803.0 Family Dependent [id number] Medicare Medicare Primary [id number] 2.16.840.1.126003.3.227. 99.936.74326.0 Self [id number] For Life Commercial [id number] 2.16.840.1.408773.3.227. 99.936.33922.0 Family Dependent [id number] Medicare Medicare Primary [id number] 2.16.840.1.044452.3.227. 99.936.87768.0 Self [id number] For Life Commercial [id number] 2.16.840.1.262432.3.227. 99.936.44669.0 Family Dependent [id number] Medicare Medicare Primary [id number] 2.16.840.1.414669.3.227. 99.936.15152.0 Self [id number] WPS For Life Medigap Part B [id number] 2.16.840.1.900212.3.227.99.8646.27922.0 Family Dependent [id number] Medicare Upstate/[facility] Medicare Primary [id number] 2.16.840.1.468949.3.227.99.8646.16565.0 Self [id number] MEDICARE [id number] SP [id number] B FOR LIFE [id number] HU2 10 [id number] FOR LIFE [id number] HU2 [id number] For Life WPS Medigap Part B [id number] Family Depende nt Medicare Natl Gov't Servi Medicare Primary [id number] Self For Life - WPS Medigap Part B [id number] Family Depen dent For Life Reg 1 Medigap Part B [id number] Family Depen dent Medicare - [facility] Medicare Primary [id number] Self [id number] B [id number] MEDICARE [id number] SP [id number] C16 [id number] FOR LIFE [id number] HU2 333 [id number] Medicare Part B [facility] Other 0 [id number] Self 0 FOR LIFE -O/P [id number] 01 [id number] MEDICARE PART A -O/P [id number] 18 [id number] Medicare Part B [facility] Other 0 [id number] Self 0 MEDICARE C [id number] S [id number] FOR LIFE O [id number] S [id number] ANSI-Commercial [id number] ANSI-Medicare Part B [id number] ANSI-Commercial [id number] ANSI-Medicare Part B [id number] For Life - WPS Medigap Part B [id number] Family Dependent [id number] For Life - WPS Medigap Part B [id number] Family Dependent [id number] ANSI-Medicare Part B [id number] ANSI-Commercial [id number] ANSI-Commercial [id number] [facility]-Medicare Part B [id number] ANSI-Commercial [id number] ANSI-Medicare Part B [id number] Medicare Dme Supplies [facility] Part B [id number] 2..1.998713.3.227.99.991.908033.0 Self [id number] For Life - WPS [facility] Part B [id number] 2..1.395714.3.227.99.572.30703.0 Family Dependent 3 [id number] Medicare [place] Medicare Primary [id number] 2...1.705712.3.227.99.8646.62796.0 Self [id number] [facility]-Medicare Part B [id number] ANSI-Commercial [id number] Medicare Dme Supplies [facility] Part B [id number] 2...1.267954.3.227.99.991.462775.0 Self [id number] ANSI-Medicare Part B [id number] ANSI-Commercial [id number] ANSI-Medicare Part B [id number] ANSI-Commercial [id number] Medicare Dme Supplies [facility] Part B [id number] 2.16.840.1.616155.3.227.99.991.090758.0 Self [id number] Medicare Dme Supplies [facility] Part B [id number] 2.16.840.1.226089.3.227.99.991.534522.0 Self [id number] Medicare Dme Supplies [facility] Part B [id number] 2.16.840.1.639145.3.227.99.991.815395.0 Self [id number] ANSI-Medicare Part B [id number] ANSI-Commercial [id number] [facility]-Medicare Part B [id number] ANSI-Commercial [id number] Problems, Conditions, and Diagnoses Code Display Name Description Problem Type Effective Dates Data Source(s) Y929 [address] or not applicable Unspecified place or not applicable Diagnosis 01/12/2021 03:46:00 PM EDT [facility] [id number] Exposure to other specified factors, ini tial encounter Exposure to other specified factors, initial encounter Diagnosis 01/12/2021 03:46:00 PM EDT [facility] Z7982 FCI (current) use of aspirin FCI (cu rrent) use of aspirin Diagnosis 01/12/2021 03:46:00 PM EDT [facility] 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 Diagnosis 01/12/2021 03:46:00 PM EDT [facility] Z8673 Personal history of transien t ischemic attack (TIA), and cerebral infarction without residual deficits Personal history of transient ischemic attack (TIA), and cerebral infarction without residual deficits Diagnosis 01/12/2021 03:46:00 PM EDT [facility] E039 Hypothyroidism, unspecified Hypothyroidism, unspecifie d Diagnosis 01/12/2021 03:46:00 PM EDT [facility] E119 Type 2 diabetes mellitus without complic ations Type 2 diabetes mellitus without complications Diagnosis 01/12/2021 03:46:00 PM EDT [facility] I10 Essential (primary) hypertension Essential (primary) h ypertension Diagnosis 01/12/2021 03:46:00 PM EDT [facility] [id number] Contusion of left forearm, initial encou nter Contusion of left forearm, initial encounter Diagnosis 01/12/2021 03:46:00 PM EDT [facility] [id number] Pure hypercholesterolemia Pure hypercholesterolemia Pr oblem 03/25/2021 12:00:00 AM EDT MEDENT ([facility]) [id number] Essential hypertension Essential hypertension Problem 03/25/2021 12:00:00 AM EDT MEDENT ([facility]) Z86.16 [id number] History of COVID-19 Problem 12:00:00 AM EDT eCW1 ([facility]) E11.69 [id number] Type 2 diabetes mellitus with ot her specified complication Problem 10/29/2020 12:00:00 AM EST eCW1 ([facility]) I87.312 [id number] 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 Problem 08/06/2020 12:00:00 AM EST eCW1 ([facility]) L97.822 [id number] Non-pressure chronic ulcer of other part of left lower leg with fat layer exposed Problem 08/06/2020 12:00:00 AM EST eCW1 ([facility]) Surgeries/Procedures Procedure Description Date Indications Data Source(s) PHYSICIAN TELEPHONE EVALUATION 5-10 MIN 04/02/2021 12: 00:00 AM EDT MEDENT ([facility]) Diabetic Foot Exam 03/26/2021 12:00:00 AM EDT MEDENT ([facility]) OFFICE OUTPATIENT NEW 45 MINUTES 03/26/2021 12:00:00 A M EDT MEDJUANITO ([facility]) ECG ROUTINE ECG W/LEAST 12 LDS W/I&R 03/04/2021 12:00: 00 AM EDT MEDENT ([facility]) OFFICE OUTPATIENT VISIT 25 MINUTES 03/04/2021 12:00:00 AM EDT MEDENT ([facility]) Spirometry 03/03/2021 12:00:00 AM EDT Silvia CAMPBELL ([facility] ) OFFICE OUTPATIENT VISIT 15 MINUTES 03/03/2021 12:00:00 AM EDT MEDJUANITO ([facility], ) OFFICE OUTPATIENT VISIT 15 MINUTES 02/27/2021 12:00:00 AM EDT MEDENT ([facility]) ARTHROCENTESIS ASPIR&/INJECTION MAJOR JT/BURSA 01/02/2 021 12:00:00 AM EDT MEDENT ([facility]) RADEX SHOULDER COMPLETE MINIMUM 2 VIEWS 01/02/2021 12: 00:00 AM EDT MEDENT ([facility]) OFFICE OUTPATIENT VISIT 25 MINUTES 01/02/2021 12:00:00 AM EDT MEDENT ([facility]) Spirometry 01/02/2021 12:00:00 AM EDT Silvia CAMPBELL ([facility], ) OFFICE OUTPATIENT VISIT 25 MINUTES 01/02/2021 12:00:00 AM EDT MEDJUANITO ([facility]) OFFICE OUTPATIENT VISIT 25 MINUTES 12/31/2020 12:00:00 AM EDT MEDENT ([facility]) Surgical / procedural history Hysterect jazmin 1979, Left Rotator cuff surgery 08/2001, Right knee surgery arthroscopy surgery- torn meniscus 04/05/2005, Dilation with balloon, Upper Gastro/Esoph Endoscopy 07/21/2004, Botox injections both eyes 02/23/2012, Blepharoptosis repair both eyelids 10/06/2016, Blepharospasm, [facility]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 Reich 05/03/17 11/17/2020 12:00:00 AM EDT TSERING (Segun Owusu MD 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) Cataract surgery (procedure) History of cataract surge ry of right eye 2012 with 11/11/2020 12:00:00 AM EST TSERING (Segun Owusu MD [facility]) Intermediate Eye Exam Established Patient Intermediate Eye Exam Established Patient 11/11/2020 12:00:00 AM EST TSERING (Segun Owusu MD [facility]) Intermediate Eye Exam Established Patient Intermediate Eye Exam Established Patient 11/11/2020 12:00:00 AM EST TSERING (Segun Owusu MD [facility]) Medication: Aquaphor healing ointment topical 10/07/19 12:00:00 AM EST eCW1 ([facility]) Spirometry 09/09/2020 12:00:00 AM EST M EDENT ([facility] ) OFFICE OUTPATIENT VISIT 25 MINUTES 09/09/2020 12:00:00 AM EST MEDENT ([facility] ) ECG ROUTINE ECG W/LEAST 12 LDS W/I&R 09/03/2020 12:00: 00 AM EST [facility] ([facility]) FINE NEEDLE ASPIRATION W/O IMAGING GUIDANCE 08/13/2020 12:00:00 AM EST eCW1 ([facility]) FINE NEEDLE ASPIRATION W/O IMAGING GUIDANCE 08/06/2020 12:00:00 AM EST eCW1 ([facility]) RADIOLOGIC EXAMINATION TIBIA & FIBULA 2 VIEWS 07/07/20 20 12:00:00 AM EST MED[facility] ([facility] ) Diabetic Foot Exam 06/05/2020 12:00:00 AM EDT MED[facility] ([facility] ) Spirometry 06/03/2020 12:00:00 AM EDT M EDENT ([facility] ) Results ID Date Data Source [id number] 05/19/2021 12:00:00 AM EDT eCW1 ([facility]) Name Value Range Interpretation Code Description Data Aditi rce(s) Supporting Document(s) Hemoglobin A1c/Hemoglobin.total in Blood 7.0 HEMOGLOBIN A1c [facility] ([facility]) ID Date Data Source [id number] 05/04/2021 02:43:00 PM EDT [facility] Name Value Range Interpretation Code Description Data Aditi rce(s) Supporting Document(s) SARS coronavirus 2 RNA [Presence] in Res piratory specimen by IVY with probe detection POSITIVE [facility] This lab was ordered by [facility] a nd reported by [facility]. ID Date Data Source [id number] 04/03/2021 10:02:00 AM EDT [facility] Name Value Range Interpretation Code Description Data Aditi rce(s) Supporting Document(s) SARS-CoV-2 (COVID 19) NEGATIVE - SARS-CoV-2 (COVID19) [facility] This lab was ordered by [facility] a nd reported by [facility]. ID Date Data Source [id number] 03/03/2021 02:43:00 PM EDT MEDENT ([facility] ) Name Value Range Interpretation Code Description Data Aditi rce(s) Supporting Document(s) PDFReport Laboratory test result MEDENT ([facility] ) FVC-Pre 2.58 L MEDENT ([facility]) FVC-Pred 2.40 L [facility] ([facility]) FVC-%Pred-Pre 107 L MEDENT ([facility]) FVC-LLN 1.73 L [facility] ([facility]) Fev1-Pred 1.78 L [facility] ([facility]) Fev1-Pre 1.79 L [facility] ([facility]) Fev1-%Pred-Pre 100 L MEDENT ([facility]) Fev6-Pred 2.26 L [facility] ([facility]) Fev1-LLN 1.21 L [facility] ([facility]) Fev6-%Pred-Pre 112 L [facility] ([facility]) Fev6-Pre 2.55 L [facility] ([facility]) Fev6-LLN 1.60 L [facility] ([facility]) His8jdx-Opfa 73 % MEDENT ([facility]) Bui2jrv-%Pred-Pre 94 % MEDENT ([facility]) Qwp3njx-Cbl 69 % [facility] ([facility]) Dpz7hvb-Hcqc 94 % [facility] ([facility]) Wdj7qxh-ZNE 64 % [facility] ([facility]) Eak8uwh-%Pred-Pre 104 % MED[facility] ([facility]) Jzr6wjb-Jlu 99 % [facility] ([facility]) FEFMax-%Pred-Pre 114 L/E/sec MED[facility] ([facility]) FEFMax-Pre 5.08 L/E/sec MEDENT ([facility], ) FEFMax-Pred 4.44 L/E/sec [facility] ([facility]) Xja3043-Euqk 1.25 L/E/sec MEDENT ([facility]) FEFMax-LLN 2.78 L/E/sec MED[facility] ([facility]) Cfm3874-%Pred-Pre 84 L/E/sec [facility] ([facility]) Ozy1652-Dhv 1.05 L/E/sec [facility] ([facility]) Oal6691-WVE 0.05 L/E/sec MED[facility] ([facility]) ExpTime-Pre 8.03 sec MEDENT ([facility]) Tyn8feo2-Jvz 70 % [facility] ([facility]) Dzi0zdl3-Pftm 77 % [facility] ([facility]) Bwn0kel7-%Pred-Pre 90 % MED[facility] ([facility]) Gtb5mxq6-JUA 68 % [facility] ([facility]) ID Date Data Source LIPID PANEL (CARDIAC RISK) 02/19/2021 12:00:00 AM EDT W1 ( [facility]) Name Value Range Interpretation Code Description Data Aditi rce(s) Supporting Document(s) Cholesterol [Moles/volume] in Serum or Plasma 145 <200 CHOLESTEROL LEVEL eCW ([facility]) Triglyceride [Mass/volume] in Serum or Plasma by calculation 301 <150 TRIGLYCERIDES LEVEL eCW1 ([facility]) Cholesterol in HDL [Moles/volume] in Serum or Plasma 53 >[address] [facility] ([facility]) 2.735 <5 CHOLESTEROL RISK RATIO eC ([facility] Cholesterol in LDL [Mass/volume] in Serum or Plasma by calculation 32 <100 LDL CHOLESTEROL eC ([facility]) 92 NON-HDL-C eCW1 ([facility]) ID Date Data Source FREE T4 & TSH PANEL 02/19/2021 12:00:00 AM EDT eCW1 ([facility]) Name Value Range Interpretation Code Description Data Aditi rce(s) Supporting Document(s) 1.10 0.76-1.46 FREE T4 eCW1 ([facility]) 1.290 0.358-3.740 THYROID STIMULATING HORM ONE eCW1 ([facility]) ID Date Data Source Comprehensive Metabolic Profile (CMP) 02/19/2021 12:00:00 AM EDT eCW1 ([facility]) Name Value Range Interpretation Code Description Data Aditi rce(s) Supporting Document(s) 1.02 0.55-1.30 CREATININE FOR GFR eCW1 (Counts include [facility] beds at the [facility]) 190 70-100 GLUCOSE, FASTING eCW1 ([facility]) 16 7-18 BLOOD UREA NITROGEN eCW1 ([facility]) 55.2 >32 GLOMERULAR FILTRATION RATE eCW 1 ([facility]) 4.3 3.5-5.1 POTASSIUM SERUM eCW1 ([facility]) 142 136-145 SODIUM LEVEL eCW1 ([facility]) 108 98-107 CHLORIDE LEVEL eCW1 ([facility]) 10.0 8.8-10.2 CALCIUM LEVEL eCW1 ([facility]) 20 7-37 AST/SGOT eCW1 ([facility]) 28 21-32 CARBON DIOXIDE LEVEL eCW1 ([facility]) 1.4 0.2-1.0 BILIRUBIN,TOTAL eCW1 ([facility]) 25 12-78 ALT/SGPT eCW1 ([facility]) 111 45-117 ALKALINE PHOSPHATASE eCW1 ([facility]) 7.1 6.4-8.2 TOTAL PROTEIN eCW1 ([facility]) 4.0 3.2-5.2 ALBUMIN eCW1 ([facility]) 1.3 1.2-2.2 ALBUMIN/GLOBULIN RATIO [facility] ID Date Data Source [id number] 02/12/2021 11:10:00 AM EDT [facility] ([facility]) Name Value Range Interpretation Code Description Data Aditi rce(s) Supporting Document(s) Glucose, Fasting 106 mg/dL 70-100 [facility] ([facility]) Blood Urea Nitrogen 18 mg/dL 7-18 [facility] ([facility]) Creatinine For GFR 1.00 mg/dL 0.55-1.30 [facility] ([facility]) Glomerular Filtration Rate 56.5 MED ENT ([facility]) <content>Units are mL/min/1.73 m2</content>
<content></content>
<content>Chronic Kidney Disease Staging per NKF:</content>
<content></content>
<content>Stage I & II GFR >=60 Normal to Mildly Decreased</content>
<content>Stage III GFR 30- 59 Moderately Decreased</content>
<content>Stage IV GFR 15-29 Severely Decreased</content>
<content>Stage V GFR <15 Very Little GFR Left</content>
<content>ESRD GFR <15 on [employer]</content>
<content></content> Sodium Level 143 meq/L 136-145 [facility] ([facility]) Potassium Serum 4.3 meq/L 3.5-5.1 [facility] ([facility]) Chloride Level 107 meq/L 98-107 [facility] ([facility]) Carbon Dioxide Level 27 meq/L 21-32 [facility] ([facility] Anion Gap 9 meq/L 8-16 [facility] ([facility] Calcium Level 9.8 mg/dL 8.8-10.2 [facility] ([facility]) ID Date Data Source [id number] 01/12/2021 03:46:00 PM EDT [facility] 1 Medication Reconciliation Report [facility] Emergency Department [address] [place] [address] Phone #: [phone] 01/12/2021 15:06 Patient: HONG SCALES Sex: F : 1940 Age: 80yWeight: 99.7 kgHeight/Length: 63 in.BMI: 38.9ALLERGIES: Amitriptyline, Ceclor, PenicillinsThe patient's Home Medications are listed below:CONTINUE TAKING THE FOLLOWING MEDICATIONS: Joyce Allergy Oral (180 mg), daily Alphagan P Ophthalmic (0.1 %), daily amLODIPine Besylate Oral (5 mg), daily Aspirin Adult Oral (325 mg), daily Crestor Oral (20 mg), daily Flovent Diskus Inhalation, daily Levothyroxine Sodium Oral (112 mcg), daily Lumigan Ophthalmic, daily Magnesium Oxide Oral (400 mg), daily metFORMIN HCl Oral (500 mg), 3x a day Montelukast Sodium Oral (10 mg), daily PreserVision AREDS 2 Oral, daily ProAir HFA Inhalation, daily Protonix Oral (40 mg), daily Spironolactone Oral (25 mg) 1/2 tablet, daily 2 Medication Reconciliation Report [facility] Emergency Department [address] [place] [address] Phone #: ext- [phone] 01/12/2021 15:06 Patient: HONG SCALES Sex: F : 1940 Age: 80yThe source(s) of the original Home Medication information:Not obtained.The following Medications were given to the patient in the Emergency Department:None.The following Medications were prescribed to the patient:None. Name Value Range Interpretation Code Description Data Aditi rce(s) Supporting Document(s) ID Date Data Source [id number] 01/12/2021 03:46:00 PM EDT [facility] 1 Medication Administration Record [facility] Emergency Department [address] [place] [address] Phone #: ext- [phone] 01/12/2021 15:06 Patient: HONG SCALES Sex: F : 1940 Age: 80yWeight: 99.7 kgHeight/Length: 63 inBMI: 38.9ALLERGIES: Ceclor, Penicillins, AmitriptylineDate/Time Medication Administered Medication Ordered Name Value Range Interpretation Code Description Data Aditi rce(s) Supporting Document(s) ID Date Data Source [id number] 01/12/2021 03:46:00 PM EDT [facility] 1 General Instructions [facility] Emergency Department [address] [place] [address] Phone #: ext [phone] 01/12/2021 15:06 Patient: HONG SCALES Sex: F : 1940 Age: 80ySingle contusion with soft tissue hematoma to the left forearm.INSTRUCTIONSWarnings: Further evaluation is necessary. It is very important to follow up with a healthcare provider.GENERAL WARNINGS: Return or contact your physician immediately if your condition worsens orchanges unexpectedly, if not improving as expected, or if other problems arise. Specifically return if pain,vomiting, bleeding, breathing difficulty or fever greater than 103 degrees F and not controlled byacetaminophen.Your Current Medications: Your current home medications have been reviewed.CONTINUE TAKING THE FOLLOWING MEDICATIONS:Joyce Allergy Oral : Tablet 180 mg, daily.Alphagan P Ophthalmic : Solution 0.1 %, daily.amLODIPine Besylate Oral : Tablet 5 mg, daily.Aspirin Adult Oral : Tablet 325 mg, daily.Crestor Oral : Tablet 20 mg, daily.Flovent Diskus Inhalation : daily.Levothyroxine Sodium Oral : Tablet 112 mcg, daily.Lumigan Ophthalmic : daily.Magnesium Oxide Oral : Tablet 400 mg, daily.metFORMIN HCl Oral : Tablet 500 mg, 3x a day.Montelukast Sodium Oral : Tablet 10 mg, daily.PreserVision AREDS 2 Oral : daily.ProAir HFA Inhalation : daily.Protonix Oral : Tablet Delayed Release 40 mg, daily.Spironolactone Oral : Tablet 25 mg, 1/2 tablet daily.Follow-up:Return to the emergency department as needed. Follow up with your healthcare provider in three dayseven if well. Call for an appointment. Reason for referral: evaluation and treatment. Summary of careprovided to patient via paper.Understanding of the discharge instructions verbalized by patient. Expected course of injury, dischargeinstructions, activity level, diet, follow-up appointment and risks and benefits of treatment reviewed withpatient and understanding verbalized. Agrees to plan of care. 2 General Instructions [facility] Emergency Department [address] [place] [address] Phone #: [phone]- [phone] 01/12/2021 15:06 [id number] Sex[facility] : 1940 Age: 80y ADDITIONAL INFORMATIONSoft Tissue Bruise (Contusion)You have a bruise (contusion). There is swelling and some bleeding under the skin. Thisinjury generally takes a few days to a few weeks to heal. During that time, the bruise will typicallychange in color from reddish, to purple-blue, to greenish-yellow, then to yellow-brown.Home care Elevate the injured area to reduce pain and swelling. As much as possible, sit or lie down with the injured area raised about the level of your heart. This is especially important during the first 48 hours. Ice the injured area to help reduce pain and swelling. Wrap an ice pack in a thin towel. Apply to the bruised area for 20 minutes every 1 to 2 hours the first day. Continue this 3 to 4 times a day until the pain and swelling goes away. You can make an ice pack by placing ice cubes in a plastic bag. Unless another medicine was prescribed, you can take acetaminophen, ibuprofen, or naproxen to control pain. Talk with your doctor before using these medicines if you have chronic liver or kidney disease or ever had a stomach ulcer or digestive bleeding.Follow-up careFollow up with your healthcare provider, or as advised. Call if you are not better in 1 to 2 weeks.When to seek medical adviceCall your healthcare provider right away if you have any of the following: Increased pain or swelling Bruise is on an arm or leg and arm or leg becomes cold, blue, numb or tingly Signs of infection: Warmth, drainage, or increased redness or pain around the contusion Inability to move the injured area or body part Bruise is near your eye and you have problems with your eyesight or eye Frequent bruising for unknown reasons [id number] [employer]. [address] [place] [address]. All rights reserved. This information is not intended as asubstitute for professional medical care. Always follow your healthcare professional's instructions. 3 General Instructions [facility] Emergency Department [address] [place] [address] Phone #: ext- [phone] 01/12/2021 15:06 Patient: HONG SCALES [facility]#: [id number] Sex: F : 1940 Age: 80yUpper Extremity BruiseYou have a bruise (contusion) on your arm, wrist, hand, or fingers. Symptoms include pain, swelling,and skin discoloration. No bones are broken. This injury may take from a few days to a few weeks toheal. During that time, the bruise may change from reddish in color, to purple-blue, to green-yellow, toyellow-brown.Home care Unless another medicine was prescribed, you can take acetaminophen, ibuprofen, or naproxen to control pain. Talk with your healthcare provider before using these medicines if you have chronic liver or kidney disease or ever had a stomach ulcer or digestive bleeding. Elevate the injured area to reduce pain and swelling. As much as possible, sit or lie down with the injured area raised about the level of your heart. This is especially important during the first 48 hours. Ice the injured area to help reduce pain and swelling. Wrap an ice pack or ice cubes in a plastic bag in a thin towel. Apply to the bruised area for 20 minutes every 1 to 2 hours the first day. Continue this 3 to 4 times a day until the pain and swelling goes away. If a sling was provided, you may remove it to shower or bathe. To prevent joint stiffness, don't wear it for more than 1 week.Follow-up careFollow up with your healthcare provide, or as advised. Call if you are not improving within the next 1to 2 weeks.When to seek medical adviceCall your healthcare provider right away if any of these occur: Increased pain or swelling Hand or fingers become cold, blue, numb or tingly Signs of infection: Warmth, drainage, or increased redness or pain around the injury Inability to move the injured body part, the hand, or individual fingers. Frequent bruising for unknown reasons [id number] [employer]. [address] [place] [address]. All rights reserved. This information is not intended as asubstitute for professional medical care. Always follow your healthcare professional's instructions. 4 General Instructions [facility] Emergency Department [address] [place] [address] Phone #: ext- [phone] 01/12/2021 15:06 [id number] Sex[facility] F : 1940 Age: 80yYou have been given the following additional information:Soft Tissue ContusionContusion, Upper Extremity(Electronically signed by Contreras Joya M.D. 01/12/2021 19:21) Name Value Range Interpretation Code Description Data Aditi rce(s) Supporting Document(s) ID Date Data Source [id number] 01/12/2021 03:46:00 PM EDT [facility] 1 Clinical Report - Nurses [facility] Emergency Department [address] [place] [address] Phone #: ext- [phone] 01/12/2021 15:06 Patient: HONG SCALES Sex: F : 1940 Age: 80yTRIAGE Arrived by private vehicle. Historian: patient and family. Accompanied by family. Acuity: LEVEL 3. Chief Complaint: LEFT UPPER EXTREMITY SWELLING and REDNESS. Alert. No acute distress. No injury occurred. This started yesterday. ( PT said on Tuesday she noticed bruising and swelling to her left anterior forearm. She tested positive for covid on January 07 and says she was out of quarantine on January 10 because she was exposed on December 28. She called the covid line today and was told to come to the ER.). The patient has had a cough. 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 SEPSIS SCREEN: SIRS SCREEN NEGATIVE. SEPSIS SCREEN NEGATIVE. No suspected or confirmed signs of infection present. CARLEEN COMA SCORE: 15- eyes open- spontaneous (4); best verbal response- oriented (5); best motor response- obeys commands (6). --15:40 01/12/21 Daniela Rodriguez R.N. 15:27 01/12/21. HR: 75. RR: 18. O2 saturation: 98%. Temp: 97.2 F. Pain level now: 010. --15:40 01/12/21 Daniela Rodriguez R.N. 15:51 01/12/21. BP: 148/83. MAP: 104. --15:52 01/12/21 Daniela Rodriguez R.N. Weight: 99.7 kg stated. Height/Length: 63 inches Per Patient. BMI: 38.9. --15:38 01/12/21 Daniela Rodriguez R.N. Medications ProAir HFA Inhalation, daily. --16:13 01/12/21 Daniela Rodriguez R.N. Alphagan P Ophthalmic (Solution 0.1 %), daily. --16:14 01/12/21 Daniela Rodriguez R.N. amLODIPine Besylate Oral (Tablet 5 mg), daily. --16:14 01/12/21 Daniela Rodriguez R.N. Aspirin Adult Oral (Tablet 325 mg), daily. --16:14 01/12/21 Daniela Rodriguez R.N. Joyce Allergy Oral (Tablet 180 mg), daily. --16:15 01/12/21 Daniela Rodriguez R.N. Flovent Diskus Inhalation, daily. --16:15 01/12/21 Daniela Rodriguez R.N. Levothyroxine Sodium Oral (Tablet 112 mcg), daily. --16:15 01/12/21 Daniela Rodriguez R.N. Lumigan Ophthalmic, daily. --16:16 01/12/21 Daniela Rodriguez R.N. Magnesium Oxide Oral (Tablet 400 mg), daily. --16:16 01/12/21 Daniela Rodriguez R.N. metFORMIN HCl Oral (Tablet 500 mg), 3x a day. --16:16 01/12/21 Daniela Rodriguez R.N. 2 Clinical Report - Nurses [facility] Emergency Department [address] [place] [address] Phone #: ext- [phone] 01/12/2021 15:06 [id number] Sex[facility] F : 1940 Age: [age]yMontelukast Sodium Oral (Tablet 10 mg), daily. --16:16 01/12/21 Daniela Rodriguez R.N.Protonix Oral (Tablet Delayed Release 40 mg), daily. --16:17 01/12/21 Daniela Rodriguez R.N.PreserVision AREDS 2 Oral, daily. --16:17 01/12/21 Daniela Rodriguez R.N.Crestor Oral (Tablet 20 mg), daily. --16:17 01/12/21 Daniela Rodriguez R.N.Spironolactone Oral (Tablet 25 mg) 1/2 tablet, daily. --16:18 01/12/21 Daniela Rodriguez R.N.AllergiesAmitriptyline. --15:34 01/12/21 Daniela Rodriguez R.N.Penicillins. --15:34 01/12/21 Daniela Rodriguez R.N.Ceclor. --15:34 01/12/21 Daniela Rodriguez R.N.PROBLEMS:Left bundle branch block.Diabetes Mellitus Type 2.Atrial Septal Defect.Osteoporosis.CVA - Cerebrovascular Accident. --15:35 01/12/21 Daniela Rodriguez R.N.HistoryPAST MEDICAL HX: Immunizations: up-to-date.SOCIAL HX: Never smoker. No alcohol use or drug use. The patient was offered HIV testing butdeclined and hepatitis C testing but declined. The patient has not traveled outside the [place]Infectious disease exposure: The patient was exposed to Coronavirus. The patient was not exposed Rozina-diff, MRSA, VRE or CRE.SELF HARM ASSESSMENT: Self harm assessment was performed. The patient answered "no" to thequestion(s) "Have you recently felt down, depressed, or hopeless?", "Do you have thoughts of harming orkilling yourself?", "Do you have a plan for harming or killing yourself?", "Have you recently had thoughtsabout harming or killing others?", "Do you have any dangerous items in your possession?", "Have younoticed less interest or pleasure in doing things?", "Are you here because you tried to hurt yourself?" and"Have you ever tried to hurt yourself before today?".ABUSE ASSESSMENT: No report of abuse.NUTRITIONAL RISK ASSESSMENT: The nutritional risk assessment revealed no deficiencies.FUNCTIONAL ASSESSMENT: Functional assessment: no impairments noted.LEARNING NEEDS ASSESSMENT: The learning needs assessment revealed no barriers.FALL RISK ASSESSMENT: Fall risk assessment completed. Risk factors identified include patient agegreater than 65 years and history of fall. Fall interventions initiated. Side rails up. Patient identified as a fallrisk. Instructions given to patient including fall prevention information. 3 Clinical Report - Nurses [facility] Emergency Department [address] [place] [address] Phone #: ext- [phone] 01/12/2021 15:06 Patient: HONG SCALES Sex: F : 1940 Age: 80y SKIN INTEGRITY ASSESSMENT: Skin integrity risk assessment completed. No skin integrity risk identified. --15:40 01/12/21 Daniela Rodriguez R.N. Interventions Identification and allergy band on patient. To treatment room. --15:40 01/12/21 Daniela Rodriguez R.N.PHYSICAL ASSESSMENT GENERAL / NEURO / PSYCH: Oriented X 4. Alert. Appears in no acute distress. EXTREMITIES: Extremities exhibit normal ROM. No upper extremity edema. Skin is non-tender on the extremities. Left forearm: ecchymosis. SKIN: Skin intact. Skin is warm and dry. --16:13 01/12/21 Daniela Rodriguez R.N.NURSING PROGRESS NOTES 16:03 01/12/21. BP: 145/58. MAP: 87. HR: 62. RR: 16. O2 saturation: 94%. --16:03 01/12/21 Carol Gongora ED, ER Tech1 15:58 01/12/21. Patient gowned. Two patient identifiers checked. Call light placed in reach. Patient ready for evaluation- ED physician notified. --16:13 01/12/21 Daniela Rodriguez R.N.DISPOSITION / DISCHARGE 16:22 01/12/21. BP: 125/80. MAP: 95. HR: 69. RR: 16. O2 saturation: 98%. Temp: 98.2 F. Pain level now: 10/15. --16:22 01/12/21 Luis Manuel hot tar rooferCarol Morales ER Tech1 Condition at departure: unchanged. No learning barriers present. Discharge instructions provided and reviewed with the patient. Patient verbalized understanding. Written instructions provided in Mexican. The patient was discharged home and accompanied by family. She left ambulatory and via private vehicle. Family member driving. --16:27 01/12/21 Bea Hernández R.N. Departure time: 16:27 01/12/2021. --16:27 01/12/21 Bea Hernández R.N.Locked/Released at 01/12/2021 16:27 by Bea Hernández R.N. Name Value Range Interpretation Code Description Data Aditi rce(s) Supporting Document(s) ID Date Data Source [id number] 01/12/2021 03:46:00 PM EDT [facility] 1 Clinical Report - Physicians/Mid Levels [facility] Emergency Department [address] [place] [address] Phone #: ext- [phone] 01/12/2021 15:06 [id number] Sex[facility] F : 1940 Age: 80y Time Seen: 15:38 01/12/2021; initial patient contact. Arrived- By private vehicle. Historian- patient. Disposition decision: 16:19 01/12/2021.HISTORY OF PRESENT ILLNESS Chief Complaint: SKIN RASH and (bruising). This started yesterday and is still present. It has been constant. Not itchy, painful or burning. It has been located on the left upper extremity. No cause has been identified. No recent medication, insect bite or food exposure. Was not recently exposed to poison tiarra or poison oak. (pt had Covid exposure on 4-25, tested positive 5-5, and out of quarantine 5-8; pt denies trauma). Similar symptoms previously. None. Recent medical care: Not recently seen/assessed.REVIEW OF SYSTEMSNo fever, chills, sore throat, cough or difficulty breathing. No hoarseness, lump in throat, enlarged lymphnodes, headache or eye irritation. No chest pain, abdominal pain, nausea, diarrhea or difficulty withurination. No joint pain or vomiting. All other systems reviewed and are negative.PAST HISTORYSee nurses notes. Tetanus immunization status is up-to-date. Problems: Hypothyroidism. Hypertension. Hypercholesterolemia. Left bundle branch block. Diabetes Mellitus Type 2. Atrial Septal Defect. Osteoporosis. CVA - Cerebrovascular Accident. Additional Surgeries: Atrial Septal Defect Repair. Cataract Surgery. Hysterectomy. Knee Surgery. Allergies: Amitriptyline. 2 Clinical Report - Physicians/Mid [facility] Emergency Department [address] [place] [address] Phone #: ext- [phone] 01/12/2021 15:06 Patient: HONG SCALES Sex: F : 1940 Age: 80y Ceclor. Penicillins.SOCIAL HISTORYNever smoker. No alcohol use or drug use.ADDITIONAL NOTESThe nursing notes have been reviewed with agreement regarding the chief complaint, HPI, ROS, PMH andpatient medications and allergies.PHYSICAL EXAMVital Signs: 01/12/2021 16:03 BP: 145/58. MAP: 87. HR: 62. RR: 16. O2 saturation: 94%.01/12/2021 15:51 BP: 148/83. MAP: 104.01/12/2021 15:27 HR: 75. RR: 18. O2 saturation: 98%. Temp: 97.2 F. Pain level now: 0/10. Have beenreviewed. Oxygen saturation normal.Appearance: Alert. Oriented X3. No acute distress.Eyes: Pupils equal, round and reactive to light. Conjunctivae and eyelids normal.ENT: Nose normal. Pharynx normal.Neck: Neck supple.CVS: Normal heart rate and rhythm. Heart sounds normal.Respiratory: No respiratory distress. Breath sounds normal. Chest nontender.Abdomen: Nontender. No organomegaly.Skin: Skin warm and dry. Normal skin color. Normal skin turgor. (small ecchymotic bruise dorsum midleft forearm, 2-3 cm, no sts, no cellulitis, no pain).Extremities: Extremities nontender. (see above).Neuro: Oriented X 3. No motor deficit. No sensory deficit.PROGRESS AND PROCEDURESCourse of Care: 16:14 01/12/21. pt small ecchymotic bruise dorsum left forearm w/o any other findingssuch as pain, cellulitis, STS, probably from benign injury; pt will be d/c home w instructions, pt understandsand agrees. Patient counseled in person regarding the patient's stable condition, diagnosis and need for follow-up. Patient agrees with plan of care. Disposition: Condition: good and stable. Discharge decision based on the following: patient's condition is stable; patient's condition is improved; patient is ambulatory; patient is active; patient drinking fluids; patient eating; patient's pain is controlled; patient's exam is improved; improving condition on repeat evaluation; social support is good; transportation is available; follow-up is available; clinical impression is consistent with outpatient treatment.CLINICAL IMPRESSION Single contusion with soft tissue hematoma to the left forearm. 3 Clinical Report - Physicians/Mid Levels [facility] Emergency Department [address] [place] [address] Phone #: ext- [phone] 01/12/2021 15:06 [id number] Sex: F : Age: 80yINSTRUCTIONS Warnings: Further evaluation is necessary. It is very important to follow up with a healthcare provider. GENERAL WARNINGS: Return or contact your physician immediately if your condition worsens or changes unexpectedly, if not improving as expected, or if other problems arise. Specifically return if pain, vomiting, bleeding, breathing difficulty or fever greater than 103 degrees F and not controlled by acetaminophen. Your Current Medications: Your current home medications have been reviewed. CONTINUE TAKING THE FOLLOWING MEDICATIONS: Joyce Allergy Oral : Tablet 180 mg, daily. Alphagan P Ophthalmic : Solution 0.1 %, daily. amLODIPine Besylate Oral : Tablet 5 mg, daily. Aspirin Adult Oral : Tablet 325 mg, daily. Crestor Oral : Tablet 20 mg, daily. Flovent Diskus Inhalation : daily. Levothyroxine Sodium Oral : Tablet 112 mcg, daily. Lumigan Ophthalmic : daily. Magnesium Oxide Oral : Tablet 400 mg, daily. metFORMIN HCl Oral : Tablet 500 mg, 3x a day. Montelukast Sodium Oral : Tablet 10 mg, daily. PreserVision AREDS 2 Oral : daily. ProAir HFA Inhalation : daily. Protonix Oral : Tablet Delayed Release 40 mg, daily. Spironolactone Oral : Tablet 25 mg, 1/2 tablet daily. Follow-up: Return to the emergency department as needed. Follow up with your healthcare provider in three days even if well. Call for an appointment. Reason for referral: evaluation and treatment. Summary of care provided to patient via paper. Understanding of the discharge instructions verbalized by patient. Expected course of injury, discharge instructions, activity level, diet, follow-up appointment and risks and benefits of treatment reviewed with patient and understanding verbalized. Agrees to plan of care.(Electronically signed by Contreras Joya M.D. 01/12/2021 19:21) 4Clinical Report - Physicians/Mid Levels [facility] Emergency Department [address] [place] [address] Phone #: [phone] 01/12/2021 15:06 [id number] Sex: F : Age: 80y Name Value Range Interpretation Code Description Data Aditi rce(s) Supporting Document(s) ID Date Data Source [id number] 01/07/2021 10:03:00 AM EDT [facility] Name Value Range Interpretation Code Description Data Aditi rce(s) Supporting Document(s) SARS COVID ANTIGEN POSITIVE [facility] This lab was ordered by CHRISTOPHE hernandez nd reported by [facility]. ID Date Data Source Coronavirus 2019 NOSE (Send Out) COVID 01/07/2021 12:00:00 A M EDT eCW1 ([facility]) Name Value Range Interpretation Code Description Data Aditi rce(s) Supporting Document(s) NOTE: The COVID-19 assay is under Emergency Use Authorization (EUA) by the CORONAVIRUS 2019 NOSE eCW1 ([facility]) ID Date Data Source [id number] 01/02/2021 10:26:00 AM EDT [facility] ([facility], ) Name Value Range Interpretation Code Description Data Aditi rce(s) Supporting Document(s) PDFReport Laboratory test result [facility] ([facility], ) FVC-Pred 2.40 L [facility] ([facility]) FVC-Pre 2.26 L [facility] ([facility]) FVC-%Pred-Pre 93 L [facility] ([facility]) FVC-LLN 1.73 L [facility] ([facility]) Fev1-Pre 1.54 L [facility] ([facility]) Fev1-Pred 1.78 L [facility] ([facility]) Fev1-%Pred-Pre 86 L [facility] ([facility]) Fev1-LLN 1.21 L [facility] ([facility]) Fev6-%Pred-Pre 99 L [facility] ([facility]) Fev6-Pred 2.26 L [facility] ([facility]) Fev6-Pre 2.26 L [facility] ([facility]) Iby8sya-Lfpw 73 % [facility] ([facility]) Fev6-LLN 1.60 L [facility] ([facility]) Mgt3fsg-YHT 64 % [facility] ([facility]) Shv0uss-%Pred-Pre 92 % [facility] ([facility]) Uyx2wnj-Xfa 68 % [facility] ([facility]) Xsx9uoi-Bfve 94 % [facility] ([facility]) Gzb2oww-%Pred-Pre 106 % [facility] ([facility]) Wkr5zwq-Jal 100 % [facility] ([facility]) FEFMax-Pre 4.26 L/E/sec [facility] ([facility]) FEFMax-Pred 4.44 L/E/sec [facility] ([facility]) FEFMax-LLN 2.78 L/E/sec [facility] ([facility]) FEFMax-%Pred-Pre 95 L/E/sec [facility] ([facility]) Snm1121-%Pred-Pre 69 L/E/sec [facility] ([facility] [facility]) Qvf0318-Fzj 0.86 L/E/sec [facility] ([facility]) Dpn8722-Nyfw 1.25 L/E/sec [facility] ([facility]) Fll2907-YJV 0.05 L/E/sec [facility] ([facility]) ExpTime-Pre 6.76 sec MED[facility] ([facility]) Msw1sbj9-Ouq 68 % [facility] ([facility]) Jgo0sla8-Uamj 77 % MED[facility] ([facility]) Pjs7rix4-%Pred-Pre 88 % [facility] ([facility]) Efr1zgq7-BUY 68 % [facility] ([facility]) ID Date Data Source [id number] 11/11/2020 10:53:00 AM EST MED[facility] ([facility]) Name Value Range Interpretation Code Description Data Aditi rce(s) Supporting Document(s) PDFReport Laboratory test result MEDENT ([facility]) FVC-Pred 2.40 L MED[facility] ([facility]) FVC-Pre 2.30 L MED[facility] ([facility], ) FVC-%Pred-Pre 95 L MEDENT ([facility], ) Fev1-Pre 1.61 L [facility] ([facility]) FVC-LLN 1.73 L [facility] ([facility]) Fev1-Pred 1.78 L MED[facility] ([facility]) Fev1-%Pred-Pre 90 L MEDENT ([facility], ) Fev1-LLN 1.21 L MED[facility] ([facility], ) Fev6-Pred 2.26 L MED[facility] ([facility]) Fev6-%Pred-Pre 101 L MED[facility] ([facility]) Fev6-Pre 2.30 L [facility] ([facility]) Fev6-LLN 1.60 L [facility] ([facility]) Uib9rin-Sjzz 73 % MED[facility] ([facility]) Xnu4vjp-Kvl 70 % [facility] ([facility]) Qhl8vvo-KRZ 64 % [facility] ([facility]) Qfq2tlx-%Pred-Pre 95 % MED[facility] ([facility]) Hgi1zmn-Nnk 100 % MED[facility] ([facility]) Eji2alw-Asya 94 % MED[facility] ([facility]) Wdt0szr-%Pred-Pre 105 % [facility] ([facility]) FEFMax-Pred 4.44 L/E/sec MED[facility] ([facility], ) FEFMax-Pre 5.22 L/E/sec MED[facility] ([facility]) Tay8208-Iuzs 1.25 L/E/sec MED[facility] ([facility]) FEFMax-%Pred-Pre 117 L/E/sec [facility] ([facility]) FEFMax-LLN 2.78 L/E/sec MED[facility] ([facility], ) Zbt3677-Obd 1.01 L/E/sec MED[facility] ([facility], ) Cej8203-%Pred-Pre 81 L/E/sec [facility] ([facility]) Xgk1040-CBE 0.05 L/E/sec [facility] ([facility], ) ExpTime-Pre 7.28 sec MED[facility] ([facility]) Qdu3smc4-Rgms 77 % [facility] ([facility]) Igv6tnw5-%Pred-Pre 90 % [facility] ([facility]) Pdb9tsl6-Jje 70 % [facility] ([facility]) Qhs7mir4-GKP 68 % [facility] ([facility]) ID Date Data Source [id number] 09/24/2020 12:00:00 AM EST [facility] Gloria Maxwell Pa-C Patient Name: HONG [id number] Graham Barriga Date of : 1940[address] Date of Exam: 09/24/2020LUCY Baptiste [id number]#: Fax: [phone] EXAM: US CAROTID BILATERAL COMPLETECLINICAL INFORMATION: Followup stenosis.There is patchy echogenic material seen along the carotid arterial wallssome of which casts an acoustic shadow. RIGHT LEFTCCA/PSV 62.3 cm/s 80.0 cm/sCCA/EDV 13.8 cm/s 13.3 cm/Virid[place]/PSV 60.2 cm/s 52.0 cm/Viridiana/EDV 14.9 cm/s 16.5 cm/sECA/PSV 111 cm/s 97.8 cm/Viridiana/CCA ratio 0.97 0.65Analysis of the spectral wave forms shows no evidence of significantspectral broadening. The right vertebral artery was not identified. Theleft vertebral artery was seen with antegrade flow within it.IMPRESSION:According to the SRU criteria there is less than 50% stenosis of theinternal carotid artery bilaterally.Accredited by the [employer] in General Ultrasound.CHANELL Ramirez/Roddy ingram for referring HONG SCALES to our office. Electronically Signed - CHRISTY BOO DO 09/25/20 15:58 Name Value Range Interpretation Code Description Data Aditi rce(s) Supporting Document(s) ID Date Data Source [id number] 09/11/2020 08:49:00 AM EST [facility] ([facility]) Name Value Range Interpretation Code Description Data Aditi rce(s) Supporting Document(s) Triglycerides Level 172 mg/dL [facility] ([facility] HDL Cholesterol 64 mg/dL [facility] ([facility]) Cholesterol Level 165 mg/dL [facility] ([facility]) LDL Cholesterol 67 mg/dL [facility] ([facility]) Non-HDL-C 101 mg/dL [facility] Cholesterol Risk Ratio 2.578 MED[facility] ([facility]) ID Date Data Source [id number] 09/11/2020 08:49:00 AM EST [facility] Name Value Range Interpretation Code Description Data Aditi rce(s) Supporting Document(s) Glucose, Fasting 194 mg/dL 70-100 [facility]) Blood Urea Nitrogen 15 mg/dL 7-18 MED[facility] ([facility]) Creatinine For GFR 1.01 mg/dL 0.55-1.30 MED[facility] ([facility]) Glomerular Filtration Rate 56.0 MED ENT ([facility]) <content>Units are mL/min/1.73 m2</content>
<content></content>
<content>Chronic Kidney Disease Staging per NKF:</content>
<content></content>
<content>Stage I & II GFR >=60 Normal to Mildly Decreased</content>
<content>Stage III GFR 30- 59 Moderately Decreased</content>
<content>Stage IV GFR 15-29 Severely Decreased</content>
<content>Stage V GFR <15 Very Little GFR Left</content>
<content>ESRD GFR <15 on NUCLEAR POWERPLANT MECH[employer]IC HELPER</content>
<content></content> Sodium Level 142 meq/L 136-145 MED[facility] ([facility]) Chloride Level 108 meq/L 98-107 MED[facility] ([facility]) Potassium Serum 4.3 meq/L 3.5-5.1 [facility] ([facility]) Carbon Dioxide Level 32 meq/L 21-32 MED[facility] ([facility]) Anion Gap 2 meq/L 8-16 [facility] ([facility] Calcium Level 9.8 mg/dL 8.8-10.2 MED[facility] ([facility]) Ast/Sgot 13 U/L 7-37 MED[facility] ([facility] Alkaline Phosphatase 115 U/L 45-117 MED[facility] ([facility]) Alt/SGPT 24 U/L 12-78 [facility] ([facility] Bilirubin,Total 1.3 mg/dL 0.2-1.0 [facility] ([facility]) Total Protein 6.8 GM/DL 6.4-8.2 MED[facility] ([facility]) Albumin 3.7 GM/DL 3.2-5.2 [facility] ([facility]) Albumin/Globulin Ratio 1.2 1.2-2.2 [facility] ([facility]) ID Date Data Source [id number] 09/09/2020 09:22:00 AM EST MED[facility] ([facility], ) Name Value Range Interpretation Code Description Data Aditi rce(s) Supporting Document(s) PDFReport Laboratory test result MEDENT ([facility], ) FVC-Pre 2.33 L MED[facility] ([facility], ) FVC-Pred 2.45 L MED[facility] ([facility], ) FVC-%Pred-Pre 95 L MED[facility] ([facility], ) FVC-LLN 1.77 L [facility] ([facility], ) Fev1-Pre 1.74 L [facility] ([facility], ) Fev1-Pred 1.81 L MED[facility] ([facility], ) Fev1-%Pred-Pre 95 L MED[facility] ([facility], ) Fev1-LLN 1.24 L MED[facility] ([facility], ) Fev6-Pred 2.31 L [facility] ([facility], ) Fev6-Pre 2.33 L MED[facility] ([facility], ) Fev6-%Pred-Pre 100 L MED[facility] ([facility], ) Fev6-LLN 1.65 L MED[facility] ([facility], ) Lif3jxv-Vxas 74 % MED[facility] ([facility], ) Jxz3vmn-%Pred-Pre 101 % MED[facility] ([facility]) Bid1gbq-Fge 75 % MED[facility] ([facility]) Nnu0nyh-VHQ 64 % MED[facility] ([facility]) Npz2dtb-Wad 100 % MED[facility] ([facility], ) Uza1hue-Enuo 94 % MED[facility] ([facility]) Usb6wdr-%Pred-Pre 106 % MED[facility] ([facility]) FEFMax-Pred 4.54 L/E/sec MED[facility] ([facility], ) FEFMax-Pre 5.26 L/E/sec MED[facility] ([facility], ) FEFMax-%Pred-Pre 115 L/E/sec [facility] ([facility]) FEFMax-LLN 2.88 L/E/sec MED[facility] ([facility], ) Inn5665-Lhd 1.28 L/E/sec MED[facility] ([facility], ) Uec7525-Euwo 1.30 L/E/sec MED[facility] ([facility], ) Chu1714-%Pred-Pre 98 L/E/sec MED[facility] ([facility], ) Bis4345-QPK 0.10 L/E/sec MED[facility] ([facility], ) ExpTime-Pre 5.24 sec MEDENT ([facility], ) Gnc5hjc0-Wjgm 77 % MEDENT ([facility], ) Kec4fpu3-%Pred-Pre 96 % MED[facility] ([facility], ) Zbq9dbm0-Njf 75 % MED[facility] ([facility]) Ugv8urm9-WMS 69 % MED[facility] ([facility]) ID Date Data Source [id number] 08/19/2020 09:30:00 AM EST [facility] Name Value Range Interpretation Code Description Data Aditi rce(s) Supporting Document(s) SARS coronavirus [address] [facility] This lab was ordered by [facility] and reported by [facility]. ID Date Data Source [id number] 07/11/2020 12:00:00 AM EST [facility] Nona Alicia Pa-C Patient Name: FAMILIA SCALES [facility] Date of : 1940[place] [address]- Date of Exam: 07/11/2020#: Fax: [phone] EXAM: MRI TIBIA LEFT WITHOUT&WITH CONTRASTCLINICAL INFORMATION: Left lower leg contusion, status post trauma onemonth ago. Patient has persistent pain.Pre and post contrast 3T MRI of the left tibia was performed utilizingvarious sequences. Gadolinium utilized: 10 cc of ProHance.There are no prior left tibia MRI examinations for comparison.There is very subtle T2 hypersignal seen surrounding the proximal flexordigitorum longus muscle. There is no abnormal Gadolinium enhancement. Allimaged flexor and extensor tendons are intact and of normal appearing lowsignal throughout. The cortical and marrow signal seen throughout thetibia and fibula is within normal limits. There is no abnormal periostealthickening or signal.Seen in the deep subcutaneous adipose tissue anterior to the mid-portion ofthe lower one-third of the distal tibia, there is a 2.4 x .6 x 2.4 cm sizedfocal area of T1 and T2 prolongation. There is no abnormal Gadoliniumenhancement. There is no abnormal intracompartmental fluid collection.IMPRESSION:1. Seen in the anterior deep subcutanea of the mid-portion of the distalone-third of the tibia, there is a fluid collection as described above.2. Other findings as described above.Accredited by the [employer] in MR.CHANELL Ramirez/Javi you for referring HONG SCALES to our office. Electronically Signed - CHRISTY BOO DO 07/11/20 17:06 Name Value Range Interpretation Code Description Data Aditi rce(s) Supporting Document(s) ID Date Data Source [id number] 07/07/2020 01:06:00 PM EST [facility] ([facility]) Name Value Range Interpretation Code Description Data Aditi rce(s) Supporting Document(s) White Blood Count 8.1 4.0-10.0 [facility] ([facility]) Red Blood Count 4.18 4.00-5.40 [facility] ([facility]) Hematocrit 39.4 36.0-47.0 MED[facility] ([facility]) Platelets 221 150-450 [facility] ([facility]) Hemoglobin 13.1 12.0-15.5 [facility] ([facility]) ID Date Data Source [id number] 07/07/2020 10:27:00 AM EST [facility] ([facility]) Name Value Range Interpretation Code Description Data Aditi rce(s) Supporting Document(s) C reactive protein [Mass/volume] in Serum or Plasma by High sensitivity method 0.79 mg/dL 0.00-0.30 [facility] ([facility]) Erythrocyte sedimentation rate by Westergren method 12 mm/hr 0-30 MED[facility] ([facility]) ID Date Data Source [id number] 07/07/2020 10:27:00 AM EST [facility] ([facility]) Name Value Range Interpretation Code Description Data Aditi rce(s) Supporting Document(s) White Blood Count 8.1 10 4.0-10.0 [facility] ([facility]) Red Blood Count 4.18 10 4.00-5.40 MED[facility] ([facility]) Hemoglobin 13.1 g/dL 12.0-15.5 [facility] ([facility]) Hematocrit 39.4 % 36.0-47.0 [facility] ([facility]) Mean Corpuscular Hemoglobin 31.3 pg 27.0-33.0 MEDENT ([facility]) Mean Corpuscular HGB Conc 33.2 g/dL 32.0-36.5 MED[facility] ([facility]) Mean Corpuscular Volume 94.3 fl 80.0-96.0 M EDENT ([facility]) Platelet Count, Automated 221 10 150-450 MED[facility] ([facility]) Neutrophils % 58.7 % 36.0-66.0 [facility] ([facility] Red Cell Distribution Width 12.4 % 11.5-14.5 MED[facility] ([facility]) Sac % 8.3 % 0.0-5.0 [facility] ([facility] Lymph % 27.5 % 24.0-44.0 [facility] ([facility]) Eos % 4.2 % 0.0-3.0 [facility] ([facility]) Baso % 0.7 % 0.0-1.0 [facility] ([facility]) Nucleated Red Blood Cell % 0.0 % 0-0 MED ENT ([facility]) Immature Granulocyte % 0.6 % 0-3.0 [facility] ([facility]) Lymph # 2.2 10 1.5-5.0 [facility] Neutrophils # 4.8 10 1.5-8.5 [facility] ([facility]) Baso # 0.1 10 0.0-0.2 [facility] Eos # 0.3 10 0.0-0.5 [facility] Sac # 0.7 10 0.0-0.8 [facility] ID Date Data Source [id number] 07/01/2020 01:02:00 PM EDT [facility] ([facility]) Name Value Range Interpretation Code Description Data Aditi rce(s) Supporting Document(s) White Blood Count 12.7 4.0-10.0 MED[facility] ([facility]) Platelets 229 150-450 MED[facility] ([facility] Red Blood Count 4.89 4.00-5.40 MED[facility] ([facility]) Hemoglobin 15.0 [facility] ([facility]) Hematocrit 45.1 MED[facility] ([facility]) ID Date Data Source [id number] 06/04/2020 12:52:00 PM EDT [facility] ([facility]) Name Value Range Interpretation Code Description Data Aditi rce(s) Supporting Document(s) Calcium [Mass/volume] in Serum or Plasma 9.6 MED[facility] ([facility]) Sodium 143 [facility] ([facility] Chloride [Moles/volume] in Serum or Plasma 111 MED[facility] ([facility]) Carbon dioxide, total [Moles/volume] in Serum or Plasma 29 [facility] ([facility]) Blood Urea Nitrogen 15 7-18 MED[facility] ([facility]) Glucose 148 70-100 [facility] ([facility]) Creatinine 0.96 0.55-1.30 [facility] ([facility]) Potassium [Moles/volume] in Serum or Plasma 4.3 [facility] ([facility]) Glomerular filtration rate/1.73 sq M.pre dicted [Volume Rate/Area] in Serum or Plasma by Creatinine-based formula (MDRD) 59.4 [facility] ([facility]) ID Date Data Source [id number] 06/03/2020 09:29:00 AM EDT MED[facility] ([facility], ) Name Value Range Interpretation Code Description Data Aditi rce(s) Supporting Document(s) FVC-Pred 2.45 L MED[facility] ([facility], ) PDFReport Laboratory test result MEDENT ([facility], ) FVC-Pre 2.75 L MED[facility] ([facility]) FVC-%Pred-Pre 112 L MED[facility] ([facility]) FVC-LLN 1.77 L MED[facility] ([facility]) Fev1-Pre 1.98 L MED[facility] ([facility]) Fev1-%Pred-Pre 109 L [facility] ([facility]) Fev1-Pred 1.81 L MED[facility] ([facility]) Fev6-Pred 2.31 L MED[facility] ([facility]) Fev6-Pre 2.75 L MED[facility] ([facility]) Fev1-LLN 1.24 L MED[facility] ([facility]) Vic3kxp-Ipzs 74 % MED[facility] ([facility]) Fev6-%Pred-Pre 119 L [facility] ([facility]) Fev6-LLN 1.65 L MED[facility] ([facility]) Ytf3smb-Ukr 72 % MED[facility] ([facility]) Gle7crr-%Pred-Pre 97 % MED[facility] ([facility]) Pfz0lec-Aalr 94 % MED[facility] ([facility]) Rhr8quf-UEK 64 % MED[facility] ([facility]) FEFMax-Pred 4.54 L/E/sec MED[facility] ([facility]) Bos0mqt-%Pred-Pre 106 % [facility] ([facility]) Awq1cpc-Iam 100 % MED[facility] ([facility]) FEFMax-Pre 5.80 L/E/sec [facility] ([facility]) FEFMax-%Pred-Pre 127 L/E/sec [facility] ([facility]) FEFMax-LLN 2.88 L/E/sec MED[facility] ([facility]) Cvz6141-Meli 1.30 L/E/sec [facility] ([facility]) Bat4857-Ozs 1.33 L/E/sec [facility] ([facility]) Olj9930-WYY 0.10 L/E/sec MED[facility] ([facility]) Efy6545-%Pred-Pre 102 L/E/sec MED[facility] ([facility]) Riw4qqr8-Kpyg 77 % MED[facility] ([facility]) ExpTime-Pre 6.78 sec MED[facility] ([facility]) Oog9byn1-Fmd 72 % MED[facility] ([facility]) Pdy8hdp5-%Pred-Pre 92 % [facility] ([facility]) Snj5gkg0-WXY 69 % MED[facility] ([facility]) ID Date Data Source [id number] 05/20/2020 09:45:00 AM EDT [facility] Name Value Range Interpretation Code Description Data Aditi rce(s) Supporting Document(s) SARS coronavirus 2 RNA [facility] This lab was ordered by [facility] and reported by [facility]. ID Date Data Source [id number] 04/28/2020 12:44:00 PM EDT MED[facility] ([facility]) Name Value Range Interpretation Code Description Data Aditi rce(s) Supporting Document(s) White Blood Count 7.1 4.0-10.0 MED[facility] ([facility]) Hemoglobin 14.5 MED[facility] ([facility]) Red Blood Count 4.71 4.00-5.40 MED[facility] ([facility]) Platelets 201 150-450 [facility] Hematocrit 44.3 MED[facility] ([facility]) ID Date Data Source [id number] 04/28/2020 12:44:00 PM EDT [facility] ([facility]) Name Value Range Interpretation Code Description Data Aditi rce(s) Supporting Document(s) Hemoglobin A1c/Hemoglobin.total in Blood 7.3 [facility] ([facility]) ID Date Data Source [id number] 04/28/2020 12:44:00 PM EDT [facility] ([facility]) Name Value Range Interpretation Code Description Data Aditi rce(s) Supporting Document(s) Magnesium Level 1.8 1.8-2.4 [facility] ([facility]) ID Date Data Source [id number] 04/28/2020 12:44:00 PM EDT [facility] ([facility]) Name Value Range Interpretation Code Description Data Aditi rce(s) Supporting Document(s) Albumin [Mass/volume] in Serum or Plasma 3.7 [facility] ([facility]) Alanine aminotransferase [Enzymatic activity/volume] in Serum or Pl asma 25 MED[facility] ([facility]) Calcium [Mass/volume] in Serum or Plasma 9.8 [facility] ([facility]) Chloride [Moles/volume] in Serum or Plasma 107 [facility] ([facility]) Carbon dioxide, total [Moles/volume] in Serum or Plasma 26 [facility] ([facility]) Sodium 141 [facility] ([facility]) Alkaline phosphatase [Enzymatic activity/volume] in Serum or Plasma 9 9 [facility] ([facility]) Potassium [Moles/volume] in Serum or Plasma 4.8 [facility] ([facility]) Protein [Mass/volume] in Serum or Plasma 6.8 [facility] ([facility]) Urea nitrogen [Mass/volume] in Serum or Plasma 19 [facility] ([facility]) Aspartate aminotransferase [Enzymatic activity/volume] in Serum or Plasma 17 [facility] ([facility]) Glucose 133 70-100 [facility] ([facility]) Creatinine For GFR 1.31 [facility] ([facility]) Procedure Social History Code Duration Value Status Description Data Source(s ) Smoking 06/09/2021 12:00:00 AM EDT Never Smoker completed Never S chandrika eCW1 ([facility]) Smoking 06/09/2021 12:00:00 AM EDT Never Smoker completed Never S moker eCW1 ([facility]) Smoking 06/09/2021 12:00:00 AM EDT Never Smoker completed Never S moker eCW1 ([facility]) Smoking 06/09/2021 12:00:00 AM EDT Never Smoker completed Never S moker eCW1 ([facility]) Smoking 05/22/2021 12:00:00 AM EDT Never Smoker completed Never S moker eCW1 ([facility]) Smoking 05/22/2021 12:00:00 AM EDT Never Smoker completed Never S moker eCW1 ([facility]) Smoking 05/19/2021 12:00:00 AM EDT Never Smoker completed Never S moker eCW1 ([facility]) Smoking 05/19/2021 12:00:00 AM EDT Never Smoker completed Never S moker eCW1 ([facility]) Smoking 04/23/2021 12:00:00 AM EDT Never Smoker completed Never S moker eCW1 ([facility]) Smoking 04/23/2021 12:00:00 AM EDT Never Smoker completed Never S moker eCW1 ([facility]) Smoking 04/23/2021 12:00:00 AM EDT Never Smoker completed Never S moker eCW1 ([facility]) Smoking 04/23/2021 12:00:00 AM EDT Never Smoker completed Never S moker eCW1 ([facility]) Smoking 04/23/2021 12:00:00 AM EDT Never Smoker completed Never S moker eCW1 ([facility]) Smoking 03/26/2021 12:00:00 AM EDT Patient has never smoked co mpleted Patient has never smoked MEDENT ([facility]) Smoking 03/19/2021 12:00:00 AM EDT Never Smoker completed Never S moker eCW1 ([facility]) Smoking 03/19/2021 12:00:00 AM EDT Never Smoker completed Never S moker eCW1 ([facility] [facility]) Smoking 03/19/2021 12:00:00 AM EDT Never Smoker completed Never S moker eCW1 ([facility]) Smoking 03/10/2021 10:16:00 AM EDT Never smoked tobacco (findi ng) completed Never smoked tobacco (finding) TSERING (Néstor Owusu MD [facility]) Smoking 03/05/2021 12:00:00 AM EDT Never Smoker completed Never S moker eCW1 ([facility]) Smoking 03/05/2021 12:00:00 AM EDT Never Smoker completed Never S moker eCW1 ([facility]) Smoking 01/07/2021 12:00:00 AM EDT Never Smoker completed Never S moker eCW1 ([facility]) Smoking 01/07/2021 12:00:00 AM EDT Never Smoker completed Never S moker eCW1 ([facility]) Smoking 01/07/2021 12:00:00 AM EDT Never Smoker completed Never S moker eCW1 ([facility]) Smoking 11/17/2020 03:18:56 PM EDT Never smoked tobacco (findi ng) completed Never smoked tobacco (finding) TSERING (Néstor Owusu MD [facility]) Smoking 10/30/2020 12:00:00 AM EST Never Smoker completed Never S moker eCW1 ([facility]) Smoking 10/30/2020 12:00:00 AM EST Never Smoker completed Never S moker eCW1 ([facility]) Smoking 10/30/2020 12:00:00 AM EST Never Smoker completed Never S moker eCW1 ([facility]) Smoking 10/30/2020 12:00:00 AM EST Never Smoker completed Never S moker eCW1 ([facility]) Smoking 10/22/2020 12:00:00 AM EST Never Smoker completed Never S moker eCW1 ([facility]) Smoking 10/07/2020 12:00:00 AM EST Never Smoker completed Never S moker eCW1 ([facility]) Smoking 10/07/2020 12:00:00 AM EST Never Smoker completed Never S moker eCW1 ([facility]) Smoking 10/07/2020 12:00:00 AM EST Never Smoker completed Never S moker eCW1 ([facility]) Smoking 10/01/2020 12:00:00 AM EST Never Smoker completed Never S moker eCW1 ([facility]) Smoking 09/03/2020 12:00:00 AM EST Patient has never smoked co mpleted Patient has never smoked MEDENT ([facility]) Smoking 08/20/2020 12:00:00 AM EST Never Smoker completed Never S moker eCW1 ([facility]) Smoking 08/20/2020 12:00:00 AM EST Never Smoker completed Never S moker eCW1 ([facility]) Smoking 08/06/2020 12:00:00 AM EST Never Smoker completed Never S moker eCW1 ([facility]) Smoking 08/06/2020 12:00:00 AM EST Never Smoker completed Never S moker eCW1 ([facility]) Smoking 08/06/2020 12:00:00 AM EST Never Smoker completed Never S moker eCW1 ([facility]) Smoking 08/06/2020 12:00:00 AM EST Never Smoker completed Never S moker eCW1 ([facility]) Vital Signs ID Date Data Source UNK Name Value Range Interpretation Code Description Data Source(s) Body weight 212.2 [lb_av] 212.2 [facility]lb_av] [facility] Body height 64 [in_i] 64 [in_i] eCW1 ([facility]) Body mass index (BMI) [Ratio] 36.42 kg/m2 36.42 kg/m2 eCW1 ([facility]) Heart rate 96 /min 96 /min eCW1 ([facility]) Respiratory rate 18 /min 18 /min eCW1 ([facility]) Body temperature 98.6 [degF] 98.6 [degF] eCW1 ( [facility]) Systolic blood pressure 122 mm[Hg] 122 mm[Hg] e CW1 ([facility]) Diastolic blood pressure 68 mm[Hg] 68 mm[Hg] eCW1 ([facility]) Body weight 208.6 [lb_av] 208.6 [lb_av] [facility] Body height 64 [in_i] 64 [in_i] eCW1 ([facility]) Body mass index (BMI) [Ratio] 35.80 kg/m2 35.80 kg/m2 eCW1 ([facility]) Heart rate 99 /min 99 /min eCW1 ([facility]) Respiratory rate 18 /min 18 /min eCW1 ([facility]) Body temperature 98.3 [degF] 98.3 [degF] eCW1 ( [facility]) Systolic blood pressure 110 mm[Hg] 110 mm[Hg] e CW1 ([facility]) Diastolic blood pressure 70 mm[Hg] 70 mm[Hg] eCW1 ([facility]) Body weight 213 [lb_av] 213 [lb_av] eCW1 (Counts include 234 beds at the [facility]) Body height 64 [in_i] 64 [in_i] eCW1 ([facility]) Body mass index (BMI) [Ratio] 36.56 kg/m2 36.56 kg/m2 eCW1 ([facility]) Heart rate 77 /min 77 /min eCW1 ([facility]) Respiratory rate 18 /min 18 /min eCW1 ([facility]) Body temperature 98.5 [degF] 98.5 [degF] eCW1 ( [facility]) Systolic blood pressure 130 mm[Hg] 130 mm[Hg] e CW1 ([facility]) Diastolic blood pressure 80 mm[Hg] 80 mm[Hg] eCW1 ([facility]) Systolic blood pressure 126 mm[Hg] 126 mm[Hg] M EDENT ([facility]) Diastolic blood pressure 70 mm[Hg] 70 mm[Hg] MEDENT ([facility]) Heart rate 70 /min 70 /min MEDENT ([facility]) Body height 63.6 [in_i] 63.6 [in_i] MEDENT ([facility]) 5'3.60" Body weight 219.50 [lb_av] 219.50 [lb_av] MEDEN T ([facility]) Body mass index (BMI) [Ratio] 38.1 kg/m2 38.1 k g/m2 MEDENT ([facility]) Oxygen saturation in Arterial blood by Pulse oximetry 98 % 98 % MEDENT ([facility]) Body weight 214 [lb_av] 214 [lb_av] eCW1 (Counts include 234 beds at the [facility]) Body height 64 [in_i] 64 [in_i] eCW1 ([facility]) Body mass index (BMI) [Ratio] 36.73 kg/m2 36.73 kg/m2 eCW1 ([facility]) Heart rate 89 /min 89 /min eCW1 ([facility]) Respiratory rate 18 /min 18 /min eCW1 ([facility]) Body temperature 97.3 [degF] 97.3 [degF] eCW1 ( [facility]) Systolic blood pressure 164 mm[Hg] 164 mm[Hg] e CW1 ([facility]) Diastolic blood pressure 92 mm[Hg] 92 mm[Hg] eCW1 ([facility]) Body weight 214.6 [lb_av] 214.6 [lb_av] [facility] Body height 64 [in_i] 64 [in_i] eCW1 ([facility]) Body mass index (BMI) [Ratio] 36.83 kg/m2 36.83 kg/m2 eCW1 ([facility]) Heart rate 85 /min 85 /min eCW1 ([facility]) Respiratory rate 18 /min 18 /min eCW1 ([facility]) Body temperature 97.6 [degF] 97.6 [degF] eCW1 ( [facility]) Systolic blood pressure 120 mm[Hg] 120 mm[Hg] e CW1 ([facility]) Diastolic blood pressure 70 mm[Hg] 70 mm[Hg] eCW1 ([facility]) Body weight 211.00 [lb_av] 211.00 [lb_av] MEDEN T ([facility]) Systolic blood pressure 126 mm[Hg] 126 mm[Hg] M EDENT ([facility]) sitting, regular cuff Body height 65 [in_i] 65 [in_i] MEDENT ([facility] 5'5" Heart rate 64 /min 64 /min MEDENT ([facility]) Regular Respiratory rate 16 /min 16 /min MEDENT ( [facility]) Body mass index (BMI) [Ratio] 35.1 kg/m2 35.1 k g/m2 MEDENT ([facility]) Diastolic blood pressure 68 mm[Hg] 68 mm[Hg] MEDENT ([facility]) sitting, regular cuff Systolic blood pressure 124 mm[Hg] 124 mm[Hg] M EDENT ([facility]) sitting Diastolic blood pressure 64 mm[Hg] 64 mm[Hg] MEDENT ([facility]) sitting Body mass index (BMI) [Ratio] 37.9 kg/m2 37.9 k g/m2 [facility] [place] body weight 115 [lb_av] 115 [lb_av] MEDEN T ([facility]) Systolic blood pressure 138 mm[Hg] 138 mm[Hg] M EDENT ([facility]) Diastolic blood pressure 76 mm[Hg] 76 mm[Hg] [facility] Heart rate 73 /min 73 /min [facility] ([facility]) Oxygen saturation in Arterial blood by Pulse oximetry 97 % 97 % [facility] Body height 63 [in_i] 63 [in_i] [facility] 5'3" Body weight 214.00 [lb_av] 214.00 [lb_av] MEDEN T ([facility]) Body weight 97.070 kg 97.070 kg [facility] Body surface area Derived from formula 1.99 m2 1.99 m2 [facility] ([facility]) Body weight 214 [lb_av] 214 [lb_av] eCW1 (Counts include 234 beds at the [facility]) Body height 64 [in_i] 64 [in_i] eCW1 ([facility]) Body mass index (BMI) [Ratio] 36.73 kg/m2 36.73 kg/m2 eCW1 ([facility]) Heart rate 89 /min 89 /min eCW1 ([facility]) Respiratory rate 20 /min 20 /min eCW1 ([facility]) Body temperature 96.8 [degF] 96.8 [degF] eCW1 ( [facility]) Systolic blood pressure 134 mm[Hg] 134 mm[Hg] e CW1 ([facility]) Diastolic blood pressure 72 mm[Hg] 72 mm[Hg] eCW1 ([facility]) Body weight 222 [lb_av] 222 [lb_av] eCW1 (Counts include 234 beds at the [facility]) Body height 64 [in_i] 64 [in_i] eCW1 ([facility]) Body mass index (BMI) [Ratio] 38.10 kg/m2 38.10 kg/m2 eCW1 ([facility]) Heart rate 82 /min 82 /min eCW1 ([facility]) Respiratory rate 20 /min 20 /min eCW1 ([facility]) Body temperature 96.6 [degF] 96.6 [degF] eCW1 ( [facility]) Systolic blood pressure 120 mm[Hg] 120 mm[Hg] e CW1 ([facility]) Diastolic blood pressure 80 mm[Hg] 80 mm[Hg] eCW1 ([facility]) Heart rate 76 /min 76 /min MEDJUANITO ([facility], ) Body height 63 [in_i] 63 [in_i] MEDJUANITO ([facility], ) 5'3" Systolic blood pressure 124 mm[Hg] 124 mm[Hg] M EDJUANITO ([facility], ) Oxygen saturation in Arterial blood by Pulse oximetry 97 % 97 % MEDJUANITO ([facility], ) Body temperature 95.4 [degF] 95.4 [degF] MEDJUANITO ([facility], ) Body weight 221.00 [lb_av] 221.00 [lb_av] PELONEN T ([facility]) Body mass index (BMI) [Ratio] 39.1 kg/m2 39.1 k g/m2 MEDENT ([facility]) Diastolic blood pressure 82 mm[Hg] 82 mm[Hg] [facility] ([facility]) [place] body weight 115 [lb_av] 115 [lb_av] MEDEN T ([facility]) Body weight 100.246 kg 100.246 kg MEDENT ([facility]) Body surface area Derived from formula 2.02 m2 2.02 m2 [facility] ([facility]) Systolic blood pressure 148 mm[Hg] 148 mm[Hg] EDENT ([facility]) Diastolic blood pressure 67 mm[Hg] 67 mm[Hg] [facility] Body height 63 [in_i] 63 [in_i] MEDENT ([facility]) 5'3" Body mass index (BMI) [Ratio] 39.1 kg/m2 39.1 k g/m2 [facility] ([facility]) Body weight 221.00 [lb_av] 221.00 [lb_av] MEDEN T ([facility]) [place] body weight 115 [lb_av] 115 [lb_av] MEDEN T ([facility]) Body weight 100.246 kg 100.246 kg [facility] ([facility]) Body surface area Derived from formula 2.02 m2 2.02 m2 [facility] ([facility]) Body weight 222 [lb_av] 222 [lb_av] eCW1 (Counts include 234 beds at the [facility]) Body weight 100.7 kg 100.7 kg eCW1 ([facility]) Body height 64 [in_i] 64 [in_i] eCW1 ([facility]) Body mass index (BMI) [Ratio] 38.1 kg/m2 38.1 k g/m2 eCW1 ([facility]) Heart rate 79 /min 79 /min eCW1 ([facility]) Respiratory rate 18 /min 18 /min eCW1 ([facility]) Body temperature 97.7 [degF] 97.7 [degF] eCW1 ( [facility]) Systolic blood pressure 132 mm[Hg] 132 mm[Hg] e CW1 ([facility]) Diastolic blood pressure 80 mm[Hg] 80 mm[Hg] eCW1 ([facility]) Body weight 222.0 [lb_av] 222.0 [lb_av] [facility] Body height 64 [in_i] 64 [in_i] eCW1 ([facility]) Body mass index (BMI) [Ratio] 38.10 kg/m2 38.10 kg/m2 eCW1 ([facility]) Systolic blood pressure 132 mm[Hg] 132 mm[Hg] e CW1 ([facility]) Diastolic blood pressure 80 mm[Hg] 80 mm[Hg] eCW1 ([facility]) Heart rate 70 /min 70 /min eCW1 ([facility]) Respiratory rate 20 /min 20 /min eCW1 ([facility]) Body temperature 96.1 [degF] 96.1 [degF] eCW1 ( [facility]) Systolic blood pressure 137 mm[Hg] 137 mm[Hg] e CW1 ([facility]) Diastolic blood pressure 63 mm[Hg] 63 mm[Hg] eCW1 ([facility]) Body weight 212 [lb_av] 212 [lb_av] eCW1 (Counts include 234 beds at the [facility]) Body height 64 [in_i] 64 [in_i] eCW1 ([facility]) Body mass index (BMI) [Ratio] 36.39 kg/m2 36.39 kg/m2 eCW1 ([facility]) Body weight 212 [lb_av] 212 [lb_av] eCW1 (Counts include 234 beds at the [facility]) Body weight 96.16 kg 96.16 kg eCW1 ([facility]) Body height 64 [in_i] 64 [in_i] eCW1 ([facility]) Body mass index (BMI) [Ratio] 36.39 kg/m2 36.39 kg/m2 eCW1 ([facility]) Systolic blood pressure 146 mm[Hg] 146 mm[Hg] e CW1 ([facility]) Diastolic blood pressure 83 mm[Hg] 83 mm[Hg] eCW1 ([facility]) Systolic blood pressure 142 mm[Hg] 142 mm[Hg] M EDENT ([facility]) Diastolic blood pressure 82 mm[Hg] 82 mm[Hg] MEDENT ([facility]) Heart rate 67 /min 67 /min [facility] ([facility]) Oxygen saturation in Arterial blood by Pulse oximetry 98 % 98 % [facility] ([facility]) Body temperature 95.5 [degF] 95.5 [degF] [facility] ([facility]) Body height 63 [in_i] 63 [in_i] MEDENT ([facility]) 5'3" Body weight 217.00 [lb_av] 217.00 [lb_av] MEDEN T ([facility]) Body mass index (BMI) [Ratio] 38.4 kg/m2 38.4 k g/m2 [facility] ([facility]) [place] body weight 115 [lb_av] 115 [lb_av] MEDEN T ([facility]) Body weight 98.431 kg 98.431 kg [facility] ([facility]) Body surface area Derived from formula 2.00 m2 2.00 m2 [facility] ([facility]) Diastolic blood pressure 76 mm[Hg] 76 mm[Hg] MEDENT ([facility]) sitting Body mass index (BMI) [Ratio] 35.6 kg/m2 35.6 k g/m2 MEDENT ([facility]) Body height 65 [in_i] 65 [in_i] MEDENT ([facility] 5'5" Heart rate 76 /min 76 /min [facility] ([facility]) Regular Systolic blood pressure 126 mm[Hg] 126 mm[Hg] M EDENT ([facility]) sitting, regular cuff Body weight 214.00 [lb_av] 214.00 [lb_av] MEDEN T ([facility]) Respiratory rate 16 /min 16 /min MEDENT ( [facility]) Diastolic blood pressure 76 mm[Hg] 76 mm[Hg] MEDENT ([facility]) sitting, regular cuff Systolic blood pressure 128 mm[Hg] 128 mm[Hg] M EDENT ([facility]) sitting Body weight 210 [lb_av] 210 [lb_av] eCW1 (Counts include 234 beds at the [facility]) Body weight kg eCW1 ([facility]) Body height 64 [in_i] 64 [in_i] eCW1 ([facility]) Body mass index (BMI) [Ratio] 36.04 kg/m2 36.04 kg/m2 eCW1 ([facility]) Heart rate 74 /min 74 /min eCW1 ([facility]) Respiratory rate 18 /min 18 /min eCW1 ([facility]) Body temperature 98.5 [degF] 98.5 [degF] eCW1 ( [facility]) Systolic blood pressure 137 mm[Hg] 137 mm[Hg] e CW1 ([facility]) Diastolic blood pressure 73 mm[Hg] 73 mm[Hg] eCW1 ([facility]) Heart rate 68 /min 68 /min eCW1 ([facility]) Body weight 210 [lb_av] 210 [lb_av] eCW1 (Counts include 234 beds at the [facility]) Body height 64 [in_i] 64 [in_i] eCW1 ([facility]) Respiratory rate 20 /min 20 /min eCW1 ([facility]) Body temperature 96.9 [degF] 96.9 [degF] eCW1 ( [facility]) Systolic blood pressure 127 mm[Hg] 127 mm[Hg] e CW1 ([facility]) Diastolic blood pressure 55 mm[Hg] 55 mm[Hg] eCW1 ([facility]) Body mass index (BMI) [Ratio] 36.04 kg/m2 36.04 kg/m2 eCW1 ([facility]) Body temperature 96.1 [degF] 96.1 [degF] MEDENT ([facility]) Body height 65 [in_i] 65 [in_i] MEDENT ([facility]) 5'5" Body weight 212.00 [lb_av] 212.00 [lb_av] MEDEN T ([facility]) Body mass index (BMI) [Ratio] 35.3 kg/m2 35.3 k g/m2 [facility] ([facility]) Systolic blood pressure 130 mm[Hg] 130 mm[Hg] M EDENT ([facility]) Diastolic blood pressure 68 mm[Hg] 68 mm[Hg] [facility] ([facility]) Heart rate 69 /min 69 /min [facility] ([facility]) Oxygen saturation in Arterial blood by Pulse oximetry 98 % 98 % [facility] ([facility]) Body temperature 97.3 [degF] 97.3 [degF] [facility] ([facility]) Body height 63 [in_i] 63 [in_i] [facility] ([facility]) 5'3" Body weight 216.00 [lb_av] 216.00 [lb_av] MEDEN T ([facility]) Body mass index (BMI) [Ratio] 38.3 kg/m2 38.3 k g/m2 [facility] ([facility]) [place] body weight 115 [lb_av] 115 [lb_av] [facility] Body weight 97.978 kg 97.978 kg [facility] ([facility]) Body surface area Derived from formula 2.00 m2 2.00 m2 [facility] ([facility]) Patient Treatment Plan of Care Planned Activity Planned Date Details Description Data Source (s) Doxycycline Monohydrate 100 MG Oral Tablet 03/19/2021 12:00:00 AM E DT eCW1 ([facility]) Doxycycline Monohydrate 100 MG Oral Tablet 03/19/2021 12:00:00 AM E DT eCW1 ([facility]) Doxycycline Monohydrate 100 MG Oral Tablet 03/19/2021 12:00:00 AM E DT eCW1 ([facility]) Brimonidine tartrate 1 MG/ML Ophthalmic Solution [Alph agan] 03/10/2021 12:00:00 AM EDT TSERING (N[facility]stor [facility]) bimatoprost 0.1 MG/ML Ophthalmic Solution [Lumigan] 03/10/20 21 12:00:00 AM EDT TSERING (N[facility]stor CRU[facility]) Cyclosporine 0.5 MG/ML Ophthalmic Suspension [Restasis ] 03/10/2021 12:00:00 AM EDT TSERING (N[facility]stor CRU[facility]) bimatoprost 0.1 MG/ML Ophthalmic Solution [Lumigan] 02/12/20 20 12:00:00 AM EDT TSERING ([facility]) Brimonidine tartrate 1 MG/ML Ophthalmic Solution [Alph agan] 02/12/2020 12:00:00 AM EDT [facility] Cyclosporine 0.5 MG/ML Ophthalmic Suspension [Restasis ] 11/22/2018 12:00:00 AM EDT [facility] Carboxymethylcellulose Sodium 5 MG/ML Ophthalmic Solut ion 07/03/2018 12:00:00 AM EDT [facility] Refresh Optive 1-0.9% Ophthalmic Gel 06/28/2018 12:00:00 AM EDT [facility] Mineral Oil 0.425 MG/MG / Petrolatum 0.573 MG/MG Ophth almic Ointment 06/28/2018 12:00:00 AM EDT TSERING [facility]
--- OUTSIDE RECORDS SUMMARY | 2021-06-19 12:41 | CCD ---
Author Author [facility] Organization [facility] Address Unknown Phone Unavailable Care Team Providers Care Desktop Operator Name Role Phone NÉSTOR CARVALHO MD Unavailable [...] Unavailable REINNÉSTOR WATSON MD Unavailable Unavailable Fish, [facility], PA-C Unavailable Unavailabl e Fish, [facility], PA-C Unavailable Unavailabl e Fish, [facility], PA-C Unavailable Unavailabl e Fish, [facility], PA-C Unavailable Unavailabl e Fish, [facility], PA-C Unavailable Unavailabl e Fish, [facility], PA-C Unavailable Unavailabl e Fish, [facility], PA-C Unavailable Unavailabl e Fish, [facility], PA-C Unavailable Unavailabl e Fish, [facility], PA-C Unavailable Unavailabl e Fish, [facility], PA-C Unavailable Unavailabl e Fish, [facility], PA-C Unavailable Unavailabl e Fish, [facility], PA-C Unavailable Unavailabl e Fish, [facility], PA-C Unavailable Unavailabl e Fish, [facility], PA-C Unavailable Unavailabl e Fish, [facility], PA-C Unavailable Unavailabl e Fish, [facility], PA-C Unavailable Unavailabl e Fish, [facility], PA-C Unavailable Unavailabl e Fish, [facility], PA-C Unavailable Unavailabl e Fish, [facility], PA-C Unavailable Unavailabl e Fish, [facility], PA-C Unavailable Unavailabl e Fish, [facility], PA-C Unavailable Unavailabl e Fish, [facility], PA-C Unavailable Unavailabl e Fish, [facility], PA-C Unavailable Unavailabl e Fish, [facility], PA-C Unavailable Unavailabl e Fish, [facility], PA-C Unavailable Unavailabl e Fish, [facility], PA-C Unavailable Unavailabl e Fish, [facility], PA-C Unavailable Unavailabl e Fish, [facility], PA-C Unavailable Unavailabl e Fish, [facility], PA-C Unavailable Unavailabl e Fish, Michelle Nona [...] A UMAIR DO Unavailable Unavailable SEARS, A UAMIR DO Unavailable Unavailable SEARS, A UMAIR DO [...] Ta Elizabeth MD Unavailable Unavailable Portillo, Ta Elizabteh MD Unavailable Unavailable Portillo, Ta Elizabeth MD [...] Fish, Fermin Payan MD Unavailable Unavailable Fish, Femrin Payan MD Unavailable Unavailable Fish, Fermin Payan [...] is protected by Article 27-F of the [facility] Public Health law. If you continue you may have access to information: Regarding HIV / AIDS; Provided by facilities licensed or operated by the [facility] Office of Mental Health; or Provided by the [facility] Office for People With Developmental Disabilities. If such information is present, then the following [facility] mandated warning applies: This information has been [...] law may result in a fine or nursing home sentence or both. A general authorization for the release of medical or other information is NOT sufficient authorization for further disc losure. Family History Family Member Name Family Member Gender Family Member Status Date o f Status Description Data Source(s) Unknown Unknown Problem MEDENT ([facility], ) Encounters Encounter Providers Location Date Indications Data Source(s ) Unknown [address] [facility] [address] 06/11/2021 12:00:00 AM EDT [facility] [place] [address] [facility] [address] 06/11/2021 12:00:00 AM EDT [facility]CW1 ([facility]) [place] [address] [facility] [address] 06/11/2021 12:00:00 AM EDT eCW1 ([facility]) Office Visit, Est Pt., Level 3 PC [address] [place] [address] 06/09/2021 12:00:00 AM EDT eCW1 ([facility]) Unknown [address] [facility] [address] 05/22/2021 12:00:00 AM EDT eCW1 ([facility]) Unknown [address] [facility] [address] 05/20/2021 12:00:00 AM EDT eCW1 ([facility]) Outpatient [address] [facility] [address] 05/19/2021 12:00:00 AM EDT eCW1 ([facility]) Unknown [address] [facility] [address] 05/18/2021 12:00:00 AM EDT eCW1 ([facility]) Unknown [address] [facility] [place] [address] 05/07/2021 12:00:00 AM EDT eCW1 ([facility]) Unknown [address] [facility] [place] [address] 05/05/2021 12:00:00 AM EDT eCW1 ([facility]) Unknown [address] [facility] [place] [address] 05/04/2021 12:00:00 AM EDT eCW1 ([facility]) Unknown [address] [facility] [address] 05/04/2021 12:00:00 AM EDT eCW1 ([facility]) Outpatient [address] [facility] [address] 04/23/2021 12:00:00 AM EDT eCW1 ([facility]) Unknown [address] [facility] [address] 04/03/2021 12:00:00 AM EDT eCW1 ([facility]) Office Visit Attender: Nona MULLER PA-C Physical Therapy 04/02/2021 02:20:00 PM EDT MEDENT ([facility]) Outpatient Attender: Ora Alicia MD Physical Therapy 03/26 01:00:00 PM EDT MEDENT ([facility]) Office Visit, Est Pt., Level 4 PC [address] [place] [address] 03/19/2021 12:00:00 AM EDT eCW1 ([facility]) Unknown [address] [facility] [address] 03/19/2021 12:00:00 AM EDT eCW1 ([facility]) Outpatient<td ID="encounterTypeDescripti onID0">TRIAGE NON URGENT</td><td>Néstor Aj MD, FACS</td><td>Néstor Aj MD [facility]</td><td>03/10/2021</td><td>9:20AM</td><td>10:13AM</td><td><content ID="encounterDiagnosisID0-0">Blepharospasm</content>, <content ID="encounterDiagnosisID0-1">Assessment of Taking Medication For Diabetes Long- term Use of Oral Hypoglycemics</content>, <content ID="encounterDiagnosisID0- 2">Diabetes Mellitus Type 2 - Uncomplicated, Controlled</content>, <content ID="encounterDiagnosisID0-3">Dry Eye Syndrome Both Eyes</content>, <content ID="encounterDiagnosisID0-4">Borderline Glaucoma Open Angle with Borderline Findings Both Eyes</content>, <content ID="encounterDiagnosisID0- 5">Chorioretinal Scar</content>, <content ID="encounterDiagnosisID0-6">Transient Visual Loss</content></td> Attender: Néstor Owusu MD, FACS Néstor Aj MD [facility] 03/10/2021 09:20:00 AM EDT - 03/10/2021 10:13:00 AM ED T Chorioretinal ScarTransient Visual LossBorderline Glaucoma Open Angle with Borderline Findings Both EyesDry Eye Syndrome Both EyesDiabetes Mellitus Type 2 - Uncomplicated, ControlledAssessment of Taking Medication For Diabetes Long-term Use of Oral HypoglycemicsBlepharospasm [place] (Néstor Owusu MD [facility]) Chorioretinal Scar Transient Visual Loss Borderline Glaucoma Open Angle with Bord jose Findings Both Eyes Dry Eye Syndrome Both Eyes Diabetes Mellitus Type 2 - Uncomplicated , Controlled Assessment of Taking Medication For Diab etes Long-term Use of Oral Hypoglycemics Blepharospasm Outpatient [address] [facility], [facility] [address] 03/05/2021 12:00:00 AM EDT eCW1 ([facility]) Outpatient Attender: Gloria Maxwell PA Main Office 03/04/2021 09:45:00 AM EDT MEDENT ([facility]) Outpatient Attender: UMAIR Sotelo/Jessee/Armaan/Kelley 03/03/2021 02:30:00 PM EDT MEDENT ([facility]) OFFICE OUTPATIENT VISIT 15 MINUTES Attender: Nona MULLER PA-C Physical Therapy 02/27/2021 10:30:00 AM EDT MEDENT ([facility]) Outpatient [address] [facility] [address] 02/19/2021 12:00:00 AM EDT eCW1 ([facility]) Unknown [address] [facility] [address] 01/19/2021 12:00:00 AM EDT eCW1 ([facility]) Emergency Attender: CONTRERAS Rosenant: Kris sharma MD 01/12/2021 03:46:00 PM EDT - 01/12/2021 04:27:00 PM EDT [facility] Patient discharged. Unknown [address] [facility] [address] 01/10/2021 12:00:00 AM EDT eCW1 ([facility]) Office Visit, Est Pt., Level 4 PC [address] [place] [address] 01/07/2021 12:00:00 AM EDT eCW1 ([facility]) Unknown [address] [facility] [address] 01/06/2021 12:00:00 AM EDT eCW1 ([facility]) Outpatient Attender: UMAIR Sotelo/Jessee/Armaan/Kelley 01/02/2021 10:45:00 AM EDT MEDENT ([facility]) Outpatient Attender: Nona MULLER PADavC Physical Therapy 01/02/2021 09:00:00 AM EDT MEDENT ([facility]) Outpatient Attender: NÉSTOR Christopher/Jessee/Armaan/Rein dl 12/31/2020 08:30:00 AM EDT MEDENT ([facility]) Unknown [address] [facility] [address] 11/14/2020 12:00:00 AM EST eCW1 ([facility]) Unknown [address] [facility] [address] 11/14/2020 12:00:00 AM EST eCW1 ([facility]) Outpatient<td ID="encounterTypeDescripti onID1">7 Month Follow-Up</td><td>Hugo Reich DO</td><td>Néstor Aj MD [facility]</td><td>11/11/2020</td><td>1:56PM</td><td>2:57PM</td><td><content ID="encounterDiagnosisID1-0">Blepharospasm</content>, <content ID="encounterDiagnosisID1-1">Assessment of Taking Medication For Diabetes Long- term Use of Oral Hypoglycemics</content>, <content ID="encounterDiagnosisID1- 2">Diabetes Mellitus Type 2 - Uncomplicated, Controlled</content>, <content ID="encounterDiagnosisID1-3">Dry Eye Syndrome Both Eyes</content>, <content ID="encounterDiagnosisID1-4">Borderline Glaucoma Open Angle with Borderline Findings Both Eyes</content>, <content ID="encounterDiagnosisID1- 5">Chorioretinal Scar</content></td> Attender: HUGO Gill MD [facility] 11/11/2020 01:56:00 PM EST - [...] Diabetes Long- term Use of Oral HypoglycemicsBlepharospasm [place] (Néstor Owusu MD [facility]) Chorioretinal Scar Chorioretinal Scar Borderline [...] UMAIR Sotelo/Jessee/Armaan/Kelley 11/11/2020 10:00:00 AM EST MEDJUANITO ([facility]) Outpatient [address] [place] [address], [place] [address] 10/30/2020 12:00:00 AM EST eCW1 ([facility]) Outpatient [address] [facility] [place] [address] 10/22/2020 12:00:00 AM EST eCW1 ([facility]) Unknown [address] [facility] Y [address] 10/13/2020 12:00:00 AM EST eCW1 ([facility]) Unknown [address] [facility] Y [address] 10/13/2020 12:00:00 AM EST eCW1 ([facility]) ([id number]) Est New Patient 60 [address] [place] [address] 10/07/2020 12:00:00 AM EST eCW1 ([facility]) Office Visit, Est Pt., Level 2 PC [address] [place] [address] 10/01/2020 12:00:00 AM EST eCW1 ([facility]) Outpatient Attender: UMAIR Sotelo/Jessee/Armaan/Kelley 09/09/2020 08:30:00 AM EST MEDENT [facility] Outpatient Attender: Gloria SALCEDO Main Office 09/03/2020 07:15:00 AM EST MEDENT ([facility]) Unknown [address] [facility] [address] 08/20/2020 12:00:00 AM EST eCW1 ([facility]) ([id number]) For Template Thompson [address] [place] [address] 08/13/2020 12:00:00 AM EST eCW1 ([facility]) Unknown [address] [facility] [address] 08/07/2020 12:00:00 AM EST eCW1 ([facility]) ([id number]) New Patient [address] [place] [address] 08/06/2020 12:00:00 AM EST eCW1 ([facility]) Unknown [address] [facility] [address] 08/06/2020 12:00:00 AM EST eCW1 ([facility]) Unknown [address] [facility] [address] 08/04/2020 12:00:00 AM EST eCW1 ([facility]) OFFICE OUTPATIENT VISIT 15 MINUTES Attender: Nona MULLER PA-C Physical Therapy 07/18/2020 12:45:00 PM EST MEDENT ([facility]) Outpatient Attender: Glenn Portillo MD Physical Therapy 07/02/2020 0 2:15:00 PM EDT MEDENT ([facility]) Unknown [address] [facility] [address] 06/06/2020 12:00:00 AM EDT eCW1 ([facility]) Outpatient Attender: UMAIR Sotelo/Jessee/Armaan/Reindl 06/03/2020 09:30:00 AM EDT MEDENT ([facility]) Immunizations Vaccine Date Status Description Data Source(s) COVID-19 dose #2 given elsewhere Unspecified 11/28/2020 11:2 5:00 AM EDT completed eCW1 ([facility]) COVID-19 dose #2 given elsewhere Unspecified 11/28/2020 11:2 5:00 AM EDT completed eCW1 ([facility]) COVID-19 dose #2 given elsewhere Unspecified 11/28/2020 11:2 5:00 AM EDT completed eCW1 ([facility]) COVID-19 dose #2 given elsewhere Unspecified 11/28/2020 11:2 5:00 AM EDT completed eCW1 ([facility]) COVID-19 dose #2 given elsewhere Unspecified 11/28/2020 11:2 5:00 AM EDT completed eCW1 ([facility]) COVID-19 dose #2 given elsewhere Unspecified 11/28/2020 11:2 5:00 AM EDT completed eCW1 ([facility]) COVID-19 dose #2 given elsewhere Unspecified 11/28/2020 11:2 5:00 AM EDT completed eCW1 ([facility]) COVID-19 dose #2 given elsewhere Unspecified 11/28/2020 11:2 5:00 AM EDT completed eCW1 ([facility]) COVID-19 dose #2 given elsewhere Unspecified 11/28/2020 11:2 5:00 AM EDT completed eCW1 ([facility]) COVID-19 dose #2 given elsewhere Unspecified 11/28/2020 11:2 5:00 AM EDT completed eCW1 ([facility]) COVID-19 dose #2 given elsewhere Unspecified 11/28/2020 11:2 5:00 AM EDT completed eCW1 ([facility]) COVID-19 dose #2 given elsewhere Unspecified 11/28/2020 11:2 5:00 AM EDT completed eCW1 ([facility]) COVID-19 dose #2 given elsewhere Unspecified 11/28/2020 11:2 5:00 AM EDT completed eCW1 ([facility]) COVID-19 dose #2 given elsewhere Unspecified 11/28/2020 11:2 5:00 AM EDT completed eCW1 ([facility]) COVID-19 dose #2 given elsewhere Unspecified 11/28/2020 11:2 5:00 AM EDT completed eCW1 ([facility]) COVID-19 dose #2 given elsewhere Unspecified 11/28/2020 11:2 5:00 AM EDT completed eCW1 ([facility]) COVID-19 dose #2 given elsewhere Unspecified 11/28/2020 11:2 5:00 AM EDT completed eCW1 ([facility]) COVID-19 dose #2 given elsewhere Unspecified 11/28/2020 11:2 5:00 AM EDT completed eCW1 ([facility]) COVID-19 dose #2 given elsewhere Unspecified 11/28/2020 11:2 5:00 AM EDT completed eCW1 ([facility]) COVID-19 dose #2 given elsewhere Unspecified 11/28/2020 11:2 5:00 AM EDT completed eCW1 ([facility]) COVID-19 dose #2 given elsewhere Unspecified 11/28/2020 11:2 5:00 AM EDT completed eCW1 ([facility]) COVID-19 VACCINE Moderna 11/28/2020 12:00:00 AM EDT completed [facility] Vaccine Series Complete: YESThis Data wa s Submitted to [facility] Via [employer]. COVID-19 dose #1 given elsewhere Unspecified 10/31/2020 11:2 5:00 AM EST completed eCW1 ([facility]) COVID-19 dose #1 given elsewhere Unspecified 10/31/2020 11:2 5:00 AM EST completed eCW1 ([facility]) COVID-19 dose #1 given elsewhere Unspecified 10/31/2020 11:2 5:00 AM EST completed eCW1 ([facility]) COVID-19 dose #1 given elsewhere Unspecified 10/31/2020 11:2 5:00 AM EST completed eCW1 ([facility]) COVID-19 dose #1 given elsewhere Unspecified 10/31/2020 11:2 5:00 AM EST completed eCW1 ([facility]) COVID-19 dose #1 given elsewhere Unspecified 10/31/2020 11:2 5:00 AM EST completed eCW1 ([facility]) COVID-19 dose #1 given elsewhere Unspecified 10/31/2020 11:2 5:00 AM EST completed eCW1 ([facility]) COVID-19 dose #1 given elsewhere Unspecified 10/31/2020 11:2 5:00 AM EST completed eCW1 ([facility]) COVID-19 dose #1 given elsewhere Unspecified 10/31/2020 11:2 5:00 AM EST completed eCW1 ([facility]) COVID-19 dose #1 given elsewhere Unspecified 10/31/2020 11:2 5:00 AM EST completed eCW1 ([facility]) COVID-19 dose #1 given elsewhere Unspecified 10/31/2020 11:2 5:00 AM EST completed eCW1 ([facility]) COVID-19 dose #1 given elsewhere Unspecified 10/31/2020 11:2 5:00 AM EST completed eCW1 ([facility]) COVID-19 dose #1 given elsewhere Unspecified 10/31/2020 11:2 5:00 AM EST completed eCW1 ([facility]) COVID-19 dose #1 given elsewhere Unspecified 10/31/2020 11:2 5:00 AM EST completed eCW1 ([facility]) COVID-19 dose #1 given elsewhere Unspecified 10/31/2020 11:2 5:00 AM EST completed eCW1 ([facility]) COVID-19 dose #1 given elsewhere Unspecified 10/31/2020 11:2 5:00 AM EST completed eCW1 ([facility]) COVID-19 dose #1 given elsewhere Unspecified 10/31/2020 11:2 5:00 AM EST completed eCW1 ([facility]) COVID-19 dose #1 given elsewhere Unspecified 10/31/2020 11:2 5:00 AM EST completed eCW1 ([facility]) COVID-19 dose #1 given elsewhere Unspecified 10/31/2020 11:2 5:00 AM EST completed eCW1 ([facility]) COVID-19 dose #1 given elsewhere Unspecified 10/31/2020 11:2 5:00 AM EST completed eCW1 ([facility]) COVID-19 dose #1 given elsewhere Unspecified 10/31/2020 11:2 5:00 AM EST completed eCW1 ([facility]) COVID-19 VACCINE Moderna 10/31/2020 12:00:00 AM EST completed [facility] Vaccine Series Complete: NOThis Data was Submitted to [facility] Via [employer]. Medications Medication Brand Name Start Date Product [...] suspende d Doxycycline Monohydrate 100 MG eCW1 ([facility]) Doxycycline Monohydrate 100 MG Oral Tablet Doxycycline Monoh ydrate 100 MG 03/19/2021 12:00:00 AM EDT 1.0 {tablet} suspende d Doxycycline Monohydrate 100 MG eCW1 ([facility]) Doxycycline Monohydrate 100 MG Oral Tablet Doxycycline Monoh ydrate 100 MG 03/19/2021 12:00:00 AM EDT 1.0 {tablet} suspende d Doxycycline Monohydrate 100 MG eCW1 ([facility]) Doxycycline Monohydrate 100 MG Oral Tablet Doxycycline Monoh ydrate 100 MG 03/19/2021 12:00:00 AM EDT 1.0 {tablet} suspende d Doxycycline Monohydrate 100 MG eCW1 ([facility]) Doxycycline Monohydrate 100 MG Oral Tablet Doxycycline Monoh ydrate 100 MG 03/19/2021 12:00:00 AM EDT 1.0 {tablet} suspende d Doxycycline Monohydrate 100 MG eCW1 ([facility]) Doxycycline Monohydrate 100 MG Oral Tablet Doxycycline Monoh ydrate 100 MG 03/19/2021 12:00:00 AM EDT 1.0 {tablet} suspende d Doxycycline Monohydrate 100 MG eCW1 ([facility]) Doxycycline Monohydrate 100 MG Oral Tablet Doxycycline Monoh ydrate 100 MG 03/19/2021 12:00:00 AM EDT 1.0 {tablet} suspende d Doxycycline Monohydrate 100 MG eCW1 ([facility]) Doxycycline Monohydrate 100 MG Oral Tablet Doxycycline Monoh ydrate 100 MG 03/19/2021 12:00:00 AM EDT 1.0 {tablet} suspende d Doxycycline Monohydrate 100 MG eCW1 ([facility]) Doxycycline Monohydrate 100 MG Oral Tablet Doxycycline Monoh ydrate 100 MG 03/19/2021 12:00:00 AM EDT 1.0 {tablet} suspende d Doxycycline Monohydrate 100 MG eCW1 ([facility]) Doxycycline Monohydrate 100 MG Oral Tablet Doxycycline Monoh ydrate 100 MG 03/19/2021 12:00:00 AM EDT 1.0 {tablet} suspende d Doxycycline Monohydrate 100 MG eCW1 ([facility]) Doxycycline Monohydrate 100 MG Oral Tablet Doxycycline Monoh ydrate 100 MG 03/19/2021 12:00:00 AM EDT 1.0 {tablet} active Doxycycline Monohydrate 100 MG eCW1 ([facility]) Doxycycline Monohydrate 100 MG Oral Tablet Doxycycline Monoh ydrate 100 MG 03/19/2021 12:00:00 AM EDT 1.0 {tablet} suspende d Doxycycline Monohydrate 100 MG eCW1 ([facility]) Doxycycline Monohydrate 100 MG Oral Tablet Doxycycline Monoh ydrate 100 MG 03/19/2021 12:00:00 AM EDT 1.0 {tablet} active Doxycycline Monohydrate 100 MG eCW1 ([facility]) Doxycycline Monohydrate 100 MG Oral Tablet Doxycycline Monoh ydrate 100 MG 03/19/2021 12:00:00 AM EDT 1.0 {tablet} suspende d Doxycycline Monohydrate 100 MG eCW1 ([facility]) Doxycycline Monohydrate 100 MG Oral Tablet Doxycycline Monoh ydrate 100 MG 03/19/2021 12:00:00 AM EDT 1.0 {tablet} suspende d Doxycycline Monohydrate 100 MG eCW1 ([facility]) Doxycycline Monohydrate 100 MG Oral Tablet Doxycycline Monoh ydrate 100 MG 03/19/2021 12:00:00 AM EDT 1.0 {tablet} active Doxycycline Monohydrate 100 MG eCW1 ([facility]) Brimonidine tartrate 1 MG/ML Ophthalmic Solution [Alphagan] Alphagan P 0.1% Ophthalmic Solution Alphagan P 0.1% Ophthalmic Solution 03/10/2021 12:00:0 0 AM EDT active brimonid ine tartrate 1 MG/ML Ophthalmic Solution [Alphagan] [place] (Néstor Owusu MD [facility]) Cyclosporine 0.5 MG/ML Ophthalmic Suspen clark [Restasis] Restasis 0.05% Ophthalmic Emulsion Restasis 0.05% Ophthalmic Emulsion 03/10/2021 12:00:00 AM EDT active cyclospo rine 0.5 MG/ML Ophthalmic Suspension [Restasis] [place] (Néstor Owusu MD [facility]) bimatoprost 0.1 MG/ML Ophthalmic Solutio n [Lumigan] Lumigan 0.01% Ophthalmic Solution Lumigan 0.01% Ophthalmic Solution 03/10/2021 12:00:00 AM EDT 1 active bimatoprost 0.1 MG/ML Ophthalmic Solution [Lumigan] [place] (Néstor Owusu MD [facility]) Vitamin B 12 0.1 MG Oral Tablet Vitamin B12 03/03/2021 12:00:00 AM EDT active MEDENT ([facility]) Ascorbic Acid 500 MG Chewable Tablet Vitamin C 03/03/2021 12:00:00 AM EDT active MEDENT ([facility]) montelukast 10 MG Oral Tablet Montelukast Sodium 03/03/2021 12:00:00 AM EDT ORAL active MEDENT ([facility]) Prednisone 20 MG Oral Tablet Prednisone 01/02/2021 12:00:00 AM EDT ORAL completed MEDENT ([facility], ) benzonatate 100 MG Oral Capsule Benzonatate 01/02/2021 12:00:00 AM EDT ORAL completed MEDENT ([facility], ) Bisacodyl 5 MG Delayed Release Oral Tablet [Dulcolax] Dulcol ax 12/31/2020 12:00:00 AM EDT completed MEDENT ([facility], ) Sutab Sutab 12/31/2020 12:00:00 AM EDT completed MEDENT ([facility], ) magnesium citrate 58.2 MG/ML Oral Solution Magnesium Citrate 12/31/2020 12:00:00 AM EDT completed MEDENT ([facility], ) Magnesium Hydroxide 80 MG/ML Oral Suspension Milk Of Magnesi a 12/31/2020 12:00:00 AM EDT ORAL completed MEDENT ([facility], ) POLYETHYLENE GLYCOL 3350 142 MG/ML Oral Solution [Miralax] M iralax 12/31/2020 12:00:00 AM EDT active M EDENT ([facility], ) Covid-19 vaccine, Unspecified 11/28/2020 12:00:00 AM EDT completed MEDENT ([facility]) Medication administered onsite Covid-19 vaccine, Unspecified 10/31/2020 12:00:00 AM EST completed MEDENT ([facility]) Medication administered onsite montelukast 10 MG Oral Tablet [Singulair] Singulair 2020 12:00:00 AM EST ORAL active MEDENT ( [facility], ) Fexofenadine hydrochloride 180 MG Oral Tablet Joyce Allerg y 09/09/2020 12:00:00 AM EST ORAL active M EDENT ([facility], ) Azithromycin 250 MG Oral Tablet Azithromycin 09/09/2020 12:00:[address] ORAL completed MEDENT ([facility], ) Sulfamethoxazole 800 MG / Trimethoprim 160 MG Oral Tablet [B actrim] Bactrim DS 07/07/2020 12:00:00 AM EST ORAL active MEDENT ([facility]) bimatoprost 0.1 MG/ML Ophthalmic Solutio n [Lumigan] Lumigan 0.01% Ophthalmic Solution Lumigan 0.01% Ophthalmic Solution 02/12/2020 12:00:00 AM EDT 1 aborted bimatoprost 0.1 MG/ML Ophthalmic Solution [Lumigan] [place] (Néstor Owusu MD [facility]) Brimonidine tartrate 1 MG/ML Ophthalmic Solution [Alphagan] Alphagan P 0.1% Ophthalmic Solution Alphagan P 0.1% Ophthalmic Solution 02/12/2020 12:00:0 0 AM EDT aborted brimonid ine tartrate 1 MG/ML Ophthalmic Solution [Alphagan] TSERING (Néstor Owusu MD [facility]) Cyclosporine 0.5 MG/ML Ophthalmic Suspen clark [Restasis] Restasis 0.05% Ophthalmic Emulsion Restasis 0.05% Ophthalmic Emulsion 11/22/2018 12:00:00 AM EDT aborted cyclospo rine 0.5 MG/ML Ophthalmic Suspension [Restasis] TSERING (Néstor Owusu MD [facility]) Carboxymethylcellulose Sodium 5 MG/ML Op hthalmic Solution Refresh Plus 0.5% Ophthalmic Solution Refresh Plus 0.5% Ophthalmic Solution 07/03/2018 12:00 :00 AM EDT aborted carboxym ethylcellulose sodium 5 MG/ML Ophthalmic Solution [facility] (Néstor Owusu MD [facility]) Refresh Optive 1-0.9% Ophthalmic Gel Refresh Optive 1-0.9% O phthalmic Gel 06/28/2018 12:00:00 AM EDT aborted carboxymethylcellulose sodium 0.01 MG/MG / glycerin 0.009 MG/MG Ophthalmic Gel TSERING (Néstor Owusu MD [facility]) Mineral Oil 0.425 MG/MG / Petrolatum 0.5 73 MG/MG Ophthalmic Ointment Refresh P.M. Ophthalmic Ointment Refresh P.M. Ophthalmic Ointment 06/28/2018 12:00:00 A M EDT aborted mineral oil 0.425 MG/MG / petrolatum 0.573 MG/MG Ophthalmic Ointment TSERING (Néstor Owusu MD [facility]) Insurance Providers Payer name Policy type / Coverage type Policy ID Covered constitution party ID Covered constitution party's relationship to thompson Policy Thompson Plan Information Medicare (Part B) Medicare Primary [id number] Self [id number] MEDICARE [id number] SP [id number] Medicare (Part B) Medicare Primary [id number] 2.16.840.1.983173.3.227.99.572.20852.0 Self [id number] Medicare (Part B) Medicare Primary [id number] 2.16.840.1.881015.3.227.99.572.22110.0 Self [id number] Medicare (Part B) Medicare Primary [id number] 2.16.840.1.923892.3.227.99.572.16472.0 Self [id number] Medicare (Part B) Medicare Primary [id number] Self [id number] Medicare (Part B) Medicare Primary [id number] Self Medicare Medicare Primary [id number] Self MEDICARE [id number] SP [id number] B [place] [facility] ([place] Medigap Part B [id number] 2.16.840.1.757733.3.227.99.991.075981.0 [id number] [place] [facility] [employer] [place] Medigap Part B [id number] 2.16.840.1.663045.3.227.99.991.682301.0 [id number] [place] [facility] [place] Medigap Part B [id number] 2.16.840.1.884326.3.227.99.991.338252.0 [id number] [place] [facility] [place] Medigap Part B [id number] 2.16.840.1.022881.3.227.99.991.301391.0 [id number] [place] [facility] [place] Medigap Part B [id number] 2.16840.1.323392.3.227.99.991.040961.0 [id number] [place] [facility] [place] Medigap Part B [id number] 2.16.840.1.883951.3.227.99.991.594051.0 [id number] [place] [facility] [place] Medigap Part B 2.16.840.1.429289.3.227.99.991.745683.0 [place] [facility] [place] Medigap Part B [id number] 2.16.840.1.377896.3.227.99.991.496292.0 [id number] [place] [facility] ([place]FL[place] Medigap Part B [id number] 2.16.840.1.584292.3.227.99.991.259077.0 [id number] [place] [facility] ([place]FL[place] Medigap Part B [id number] 2.16.840.1.548398.3.227.99.991.640409.0 [id number] [place] [facility] [place] Medigap Part B [id number] 2.16840.1.324243.3.227.99.991.135596.0 [id number] [place] Primary [id number] 2.16840.1.991294.3.227.99.991.145408.0 Self [id number] Medicare [place] Medicare Primary [id number] 2.16840.1.568296.3.227.99.991.055107.0 Self [id number] Medicare [place] Medicare Primary [id number] 2.840.1.698003.3.227.99.991.032942.0 Self [id number] Medicare [place] Medicare Primary [id number] 2.16840.1.686298.3.227.99.991.653339.0 Self [id number] Medicare [place] Medicare Primary [id number] 2.16840.1.816300.3.227.99.991.652245.0 Self [id number] Medicare [place] Medicare Primary [id number] 2.16840.1.945556.3.227.99.991.643508.0 Self [id number] Medicare [place] Medicare Primary [id number] 2.16840.1.634485.3.227.99.991.026604.0 Self [id number] Medicare [place] Medicare Primary [id number] 2.16840.1.408243.3.227.99.991.852051.0 Self [id number] Medicare [place] Medicare Primary [id number] 2.16840.1.155274.3.227.99.991.569434.0 Self [id number] Medicare [place] Medicare Primary 2.16.840.1.086207.3. 227.99.991.590645.0 Self Medicare [place] Medicare Primary [id number] 2.16.840.1.516238.3.227.99.991.957059.0 Self [id number] FOR LIFE [id number] HU2 [id number] WPS For Life [employer] Part B [id number] 2.16.840.1.966800.3.227.99.8646.29810.0 Family Dependent [id number] FOR LIFE [id number] SP [id number] For Life F [id number] SPOUSE [id number] Medicare C [id number] SELF [id number] C16 DME Jurisdiction A [facility] C [id number] SELF [id number] ANSI-Commercial [id number] ANSI-Medicare Part B [id number] ANSI-Medicare Part B [id number] ANSI-Commercial [id number] ANSI-Medicare Part B [id number] ANSI-Commercial [id number] MEDICARE [id number] SP [id number] B For Life - WPS [facility] Part B [id number] 2..1.128032.3.227.99.572.61395.0 Family Dependent 3 [id number] ANSI-Medicare Part B [id number] ANSI-Commercial [id number] ANSI-Medicare Part B [id number] ANSI-Commercial [id number] ANSI-Commercial [id number] ANSI-Medicare Part B [id number] Medicare Dme Supplies Medigap Part B [id number] .1.474930.3.227.99.991.497523.0 Self [id number] Medicare Dme Supplies [facility] Part B [id number] ..1.301166.3.227.99.991.373545.0 Self [id number] MEDICARE C [id number] S [id number] B For Life WPS Medigap Part B [id number] ..1.237410.3.227.99.1767.36329.0 Family Dependent [id number] Medicare Natl Gov't Servi Medicare Primary [id number] 2.840.1.987166.3.227.99.1767.78811.0 Self [id number] WPS For Life Medigap Part B [id number] 2.840.1.184243.3.227.99.8646.03865.0 Family Dependent [id number] Medicare [place]GS Medicare Primary [id number] 2.0.1.069515.3.227.99.8646.38172.0 Self [id number] For Life - WPS Medigap Part B [id number] 2.0.1.997809.3.227.99.572.71742.0 Family Dependent 3 [id number] WPS For Life Medigap Part B [id number] 2.0.1.713725.3.227.99.8646.05090.0 Family Dependent [id number] Medicare [place]/NGS Medicare Primary [id number] 2.0.1.985448.3.227.99.8646.32813.0 Self [id number] FOR LIFE [id number] [facility] [id number] WPS For Life Medigap Part B [id number] 2.0.1.993630.3.227.99.8646.63521.0 Family Dependent [id number] Medicare [place]/NGS Medicare Primary [id number] 2.0.1.433903.3.227.99.8646.78339.0 Self [id number] For Life WPS Medigap Part B [id number] 2.840.1.653134.3.227.99.1767.06393.0 Family Dependent [id number] Medicare Natl Gov't Servi Medicare Primary [id number] 2.840.1.494787.3.227.99.1767.38999.0 Self [id number] For Life Commercial [id number] 2.840.1.234355.3.227. 99.936.89117.0 Family Dependent [id number] Medicare Medicare Primary [id number] 2.16.840.1.848520.3.227. 99.936.49016.0 Self [id number] For Life Commercial [id number] 2.16.840.1.767645.3.227. 99.936.97746.0 Family Dependent [id number] Medicare Medicare Primary [id number] 2.16.840.1.263509.3.227. 99.936.49090.0 Self [id number] For Life Commercial [id number] 2.16.840.1.093830.3.227. 99.936.32089.0 Family Dependent [id number] Medicare Medicare Primary [id number] 2.16.840.1.066211.3.227. 99.936.72340.0 Self [id number] WPS For Life Medigap Part B [id number] 2.16.840.1.286946.3.227.99.8646.74353.0 Family Dependent [id number] Medicare Upstate/[facility] Medicare Primary [id number] 2.16.840.1.395516.3.227.99.8646.22432.0 Self [id number] MEDICARE [id number] SP [id number] B FOR LIFE [id number] HU2 10 [id number] FOR LIFE [id number] HU2 [id number] For Life WPS Medigap Part B [id number] Family Depende nt Medicare Natl Gov't Servi Medicare Primary [id number] Self For Life - WPS Medigap Part B [id number] Family Depen dent For Life Reg 1 Medigap Part B [id number] Family Depen dent Medicare - [facility] Medicare Primary [id number] Self [id number] B [id number] MEDICARE [id number] SP [id number] C16 [id number] FOR LIFE [id number] HU2 [id number] Medicare Part B [facility] Other 0 [id number] Self 0 FOR LIFE -O/P [id number] 01 [id number] MEDICARE PART A -O/P [id number] 18 [id number] Medicare Part B [facility] Other 0 [id number] Self 0 MEDICARE C [id number] S [id number] C16 FOR LIFE O [id number] S [id number] ANSI-Commercial [id number] ANSI-Medicare Part B [id number] ANSI-Commercial [id number] ANSI-Medicare Part B [id number] For Life - WPS Medigap Part B [id number] Family Dependent [id number] For Life - WPS Medigap Part B [id number] Family Dependent [id number] ANSI-Medicare Part B [id number] ANSI-Commercial [id number] ANSI-Commercial [id number] [facility]-Medicare Part B [id number] ANSI-Commercial [id number] ANSI-Medicare Part B [id number] Medicare Dme Supplies [facility] Part B [id number] 2..1.172708.3.227.99.991.191190.0 Self [id number] For Life - WPS [facility] Part B [id number] 2..1.081529.3.227.99.572.80738.0 Family Dependent 3 [id number] Medicare [place]GS Medicare Primary [id number] 2...1.462384.3.227.99.8646.80390.0 Self [id number] [facility]-Medicare Part B [id number] ANSI-Commercial [id number] Medicare Dme Supplies [facility] Part B [id number] 2...1.507151.3.227.99.991.411404.0 Self [id number] ANSI-Medicare Part B [id number] ANSI-Commercial [id number] ANSI-Medicare Part B [id number] ANSI-Commercial [id number] Medicare Dme Supplies [facility] Part B [id number] 2.16.840.1.702181.3.227.99.991.789832.0 Self [id number] Medicare Dme Supplies [facility] Part B [id number] 2.16.840.1.669070.3.227.99.991.324824.0 Self [id number] Medicare Dme Supplies [facility] Part B [id number] 2.16.840.1.897959.3.227.99.991.777318.0 Self [id number] ANSI-Medicare Part B [id number] ANSI-Commercial [id number] [facility]-Medicare Part B [id number] ANSI-Commercial [id number] Problems, Conditions, and Diagnoses Code Display Name Description Problem Type Effective Dates Data Source(s) Y929 [address] or not applicable Unspecified place or not applicable Diagnosis 01/12/2021 03:46:00 PM EDT [facility] [id number] Exposure to other specified factors, ini tial encounter Exposure to other specified factors, initial encounter Diagnosis 01/12/2021 03:46:00 PM EDT [facility] Z7982 detention (current) use of aspirin 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 Diagnosis 01/12/2021 03:46:00 PM EDT [facility] Z7984 detention (current) use of oral hypoglyc emic drugs tank terminal gauger (current) use of oral hypoglycemic drugs Diagnosis 01/12/2021 03:46:00 PM EDT [facility] Z8673 Personal history of transien t ischemic attack (TIA), and cerebral infarction without residual deficits Personal history of transient ischemic attack (TIA), and cerebral infarction without residual deficits Diagnosis 01/12/2021 03:46:00 PM EDT [facility] E039 Hypothyroidism, unspecified Hypothyroidism, unspecifie d Diagnosis 01/12/2021 03:46:00 PM EDT [facility] E119 Type 2 diabetes mellitus without complic ations Type 2 diabetes mellitus without complications Diagnosis 01/12/2021 03:46:00 PM EDT [facility] I10 Essential (primary) hypertension Essential (primary) h ypertension Diagnosis 01/12/2021 03:46:00 PM EDT [facility] [id number] Contusion of left forearm, initial encou nter Contusion of left forearm, initial encounter Diagnosis 01/12/2021 03:46:00 PM EDT [facility] [id number] Pure hypercholesterolemia Pure hypercholesterolemia Pr oblem 03/25/2021 12:00:00 AM EDT MEDENT ([facility]) [id number] Essential hypertension Essential hypertension Problem 03/25/2021 12:00:00 AM EDT MEDENT ([facility]) Z86.16 [id number] History of COVID-19 Problem 12:00:00 AM EDT eCW1 ([facility]) E11.69 [id number] Type 2 diabetes mellitus with ot her specified complication Problem 10/29/2020 12:00:00 AM EST eCW1 ([facility]) I87.312 [id number] 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 Problem 08/06/2020 12:00:00 AM EST eCW1 ([facility]) L97.822 [id number] Non-pressure chronic ulcer of other part of left lower leg with fat layer exposed Problem 08/06/2020 12:00:00 AM EST eCW1 ([facility]) Surgeries/Procedures Procedure Description Date Indications Data Source(s) PHYSICIAN TELEPHONE EVALUATION 5-10 MIN 04/02/2021 12: 00:00 AM EDT MEDENT ([facility]) Diabetic Foot Exam 03/26/2021 12:00:00 AM EDT MED[facility] ([facility]) OFFICE OUTPATIENT NEW 45 MINUTES 03/26/2021 12:00:00 A M EDT MEDJUANITO ([facility]) ECG ROUTINE ECG W/LEAST 12 LDS W/I&R 03/04/2021 12:00: 00 AM EDT MEDENT ([facility]) OFFICE OUTPATIENT VISIT 25 MINUTES 03/04/2021 12:00:00 AM EDT MED[facility] ([facility]) Spirometry 03/03/2021 12:00:00 AM EDT Silvia CAMPBELL ([facility], ) OFFICE OUTPATIENT VISIT 15 MINUTES 03/03/2021 12:00:00 AM EDT MEDJUANITO ([facility], ) OFFICE OUTPATIENT VISIT 15 MINUTES 02/27/2021 12:00:00 AM EDT MEDENT ([facility]) ARTHROCENTESIS ASPIR&/INJECTION MAJOR JT/BURSA 01/02/2 021 12:00:00 AM EDT MED[facility] ([facility]) RADEX SHOULDER COMPLETE MINIMUM 2 VIEWS 01/02/2021 12: 00:00 AM EDT MED[facility] ([facility]) OFFICE OUTPATIENT VISIT 25 MINUTES 01/02/2021 12:00:00 AM EDT MED[facility] ([facility]) Spirometry 01/02/2021 12:00:00 AM EDT Silvia CAMPBELL ([facility], ) OFFICE OUTPATIENT VISIT 25 MINUTES 01/02/2021 12:00:00 AM EDT MEDJUANITO ([facility]) OFFICE OUTPATIENT VISIT 25 MINUTES 12/31/2020 12:00:00 AM EDT MEDENT ([facility]) Surgical / procedural history Hysterect jazmin [...] 12:00:00 AM EDT TSERING (Segun [facility]u [facility]) Spirometry 11/11/2020 12:00:00 AM EST M EDENT ([facility]) OFFICE OUTPATIENT VISIT 25 MINUTES 11/11/2020 12:00:00 AM EST MEDENT ([facility]) Discission of membranous cataract, secondary (procedur e) 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 by 11/11/2020 12:00:00 AM EST TSERING (Néstor jeff [facility]) Cataract surgery (procedure) History of cataract surge ry of right eye 2012 with 11/11/2020 12:00:00 AM EST [facility] ([facility]) Intermediate Eye Exam Established Patient Intermediate Eye Exam Established Patient 11/11/2020 12:00:00 AM EST [facility] (Seugn Owusu [facility]) Intermediate Eye Exam Established Patient Intermediate Eye Exam Established Patient 11/11/2020 12:00:00 AM EST [facility] ([facility]) Medication: Aquaphor healing ointment topical 10/07/19 12:00:00 AM EST eCW1 ([facility]) Spirometry 09/09/2020 12:00:00 AM EST M EDENT ([facility], ) OFFICE OUTPATIENT VISIT 25 MINUTES 09/09/2020 12:00:00 AM EST MED[facility] ([facility], ) ECG ROUTINE ECG W/LEAST 12 LDS W/I&R 09/03/2020 12:00: 00 AM EST [facility] ([facility]) FINE NEEDLE ASPIRATION W/O IMAGING GUIDANCE 08/13/2020 12:00:00 AM EST eCW1 ([facility]) FINE NEEDLE ASPIRATION W/O IMAGING GUIDANCE 08/06/2020 12:00:00 AM EST eCW1 ([facility]) RADIOLOGIC EXAMINATION TIBIA & FIBULA 2 VIEWS 07/07/20 20 12:00:00 AM EST MED[facility] ([facility] ) Diabetic Foot Exam 06/05/2020 12:00:00 AM EDT [facility] ([facility] ) Spirometry 06/03/2020 12:00:00 AM EDT M EDENT ([facility], ) Results ID Date Data Source [id number] 05/19/2021 12:00:00 AM EDT eCW1 ([facility]) Name Value Range Interpretation Code Description Data Aditi rce(s) Supporting Document(s) Hemoglobin A1c/Hemoglobin.total in Blood 7.0 HEMOGLOBIN A1c [facility] ([facility]) ID Date Data Source [id number] 05/04/2021 02:43:00 PM EDT [facility] Name Value Range Interpretation Code Description Data Aditi rce(s) Supporting Document(s) SARS coronavirus 2 RNA [Presence] in Res piratory specimen by IVY with probe detection POSITIVE [facility] This lab was ordered by [facility] a nd reported by [facility]. ID Date Data Source [id number] 04/03/2021 10:02:00 AM EDT [facility] Name Value Range Interpretation Code Description Data Aditi rce(s) Supporting Document(s) SARS-CoV-2 (COVID 19) NEGATIVE - SARS-CoV-2 (COVID19) [facility] This lab was ordered by [facility] a nd reported by [facility]. ID Date Data Source [id number] 03/03/2021 02:43:00 PM EDT [facility] ([facility], ) Name Value Range Interpretation Code Description Data Aditi rce(s) Supporting Document(s) PDFReport Laboratory test result MEDENT ([facility], ) FVC-Pre 2.58 L MEDENT ([facility]) FVC-Pred 2.40 L [facility] ([facility]) FVC-%Pred-Pre 107 L MED[facility] ([facility]) FVC-LLN 1.73 L [facility] ([facility]) Fev1-Pred 1.78 L [facility] ([facility]) Fev1-Pre 1.79 L [facility] ([facility]) Fev1-%Pred-Pre 100 L [facility] ([facility]) Fev6-Pred 2.26 L [facility] ([facility]) Fev1-LLN 1.21 L [facility] ([facility]) Fev6-%Pred-Pre 112 L [facility] ([facility]) Fev6-Pre 2.55 L [facility] ([facility]) Fev6-LLN 1.60 L [facility] ([facility]) Qhl5qza-Mclk 73 % [facility] ([facility]) Pjc4uhu-%Pred-Pre 94 % [facility] ([facility]) Jor6xwn-Jht 69 % [facility] ([facility]) Gwh7utd-Rjyl 94 % [facility] ([facility]) Tos4xpq-CHX 64 % [facility] ([facility]) Pqi5gzr-%Pred-Pre 104 % [facility] ([facility]) Rtw2tml-Akj 99 % [facility] ([facility]) FEFMax-%Pred-Pre 114 L/E/sec MEDENT ([facility]) FEFMax-Pre 5.08 L/E/sec [facility] ([facility], ) FEFMax-Pred 4.44 L/E/sec [facility] ([facility]) Lrt9307-Stie 1.25 L/E/sec [facility] ([facility]) FEFMax-LLN 2.78 L/E/sec [facility] ([facility]) Ojv4325-%Pred-Pre 84 L/E/sec [facility] ([facility]) Fqe8705-Hgl 1.05 L/E/sec [facility] ([facility]) [id number] 0.05 L/E/sec [facility] ([facility]) ExpTime-Pre 8.03 sec MEDENT ([facility]) [id number]-Ajg 70 % MEDENT ([facility]) Dlq0xqj3-Wtip 77 % MEDENT ([facility]) Xbx5blb1-%Pred-Pre 90 % MEDENT ([facility]) [id number]-VXK 68 % MEDENT ([facility]) ID Date Data Source LIPID PANEL (CARDIAC RISK) 02/19/2021 12:00:00 AM EDT W1 ( [facility]) Name Value Range Interpretation Code Description Data Aditi rce(s) Supporting Document(s) Cholesterol [Moles/volume] in Serum or Plasma 145 <200 CHOLESTEROL LEVEL eCW ([facility]) Triglyceride [Mass/volume] in Serum or Plasma by calculation 301 <150 TRIGLYCERIDES LEVEL eCW1 ([facility]) Cholesterol in HDL [Moles/volume] in Serum or Plasma 53 >40 HDL CHOLESTEROL [facility] ([facility]) 2.735 <5 CHOLESTEROL RISK RATIO eC ([facility]) Cholesterol in LDL [Mass/volume] in Serum or Plasma by calculation 32 <100 LDL CHOLESTEROL eC ([facility]) 92 NON-HDL-C eCW1 ([facility]) ID Date Data Source FREE T4 & TSH PANEL 02/19/2021 12:00:00 AM EDT eCW1 ([facility]) Name Value Range Interpretation Code Description Data Aditi rce(s) Supporting Document(s) 1.10 0.76-1.46 FREE T4 eCW1 ([facility]) 1.290 0.358-3.740 THYROID STIMULATING HORM ONE eCW1 ([facility]) ID Date Data Source Comprehensive Metabolic Profile (CMP) 02/19/2021 12:00:00 AM EDT eCW1 ([facility]) Name Value Range Interpretation Code Description Data Aditi rce(s) Supporting Document(s) 1.02 0.55-1.30 CREATININE FOR GFR eCW1 ([facility]) 190 70-100 GLUCOSE, FASTING eCW1 ([facility]) 16 7-18 BLOOD UREA NITROGEN eCW1 ([facility]) 55.2 >32 GLOMERULAR FILTRATION RATE eCW 1 ([facility]) 4.3 3.5-5.1 POTASSIUM SERUM eCW1 ([facility]) 142 136-145 SODIUM LEVEL eCW1 ([facility]) 108 98-107 CHLORIDE LEVEL eCW1 ([facility]) 10.0 8.8-10.2 CALCIUM LEVEL eCW1 ([facility]) 20 7-37 AST/SGOT eCW1 ([facility]) 28 21-32 CARBON DIOXIDE LEVEL eCW1 ([facility]) 1.4 0.2-1.0 BILIRUBIN,TOTAL eCW1 ([facility]) 25 12-78 ALT/SGPT eCW1 ([facility]) 111 45-117 ALKALINE PHOSPHATASE eCW1 ([facility]) 7.1 6.4-8.2 TOTAL PROTEIN eCW1 ([facility]) 4.0 3.2-5.2 ALBUMIN eCW1 ([facility]) 1.3 1.2-2.2 ALBUMIN/GLOBULIN RATIO eCW1 ([facility]) ID Date Data Source [id number] 02/12/2021 11:10:00 AM EDT MED[facility] ([facility]) Name Value Range Interpretation Code Description Data Aditi rce(s) Supporting Document(s) Glucose, Fasting 106 mg/dL 70-100 [facility] ([facility]) Blood Urea Nitrogen 18 mg/dL 7-18 [facility] ([facility]) Creatinine For GFR 1.00 mg/dL 0.55-1.30 [facility] ([facility]) Glomerular Filtration Rate 56.5 [facility] E[facility] ([facility]) <content>Units are mL/min/1.73 m2</content>
<content></content>
<content>Chronic Kidney Disease Staging per NKF:</content>
<content></content>
<content>Stage I & II GFR >=60 Normal to Mildly Decreased</content>
<content>Stage III GFR 30- 59 Moderately Decreased</content>
<content>Stage IV GFR 15-29 Severely Decreased</content>
<content>Stage V GFR <15 Very Little GFR Left</content>
<content>ESRD GFR <15 on COIL FORMER</content>
<content></content> Sodium Level 143 meq/L 136-145 [facility] ([facility] Potassium Serum 4.3 meq/L 3.5-5.1 [facility] ([facility]) Chloride Level 107 meq/L 98-107 [facility] ([facility]) Carbon Dioxide Level 27 meq/L 21-32 [facility] ([facility]) Anion Gap 9 meq/L 8-16 [facility] Calcium Level 9.8 mg/dL 8.8-10.2 [facility] ([facility]) ID Date Data Source [id number] 01/12/2021 03:46:00 PM EDT [facility] 1 Medication Reconciliation Report [facility] Emergency Department [address] [place] [address] Phone #: ext- [phone] 01/12/2021 15:06 Patient: [...] 1/2 tablet, daily 2 Medication Reconciliation Report [facility] Emergency Department [address] [place] [address] Phone #: ext- [phone] 01/12/2021 15:06 Patient: HNOG SCALES Sex: F : 1940 Age: 80yThe source(s) of the original Home Medication information:Not obtained.The following Medications were given to the patient in the Emergency Department:None.The following Medications were prescribed to the patient:None. Name Value Range Interpretation Code Description Data Aditi rce(s) Supporting Document(s) ID Date Data Source [id number] 01/12/2021 03:46:00 PM EDT [facility] 1 Medication Administration Record [facility] Emergency Department [address] [place] [address] Phone #: ext- [phone] 01/12/2021 15:06 Patient: HONG SCALES Sex: F : 1940 Age: 80yWeight: 99.7 kgHeight/Length: 63 inBMI: 38.9ALLERGIES: Ceclor, Penicillins, AmitriptylineDate/Time Medication Administered Medication Ordered Name Value Range Interpretation Code Description Data Aditi rce(s) Supporting Document(s) ID Date Data Source [id number] 01/12/2021 03:46:00 PM EDT [facility] 1 General Instructions [facility] Emergency Department [address] [place] [address] Phone #: ext [phone] 01/12/2021 15:06 Patient: HONG SCALES Sex: F [...] to plan of care. 2 General Instructions [facility] Emergency Department [address] [place] [address] Phone #: [phone]- [phone] 01/12/2021 15:06 [id number] Sex: [facility] : 1940 Age: 80y ADDITIONAL [...] or eye Frequent bruising for unknown reasons [id number] [employer]. [address] [place] [address]. All rights reserved. This information is not intended as asubstitute for professional medical care. Always follow your healthcare professional's instructions. 3 General Instructions [facility] Emergency Department [address] [place] [address] Phone #: ext- [phone] 01/12/2021 15:06 Patient: HONG SCALES [facility]#: [id number] Sex: F : 1940 Age: 80yUpper Extremity [...] individual fingers. Frequent bruising for unknown reasons [phone] [employer]. [address] [place] [address]. All rights reserved. This information is not intended as asubstitute for professional medical care. Always follow your healthcare professional's instructions. 4 General Instructions [facility] Emergency Department [address] [place] [address] Phone #: ext- [phone] 01/12/2021 15:06 [id number] Sex: F : 1940 Age: 80yYou have been given the following additional information:Soft Tissue ContusionContusion, Upper Extremity(Electronically signed by Contreras Joya M.D. 01/12/2021 19:21) Name Value Range Interpretation Code Description Data Aditi rce(s) Supporting Document(s) ID Date Data Source [id number] 01/12/2021 03:46:00 PM EDT [facility] 1 Clinical Report - Nurses [facility] Emergency Department [address] [place] [address] Phone #: ext- [phone] 01/12/2021 15:06 Patient: [...] The patient has had a cough. 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 SEPSIS SCREEN: SIRS SCREEN NEGATIVE. SEPSIS [...] Rodriguez R.N. 2 Clinical Report - Nurses [facility] Emergency Department [address] [place] [address] Phone #: ext- [phone] 01/12/2021 15:06 [id number] Sex: F : 1940 Age: 6 2yMontelukast [...] prevention information. 3 Clinical Report - Nurses [facility] Emergency Department [address] [place] [address] Phone #: ext- [phone] 01/12/2021 15:06 Patient: HONG SCALES Sex: F [...] level now: 10/15. --16:22 01/12/21 Luis Manuel processing clerkCarol Morales ER Tech1 Condition at departure: unchanged. No learning barriers present. Discharge instructions provided and reviewed with the patient. Patient verbalized understanding. Written instructions provided in Persian. The patient was discharged home and accompanied by family. She left ambulatory and via private vehicle. Family member driving. --16:27 01/12/21 Bea Hernández R.N. Departure time: 16:27 01/12/2021. --16:27 01/12/21 Bea Hernández R.N.Locked/Released at 01/12/2021 16:27 by Bea Hernández R.N. Name Value Range Interpretation Code Description Data Aditi rce(s) Supporting Document(s) ID Date Data Source [id number] 01/12/2021 03:46:00 PM EDT [facility] 1 Clinical Report - Physicians/Mid Levels [facility] Emergency Department [address] [place] [address] Phone #: ext- [phone] 01/12/2021 15:06 [id number] Sex: F : 1940 Age: 80y Time [...] Allergies: Amitriptyline. 2 Clinical Report - Physicians/Mid [facility] Emergency Department [address] [place] [address] Phone #: ext- [phone] 01/12/2021 15:06 Patient: [...] forearm. 3 Clinical Report - Physicians/Mid Levels [facility] Emergency Department [address] [place] [address] Phone #: ext- [phone] 01/12/2021 15:06 [facility]: [id number] Sex: F : Age: 80yINSTRUCTIONS Warnings: Further [...] 01/12/2021 19:21) 4Clinical Report - Physicians/Mid Levels [facility] Emergency Department [address] [place] [address] Phone #: [phone]- [phone] 01/12/2021 15:06 [facility]: [id number] Sex: F : Age: 80y Name Value Range Interpretation Code Description Data Aditi rce(s) Supporting Document(s) ID Date Data Source [id number] 01/07/2021 10:03:00 AM EDT [facility] Name Value Range Interpretation Code Description Data Aditi rce(s) Supporting Document(s) SARS COVID ANTIGEN POSITIVE [facility] This lab was ordered by CHRISTOPHE hernandez nd reported by [facility]. ID Date Data Source Coronavirus 2019 NOSE (Send Out) COVID 01/07/2021 12:00:00 A M EDT eCW1 ([facility]) Name Value Range Interpretation Code Description Data Aditi rce(s) Supporting Document(s) NOTE: The COVID-19 assay is under Emergency Use Authorization (EUA) by the CORONAVIRUS 2019 NOSE eCW1 ([facility]) ID Date Data Source [id number] 01/02/2021 10:26:00 AM EDT [facility] ([facility], ) Name Value Range Interpretation Code Description Data Aditi rce(s) Supporting Document(s) PDFReport Laboratory test result [facility] ([facility], ) FVC-Pred 2.40 L [facility] ([facility]) FVC-Pre 2.26 L [facility] ([facility]) FVC-%Pred-Pre 93 L [facility] ([facility]) FVC-LLN 1.73 L [facility] ([facility]) Fev1-Pre 1.54 L [facility] ([facility]) Fev1-Pred 1.78 L [facility] ([facility]) Fev1-%Pred-Pre 86 L [facility]) Fev1-LLN 1.21 L [facility] ([facility]) Fev6-%Pred-Pre 99 L [facility] ([facility]) Fev6-Pred 2.26 L [facility] ([facility]) Fev6-Pre 2.26 L [facility] ([facility]) Xvj4jzk-Fnsx 73 % [facility] ([facility]) Fev6-LLN 1.60 L [facility] ([facility]) Pdl5tkx-PBY 64 % [facility] ([facility]) Pvt0ltg-%Pred-Pre 92 % [facility] ([facility]) Rgi1onv-Rfu 68 % [facility] ([facility]) Xmh9kjx-Gyvb 94 % [facility] ([facility]) Pwf8rdl-%Pred-Pre 106 % [facility] ([facility]) Pdb0yxn-Yis 100 % [facility] ([facility]) FEFMax-Pre 4.26 L/E/sec [facility] ([facility]) FEFMax-Pred 4.44 L/E/sec [facility] ([facility]) FEFMax-LLN 2.78 L/E/sec [facility] ([facility]) FEFMax-%Pred-Pre 95 L/E/sec [facility] ([facility]) Csf0477-%Pred-Pre 69 L/E/sec [facility] ([facility]) Uqi0404-Hxx 0.86 L/E/sec [facility] ([facility]) Elo6966-Aewj 1.25 L/E/sec [facility] ([facility]) Pai0796-FYD 0.05 L/E/sec [facility] ([facility]) ExpTime-Pre 6.76 sec [facility] ([facility]) Xlr8hld4-Tcv 68 % [facility] ([facility]) Fsv5jwv8-Keui 77 % [facility] ([facility]) Xot7ggc5-%Pred-Pre 88 % [facility] ([facility]) Pna3jpt4-KUI 68 % [facility] ([facility]) ID Date Data Source [id number] 11/11/2020 10:53:00 AM EST [facility] ([facility]) Name Value Range Interpretation Code Description Data Aditi rce(s) Supporting Document(s) PDFReport Laboratory test result MED[facility] ([facility]) FVC-Pred 2.40 L [facility] ([facility]) FVC-Pre 2.30 L [facility] ([facility], ) FVC-%Pred-Pre 95 L [facility] ([facility], ) Fev1-Pre 1.61 L [facility] ([facility]) FVC-LLN 1.73 L [facility] ([facility]) Fev1-Pred 1.78 L [facility] ([facility]) Fev1-%Pred-Pre 90 L [facility] ([facility], ) Fev1-LLN 1.21 L [facility] ([facility], ) Fev6-Pred 2.26 L [facility] ([facility]) Fev6-%Pred-Pre 101 L [facility] ([facility]) Fev6-Pre 2.30 L [facility] ([facility]) Fev6-LLN 1.60 L [facility] ([facility]) Xyk4uol-Dcyu 73 % [facility] ([facility]) Zpr2ugz-Zhw 70 % [facility] ([facility]) Cjf3mvk-XSY 64 % [facility] ([facility]) Qro8otm-%Pred-Pre 95 % [facility] ([facility]) Cax4gch-Oug 100 % [facility] ([facility]) Rmg4ost-Twxr 94 % [facility] ([facility]) Ikb8ubz-%Pred-Pre 105 % [facility] ([facility]) FEFMax-Pred 4.44 L/E/sec [facility] ([facility], ) FEFMax-Pre 5.22 L/E/sec [facility] ([facility]) Vkl0914-Bbvz 1.25 L/E/sec [facility] ([facility]) FEFMax-%Pred-Pre 117 L/E/sec [facility] ([facility]) FEFMax-LLN 2.78 L/E/sec [facility] ([facility], ) Dzq8121-Zeo 1.01 L/E/sec [facility] ([facility], ) Jtx1843-%Pred-Pre 81 L/E/sec [facility] ([facility]) Ckm7112-AST 0.05 L/E/sec [facility] ([facility], ) ExpTime-Pre 7.28 sec [facility] ([facility]) Frv5vxs6-Dxnc 77 % [facility] ([facility]) Ifs1ekf4-%Pred-Pre 90 % [facility] ([facility]) Zux9kei8-Ylt 70 % [facility] ([facility]) Tmi9dmq6-DZI 68 % [facility] ([facility]) ID Date Data Source [id number] 09/24/2020 12:00:00 AM EST [facility] Gloria Maxwell Pa-C Patient Name: HONG SCALES19436 Graham Barriga Date of : 1940[address] Date of Exam: 09/24/2020LUCY Baptiste [id number]#: Fax: [phone] EXAM: US CAROTID BILATERAL COMPLETECLINICAL [...] of theinternal carotid artery bilaterally.Accredited by the [employer] [place] [employer] in General Ultrasound.CHANELL Ramirez/Roddy ingram for referring HONG SCALES to our office. Electronically Signed - CHRISTY BOO DO 09/25/20 15:58 Name Value Range Interpretation Code Description Data Aditi rce(s) Supporting Document(s) ID Date Data Source [id number] 09/11/2020 08:49:00 AM EST [facility] ([facility]) Name Value Range Interpretation Code Description Data Aditi rce(s) Supporting Document(s) Triglycerides Level 172 mg/dL [facility] ([facility] HDL Cholesterol 64 mg/dL [facility] ([facility]) Cholesterol Level 165 mg/dL [facility] ([facility]) LDL Cholesterol 67 mg/dL [facility] ([facility]) Non-HDL-C 101 mg/dL [facility] Cholesterol Risk Ratio 2.578 [facility] ([facility]) ID Date Data Source [id number] 09/11/2020 08:49:00 AM EST [facility] Name Value Range Interpretation Code Description Data Aditi rce(s) Supporting Document(s) Glucose, Fasting 194 mg/dL 70-100 [facility] Blood Urea Nitrogen 15 mg/dL 7-18 [facility] ([facility]) Creatinine For GFR 1.01 mg/dL 0.55-1.30 [facility] ([facility]) Glomerular Filtration Rate 56.0 MED ENT ([facility]) <content>Units are mL/min/1.73 m2</content>
<content></content>
<content>Chronic Kidney Disease Staging per NKF:</content>
<content></content>
<content>Stage I & II GFR >=60 Normal to Mildly Decreased</content>
<content>Stage III GFR 30- 59 Moderately Decreased</content>
<content>Stage IV GFR 15-29 Severely Decreased</content>
<content>Stage V GFR <15 Very Little GFR Left</content>
<content>ESRD GFR <15 on COIL FORMER</content>
<content></content> Sodium Level 142 meq/L 136-145 [facility] ([facility]) Chloride Level 108 meq/L 98-107 [facility] ([facility]) Potassium Serum 4.3 meq/L 3.5-5.1 [facility] ([facility]) Carbon Dioxide Level 32 meq/L 21-32 [facility] ([facility]) Anion Gap 2 meq/L 8-16 [facility] Calcium Level 9.8 mg/dL 8.8-10.2 [facility] ([facility]) Ast/Sgot 13 U/L 7-37 [facility] Alkaline Phosphatase 115 U/L 45-117 [facility] ([facility]) Alt/SGPT 24 U/L 12-78 [facility] Bilirubin,Total 1.3 mg/dL 0.2-1.0 [facility] ([facility]) Total Protein 6.8 GM/DL 6.4-8.2 [facility] ([facility]) Albumin 3.7 GM/DL 3.2-5.2 [facility] ([facility] Albumin/Globulin Ratio 1.2 1.2-2.2 [facility] ([facility]) ID Date Data Source [id number] 09/09/2020 09:22:00 AM EST [facility] ([facility], ) Name Value Range Interpretation Code Description Data Aditi rce(s) Supporting Document(s) PDFReport Laboratory test result MEDENT ([facility], ) FVC-Pre 2.33 L [facility] ([facility], ) FVC-Pred 2.45 L [facility] ([facility], ) FVC-%Pred-Pre 95 L [facility] ([facility], ) FVC-LLN 1.77 L [facility] ([facility], ) Fev1-Pre 1.74 L [facility] ([facility], ) Fev1-Pred 1.81 L [facility] ([facility], ) Fev1-%Pred-Pre 95 L [facility] ([facility], ) Fev1-LLN 1.24 L [facility] ([facility], ) Fev6-Pred 2.31 L [facility] ([facility], ) Fev6-Pre 2.33 L [facility] ([facility], ) Fev6-%Pred-Pre 100 L [facility] ([facility], ) Fev6-LLN 1.65 L [facility] ([facility], ) Idz1sws-Ttbz 74 % [facility] ([facility], ) Kbq0wad-%Pred-Pre 101 % [facility] ([facility]) Bgi7qef-Vfa 75 % [facility] ([facility]) Urj3bhl-PSJ 64 % [facility] ([facility]) Urw7fsl-Bdl 100 % [facility] ([facility], ) Ctd9iwe-Earm 94 % [facility] ([facility]) Qva1wxa-%Pred-Pre 106 % [facility] ([facility]) FEFMax-Pred 4.54 L/E/sec [facility] ([facility], ) FEFMax-Pre 5.26 L/E/sec [facility] ([facility], ) FEFMax-%Pred-Pre 115 L/E/sec [facility] ([facility]) FEFMax-LLN 2.88 L/E/sec [facility] ([facility], ) Sux5254-Ouc 1.28 L/E/sec [facility] ([facility], ) Snm8663-Lhsi 1.30 L/E/sec [facility] ([facility], ) Mdv1062-%Pred-Pre 98 L/E/sec [facility] ([facility], ) Vuy9518-XAS 0.10 L/E/sec [facility] ([facility], ) ExpTime-Pre 5.24 sec MED[facility] ([facility], ) Qzv1ogh7-Pqkg 77 % [facility] ([facility], ) Eec8sdq3-%Pred-Pre 96 % [facility] ([facility], ) Lhe5roy8-Lal 75 % [facility] ([facility]) Kqw9hqv9-QRO 69 % [facility] ([facility]) ID Date Data Source [id number] 08/19/2020 09:30:00 AM EST [facility] Name Value Range Interpretation Code Description Data Aditi rce(s) Supporting Document(s) SARS coronavirus 2 RNA [facility] This lab was ordered by [facility] and reported by [facility]. ID Date Data Source [id number] 07/11/2020 12:00:00 AM EST [facility] Nona Alicia Pa-C Patient Name: FAMILIA SCALES [facility] Date of : 1940[place] [address]- Date of Exam: 07/11/2020#: Fax: [phone] EXAM: [...] Other findings as described above.Accredited by the [employer] [place] [employer] in MR.CHANELL Ramirez/Javi you for referring HONG SCALES to our office. Electronically Signed - CHRISTY BOO DO 07/11/20 17:06 Name Value Range Interpretation Code Description Data Aditi rce(s) Supporting Document(s) ID Date Data Source [id number] 07/07/2020 01:06:00 PM EST [facility] ([facility] Name Value Range Interpretation Code Description Data Aditi rce(s) Supporting Document(s) White Blood Count 8.1 4.0-10.0 [facility] ([facility]) Red Blood Count 4.18 4.00-5.40 [facility] ([facility]) Hematocrit 39.4 36.0-47.0 [facility] ([facility]) Platelets 221 150-450 [facility] Hemoglobin 13.1 12.0-15.5 [facility] ([facility]) ID Date Data Source [id number] 07/07/2020 10:27:00 AM EST [facility] ([facility]) Name Value Range Interpretation Code Description Data Aditi rce(s) Supporting Document(s) C reactive protein [Mass/volume] in Serum or Plasma by High sensitivity method 0.79 mg/dL 0.00-0.30 [facility] ([facility]) Erythrocyte sedimentation rate by Westergren method 12 mm/hr 0-30 [facility] ([facility]) ID Date Data Source [id number] 07/07/2020 10:27:00 AM EST [facility] ([facility]) Name Value Range Interpretation Code Description Data Aditi rce(s) Supporting Document(s) White Blood Count 8.1 10 4.0-10.0 [facility] ([facility]) Red Blood Count 4.18 10 4.00-5.40 [facility] ([facility]) Hemoglobin 13.1 g/dL 12.0-15.5 [facility] ([facility]) Hematocrit 39.4 % 36.0-47.0 [facility] ([facility]) Mean Corpuscular Hemoglobin 31.3 pg 27.0-33.0 [facility] ([facility]) Mean Corpuscular HGB Conc 33.2 g/dL 32.0-36.5 [facility] ([facility]) Mean Corpuscular Volume 94.3 fl 80.0-96.0 M EDENT ([facility]) Platelet Count, Automated 221 10 150-450 MED[facility] ([facility]) Neutrophils % 58.7 % 36.0-66.0 [facility] ([facility] Red Cell Distribution Width 12.4 % 11.5-14.5 [facility] ([facility]) Jones % 8.3 % 0.0-5.0 [facility] Lymph % 27.5 % 24.0-44.0 [facility] ([facility]) Eos % 4.2 % 0.0-3.0 [facility] ([facility]) Baso % 0.7 % 0.0-1.0 [facility] ([facility]) Nucleated Red Blood Cell % 0.0 % 0-0 MED ENT ([facility]) Immature Granulocyte % 0.6 % 0-3.0 [facility] ([facility]) Lymph # 2.2 10 1.5-5.0 [facility] Neutrophils # 4.8 10 1.5-8.5 [facility]) Baso # 0.1 10 0.0-0.2 [facility] Eos # 0.3 10 0.0-0.5 [facility] Jones # 0.7 10 0.0-0.8 [facility] ID Date Data Source [id number] 07/01/2020 01:02:00 PM EDT [facility] ([facility] Name Value Range Interpretation Code Description Data Aditi rce(s) Supporting Document(s) White Blood Count 12.7 4.0-10.0 [facility] ([facility]) Platelets 229 150-450 [facility] Red Blood Count 4.89 4.00-5.40 [facility] ([facility]) Hemoglobin 15.0 [facility] ([facility]) Hematocrit 45.1 [facility] ([facility]) ID Date Data Source [id number] 06/04/2020 12:52:00 PM EDT [facility] ([facility] Name Value Range Interpretation Code Description Data Aditi rce(s) Supporting Document(s) Calcium [Mass/volume] in Serum or Plasma 9.6 [facility] ([facility]) Sodium 143 [facility] Chloride [Moles/volume] in Serum or Plasma 111 [facility] ([facility]) Carbon dioxide, total [Moles/volume] in Serum or Plasma 29 [facility] ([facility]) Blood Urea Nitrogen 15 7-18 [facility] ([facility]) Glucose 148 70-100 [facility] Creatinine 0.96 0.55-1.30 [facility] ([facility]) Potassium [Moles/volume] in Serum or Plasma 4.3 [facility] ([facility]) Glomerular filtration rate/1.73 sq M.pre dicted [Volume Rate/Area] in Serum or Plasma by Creatinine-based formula (MDRD) 59.4 [facility] ([facility]) ID Date Data Source [id number] 06/03/2020 09:29:00 AM EDT [facility] ([facility], ) Name Value Range Interpretation Code Description Data Aditi rce(s) Supporting Document(s) FVC-Pred 2.45 L MED[facility] ([facility], ) PDFReport Laboratory test result MEDENT ([facility], ) FVC-Pre 2.75 L [facility] ([facility]) FVC-%Pred-Pre 112 L [facility] ([facility]) FVC-LLN 1.77 L [facility] ([facility]) Fev1-Pre 1.98 L [facility] ([facility]) Fev1-%Pred-Pre 109 L [facility] ([facility]) Fev1-Pred 1.81 L [facility] ([facility]) Fev6-Pred 2.31 L [facility] ([facility]) Fev6-Pre 2.75 L [facility] ([facility]) Fev1-LLN 1.24 L [facility] ([facility]) Diw9idl-Hzod 74 % [facility] ([facility]) Fev6-%Pred-Pre 119 L [facility] ([facility]) Fev6-LLN 1.65 L [facility] ([facility]) Lbn3enw-Lbp 72 % [facility] ([facility]) Qyv4uiq-%Pred-Pre 97 % [facility] ([facility]) Bwz0ynd-Rggy 94 % [facility] ([facility]) Bfv1vkw-XFE 64 % [facility] ([facility]) FEFMax-Pred 4.54 L/E/sec [facility] ([facility]) [id number]-%Pred-Pre 106 % MEDENT ([facility]) [id number] 100 % MEDENT ([facility]) FEFMax-Pre 5.80 L/E/sec MEDENT ([facility]) FEFMax-%Pred-Pre 127 L/E/sec MEDENT ([facility]) FEFMax-LLN 2.88 L/E/sec MEDENT ([facility]) [id number] 1.30 L/E/sec MEDENT ([facility]) [id number] 1.33 L/E/sec MEDENT ([facility]) [id number] 0.10 L/E/sec [facility] ([facility]) [id number]-%Pred-Pre 102 L/E/sec MEDENT ([facility]) [id number] 77 % MEDENT ([facility]) ExpTime-Pre 6.78 sec MEDENT ([facility]) [id number] 72 % MEDENT ([facility]) [id number]-%Pred-Pre 92 % MEDENT ([facility]) [id number] 69 % MEDENT ([facility]) ID Date Data Source [id number] 05/20/2020 09:45:00 AM EDT [facility] Name Value Range Interpretation Code Description Data Aditi rce(s) Supporting Document(s) SARS coronavirus 2 RNA [facility] This lab was ordered by [facility] and reported by [facility]. ID Date Data Source [id number] 04/28/2020 12:44:00 PM EDT MEDENT ([facility]) Name Value Range Interpretation Code Description Data Aditi rce(s) Supporting Document(s) White Blood Count 7.1 4.0-10.0 MEDENT ([facility]) Hemoglobin 14.5 MEDENT ([facility]) Red Blood Count 4.71 4.00-5.40 MEDENT ([facility]) Platelets 201 150-450 [facility] Hematocrit 44.3 MEDENT ([facility]) ID Date Data Source [id number] 04/28/2020 12:44:00 PM EDT MEDENT ([facility] Name Value Range Interpretation Code Description Data Aditi rce(s) Supporting Document(s) Hemoglobin A1c/Hemoglobin.total in Blood 7.3 MEDENT ([facility]) ID Date Data Source [id number] 04/28/2020 12:44:00 PM EDT MEDENT ([facility]) Name Value Range Interpretation Code Description Data Aditi rce(s) Supporting Document(s) Magnesium Level 1.8 1.8-2.4 MEDENT ([facility]) ID Date Data Source [id number] 04/28/2020 12:44:00 PM EDT MEDENT ([facility]) Name Value Range Interpretation Code Description Data Aditi rce(s) Supporting Document(s) Albumin [Mass/volume] in Serum or Plasma 3.7 MEDENT ([facility]) Alanine aminotransferase [Enzymatic activity/volume] in Serum or Pl asma 25 MEDENT ([facility]) Calcium [Mass/volume] in Serum or Plasma 9.8 MEDENT ([facility]) Chloride [Moles/volume] in Serum or Plasma 107 MEDENT ([facility]) Carbon dioxide, total [Moles/volume] in Serum or Plasma 26 MEDENT ([facility]) Sodium 141 [facility] Alkaline phosphatase [Enzymatic activity/volume] in Serum or Plasma 9 9 MEDENT ([facility]) Potassium [Moles/volume] in Serum or Plasma 4.8 MEDENT ([facility]) Protein [Mass/volume] in Serum or Plasma 6.8 MEDENT ([facility]) Urea nitrogen [Mass/volume] in Serum or Plasma 19 MEDENT ([facility]) Aspartate aminotransferase [Enzymatic activity/volume] in Serum or Plasma 17 MEDENT ([facility]) Glucose 133 70-100 MED[facility] Creatinine For GFR 1.31 MEDENT ([facility]) Procedure Social History Code Duration Value Status Description Data Source(s ) Smoking 06/09/2021 12:00:00 AM EDT Never Smoker completed Never S chandrika eCW1 ([facility]) Smoking 06/09/2021 12:00:00 AM EDT Never Smoker completed Never S moker eCW1 ([facility]) Smoking 06/09/2021 12:00:00 AM EDT Never Smoker completed Never S moker eCW1 ([facility]) Smoking 06/09/2021 12:00:00 AM EDT Never Smoker completed Never S moker eCW1 ([facility]) Smoking 05/22/2021 12:00:00 AM EDT Never Smoker completed Never S moker eCW1 ([facility]) Smoking 05/22/2021 12:00:00 AM EDT Never Smoker completed Never S moker eCW1 ([facility]) Smoking 05/19/2021 12:00:00 AM EDT Never Smoker completed Never S moker eCW1 ([facility]) Smoking 05/19/2021 12:00:00 AM EDT Never Smoker completed Never S moker eCW1 ([facility]) Smoking 04/23/2021 12:00:00 AM EDT Never Smoker completed Never S moker eCW1 ([facility]) Smoking 04/23/2021 12:00:00 AM EDT Never Smoker completed Never S moker eCW1 ([facility]) Smoking 04/23/2021 12:00:00 AM EDT Never Smoker completed Never S moker eCW1 ([facility]) Smoking 04/23/2021 12:00:00 AM EDT Never Smoker completed Never S moker eCW1 ([facility]) Smoking 04/23/2021 12:00:00 AM EDT Never Smoker completed Never S moker eCW1 ([facility]) Smoking 03/26/2021 12:00:00 AM EDT Patient has never smoked co mpleted Patient has never smoked MEDENT ([facility]) Smoking 03/19/2021 12:00:00 AM EDT Never Smoker completed Never S moker eCW1 ([facility]) Smoking 03/19/2021 12:00:00 AM EDT Never Smoker completed Never S moker eCW1 ([facility]) Smoking 03/19/2021 12:00:00 AM EDT Never Smoker completed Never S moker eCW1 ([facility]) Smoking 03/10/2021 10:16:00 AM EDT Never smoked tobacco (findi ng) completed Never smoked tobacco (finding) TSERING (N[facility]stor Owusu [facility]) Smoking 03/05/2021 12:00:00 AM EDT Never Smoker completed Never S moker eCW1 ([facility]) Smoking 03/05/2021 12:00:00 AM EDT Never Smoker completed Never S moker eCW1 ([facility]) Smoking 01/07/2021 12:00:00 AM EDT Never Smoker completed Never S moker eCW1 ([facility]) Smoking 01/07/2021 12:00:00 AM EDT Never Smoker completed Never S moker eCW1 ([facility]) Smoking 01/07/2021 12:00:00 AM EDT Never Smoker completed Never S moker eCW1 ([facility]) Smoking 11/17/2020 03:18:56 PM EDT Never smoked tobacco (findi ng) completed Never smoked tobacco (finding) TSERING (N[facility]stor Owusu [facility]) Smoking 10/30/2020 12:00:00 AM EST Never Smoker completed Never S moker eCW1 ([facility]) Smoking 10/30/2020 12:00:00 AM EST Never Smoker completed Never S moker eCW1 ([facility]) Smoking 10/30/2020 12:00:00 AM EST Never Smoker completed Never S moker eCW1 ([facility]) Smoking 10/30/2020 12:00:00 AM EST Never Smoker completed Never S moker eCW1 ([facility]) Smoking 10/22/2020 12:00:00 AM EST Never Smoker completed Never S moker eCW1 ([facility]) Smoking 10/07/2020 12:00:00 AM EST Never Smoker completed Never S moker eCW1 ([facility]) Smoking 10/07/2020 12:00:00 AM EST Never Smoker completed Never S moker eCW1 ([facility]) Smoking 10/07/2020 12:00:00 AM EST Never Smoker completed Never S moker eCW1 ([facility]) Smoking 10/01/2020 12:00:00 AM EST Never Smoker completed Never S moker eCW1 ([facility]) Smoking 09/03/2020 12:00:00 AM EST Patient has never smoked co mpleted Patient has never smoked MEDENT ([facility]) Smoking 08/20/2020 12:00:00 AM EST Never Smoker completed Never S moker eCW1 ([facility]) Smoking 08/20/2020 12:00:00 AM EST Never Smoker completed Never S moker eCW1 ([facility]) Smoking 08/06/2020 12:00:00 AM EST Never Smoker completed Never S moker eCW1 ([facility]) Smoking 08/06/2020 12:00:00 AM EST Never Smoker completed Never S moker eCW1 ([facility]) Smoking 08/06/2020 12:00:00 AM EST Never Smoker completed Never S moker eCW1 ([facility]) Smoking 08/06/2020 12:00:00 AM EST Never Smoker completed Never S moker eCW1 ([facility]) Vital Signs ID Date Data Source UNK Name Value Range Interpretation Code Description Data Source(s) Body weight 212.2 [lb_av] 212.2 [lb_av] eCW1 ([facility]) Body height 64 [in_i] 64 [in_i] eCW1 ([facility]) Body mass index (BMI) [Ratio] 36.42 kg/m2 36.42 kg/m2 eCW1 ([facility]) Heart rate 96 /min 96 /min eCW1 ([facility]) Respiratory rate 18 /min 18 /min eCW1 ([facility]) Body temperature 98.6 [degF] 98.6 [degF] eCW1 ( [facility]) Systolic blood pressure 122 mm[Hg] 122 mm[Hg] e CW1 ([facility]) Diastolic blood pressure 68 mm[Hg] 68 mm[Hg] eCW1 ([facility]) Body weight 208.6 [lb_av] 208.6 [lb_av] eCW1 ([facility]) Body height 64 [in_i] 64 [in_i] eCW1 ([facility]) Body mass index (BMI) [Ratio] 35.80 kg/m2 35.80 kg/m2 eCW1 ([facility]) Heart rate 99 /min 99 /min eCW1 ([facility]) Respiratory rate 18 /min 18 /min eCW1 ([facility]) Body temperature 98.3 [degF] 98.3 [degF] eCW1 ( [facility]) Systolic blood pressure 110 mm[Hg] 110 mm[Hg] e CW1 ([facility]) Diastolic blood pressure 70 mm[Hg] 70 mm[Hg] eCW1 ([facility]) Body weight 213 [lb_av] 213 [lb_av] eCW1 ([facility]) Body height 64 [in_i] 64 [in_i] eCW1 ([facility]) Body mass index (BMI) [Ratio] 36.56 kg/m2 36.56 kg/m2 eCW1 ([facility]) Heart rate 77 /min 77 /min eCW1 ([facility]) Respiratory rate 18 /min 18 /min eCW1 ([facility]) Body temperature 98.5 [degF] 98.5 [degF] eCW1 ( [facility]) Systolic blood pressure 130 mm[Hg] 130 mm[Hg] e CW1 ([facility]) Diastolic blood pressure 80 mm[Hg] 80 mm[Hg] eCW1 ([facility]) Heart rate 70 /min 70 /min MEDENT ([facility]) Systolic blood pressure 126 mm[Hg] 126 mm[Hg] M EDENT ([facility]) Diastolic blood pressure 70 mm[Hg] 70 mm[Hg] MEDENT ([facility]) Body height 63.6 [in_i] 63.6 [in_i] MEDENT ([facility]) 5'3.60" Body weight 219.50 [lb_av] 219.50 [lb_av] MEDEN T ([facility]) Body mass index (BMI) [Ratio] 38.1 kg/m2 38.1 k g/m2 MEDENT ([facility]) Oxygen saturation in Arterial blood by Pulse oximetry 98 % 98 % MEDENT ([facility]) Body weight 214 [lb_av] 214 [lb_av] eCW1 ([facility]) Body height 64 [in_i] 64 [in_i] eCW1 ([facility]) Body mass index (BMI) [Ratio] 36.73 kg/m2 36.73 kg/m2 eCW1 ([facility]) Heart rate 89 /min 89 /min eCW1 ([facility]) Respiratory rate 18 /min 18 /min eCW1 ([facility]) Body temperature 97.3 [degF] 97.3 [degF] eCW1 ( [facility]) Systolic blood pressure 164 mm[Hg] 164 mm[Hg] e CW1 ([facility]) Diastolic blood pressure 92 mm[Hg] 92 mm[Hg] eCW1 ([facility]) Body weight 214.6 [lb_av] 214.6 [lb_av] eCW1 ([facility]) Body height 64 [in_i] 64 [in_i] eCW1 ([facility]) Body mass index (BMI) [Ratio] 36.83 kg/m2 36.83 kg/m2 eCW1 ([facility]) Heart rate 85 /min 85 /min eCW1 ([facility]) Respiratory rate 18 /min 18 /min eCW1 ([facility]) Body temperature 97.6 [degF] 97.6 [degF] eCW1 ( [facility]) Systolic blood pressure 120 mm[Hg] 120 mm[Hg] e CW1 ([facility]) Diastolic blood pressure 70 mm[Hg] 70 mm[Hg] eCW1 ([facility]) Body weight 211.00 [lb_av] 211.00 [lb_av] MEDEN T ([facility]) Body height 65 [in_i] 65 [in_i] MEDENT ([facility]) 5'5" Heart rate 64 /min 64 /min MEDENT ([facility]) Regular Respiratory rate 16 /min 16 /min MEDENT ( [facility]) Systolic blood pressure 126 mm[Hg] 126 mm[Hg] M EDENT ([facility]) sitting, regular cuff Body mass index (BMI) [Ratio] 35.1 kg/m2 35.1 k g/m2 MEDENT ([facility]) Systolic blood pressure 124 mm[Hg] 124 mm[Hg] M EDENT ([facility]) sitting Diastolic blood pressure 68 mm[Hg] 68 mm[Hg] MEDENT ([facility]) sitting, regular cuff Diastolic blood pressure 64 mm[Hg] 64 mm[Hg] MEDENT ([facility]) sitting Body mass index (BMI) [Ratio] 37.9 kg/m2 37.9 k g/m2 MEDENT ([facility]) [place] body weight 115 [lb_av] 115 [lb_av] MEDEN T ([facility]) Systolic blood pressure 138 mm[Hg] 138 mm[Hg] M EDENT ([facility]) Diastolic blood pressure 76 mm[Hg] 76 mm[Hg] [facility] Heart rate 73 /min 73 /min [facility]) Oxygen saturation in Arterial blood by Pulse oximetry 97 % 97 % [facility] Body height 63 [in_i] 63 [in_i] [facility] 5'3" Body weight 214.00 [lb_av] 214.00 [lb_av] MEDEN T ([facility]) Body weight 97.070 kg 97.070 kg [facility] Body surface area Derived from formula 1.99 m2 1.99 m2 [facility]) Body weight 214 [lb_av] 214 [lb_av] eCW1 ([facility]) Body height 64 [in_i] 64 [in_i] eCW1 ([facility]) Body mass index (BMI) [Ratio] 36.73 kg/m2 36.73 kg/m2 eCW1 ([facility]) Heart rate 89 /min 89 /min eCW1 ([facility]) Respiratory rate 20 /min 20 /min eCW1 ([facility]) Body temperature 96.8 [degF] 96.8 [degF] eCW1 ( [facility]) Systolic blood pressure 134 mm[Hg] 134 mm[Hg] e CW1 ([facility]) Diastolic blood pressure 72 mm[Hg] 72 mm[Hg] eCW1 ([facility]) Body weight 222 [lb_av] 222 [lb_av] eCW1 ([facility]) Body height 64 [in_i] 64 [in_i] eCW1 ([facility]) Body mass index (BMI) [Ratio] 38.10 kg/m2 38.10 kg/m2 eCW1 ([facility]) Heart rate 82 /min 82 /min eCW1 ([facility]) Respiratory rate 20 /min 20 /min eCW1 ([facility]) Body temperature 96.6 [degF] 96.6 [degF] eCW1 ( [facility]) Systolic blood pressure 120 mm[Hg] 120 mm[Hg] e CW1 ([facility]) Diastolic blood pressure 80 mm[Hg] 80 mm[Hg] eCW1 ([facility]) Heart rate 76 /min 76 /min MEDJUANITO ([facility], ) Body height 63 [in_i] 63 [in_i] MEDJUANITO ([facility], ) 5'3" Systolic blood pressure 124 mm[Hg] 124 mm[Hg] M EDJUANITO ([facility], ) Oxygen saturation in Arterial blood by Pulse oximetry 97 % 97 % MEDJUANITO ([facility], ) Body temperature 95.4 [degF] 95.4 [degF] MEDJUANITO ([facility], ) Body weight 221.00 [lb_av] 221.00 [lb_av] PELONEN T ([facility]) Body mass index (BMI) [Ratio] 39.1 kg/m2 39.1 k g/m2 MEDENT ([facility]) Diastolic blood pressure 82 mm[Hg] 82 mm[Hg] [facility] ([facility]) [place] body weight 115 [lb_av] 115 [lb_av] MEDEN T ([facility]) Body weight 100.246 kg 100.246 kg MEDENT ([facility]) Body surface area Derived from formula 2.02 m2 2.02 m2 [facility] ([facility]) Systolic blood pressure 148 mm[Hg] 148 mm[Hg] EDENT ([facility]) Diastolic blood pressure 67 mm[Hg] 67 mm[Hg] [facility] ([facility]) Body height 63 [in_i] 63 [in_i] [facility] ([facility]) 5'3" Body weight 221.00 [lb_av] 221.00 [lb_av] MEDEN T ([facility]) Body mass index (BMI) [Ratio] 39.1 kg/m2 39.1 k g/m2 [facility] ([facility]) [place] body weight 115 [lb_av] 115 [lb_av] MEDEN T ([facility]) Body weight 100.246 kg 100.246 kg [facility] ([facility]) Body surface area Derived from formula 2.02 m2 2.02 m2 [facility] ([facility]) Body weight 222 [lb_av] 222 [lb_av] eCW1 ([facility]) Body weight 100.7 kg 100.7 kg eCW1 ([facility]) Body height 64 [in_i] 64 [in_i] eCW1 ([facility]) Body mass index (BMI) [Ratio] 38.1 kg/m2 38.1 k g/m2 eCW1 ([facility]) Heart rate 79 /min 79 /min eCW1 ([facility]) Respiratory rate 18 /min 18 /min eCW1 ([facility]) Body temperature 97.7 [degF] 97.7 [degF] eCW1 ( [facility]) Systolic blood pressure 132 mm[Hg] 132 mm[Hg] e CW1 ([facility]) Diastolic blood pressure 80 mm[Hg] 80 mm[Hg] eCW1 ([facility]) Body weight 222.0 [lb_av] 222.0 [lb_av] eCW1 ([facility]) Body height 64 [in_i] 64 [in_i] eCW1 ([facility]) Body mass index (BMI) [Ratio] 38.10 kg/m2 38.10 kg/m2 eCW1 ([facility]) Systolic blood pressure 132 mm[Hg] 132 mm[Hg] e CW1 ([facility]) Diastolic blood pressure 80 mm[Hg] 80 mm[Hg] eCW1 ([facility]) Heart rate 70 /min 70 /min eCW1 ([facility]) Body weight 212 [lb_av] 212 [lb_av] eCW1 ([facility]) Body height 64 [in_i] 64 [in_i] eCW1 ([facility]) Body mass index (BMI) [Ratio] 36.39 kg/m2 36.39 kg/m2 W1 ([facility]) Respiratory rate 20 /min 20 /min eCW1 ([facility]) Body temperature 96.1 [degF] 96.1 [degF] eCW1 ( [facility]) Systolic blood pressure 137 mm[Hg] 137 mm[Hg] e CW1 ([facility]) Diastolic blood pressure 63 mm[Hg] 63 mm[Hg] eCW1 ([facility]) Body weight 212 [lb_av] 212 [lb_av] eCW1 ([facility]) Body weight 96.16 kg 96.16 kg eCW1 ([facility]) Body height 64 [in_i] 64 [in_i] eCW1 ([facility]) Body mass index (BMI) [Ratio] 36.39 kg/m2 36.39 kg/m2 eCW1 ([facility]) Systolic blood pressure 146 mm[Hg] 146 mm[Hg] e CW1 ([facility]) Diastolic blood pressure 83 mm[Hg] 83 mm[Hg] eCW1 ([facility]) Systolic blood pressure 142 mm[Hg] 142 mm[Hg] M EDENT ([facility]) Diastolic blood pressure 82 mm[Hg] 82 mm[Hg] MEDENT ([facility]) Heart rate 67 /min 67 /min [facility] ([facility]) Oxygen saturation in Arterial blood by Pulse oximetry 98 % 98 % [facility] ([facility]) Body temperature 95.5 [degF] 95.5 [degF] [facility] ([facility]) Body height 63 [in_i] 63 [in_i] [facility] 5'3" Body weight 217.00 [lb_av] 217.00 [lb_av] MEDEN T ([facility]) Body mass index (BMI) [Ratio] 38.4 kg/m2 38.4 k g/m2 [facility] ([facility]) [place] body weight 115 [lb_av] 115 [lb_av] MEDEN T ([facility]) Body weight 98.431 kg 98.431 kg [facility] ([facility]) Body surface area Derived from formula 2.00 m2 2.00 m2 [facility] ([facility]) Body mass index (BMI) [Ratio] 35.6 kg/m2 35.6 k g/m2 MEDENT ([facility]) Diastolic blood pressure 76 mm[Hg] 76 mm[Hg] MEDENT ([facility]) sitting Body height 65 [in_i] 65 [in_i] MEDENT ([facility]) 5'5" Heart rate 76 /min 76 /min MED[facility] ([facility]) Regular Systolic blood pressure 126 mm[Hg] 126 mm[Hg] M EDENT ([facility]) sitting, regular cuff Body weight 214.00 [lb_av] 214.00 [lb_av] MEDEN T ([facility]) Respiratory rate 16 /min 16 /min MEDENT ( [facility]) Diastolic blood pressure 76 mm[Hg] 76 mm[Hg] MEDENT ([facility]) sitting, regular cuff Systolic blood pressure 128 mm[Hg] 128 mm[Hg] M EDENT ([facility]) sitting Body weight 210 [lb_av] 210 [lb_av] eCW1 ([facility]) Body weight kg eCW1 ([facility]) Body height 64 [in_i] 64 [in_i] eCW1 ([facility]) Body mass index (BMI) [Ratio] 36.04 kg/m2 36.04 kg/m2 eCW1 ([facility]) Heart rate 74 /min 74 /min eCW1 ([facility]) Respiratory rate 18 /min 18 /min eCW1 ([facility]) Body temperature 98.5 [degF] 98.5 [degF] eCW1 ( [facility]) Systolic blood pressure 137 mm[Hg] 137 mm[Hg] e CW1 ([facility]) Diastolic blood pressure 73 mm[Hg] 73 mm[Hg] eCW1 ([facility]) Body mass index (BMI) [Ratio] 36.04 kg/m2 36.04 kg/m2 eCW1 ([facility]) Body weight 210 [lb_av] 210 [lb_av] eCW1 ([facility]) Body height 64 [in_i] 64 [in_i] eCW1 ([facility]) Heart rate 68 /min 68 /min eCW1 ([facility]) Systolic blood pressure 127 mm[Hg] 127 mm[Hg] e CW1 ([facility]) Respiratory rate 20 /min 20 /min eCW1 ([facility]) Body temperature 96.9 [degF] 96.9 [degF] eCW1 ( [facility]) Diastolic blood pressure 55 mm[Hg] 55 mm[Hg] eCW1 ([facility]) Body temperature 96.1 [degF] 96.1 [degF] [facility] ([facility]) Body height 65 [in_i] 65 [in_i] MEDENT ([facility]) 5'5" Body weight 212.00 [lb_av] 212.00 [lb_av] MEDEN T ([facility]) Body mass index (BMI) [Ratio] 35.3 kg/m2 35.3 k g/m2 [facility] ([facility]) Body height 63 [in_i] 63 [in_i] [facility] ([facility]) 5'3" Body weight 216.00 [lb_av] 216.00 [lb_av] MEDEN T ([facility]) Body mass index (BMI) [Ratio] 38.3 kg/m2 38.3 k g/m2 [facility] ([facility]) [place] body weight 115 [lb_av] 115 [lb_av] [facility] ([facility]) Body weight 97.978 kg 97.978 kg [facility] ([facility]) Body surface area Derived from formula 2.00 m2 2.00 m2 [facility] ([facility]) Systolic blood pressure 130 mm[Hg] 130 mm[Hg] [facility] ([facility]) Diastolic blood pressure 68 mm[Hg] 68 mm[Hg] [facility] ([facility]) Heart rate 69 /min 69 /min [facility] ([facility]) Oxygen saturation in Arterial blood by Pulse oximetry 98 % 98 % [facility] ([facility]) Body temperature 97.3 [degF] 97.3 [degF] [facility] ([facility]) Patient Treatment Plan of Care Planned Activity Planned Date Details Description Data Source (s) Doxycycline Monohydrate 100 MG Oral Tablet 03/19/2021 12:00:00 AM E DT [email or web address] ([facility]) Doxycycline Monohydrate 100 MG Oral Tablet 03/19/2021 12:00:00 AM E DT [email or web address] ([facility]) Doxycycline Monohydrate 100 MG Oral Tablet 03/19/2021 12:00:00 AM E DT [email or web address] ([facility]) Brimonidine tartrate 1 MG/ML Ophthalmic Solution [Alph [...] 12:00:00 AM EDT [facility] Cyclosporine 0.5 MG/ML Ophthalmic Suspension [Restasis ] 11/22/2018 12:00:00 AM EDT [facility] Carboxymethylcellulose Sodium 5 MG/ML Ophthalmic Solut ion 07/03/2018 12:00:00 AM EDT [facility] Refresh Optive 1-0.9% Ophthalmic Gel 06/28/2018 12:00:00 AM EDT [facility] Mineral Oil 0.425 MG/MG / Petrolatum 0.573 MG/MG Ophth almic Ointment 06/28/2018 12:00:00 AM EDT [facility]
--- NOTE | 2021-06-19 12:42 | REP ---
INDICATION: PAIN/SWELLING COMPARISON: None. TECHNIQUE: Mas scale and color Doppler evaluation using linear high frequency transducer. FINDINGS: Ultrasound examination of the left lower extremity deep venous structures from the common femoral vein through the calf/ankle to include the peroneal, and tibial veins demonstrates normal compressibility flow and wave patterns in response to respiration and augmentation. There is no evidence for deep venous thrombosis. Contralateral CFV is patent and normal. Further directed examination along the left medial thigh at the site of palpable lesions demonstrate multiple patent varicosities. IMPRESSION: No evidence for deep venous thrombosis. Few varicosities along the medial left thigh correspond to the areas of palpable mass. <Electronically signed by Sukumar Barker > 06/19/21 [id number]
== END 2021-06-19 13:16 | disposition home or self-care (01) ==
LOC: M ED 11:04
DX: I83.812 Varicose veins of left lower extremity with pain (principal); E11.9 Type 2 diabetes mellitus without complications; G62.9 Polyneuropathy, unspecified; Z86.73 Personal history of transient ischemic attack (TIA), and cerebral infarction without residual deficits; Z79.899 Other long term (current) drug therapy; Z79.84 Long term (current) use of oral hypoglycemic drugs; Z79.82 Long term (current) use of aspirin; Z88.0 Allergy status to penicillin; Z88.1 Allergy status to other antibiotic agents; Z88.8 Allergy status to other drugs, medicaments and biological substances; Z91.018 Allergy to other foods

== ENCOUNTER → 2021-06-25 | Outpatient (CLI) | payer MEDICARE, OTHER ==
[~2021-06-25] MED LIST changes: +DOXY-443 PO; -DOXY1CAP62 PO; -IBUP200T45 PO; +IBUP200T46 PO; +ISOVUE-370 76% 100ML VIAL As Ordered ONE
--- NOTE | 2021-06-25 16:33 | REP ---
INDICATION: HX OF COVID 19, CHEST DISCOMFORT, SOB COMPARISON: 06/18/2017 the latest prior TECHNIQUE: CT angiography of the chest attention pulmonary arteries after the intravenous administration of 100 cc Isovue 370. FINDINGS: There is excellent visualization of the pulmonary arterial vasculature. No focal filling defects are present that would be considered consistent with acute pulmonary emboli. There are no pleural or pericardial effusions. There is no mediastinal or hilar adenopathy. There is a hiatal hernia status quo. The imaged upper abdomen again shows cholelithiasis. There is no significant change in appearance of the imaged osseous structures. Evaluation of the lung silver shows multiple incidental calcified granulomas status quo. No new abnormal nodules, masses, or opacities 7 developed. IMPRESSION: No evidence of pulmonary embolism or acute disease with findings as described above. <Electronically signed by Noah Prakash > 06/25/21 [id number]
== END ==
LOC: M RAD 15:12
PROVIDERS: ATTEND Physician Assistant
DX: R07.89 Other chest pain (principal); R06.02 Shortness of breath; K44.9 Diaphragmatic hernia without obstruction or gangrene; Z86.16 Personal history of COVID-19
CPT/HCPCS: 71275; G0463; Q9967

== ENCOUNTER → 2021-07-01 | Outpatient (CLI) | payer MEDICARE, OTHER ==
[~2021-07-01] MED LIST changes: -ISOVUE-370 76% 100ML VIAL As Ordered ONE
== END ==
LOC: M LABSMTC 09:10
PROVIDERS: ATTEND Pediatrics
DX: Z20.822 Contact with and (suspected) exposure to COVID-19 (principal)
CPT/HCPCS: C9803; U0003

== ENCOUNTER → 2021-08-12 | Outpatient (REF) | payer MEDICARE, OTHER | LOC: M SFHCADAM 12:48 | PROVIDERS: ATTEND Family Medicine | DX: J06.9 Acute upper respiratory infection, unspecified (principal); U07.1 COVID-19 | CPT/HCPCS: 87426; 96372; G0463; J1030; U0003 ==

== ENCOUNTER → 2021-08-21 | Outpatient (REF) | payer MEDICARE, OTHER | LOC: M LAB REF 12:58 | PROVIDERS: ATTEND Internal Medicine Pulmonary Disease | DX: J96.01 Acute respiratory failure with hypoxia (principal); J45.20 Mild intermittent asthma, uncomplicated; R05.9 Cough, unspecified ==

== ENCOUNTER → 2021-08-24 | Outpatient (CLI) | payer MEDICARE, OTHER ==
[2021-08-24 11:24] LABS: CALCIUM LEVEL 10.2 MG/DL (8.8-10.2); CREATININE FOR GFR 1.01 MG/DL (0.55-1.30); GLOMERULAR FILTRATION RATE 55.9 (>32); POTASSIUM SERUM 4.2 MEQ/L (3.5-5.1)
[2021-08-24 11:39] LABS: HEMOGLOBIN A1c 7.3 %
== END ==
LOC: M PLALAB 08:43
PROVIDERS: ATTEND Family Medicine
DX: E11.21 Type 2 diabetes mellitus with diabetic nephropathy (principal)

== ENCOUNTER → 2021-08-24 | Outpatient (CLI) | payer MEDICARE, OTHER ==
[2021-08-24 10:45] LABS: HEMATOCRIT 44.7 % (36.0-47.0); HEMOGLOBIN 14.9 g/dl (12.0-15.5); MEAN CORPUSCULAR HEMOGLOBIN 31.4 pg (27.0-33.0); MEAN CORPUSCULAR HGB CONC 33.3 g/dl (32.0-36.5); MEAN CORPUSCULAR VOLUME 94.3 fl (80.0-96.0); PLATELET COUNT, AUTOMATED 205 10^3/uL (150-450); RED BLOOD COUNT 4.74 10^6/uL (4.00-5.40); WHITE BLOOD COUNT 9.1 10^3/uL (4.0-10.0)
[2021-08-24 11:10] LABS: ALBUMIN 3.5 GM/DL (3.2-5.2); BILIRUBIN,TOTAL 1.1 MG/DL (0.2-1.0); CALCIUM LEVEL 9.9 MG/DL (8.8-10.2); CREATININE FOR GFR 0.99 MG/DL (0.55-1.30); GLOMERULAR FILTRATION RATE 57.2 (>32); POTASSIUM SERUM 4.3 MEQ/L (3.5-5.1); TOTAL PROTEIN 6.5 GM/DL (6.4-8.2)
[2021-08-24 11:39] LABS: HEMOGLOBIN A1c 7.5 %
== END ==
LOC: M PLALAB 08:41
PROVIDERS: ATTEND Physician Assistant
DX: E11.69 Type 2 diabetes mellitus with other specified complication (principal)

== ENCOUNTER → 2021-09-11 | Outpatient (REF) | payer MEDICARE, OTHER ==
[2021-09-11 18:06] LABS: CREATININE, URINE 43.1 MG/DL; MALB URINE SIEMENS 5.7 MG/L; MAU/CREAT RATIO 13.2 MCG/MG (0.0-30.0)
== END ==
LOC: M LAB REF 16:54
PROVIDERS: ATTEND Nurse Practitioner Family
DX: E11.65 Type 2 diabetes mellitus with hyperglycemia (principal)

== ENCOUNTER → 2022-02-16 | Outpatient (CLI) | payer MEDICARE, OTHER ==
[2022-02-16 10:38] LABS: HEMATOCRIT 44.2 % (36.0-47.0); HEMOGLOBIN 14.7 g/dl (12.0-15.5); MEAN CORPUSCULAR HEMOGLOBIN 31.7 pg (27.0-33.0); MEAN CORPUSCULAR HGB CONC 33.3 g/dl (32.0-36.5); MEAN CORPUSCULAR VOLUME 95.3 fl (80.0-96.0); PLATELET COUNT, AUTOMATED 185 10^3/uL (150-450); RED BLOOD COUNT 4.64 10^6/uL (4.00-5.40); WHITE BLOOD COUNT 6.8 10^3/uL (4.0-10.0)
[2022-02-16 10:47] LABS: HEMOGLOBIN A1c 6.3 %
[2022-02-16 11:06] LABS: ALBUMIN 3.6 GM/DL (3.2-5.2); BILIRUBIN,TOTAL 1.2 MG/DL (0.2-1.0); CALCIUM LEVEL 9.5 MG/DL (8.8-10.2); CHOLESTEROL RISK RATIO 2.48 (<5); CREATININE FOR GFR 0.98 MG/DL (0.55-1.30); FREE T4 1.02 NG/DL (0.76-1.46); GLOMERULAR FILTRATION RATE 57.7 (>32); POTASSIUM SERUM 4.4 MEQ/L (3.5-5.1); THYROID STIMULATING HORMONE 2.26 uIU/ML (0.358-3.740); TOTAL PROTEIN 6.7 GM/DL (6.4-8.2)
[2022-02-16 11:10] LABS: FOLATE 12.7 NG/ML
== END ==
LOC: M PLALAB 07:58
PROVIDERS: ATTEND Physician Assistant
DX: E11.69 Type 2 diabetes mellitus with other specified complication (principal); I11.9 Hypertensive heart disease without heart failure; Z86.73 Personal history of transient ischemic attack (TIA), and cerebral infarction without residual deficits; E03.9 Hypothyroidism, unspecified; K21.9 Gastro-esophageal reflux disease without esophagitis; Z79.899 Other long term (current) drug therapy

== ENCOUNTER → 2022-03-12 | Outpatient (CLI) | payer MEDICARE, OTHER | LOC: M PLAIMG 14:35 | PROVIDERS: ATTEND Nurse Practitioner Family | DX: J98.11 Atelectasis (principal); R10.9 Unspecified abdominal pain ==

== ENCOUNTER → 2022-04-20 | Outpatient (CLI) | payer MEDICARE, OTHER ==
[~2022-04-20] MED LIST changes: +ALPH600C PO; +GNP650TA8 PO; +IPRAINH INH; +JANU100T PO; +VITA100093 PO; +VITACAP8 PO
== END ==
LOC: M LABSMTC 09:19
PROVIDERS: ATTEND Anesthesiology
DX: Z11.52 Encounter for screening for COVID-19 (principal)

== ENCOUNTER 2022-04-23 10:03 | Day surgery (SDC) | payer MEDICARE, OTHER ==
[~2022-04-23] VITALS: Ht 165.1 cm; Wt 89.9 kg
[~2022-04-23 10:03] MED LIST changes: +LIDOCAINE 2% 100MG/5ML SDV (FOR ANES.) As Ordered ONE; +NS 1,000 ML IV ONE; +propofoL 200 MG/20 ML VIAL As Ordered ONE
[2022-04-23 12:40] VITALS: BP 138/67
== END 2022-04-23 13:43 | disposition home or self-care (01) ==
LOC: M OPP 10:03
PROVIDERS: ATTEND Internal Medicine Gastroenterology
DX: Z12.11 Encounter for screening for malignant neoplasm of colon (principal); Z86.010 Personal history of colon polyps; D12.3 Benign neoplasm of transverse colon; K63.5 Polyp of colon; K57.30 Diverticulosis of large intestine without perforation or abscess without bleeding; K64.8 Other hemorrhoids; E11.9 Type 2 diabetes mellitus without complications; G47.33 Obstructive sleep apnea (adult) (pediatric); I44.7 Left bundle-branch block, unspecified; I10 Essential (primary) hypertension; E03.9 Hypothyroidism, unspecified; Z79.02 Long term (current) use of antithrombotics/antiplatelets; Z79.1 Long term (current) use of non-steroidal anti-inflammatories (NSAID); Z79.52 Long term (current) use of systemic steroids; Z79.82 Long term (current) use of aspirin; Z79.84 Long term (current) use of oral hypoglycemic drugs; Z79.899 Other long term (current) drug therapy; Z88.0 Allergy status to penicillin; Z88.1 Allergy status to other antibiotic agents; Z88.8 Allergy status to other drugs, medicaments and biological substances; Z91.018 Allergy to other foods; Z86.16 Personal history of COVID-19; Z86.73 Personal history of transient ischemic attack (TIA), and cerebral infarction without residual deficits

== ENCOUNTER → 2022-08-10 | Outpatient (REF) | payer MEDICARE, OTHER ==
[~2022-08-10] MED LIST changes: -LIDOCAINE 2% 100MG/5ML SDV (FOR ANES.) As Ordered ONE; -NS 1,000 ML IV ONE; -propofoL 200 MG/20 ML VIAL As Ordered ONE
[2022-08-10 16:18] LABS: CALCIUM LEVEL 9.3 MG/DL (8.3-10.6); CREATININE FOR GFR 0.98 MG/DL (0.55-1.30); GLOMERULAR FILTRATION RATE 57.7 (>32); POTASSIUM SERUM 4.2 MMOL/L (3.5-5.1)
[2022-08-10 16:21] LABS: TOTAL 25(OH) VITAMIN D 29.4 NG/ML (20.0-100.0)
== END ==
LOC: M PLALAB 15:05
PROVIDERS: ATTEND Internal Medicine Endocrinology, Diabetes & Metabolism
DX: M81.0 Age-related osteoporosis without current pathological fracture (principal)

== ENCOUNTER → 2022-10-12 | Outpatient (CLI) | payer MEDICARE, OTHER | LOC: M RAD 14:41 | PROVIDERS: ATTEND Family Medicine | DX: M79.605 Pain in left leg (principal) ==

== ENCOUNTER → 2022-10-15 | Outpatient (REF) | payer MEDICARE, OTHER ==
[2022-10-15 12:49] LABS: HEMATOCRIT 46.6 % (36.0-47.0); HEMOGLOBIN 15.4 g/dl (12.0-15.5); MEAN CORPUSCULAR HEMOGLOBIN 31.7 pg (27.0-33.0); MEAN CORPUSCULAR VOLUME 95.9 fl (80.0-96.0); PLATELET COUNT, AUTOMATED 210 10^3/uL (150-450); RED BLOOD COUNT 4.86 10^6/uL (4.00-5.40); WHITE BLOOD COUNT 8.6 10^3/uL (4.0-10.0)
[2022-10-15 13:03] LABS: INR 0.98; PROTHROMBIN TIME 13.2 SECONDS (12.5-14.5)
[2022-10-15 13:04] LABS: PARTIAL THROMBOPLASTIN TIME 26.9 SECONDS (24.8-34.2)
[2022-10-15 13:06] LABS: D-DIMER QUANT 765.86 ng/ml (<500)
[2022-10-15 13:11] LABS: ALKALINE PHOSPHATASE 114 U/L (46-116); ALT/SGPT 26 U/L (7.0-40); AST/SGOT < 8 U/L (<34); BILIRUBIN,TOTAL 1.2 MG/DL (0.3-1.2); BLOOD UREA NITROGEN 12 MG/DL (9-23); CALCIUM LEVEL 9.7 MG/DL (8.3-10.6); CARBON DIOXIDE LEVEL 27 MMOL/L (20-31); CHLORIDE LEVEL 109 MMOL/L (98-107); CREATININE FOR GFR 1.01 MG/DL (0.55-1.30); GLOMERULAR FILTRATION RATE 55.6 (>32); GLUCOSE, FASTING 199 MG/DL (74-106); POTASSIUM SERUM 4.1 MMOL/L (3.5-5.1); SODIUM LEVEL 142 MMOL/L (136-145); TRIGLYCERIDES LEVEL 204 MG/DL (<150)
[2022-10-15 13:12] LABS: ALBUMIN 3.9 G/DL (3.2-5.2); CHOLESTEROL LEVEL 165 MG/DL (<200); CHOLESTEROL RISK RATIO 3.26 (<5); HDL CHOLESTEROL 50.6 MG/DL (>40); LDL CHOLESTEROL 73.6 MG/DL (<100); NON-HDL-C 114 MG/DL; TOTAL PROTEIN 6.7 G/DL (5.7-8.2); VITAMIN B12 LEVEL 1665 PG/ML (211-911)
[2022-10-15 13:13] LABS: FOLATE 23.64 NG/ML (>5.4); THYROID STIMULATING HORMONE 0.332 uIU/ML (0.55-4.78)
[2022-10-15 13:14] LABS: FREE T4 1.71 NG/DL (0.89-1.76)
[2022-10-15 14:23] LABS: HEMOGLOBIN A1c 6.6 % (4.0-6.0)
== END ==
LOC: M SFHCADAM 10:19
PROVIDERS: ATTEND Family Medicine
DX: E11.69 Type 2 diabetes mellitus with other specified complication (principal); E03.9 Hypothyroidism, unspecified; G57.93 Unspecified mononeuropathy of bilateral lower limbs; Z86.73 Personal history of transient ischemic attack (TIA), and cerebral infarction without residual deficits; R13.10 Dysphagia, unspecified; I82.890 Acute embolism and thrombosis of other specified veins; M79.605 Pain in left leg

== ENCOUNTER → 2022-10-15 | Outpatient (CLI) | payer MEDICARE, OTHER | LOC: M RAD 11:15 | PROVIDERS: ATTEND Family Medicine | DX: M79.605 Pain in left leg (principal); I82.890 Acute embolism and thrombosis of other specified veins ==

== ENCOUNTER → 2023-02-14 | Outpatient (CLI) | payer MEDICARE, OTHER ==
[~2023-02-14] MED LIST changes: -ALBU20IN INH; +ALBU5SOL7 INH
[2023-02-14 11:03] LABS: HEMATOCRIT 44.9 % (36.0-47.0); MEAN CORPUSCULAR HEMOGLOBIN 31.6 pg (27.0-33.0); MEAN CORPUSCULAR HGB CONC 33.4 g/dl (32.0-36.5); MEAN CORPUSCULAR VOLUME 94.7 fl (80.0-96.0); PLATELET COUNT, AUTOMATED 217 10^3/uL (150-450); RED BLOOD COUNT 4.74 10^6/uL (4.00-5.40); WHITE BLOOD COUNT 9.4 10^3/uL (4.0-10.0)
[2023-02-14 11:23] LABS: HEMOGLOBIN A1c 7.1 % (4.0-6.0)
[2023-02-14 11:38] LABS: THYROID STIMULATING HORMONE 2.812 uIU/ML (0.55-4.78)
[2023-02-14 11:39] LABS: FOLATE 15.01 NG/ML (>5.4); FREE T4 1.14 NG/DL (0.89-1.76)
[2023-02-14 11:46] LABS: ALBUMIN 3.6 G/DL (3.2-5.2); BILIRUBIN,TOTAL 1.3 MG/DL (0.3-1.2); CHOLESTEROL RISK RATIO 2.89 (<5); GLOMERULAR FILTRATION RATE 56.2 (>32); HDL CHOLESTEROL 51.5 MG/DL (>40); LDL CHOLESTEROL 48.9 MG/DL (<100); NON-HDL-C 97.5 MG/DL; POTASSIUM SERUM 4.6 MMOL/L (3.5-5.1); TOTAL PROTEIN 6.1 G/DL (5.7-8.2)
== END ==
LOC: M PLALAB 08:27
PROVIDERS: ATTEND Family Medicine
DX: E11.69 Type 2 diabetes mellitus with other specified complication (principal); E03.9 Hypothyroidism, unspecified; G57.93 Unspecified mononeuropathy of bilateral lower limbs; Z86.73 Personal history of transient ischemic attack (TIA), and cerebral infarction without residual deficits; R13.10 Dysphagia, unspecified

== ENCOUNTER 2023-03-25 08:18 | Emergency (ER) | payer MEDICARE, OTHER ==
[~2023-03-25] VITALS: Ht 165.1 cm; Wt 93.3 kg
[2023-03-25 09:38] LABS: BASO # 0.1 10^3/uL (0.0-0.2); BASO % 0.7 % (0.0-1.0); EOS # 0.3 10^3/uL (0.0-0.5); EOS % 3.7 % (0.0-3.0); HEMATOCRIT 42.9 % (36.0-47.0); HEMOGLOBIN 14.6 g/dl (12.0-15.5); LYMPH # 2.3 10^3/uL (1.5-5.0); LYMPH % 30.4 % (24.0-44.0); MEAN CORPUSCULAR HEMOGLOBIN 31.9 pg (27.0-33.0); MEAN CORPUSCULAR VOLUME 93.7 fl (80.0-96.0); MONO # 0.7 10^3/uL (0.0-0.8); MONO % 8.9 % (2.0-8.0); NEUTROPHILS # 4.2 10^3/uL (1.5-8.5); NEUTROPHILS % 55.6 % (36.0-66.0); PLATELET COUNT, AUTOMATED 187 10^3/uL (150-450); RED BLOOD COUNT 4.58 10^6/uL (4.00-5.40); WHITE BLOOD COUNT 7.6 10^3/uL (4.0-10.0)
[2023-03-25 10:02] LABS: CK-MB VALUE MASS 1.5 NG/ML (<3.6)
[2023-03-25 10:04] LABS: BLOOD UREA NITROGEN 14 MG/DL (9-23); CALCIUM LEVEL 9.7 MG/DL (8.3-10.6); CARBON DIOXIDE LEVEL 25 MMOL/L (20-31); CHLORIDE LEVEL 109 MMOL/L (98-107); GLOMERULAR FILTRATION RATE > 60.0 (>32); GLUCOSE, FASTING 167 MG/DL (74-106); POTASSIUM SERUM 4.4 MMOL/L (3.5-5.1); SODIUM LEVEL 144 MMOL/L (136-145)
[2023-03-25 10:09] LABS: CPK CREATINE PHOSPHOKINASE 75 U/L (34-145)
[2023-03-25 12:22] LABS: CK-MB VALUE MASS < 1.0 NG/ML (<3.6)
[2023-03-25 12:28] LABS: CPK CREATINE PHOSPHOKINASE 70 U/L (34-145); MB/CK RELATIVE INDEX 1.42 (< OR =4)
[2023-03-25] MEDS ORDERED: ISOVUE-370 76% 100ML VIAL As Ordered ONE (13:45)
[2023-03-25 15:46] VITALS: BP 144/67; TEMP 97.3; O2SAT 97
== END 2023-03-25 15:53 | disposition home or self-care (01) ==
LOC: M ED 08:18
DX: J06.9 Acute upper respiratory infection, unspecified (principal); R07.9 Chest pain, unspecified; E11.9 Type 2 diabetes mellitus without complications; I10 Essential (primary) hypertension; E78.5 Hyperlipidemia, unspecified; Z88.0 Allergy status to penicillin; Z88.8 Allergy status to other drugs, medicaments and biological substances; Z91.018 Allergy to other foods; Z79.51 Long term (current) use of inhaled steroids; Z79.899 Other long term (current) drug therapy; Z79.84 Long term (current) use of oral hypoglycemic drugs
CPT/HCPCS: 36415; 71045; 71275; 80048; 82550; 82553; 83880; 84484; 85025; 87486; 87581; 87633; 87798; 93005; 93041; 94760; 99285; Q9967

== ENCOUNTER → 2023-05-12 | Outpatient (CLI) | payer MEDICARE, OTHER ==
[2023-05-12 15:02] LABS: HEMOGLOBIN A1c 7.2 % (4.0-6.0)
== END ==
LOC: M PLALAB 11:17
PROVIDERS: ATTEND Physician Assistant
DX: E11.69 Type 2 diabetes mellitus with other specified complication (principal)

== ENCOUNTER → 2023-07-02 | Outpatient (REF) | payer MEDICARE, OTHER | LOC: M LAB REF 17:57 | PROVIDERS: ATTEND Physician Assistant | DX: R30.0 Dysuria (principal) ==

== ENCOUNTER → 2023-10-03 | Outpatient (CLI) | payer MEDICARE, OTHER ==
[2023-10-03 11:15] LABS: BASO # 0.1 10^3/uL (0.0-0.2); BASO % 0.9 % (0.0-1.0); EOS # 0.3 10^3/uL (0.0-0.5); EOS % 4.4 % (0.0-3.0); HEMATOCRIT 41.8 % (36.0-47.0); HEMOGLOBIN 14.1 g/dl (12.0-15.5); LYMPH # 2.7 10^3/uL (1.5-5.0); LYMPH % 36.1 % (24.0-44.0); MEAN CORPUSCULAR HEMOGLOBIN 32.4 pg (27.0-33.0); MEAN CORPUSCULAR HGB CONC 33.7 g/dl (32.0-36.5); MEAN CORPUSCULAR VOLUME 96.1 fl (80.0-96.0); MONO # 0.7 10^3/uL (0.0-0.8); MONO % 8.6 % (2.0-8.0); NEUTROPHILS # 3.8 10^3/uL (1.5-8.5); NEUTROPHILS % 49.5 % (36.0-66.0); PLATELET COUNT, AUTOMATED 203 10^3/uL (150-450); RED BLOOD COUNT 4.35 10^6/uL (4.00-5.40); WHITE BLOOD COUNT 7.6 10^3/uL (4.0-10.0)
[2023-10-03 11:34] LABS: HEMOGLOBIN A1c 8.2 % (4.0-6.0)
[2023-10-03 11:41] LABS: ALBUMIN 3.6 G/DL (3.2-5.2); ALKALINE PHOSPHATASE 102 U/L (46-116); ALT/SGPT 17 U/L (7.0-40); AST/SGOT 17 U/L (<34); BILIRUBIN,TOTAL 1.6 MG/DL (0.3-1.2); BLOOD UREA NITROGEN 14 MG/DL (9-23); CARBON DIOXIDE LEVEL 30 MMOL/L (20-31); CHLORIDE LEVEL 107 MMOL/L (98-107); CREATININE FOR GFR 0.88 MG/DL (0.55-1.30); GLOMERULAR FILTRATION RATE > 60.0 (>32); GLUCOSE, FASTING 171 MG/DL (74-106); POTASSIUM SERUM 4.4 MMOL/L (3.5-5.1); SODIUM LEVEL 140 MMOL/L (136-145); TOTAL PROTEIN 6.7 G/DL (5.7-8.2)
== END ==
LOC: M PLALAB 07:15
PROVIDERS: ATTEND Physician Assistant
DX: E11.69 Type 2 diabetes mellitus with other specified complication (principal)

== ENCOUNTER → 2023-10-07 | Outpatient (REF) | payer MEDICARE, OTHER | LOC: M SFHCADAM 11:31 | PROVIDERS: ATTEND Family Medicine | DX: E11.21 Type 2 diabetes mellitus with diabetic nephropathy (principal) ==

== ENCOUNTER → 2024-02-07 | Outpatient (CLI) | payer MEDICARE, OTHER ==
[~2024-02-07] MED LIST changes: +DOXY-323 PO; -DOXY-443 PO
[2024-02-07 10:59] LABS: HEMOGLOBIN A1c 8.3 % (4.0-6.0)
[2024-02-07 11:19] LABS: CREATININE FOR GFR 0.96 MG/DL (0.55-1.30); GLOMERULAR FILTRATION RATE 58.8 (>32); POTASSIUM SERUM 4.8 MMOL/L (3.5-5.1)
== END ==
LOC: M PLALAB 07:59
PROVIDERS: ATTEND Family Medicine
DX: E11.21 Type 2 diabetes mellitus with diabetic nephropathy (principal); M81.0 Age-related osteoporosis without current pathological fracture

== ENCOUNTER → 2024-02-07 | Outpatient (CLI) | payer MEDICARE, OTHER ==
[2024-02-07 11:15] LABS: CALCIUM LEVEL 9.6 MG/DL (8.3-10.6)
[2024-02-07 11:19] LABS: TOTAL 25(OH) VITAMIN D 46.2 NG/ML (20.0-100.0)
== END ==
LOC: M PLALAB 08:02
PROVIDERS: ATTEND Internal Medicine Endocrinology, Diabetes & Metabolism
DX: M81.0 Age-related osteoporosis without current pathological fracture (principal)

== ENCOUNTER → 2024-04-23 | Outpatient (CLI) | payer MEDICARE, OTHER | LOC: M WHC 12:34 | PROVIDERS: ATTEND Internal Medicine Endocrinology, Diabetes & Metabolism | DX: Z13.820 Encounter for screening for osteoporosis (principal); M85.851 Other specified disorders of bone density and structure, right thigh; M85.852 Other specified disorders of bone density and structure, left thigh; M85.88 Other specified disorders of bone density and structure, other site ==

== ENCOUNTER → 2024-05-09 | Outpatient (CLI) | payer MEDICARE, OTHER ==
[2024-05-09 12:54] LABS: HEMATOCRIT 42.6 % (36.0-47.0); HEMOGLOBIN 14.2 g/dl (12.0-15.5); MEAN CORPUSCULAR HGB CONC 33.3 g/dl (32.0-36.5); MEAN CORPUSCULAR VOLUME 95.9 fl (80.0-96.0); PLATELET COUNT, AUTOMATED 213 10^3/uL (150-450); RED BLOOD COUNT 4.44 10^6/uL (4.00-5.40); WHITE BLOOD COUNT 7.4 10^3/uL (4.0-10.0)
[2024-05-09 13:18] LABS: ALBUMIN 3.6 G/DL (3.2-5.2); BILIRUBIN,TOTAL 1.1 MG/DL (0.3-1.2); CALCIUM LEVEL 9.4 MG/DL (8.3-10.6); CHOLESTEROL RISK RATIO 6.25 (<5); CREATININE FOR GFR 1.01 MG/DL (0.55-1.30); GLOMERULAR FILTRATION RATE 55.5 (>32); HDL CHOLESTEROL 43.5 MG/DL (>40); LDL CHOLESTEROL 182.7 MG/DL (<100); NON-HDL-C 228.5 MG/DL; POTASSIUM SERUM 4.5 MMOL/L (3.5-5.1); TOTAL PROTEIN 6.5 G/DL (5.7-8.2)
[2024-05-09 13:20] LABS: THYROID STIMULATING HORMONE 3.75 uIU/ML (0.55-4.78)
[2024-05-09 13:21] LABS: FREE T4 1.27 NG/DL (0.89-1.76)
[2024-05-09 13:30] LABS: HEMOGLOBIN A1c 7.5 % (4.0-6.0)
== END ==
LOC: M PLALAB 07:58
PROVIDERS: ATTEND Family Medicine
DX: E11.21 Type 2 diabetes mellitus with diabetic nephropathy (principal); E03.9 Hypothyroidism, unspecified; I65.22 Occlusion and stenosis of left carotid artery; R13.10 Dysphagia, unspecified

== ENCOUNTER → 2024-05-17 | Outpatient (REF) | payer MEDICARE, OTHER | LOC: M LAB REF 10:23 | PROVIDERS: ATTEND Student in an Organized Health Care Education/Training Program | DX: J06.9 Acute upper respiratory infection, unspecified (principal); R30.0 Dysuria ==

== ENCOUNTER → 2024-05-17 | Outpatient (REF) | payer MEDICARE, OTHER | LOC: M LAB REF 10:20 | PROVIDERS: ATTEND Student in an Organized Health Care Education/Training Program | DX: J06.9 Acute upper respiratory infection, unspecified (principal); R30.0 Dysuria ==

== ENCOUNTER → 2024-07-02 | Outpatient (REF) | payer MEDICARE, OTHER ==
[~2024-07-02] MED LIST changes: -DOXY-323 PO; +DOXY-441 PO
== END ==
LOC: M SFHCPLAZ 13:15 → M SMT 13:15
PROVIDERS: ATTEND Specialist
DX: N32.81 Overactive bladder (principal); Z79.899 Other long term (current) drug therapy

== ENCOUNTER → 2024-08-13 | Outpatient (CLI) | payer MEDICARE, OTHER ==
[2024-08-13 10:54] LABS: ALBUMIN 3.4 G/DL (3.2-5.2); BILIRUBIN,TOTAL 1.3 MG/DL (0.3-1.2); CALCIUM LEVEL 10.2 MG/DL (8.3-10.6); CHOLESTEROL RISK RATIO 3.17 (<5); CREATININE FOR GFR 1.13 MG/DL (0.55-1.30); GLOMERULAR FILTRATION RATE 48.7 (>32); HDL CHOLESTEROL 45.7 MG/DL (>40); LDL CHOLESTEROL 59.3 MG/DL (<100); NON-HDL-C 99.3 MG/DL; POTASSIUM SERUM 4.4 MMOL/L (3.5-5.1)
[2024-08-13 11:27] LABS: HEMOGLOBIN A1c 7.8 % (4.0-6.0)
== END ==
LOC: M PLALAB 08:13
PROVIDERS: ATTEND Family Medicine
DX: E11.21 Type 2 diabetes mellitus with diabetic nephropathy (principal)

== ENCOUNTER → 2024-09-19 | Outpatient (REF) | payer MEDICARE, OTHER | LOC: M SFHCADAM 15:09 | PROVIDERS: ATTEND Family Medicine | DX: N39.0 Urinary tract infection, site not specified (principal) ==

== ENCOUNTER → 2024-11-07 | Outpatient (CLI) | payer MEDICARE, OTHER ==
[2024-11-07 15:11] LABS: BLOOD UREA NITROGEN 16 MG/DL (9-23); CALCIUM LEVEL 10.1 MG/DL (8.3-10.6); CARBON DIOXIDE LEVEL 28 MMOL/L (20-31); CHLORIDE LEVEL 108 MMOL/L (98-107); CREATININE FOR GFR 0.88 MG/DL (0.55-1.30); GLOMERULAR FILTRATION RATE > 60.0 (>32); GLUCOSE, FASTING 155 MG/DL (74-106); POTASSIUM SERUM 4.7 MMOL/L (3.5-5.1); SODIUM LEVEL 144 MMOL/L (136-145)
== END ==
LOC: M PLALAB 12:26
PROVIDERS: ATTEND Nurse Practitioner Family
DX: M81.0 Age-related osteoporosis without current pathological fracture (principal)

== ENCOUNTER → 2024-12-12 | Outpatient (CLI) | payer MEDICARE, OTHER ==
[2024-12-12 13:13] LABS: ALBUMIN 3.6 G/DL (3.2-5.2); BILIRUBIN,TOTAL 1.4 MG/DL (0.3-1.2); CALCIUM LEVEL 10.2 MG/DL (8.3-10.6); CREATININE FOR GFR 0.88 MG/DL (0.55-1.30); POTASSIUM SERUM 4.6 MMOL/L (3.5-5.1); TOTAL PROTEIN 6.9 G/DL (5.7-8.2)
[2024-12-12 13:16] LABS: FREE T4 1.38 NG/DL (0.89-1.76)
[2024-12-12 13:18] LABS: THYROID STIMULATING HORMONE 2.04 uIU/ML (0.55-4.78)
[2024-12-12 13:33] LABS: HEMOGLOBIN A1c 7.9 % (4.0-6.0)
== END ==
LOC: M PLALAB 10:21
PROVIDERS: ATTEND Family Medicine
DX: K76.0 Fatty (change of) liver, not elsewhere classified (principal); E03.9 Hypothyroidism, unspecified; E11.21 Type 2 diabetes mellitus with diabetic nephropathy

== ENCOUNTER → 2025-03-13 | Outpatient (CLI) | payer MEDICARE, OTHER ==
[~2025-03-13] MED LIST changes: -ALPH600C PO; +ALPH600C2 PO; +ASPI81TA26 PO; +CYAN100049 PO; +FEXO-63 PO; +FLUT12AE3 INH; +LIDO1ADH93 TD; -LIDO5DIS41 TD; +METF-838 PO; +ROSU20TA86 PO; +TRAM50TA2 PO; +VENTAER INH
[2025-03-13 11:20] LABS: CALCIUM LEVEL 10.5 MG/DL (8.3-10.6); CARBON DIOXIDE LEVEL 27.0 MMOL/L (20-31); CHLORIDE LEVEL 107.0 MMOL/L (98-107); CREATININE FOR GFR 1.0 MG/DL (0.55-1.30); GLOMERULAR FILTRATION RATE 54.9 (>32); POTASSIUM SERUM 4.7 MMOL/L (3.5-5.1); SODIUM LEVEL 145.0 MMOL/L (136-145)
[2025-03-13 12:52] LABS: ESTIMATED AVERAGE GLUCOSE 160.0 MG/DL (60-110)
== END ==
LOC: M PLALAB 07:42
PROVIDERS: ATTEND Family Medicine
DX: E11.21 Type 2 diabetes mellitus with diabetic nephropathy (principal)

== ENCOUNTER 2025-03-20 10:40 | Inpatient (IN) | payer MEDICARE, OTHER ==
[~2025-03-20] VITALS: Ht 165.1 cm; Wt 95.3 kg
[~2025-03-20 10:40] MED LIST changes: -ASPI81TA26 PO; -CYAN100049 PO; -FEXO-63 PO; -FLUT12AE3 INH; -METF-838 PO; -ROSU20TA86 PO; -TRAM50TA2 PO; -VENTAER INH
[2025-03-20] MEDS: ONDANSETRON 4MG 2ML VIAL IV ONE (11:32)
[2025-03-20] MEDS ORDERED: FEXO-63 PO (12:52)
[2025-03-20] MEDS ORDERED: ROSU20TA86 PO (12:52)
[2025-03-20] MEDS ORDERED: TRAM50TA2 PO (12:52)
[2025-03-20] MEDS ORDERED: FLUT12AE3 INH (12:52)
[2025-03-20] MEDS ORDERED: ASPI81TA26 PO (12:52)
[2025-03-20] MEDS ORDERED: VENTAER INH (12:52)
[2025-03-20] MEDS ORDERED: CYAN100049 PO (12:52)
[2025-03-20] MEDS ORDERED: METF-838 PO (12:52)
[2025-03-20] MEDS ORDERED: HOME MED LIST COMPLETE! XX SCH (12:55)
[2025-03-20 14:52] LABS: PLATELET COUNT, AUTOMATED 192 10^3/uL (150-450)
[2025-03-20 14:54] LABS: CALCIUM LEVEL 10.0 MG/DL (8.3-10.6); CARBON DIOXIDE LEVEL 26.0 MMOL/L (20-31); CHLORIDE LEVEL 103.0 MMOL/L (98-107); CREATININE FOR GFR 0.87 MG/DL (0.55-1.30); GLOMERULAR FILTRATION RATE 64.8 (>32); POTASSIUM SERUM 5.0 MMOL/L (3.5-5.1); SODIUM LEVEL 140.0 MMOL/L (136-145)
[2025-03-20] MEDS: MORPHINE 4 MG/ML 1 ML VIAL IV PRN ×2 (14:55→23:02)
[2025-03-20] MEDS ORDERED: PERCOCET 5MG/325MG TAB PO PRN (15:55)
[2025-03-20] MEDS ORDERED: BOTOX THERAPEUTIC 100 UNIT VIAL XX SCH (15:55)
[2025-03-20] MEDS ORDERED: ALBUTEROL SULFATE 2.5 MG/0.5 ML INH CONCENTRATE NEB SOLN INH PRN (15:55)
[2025-03-20] MEDS ORDERED: ALBUTEROL 90 MCG/ACT 8 GM HFA INHALER INH PRN (15:55)
[2025-03-20] MEDS ORDERED: GLUCOSE 4 GM CHEW PO PRN (16:00)
[2025-03-20] MEDS ORDERED: GLUCAGON INJ 1 MG VIAL SC PRN (16:00)
[2025-03-20] MEDS ORDERED: DEXTROSE 50% 50 ML SYRINGE IV PRN (16:00)
[2025-03-20] MEDS: INSULIN LISPRO (NovoLOG) PER UNIT SC SCH ×2 (17:33→20:49)
[2025-03-20] MEDS: FLUTICASONE HFA 220 MCG 12 GM INHALER INH SCH (21:05)
[2025-03-20] MEDS: ASPIRIN 81 MG ENTERIC TABLET PO SCH (21:15)
[2025-03-20] MEDS: CYANOCOBALAMIN 500 MCG TAB PO SCH (21:15)
[2025-03-20] MEDS: ROSUVASTATIN 10 MG TAB PO SCH (21:15)
[2025-03-20] MEDS: FLUTICASONE PROPIONATE 0.05% NASAL SPRAY 16 GM SCH (21:16)
[2025-03-20] MEDS: LATANOPROST 0.005% OPHTH SOLN 2.5 ML OU SCH (21:16)
[2025-03-20 23:26] VITALS: BP 144/68; TEMP 98.1; O2SAT 91
[2025-03-20 23:40] VITALS: O2SAT 84
[2025-03-20 23:44] VITALS: O2SAT 89
[2025-03-21] VITALS (8 sets, daily range): BP systolic 124–157; BP diastolic 58–94; TEMP 98.1–98.8; O2SAT 84–91
[2025-03-21] MEDS: LEVOTHYROXINE 100 MCG TABLET (0.1 MG) PO SCH (05:28)
[2025-03-21 05:41] LABS: PLATELET COUNT, AUTOMATED 179 10^3/uL (150-450)
[2025-03-21 05:54] LABS: CALCIUM LEVEL 9.4 MG/DL (8.3-10.6); CARBON DIOXIDE LEVEL 26.0 MMOL/L (20-31); CHLORIDE LEVEL 102.0 MMOL/L (98-107); CREATININE FOR GFR 0.79 MG/DL (0.55-1.30); GLOMERULAR FILTRATION RATE 72.8 (>32); POTASSIUM SERUM 4.6 MMOL/L (3.5-5.1); SODIUM LEVEL 138.0 MMOL/L (136-145)
[2025-03-21] MEDS ORDERED: ACETAMINOPHEN 650 MG ER TAB PO SCH (09:00)
[2025-03-21] MEDS: VITAMIN D 1,000 INTERNATIONAL UNITS TABLET PO SCH (09:37)
[2025-03-21] MEDS: RIVAROXABAN 10MG TAB PO SCH (09:37)
[2025-03-21] MEDS: ACETAMINOPHEN 325 MG TAB PO SCH (09:38)
[2025-03-21] MEDS: PANTOPRAZOLE 40MG TAB PO SCH (09:40)
[2025-03-21] MEDS: amLODIPine 5 MG TAB PO SCH (09:41)
[2025-03-21] MEDS: SPIRONOLACTONE 12.5MG PER 1/2 TABLET PO SCH (09:42)
[2025-03-21] MEDS ORDERED: ISOVUE-370 76% 100 ML VIAL As Ordered ONE (10:06)
[2025-03-21] MEDS ORDERED: IPRATROPIUM 0.5 MG/ALBUTEROL 2.5 MG INH SOL UD 3 ML NEB PRN (11:25)
[2025-03-21] MEDS: FUROSEMIDE 20 MG/2 ML VIAL IV ONE ×2 (12:38→18:07)
[2025-03-21 13:28] LABS: ABG BASE EXCESS -0.6 (-2.0-2.0); ABG HCO3 25.0 MMOL/L (22.0-26.0); ABG O2 SATURATION 90.2 % (95.0-99.0); ABG PARTIAL PRESSURE CO2 44.8 mmHg (35.0-45.0); ABG PARTIAL PRESSURE O2 58.9 mmHg (75.0-100.0); ABG STANDARD HCO3 23.8 MMOL/L. (22.0-26.0); ABG TOTAL CO2 26.4 MMOL/L (23.0-31.0); ABG pH (ARTERIAL) 7.365 UNITS (7.350-7.450)
[2025-03-21] MEDS: SODIUM CHLORIDE HYPERTONIC 3% 4ML NEB SOL INH SCH (14:08)
[2025-03-21] MEDS: IPRATROPIUM 0.5 MG/ALBUTEROL 2.5 MG INH SOL UD 3 ML NEB SCH (14:08)
[2025-03-21] MEDS: PERCOCET 5MG/325MG TAB PO PRN (18:08)
[2025-03-21 22:42] LABS: KETONE, URINE AUTO RFX NEGATIVE (NEGATIVE); LEUKOCYTE ESTERASE UR AUTO RFX NEGATIVE (NEGATIVE); NITRITE, URINE AUTO RFX NEGATIVE (NEGATIVE); RBC, URINE AUTO RFX TNTC /HPF (0-3); SQUAM EPITHELIAL CELL UR AURFX 0 /HPF (0-6); WBC, URINE AUTO RFX 0 /HPF (0-3)
[2025-03-22 04:00] VITALS: BP 126/63; TEMP 98.6; O2SAT 90
[2025-03-22 08:27] LABS: BASO # 0.0 10^3/uL (0.0-0.2); BASO % 0.2 % (0.0-1.0); EOS # 0.1 10^3/uL (0.0-0.5); EOS % 0.4 % (0.0-3.0); LYMPH # 2.9 10^3/uL (1.5-5.0); LYMPH % 18.4 % (24.0-44.0); MONO # 1.6 10^3/uL (0.0-0.8); MONO % 10.2 % (2.0-8.0); NEUTROPHILS # 11.1 10^3/uL (1.5-8.5); NEUTROPHILS % 70.0 % (36.0-66.0); PLATELET COUNT, AUTOMATED 159 10^3/uL (150-450)
[2025-03-22 09:05] LABS: ALT/SGPT 22.0 U/L (7.0-40); AST/SGOT 23.0 U/L (<34); CALCIUM LEVEL 9.3 MG/DL (8.3-10.6); CARBON DIOXIDE LEVEL 26.0 MMOL/L (20-31); CHLORIDE LEVEL 98.0 MMOL/L (98-107); CREATININE FOR GFR 0.97 MG/DL (0.55-1.30); GLOMERULAR FILTRATION RATE 56.9 (>32); POTASSIUM SERUM 4.0 MMOL/L (3.5-5.1); SODIUM LEVEL 137.0 MMOL/L (136-145)
[2025-03-22 09:29] LABS: C REACTIVE PROTEIN QUANTITATIV 20.35 MG/DL (<1.0)
[2025-03-22] MEDS: FUROSEMIDE 40 MG/4 ML VIAL IV ONE (09:56)
[2025-03-22 12:00] VITALS: BP 139/72; TEMP 98.1; O2SAT 90
[2025-03-22] MEDS ORDERED: POLYVINYL ALCOHOL OPHTH SOLN 15ML (LIQUITEARS) OU PRN (12:45)
[2025-03-22] MEDS ORDERED: ENTER DRUG NAME HERE (PATIENT'S OWN MED) XX SCH (12:45)
[2025-03-22] MEDS: FUROSEMIDE 100 MG/10 ML VIAL IV SCH (17:38)
[2025-03-22 20:21] VITALS: BP 123/77; TEMP 98.6; O2SAT 91
[2025-03-22] MEDS: QUEtiapine FUMARATE 12.5 MG HALF-TAB PO SCH (21:38)
[2025-03-22] MEDS: NITROFURANTOIN 100 MG CAP PO SCH (21:38)
[2025-03-22 22:53] VITALS: O2SAT 95
[2025-03-22 22:54] VITALS: O2SAT 94
[2025-03-23] VITALS (10 sets, daily range): BP systolic 126–133; BP diastolic 75–81; TEMP 97.5–98.6; O2SAT 90–94
[2025-03-23 08:37] LABS: BASO # 0.0 10^3/uL (0.0-0.2); BASO % 0.1 % (0.0-1.0); EOS # 0.1 10^3/uL (0.0-0.5); EOS % 0.3 % (0.0-3.0); LYMPH # 1.9 10^3/uL (1.5-5.0); LYMPH % 12.5 % (24.0-44.0); MONO # 1.7 10^3/uL (0.0-0.8); MONO % 11.2 % (2.0-8.0); NEUTROPHILS # 11.6 10^3/uL (1.5-8.5); NEUTROPHILS % 75.2 % (36.0-66.0); PLATELET COUNT, AUTOMATED 155 10^3/uL (150-450)
[2025-03-23 08:48] LABS: MAGNESIUM LEVEL 1.6 MG/DL (1.8-2.4)
[2025-03-23 09:33] LABS: ALT/SGPT 24.0 U/L (7.0-40); AST/SGOT 32.0 U/L (<34); C REACTIVE PROTEIN QUANTITATIV 29.09 MG/DL (<1.0); CALCIUM LEVEL 9.1 MG/DL (8.3-10.6); CARBON DIOXIDE LEVEL 29.0 MMOL/L (20-31); CHLORIDE LEVEL 93.0 MMOL/L (98-107); CREATININE FOR GFR 0.99 MG/DL (0.55-1.30); GLOMERULAR FILTRATION RATE 55.5 (>32); POTASSIUM SERUM 3.8 MMOL/L (3.5-5.1); SODIUM LEVEL 135.0 MMOL/L (136-145)
[2025-03-23] MEDS: SYSTANE EYE DROPS (PATIENT'S OWN MED) OU PRN (10:36)
[2025-03-23] MEDS: MAG SULF 1GM/100ML (MAG RUN) 1 GM in IV 1 EA IV SCH (12:00)
[2025-03-23] MEDS: predniSONE 20 MG TAB PO ONE (13:45)
[2025-03-23] MEDS: guaiFENesin ER TABLET 600 MG TAB PO ONE (17:22)
[2025-03-23] MEDS: INSULIN LISPRO (NovoLOG) PER UNIT SC ONE (18:26)
[2025-03-23] MEDS: LanTUS (INSULIN GLARGINE INJ) 1 UNITS/0.01 ML SC SCH (20:22)
[2025-03-23] MEDS: BLUE EMU TOP PRN (20:34)
[2025-03-24 03:48] VITALS: BP 139/70; TEMP 96.8; O2SAT 94
[2025-03-24] MEDS: SENNA 8.6 MG TAB PO PRN (05:37)
[2025-03-24 06:41] LABS: BASO # 0.0 10^3/uL (0.0-0.2); BASO % 0.1 % (0.0-1.0); EOS # 0.0 10^3/uL (0.0-0.5); EOS % 0.0 % (0.0-3.0); LYMPH # 1.7 10^3/uL (1.5-5.0); LYMPH % 11.0 % (24.0-44.0); MONO # 1.2 10^3/uL (0.0-0.8); MONO % 7.9 % (2.0-8.0); NEUTROPHILS # 12.1 10^3/uL (1.5-8.5); NEUTROPHILS % 80.5 % (36.0-66.0); PLATELET COUNT, AUTOMATED 178 10^3/uL (150-450)
[2025-03-24 07:07] LABS: CALCIUM LEVEL 9.2 MG/DL (8.3-10.6); CARBON DIOXIDE LEVEL 28.0 MMOL/L (20-31); CHLORIDE LEVEL 91.0 MMOL/L (98-107); CREATININE FOR GFR 1.08 MG/DL (0.55-1.30); GLOMERULAR FILTRATION RATE 50.0 (>32); MAGNESIUM LEVEL 2.8 MG/DL (1.8-2.4); POTASSIUM SERUM 3.7 MMOL/L (3.5-5.1); SODIUM LEVEL 133.0 MMOL/L (136-145)
[2025-03-24] MEDS: guaiFENesin ER TABLET 600 MG TAB PO SCH (08:02)
[2025-03-24] MEDS: predniSONE 20 MG TAB PO SCH (08:02)
[2025-03-24 11:52] VITALS: O2SAT 91
[2025-03-24 12:00] VITALS: BP 133/73; TEMP 97.9; O2SAT 91
[2025-03-24] MEDS: MIRALAX *UNIT DOSE* 17 GM PACKET PO PRN (14:47)
[2025-03-24] MEDS: ACETAMINOPHEN 325 MG TAB PO PRN (14:48)
[2025-03-24] MEDS: BISACODYL 10 MG SUPP PR ONE (18:21)
[2025-03-24] MEDS: INSULIN LISPRO (NovoLOG) PER UNIT SC STA (18:22)
[2025-03-24 20:00] VITALS: BP 139/75; TEMP 98.2; O2SAT 90
[2025-03-24] MEDS: LanTUS (INSULIN GLARGINE INJ) 1 UNITS/0.01 ML SC SCH (20:38)
[2025-03-24] MEDS ORDERED: NITROFURANTOIN 100 MG CAP PO SCH (21:00)
[2025-03-25] VITALS (7 sets, daily range): BP systolic 129–142; BP diastolic 69–75; TEMP 97.5–97.9; O2SAT 90–95
[2025-03-25 05:59] LABS: BASO # 0.0 10^3/uL (0.0-0.2); BASO % 0.1 % (0.0-1.0); EOS # 0.0 10^3/uL (0.0-0.5); EOS % 0.3 % (0.0-3.0); LYMPH # 2.5 10^3/uL (1.5-5.0); LYMPH % 17.3 % (24.0-44.0); MONO # 1.4 10^3/uL (0.0-0.8); MONO % 9.6 % (2.0-8.0); NEUTROPHILS # 10.5 10^3/uL (1.5-8.5); NEUTROPHILS % 72.0 % (36.0-66.0); PLATELET COUNT, AUTOMATED 209 10^3/uL (150-450)
[2025-03-25 06:27] LABS: CALCIUM LEVEL 9.6 MG/DL (8.3-10.6); CARBON DIOXIDE LEVEL 30.0 MMOL/L (20-31); CHLORIDE LEVEL 92.0 MMOL/L (98-107); CREATININE FOR GFR 1.12 MG/DL (0.55-1.30); GLOMERULAR FILTRATION RATE 47.9 (>32); MAGNESIUM LEVEL 2.7 MG/DL (1.8-2.4); POTASSIUM SERUM 3.6 MMOL/L (3.5-5.1); SODIUM LEVEL 135.0 MMOL/L (136-145)
[2025-03-25 07:43] LABS: ESTIMATED AVERAGE GLUCOSE 166.0 MG/DL (60-110)
[2025-03-25] MEDS: INSULIN LISPRO (NovoLOG) PER UNIT SC SCH (08:38)
[2025-03-25] MEDS: DOCUSATE SODIUM 100 MG CAPSULE PO PRN (10:27)
[2025-03-26 05:07] VITALS: BP 134/87; TEMP 97.7; O2SAT 92
[2025-03-26 06:30] LABS: BASO # 0.0 10^3/uL (0.0-0.2); BASO % 0.1 % (0.0-1.0); EOS # 0.0 10^3/uL (0.0-0.5); EOS % 0.2 % (0.0-3.0); LYMPH # 2.1 10^3/uL (1.5-5.0); LYMPH % 20.9 % (24.0-44.0); MONO # 1.0 10^3/uL (0.0-0.8); MONO % 9.6 % (2.0-8.0); NEUTROPHILS # 7.0 10^3/uL (1.5-8.5); NEUTROPHILS % 68.5 % (36.0-66.0); PLATELET COUNT, AUTOMATED 218 10^3/uL (150-450)
[2025-03-26 07:01] LABS: CALCIUM LEVEL 9.7 MG/DL (8.3-10.6); CARBON DIOXIDE LEVEL 32.0 MMOL/L (20-31); CHLORIDE LEVEL 93.0 MMOL/L (98-107); CREATININE FOR GFR 0.96 MG/DL (0.55-1.30); GLOMERULAR FILTRATION RATE 57.6 (>32); MAGNESIUM LEVEL 2.5 MG/DL (1.8-2.4); POTASSIUM SERUM 4.3 MMOL/L (3.5-5.1); SODIUM LEVEL 134.0 MMOL/L (136-145)
[2025-03-26 08:16] VITALS: BP 144/66
[2025-03-26] MEDS: INSULIN LISPRO (NovoLOG) PER UNIT SC SCH (09:42)
[2025-03-26] MEDS: HumuLIN N INSULIN (NovoLIN N) PER UNIT SC SCH (09:43)
[2025-03-26] MEDS ORDERED: XARE10TA PO (11:39)
[2025-03-26] MEDS ORDERED: IPRA0.00 NEB ×2 (11:39)
[2025-03-26] MEDS ORDERED: PERCOCET PO (11:39)
[2025-03-26] MEDS ORDERED: PRED10TA2 PO (11:39)
[2025-03-26] MEDS ORDERED: ACET32TAB PO (11:39)
[2025-03-26] MEDS ORDERED: MUCI600T31 PO (11:39)
[2025-03-26] MEDS ORDERED: MIRA33506 PO (11:39)
[2025-03-26] MEDS ORDERED: Insulin Human Nph SC (11:39)
[2025-03-26] MEDS ORDERED: SENN18TA PO (11:39)
[2025-03-26] MEDS ORDERED: INSUHUMDS SC (11:39)
[2025-03-26] MEDS ORDERED: QUET1TAB17 PO (11:39)
[2025-03-26] MEDS ORDERED: COLA100C5 PO (11:39)
[2025-03-26 12:00] VITALS: BP 142/68; TEMP 98.2; O2SAT 93
== END 2025-03-26 15:16 | DRG 562 ==
LOC: EDBD 10:40 → M ED 10:40 → M ED INP 10:41 → M MSPAV 23:09 → OBSVTOIN 03-21 11:23
PROVIDERS: ADMIT Internal Medicine; ATTEND Internal Medicine
PROC: 2W3BXYZ Immobilization of Left Upper Arm using Other Device (ICD-10-PCS; 2025-03-21)
PROC: B246ZZZ Ultrasonography of Right and Left Heart (ICD-10-PCS; principal; 2025-03-22)
DX: S42.142A Displaced fracture of glenoid cavity of scapula, left shoulder, initial encounter for closed fracture (principal); J96.01 Acute respiratory failure with hypoxia; S22.080A Wedge compression fracture of T11-T12 vertebra, initial encounter for closed fracture; J98.11 Atelectasis; J45.901 Unspecified asthma with (acute) exacerbation; E11.42 Type 2 diabetes mellitus with diabetic polyneuropathy; G89.29 Other chronic pain; K21.9 Gastro-esophageal reflux disease without esophagitis; I12.9 Hypertensive chronic kidney disease with stage 1 through stage 4 chronic kidney disease, or unspecified chronic kidney disease; G47.33 Obstructive sleep apnea (adult) (pediatric); I27.20 Pulmonary hypertension, unspecified; R33.9 Retention of urine, unspecified; W01.0XXA Fall on same level from slipping, tripping and stumbling without subsequent striking against object, initial encounter; Y92.9 Unspecified place or not applicable; M54.50 Low back pain, unspecified; E66.9 Obesity, unspecified; H40.9 Unspecified glaucoma; E11.22 Type 2 diabetes mellitus with diabetic chronic kidney disease; N18.30 Chronic kidney disease, stage 3 unspecified; M19.90 Unspecified osteoarthritis, unspecified site; E11.65 Type 2 diabetes mellitus with hyperglycemia; E03.9 Hypothyroidism, unspecified; T38.0X5A Adverse effect of glucocorticoids and synthetic analogues, initial encounter; Z79.82 Long term (current) use of aspirin; Z79.890 Hormone replacement therapy; Z79.84 Long term (current) use of oral hypoglycemic drugs; Z79.899 Other long term (current) drug therapy; Z88.0 Allergy status to penicillin; Z88.1 Allergy status to other antibiotic agents; Z88.8 Allergy status to other drugs, medicaments and biological substances; Z91.018 Allergy to other foods; Z86.73 Personal history of transient ischemic attack (TIA), and cerebral infarction without residual deficits; Z68.35 Body mass index [BMI] 35.0-35.9, adult

== ENCOUNTER 2025-03-26 13:29 | Inpatient (IN) | payer MEDICARE, OTHER ==
[~2025-03-26] VITALS: Ht 165.1 cm; Wt 95.3 kg
[~2025-03-26 13:29] MED LIST changes: +ACET32TAB PO; +ASPI81TA26 PO; +COLA100C5 PO; +CYAN100049 PO; +FEXO-63 PO; +FLUT12AE3 INH; +INSUHUMDS SC; +IPRA0.00 NEB; +Insulin Human Nph SC; +METF-838 PO; +MIRA33506 PO; +MUCI600T31 PO; +PERCOCET PO; +PRED10TA2 PO; +QUET1TAB17 PO; +ROSU20TA86 PO; +SENN18TA PO; +TRAM50TA2 PO; +VENTAER INH; +XARE10TA PO
[2025-03-26] MEDS ORDERED: BISACODYL 10 MG SUPP PR PRN (14:35)
[2025-03-26] MEDS ORDERED: MAALOX 30 ML SUSP *UDC PO PRN (14:35)
[2025-03-26] MEDS ORDERED: SIMETHICONE 80MG CHEW TAB PO PRN (14:35)
[2025-03-26] MEDS ORDERED: IPRATROPIUM 0.5 MG/ALBUTEROL 2.5 MG INH SOL UD 3 ML NEB PRN (14:45)
[2025-03-26] MEDS ORDERED: GLUCOSE 4 GM CHEW PO PRN (14:45)
[2025-03-26] MEDS ORDERED: ONDANSETRON 4MG ORAL DISINTEGRATING TAB SL PRN (14:45)
[2025-03-26] MEDS ORDERED: DEXTROSE 50% 50 ML SYRINGE IV PRN (14:45)
[2025-03-26] MEDS ORDERED: ALBUTEROL SULFATE 2.5 MG/0.5 ML INH CONCENTRATE NEB SOLN INH PRN (14:45)
[2025-03-26] MEDS ORDERED: GLUCAGON INJ 1 MG VIAL SC PRN (14:45)
[2025-03-26 15:25] VITALS: BP 158/72; TEMP 97.6; O2SAT 92
[2025-03-26] MEDS ORDERED: INSULIN LISPRO (NovoLOG) PER UNIT SC SCH (17:30)
[2025-03-26] MEDS: INSULIN LISPRO (NovoLOG) PER UNIT SC SCH (17:49)
[2025-03-26] MEDS: IPRATROPIUM 0.5 MG/ALBUTEROL 2.5 MG INH SOL UD 3 ML NEB SCH (19:48)
[2025-03-26] MEDS: FLUTICASONE HFA 220 MCG 12 GM INHALER INH SCH (19:48)
[2025-03-26 19:55] VITALS: BP 153/73; TEMP 97.5; O2SAT 98
[2025-03-26] MEDS: ROSUVASTATIN 10 MG TAB PO SCH (20:47)
[2025-03-26] MEDS: CYANOCOBALAMIN 500 MCG TAB PO SCH (21:03)
[2025-03-26] MEDS: QUEtiapine FUMARATE 12.5 MG HALF-TAB PO SCH (21:03)
[2025-03-26] MEDS: ASPIRIN 81 MG ENTERIC TABLET PO SCH (21:03)
[2025-03-26] MEDS: SENNA 8.6 MG TAB PO SCH (21:03)
[2025-03-26] MEDS: ACETAMINOPHEN 500 MG TAB PO SCH (21:04)
[2025-03-26] MEDS: DOCUSATE SODIUM 100 MG CAPSULE PO SCH (21:04)
[2025-03-26] MEDS: FLUTICASONE PROPIONATE 0.05% NASAL SPRAY 16 GM SCH (21:10)
[2025-03-26] MEDS: LATANOPROST 0.005% OPHTH SOLN 2.5 ML OU SCH (21:11)
[2025-03-26] MEDS: guaiFENesin ER TABLET 600 MG TAB PO SCH (21:23)
[2025-03-27 03:37] VITALS: BP 152/69; TEMP 96.8; O2SAT 96
[2025-03-27] MEDS: LEVOTHYROXINE 100 MCG TABLET (0.1 MG) PO SCH (05:36)
[2025-03-27 07:04] LABS: BASO # 0.0 10^3/uL (0.0-0.2); BASO % 0.2 % (0.0-1.0); EOS # 0.1 10^3/uL (0.0-0.5); EOS % 0.6 % (0.0-3.0); LYMPH # 3.2 10^3/uL (1.5-5.0); LYMPH % 27.1 % (24.0-44.0); MONO # 1.3 10^3/uL (0.0-0.8); MONO % 10.8 % (2.0-8.0); NEUTROPHILS # 7.1 10^3/uL (1.5-8.5); NEUTROPHILS % 60.5 % (36.0-66.0); PLATELET COUNT, AUTOMATED 261 10^3/uL (150-450)
[2025-03-27 07:30] LABS: ALT/SGPT 61.0 U/L (7.0-40); AST/SGOT 31.0 U/L (<34); CALCIUM LEVEL 9.7 MG/DL (8.3-10.6); CARBON DIOXIDE LEVEL 29.0 MMOL/L (20-31); CHLORIDE LEVEL 98.0 MMOL/L (98-107); CREATININE FOR GFR 0.94 MG/DL (0.55-1.30); GLOMERULAR FILTRATION RATE 59.1 (>32); POTASSIUM SERUM 4.5 MMOL/L (3.5-5.1); SODIUM LEVEL 137.0 MMOL/L (136-145)
[2025-03-27] MEDS: SPIRONOLACTONE 12.5MG PER 1/2 TABLET PO SCH (09:43)
[2025-03-27] MEDS: predniSONE 10 MG TAB PO SCH (09:43)
[2025-03-27] MEDS: VITAMIN D 1,000 INTERNATIONAL UNITS TABLET PO SCH (09:44)
[2025-03-27] MEDS: FEXOFENADINE 60 MG TAB PO SCH (09:44)
[2025-03-27] MEDS: PANTOPRAZOLE 40MG TAB PO SCH (09:45)
[2025-03-27] MEDS: RIVAROXABAN 10MG TAB PO SCH (09:45)
[2025-03-27] MEDS: HumuLIN N INSULIN (NovoLIN N) PER UNIT SC SCH (09:46)
[2025-03-27] MEDS: BISACODYL 5 MG TAB PO PRN (09:52)
[2025-03-27 11:37] VITALS: BP 154/72; TEMP 97.3; O2SAT 94
[2025-03-27] MEDS: BISACODYL 5 MG TAB PO ONE (12:54)
[2025-03-27] MEDS: amLODIPine 5 MG TAB PO SCH (12:56)
[2025-03-27 20:00] VITALS: BP 125/70; TEMP 97.3; O2SAT 98
[2025-03-27] MEDS: SENNA 8.6 MG TAB PO SCH (20:55)
[2025-03-28 04:00] VITALS: BP 145/66; TEMP 98.7; O2SAT 95
[2025-03-28] MEDS: MOM 30 ML SUSPENSION UDC PO PRN (07:50)
[2025-03-28] MEDS: BISACODYL 5 MG TAB PO SCH (07:51)
[2025-03-28 11:34] VITALS: BP 127/63; TEMP 97.8; O2SAT 92
[2025-03-28] MEDS: FLEET ENEMA PR ONE (18:17)
[2025-03-28 20:00] VITALS: BP 145/64; TEMP 96.9; O2SAT 92
[2025-03-29 04:00] VITALS: BP 163/73; TEMP 97.5; O2SAT 95
[2025-03-29 11:37] VITALS: BP 130/59; TEMP 97.8; O2SAT 92
[2025-03-29] MEDS: BISACODYL 10 MG SUPP PR ONE (15:26)
[2025-03-29 19:30] VITALS: BP 131/59; TEMP 98.4; O2SAT 94
[2025-03-30 05:05] VITALS: BP 145/67; TEMP 96.4; O2SAT 99
[2025-03-30 12:00] VITALS: BP 143/62; TEMP 97.6; O2SAT 94
[2025-03-30 19:20] VITALS: BP 112/76; TEMP 96.9; O2SAT 94
[2025-03-31 06:18] VITALS: BP 148/67; TEMP 97.2; O2SAT 96
[2025-03-31 11:30] VITALS: BP 154/66; TEMP 94.4; TEMP 98.4; O2SAT 95
[2025-03-31 12:00] VITALS: BP 148/60; TEMP 97.2; O2SAT 94
[2025-03-31 19:17] VITALS: BP 120/58; TEMP 97.6; O2SAT 93
[2025-04-01 04:16] VITALS: BP 129/60; TEMP 97.4; O2SAT 94
[2025-04-01 11:22] VITALS: BP 119/56; TEMP 97.8; O2SAT 92
[2025-04-01 20:03] VITALS: BP 122/59; TEMP 97.1; O2SAT 94
[2025-04-02 04:00] VITALS: BP 118/58; TEMP 97.5; O2SAT 96
[2025-04-02 11:51] VITALS: BP 137/63; TEMP 97.8; O2SAT 94
[2025-04-02 19:32] VITALS: BP 139/68; TEMP 96.8; O2SAT 96
[2025-04-02] MEDS: SENNA 8.6 MG TAB PO SCH (21:06)
[2025-04-03 03:15] VITALS: BP 149/66; TEMP 97; O2SAT 96
[2025-04-03 11:50] VITALS: BP 141/61; TEMP 97.8; O2SAT 95
[2025-04-03 19:56] VITALS: BP 136/61; TEMP 97.8; O2SAT 96
[2025-04-04 04:45] VITALS: BP 134/68; TEMP 96.9; O2SAT 96
[2025-04-04 12:00] VITALS: BP 128/60; TEMP 97.9; O2SAT 96
[2025-04-04] MEDS ORDERED: PRED5TA PO (15:08)
[2025-04-04] MEDS ORDERED: OXYC-517 PO (15:08)
[2025-04-04] MEDS ORDERED: AMLO1TAB24 PO (15:08)
[2025-04-04] MEDS ORDERED: METF10004 PO (15:08)
[2025-04-04] MEDS ORDERED: QUET1TAB17 PO (15:08)
[2025-04-04] MEDS ORDERED: SITA50TAB PO (15:08)
[2025-04-04] MEDS ORDERED: XARE10TA PO (15:08)
[2025-04-04 20:00] VITALS: BP 123/56; TEMP 97.7; O2SAT 95
[2025-04-05 04:00] VITALS: BP 159/70; TEMP 98; O2SAT 95
[2025-04-05 09:48] VITALS: BP 159/70
== END 2025-04-05 11:50 | disposition home health service (06) | DRG 560 ==
LOC: M PM&R 15:25
PROVIDERS: ADMIT Physical Medicine & Rehabilitation; ATTEND Physical Medicine & Rehabilitation
DX: S42.142D Displaced fracture of glenoid cavity of scapula, left shoulder, subsequent encounter for fracture with routine healing (principal); S22.088A Other fracture of T11-T12 vertebra, initial encounter for closed fracture; J98.11 Atelectasis; I10 Essential (primary) hypertension; G47.33 Obstructive sleep apnea (adult) (pediatric); J45.909 Unspecified asthma, uncomplicated; E11.42 Type 2 diabetes mellitus with diabetic polyneuropathy; E03.9 Hypothyroidism, unspecified; M19.90 Unspecified osteoarthritis, unspecified site; G89.29 Other chronic pain; K21.9 Gastro-esophageal reflux disease without esophagitis; K59.00 Constipation, unspecified; R53.1 Weakness; H40.9 Unspecified glaucoma; E55.9 Vitamin D deficiency, unspecified; G47.00 Insomnia, unspecified; E87.70 Fluid overload, unspecified; N28.89 Other specified disorders of kidney and ureter; R33.9 Retention of urine, unspecified; E11.65 Type 2 diabetes mellitus with hyperglycemia; T38.0X5A Adverse effect of glucocorticoids and synthetic analogues, initial encounter; Z74.1 Need for assistance with personal care; Z74.09 Other reduced mobility; Z79.82 Long term (current) use of aspirin; Z79.4 Long term (current) use of insulin; Z79.01 Long term (current) use of anticoagulants; Z86.73 Personal history of transient ischemic attack (TIA), and cerebral infarction without residual deficits; Z79.899 Other long term (current) drug therapy; Z88.0 Allergy status to penicillin; Z88.1 Allergy status to other antibiotic agents; Z88.8 Allergy status to other drugs, medicaments and biological substances; Z91.018 Allergy to other foods; Z79.890 Hormone replacement therapy

== ENCOUNTER 2025-04-08 11:34 | Inpatient (IN) | payer MEDICARE, OTHER ==
[~2025-04-08] VITALS: Ht 165.1 cm; Wt 88.2 kg
[~2025-04-08 11:34] MED LIST changes: +METF10004 PO; +OXYC-517 PO; +PRED5TA PO; +SITA50TAB PO
[2025-04-08] MEDS ORDERED: HOME MED LIST COMPLETE! XX SCH (16:15)
[2025-04-08 16:26] LABS: BASO # 0.0 10^3/uL (0.0-0.2); BASO % 0.2 % (0.0-1.0); EOS # 0.1 10^3/uL (0.0-0.5); EOS % 0.6 % (0.0-3.0); LYMPH # 2.5 10^3/uL (1.5-5.0); LYMPH % 17.0 % (24.0-44.0); MONO # 1.3 10^3/uL (0.0-0.8); MONO % 8.7 % (2.0-8.0); NEUTROPHILS # 10.5 10^3/uL (1.5-8.5); NEUTROPHILS % 72.7 % (36.0-66.0); PLATELET COUNT, AUTOMATED 320 10^3/uL (150-450)
[2025-04-08] MEDS ORDERED: ACETAMINOPHEN 325 MG TAB PO PRN (17:00)
[2025-04-08 17:02] LABS: ALT/SGPT 24.0 U/L (7.0-40); AST/SGOT 22.0 U/L (<34); CALCIUM LEVEL 10.0 MG/DL (8.3-10.6); CARBON DIOXIDE LEVEL 23.0 MMOL/L (20-31); CHLORIDE LEVEL 104.0 MMOL/L (98-107); CREATININE FOR GFR 0.83 MG/DL (0.55-1.30); GLOMERULAR FILTRATION RATE 68.6 (>32); POTASSIUM SERUM 4.4 MMOL/L (3.5-5.1); SODIUM LEVEL 141.0 MMOL/L (136-145)
[2025-04-08] MEDS ORDERED: MORPHINE 2 MG/ML 1 ML VIAL IV PRN (17:20)
[2025-04-08] MEDS ORDERED: QUEtiapine FUMARATE 12.5 MG HALF-TAB PO PRN (17:20)
[2025-04-08] MEDS ORDERED: ALBUTEROL SULFATE 2.5 MG/0.5 ML INH CONCENTRATE NEB SOLN INH PRN (17:20)
[2025-04-08] MEDS: LIDOCAINE 5% PATCH TD ONE (17:25)
[2025-04-08] MEDS: INSULIN LISPRO (NovoLOG) PER UNIT SC SCH ×2 (17:30→20:56)
[2025-04-08] MEDS ORDERED: GLUCOSE 4 GM CHEW PO PRN (17:30)
[2025-04-08] MEDS ORDERED: DEXTROSE 50% 50 ML SYRINGE IV PRN (17:30)
[2025-04-08] MEDS ORDERED: GLUCAGON INJ 1 MG VIAL SC PRN (17:30)
[2025-04-08] MEDS: MORPHINE 2 MG/ML 1 ML VIAL IV PRN (17:50)
[2025-04-08 19:00] LABS: CALCIUM LEVEL 10.0 MG/DL (8.3-10.6); CARBON DIOXIDE LEVEL 22.0 MMOL/L (20-31); CHLORIDE LEVEL 103.0 MMOL/L (98-107); CREATININE FOR GFR 0.78 MG/DL (0.55-1.30); GLOMERULAR FILTRATION RATE 73.9 (>32); MAGNESIUM LEVEL 1.4 MG/DL (1.8-2.4); POTASSIUM SERUM 4.4 MMOL/L (3.5-5.1); SODIUM LEVEL 139.0 MMOL/L (136-145)
[2025-04-08] MEDS: FLUTICASONE HFA 220 MCG 12 GM INHALER INH SCH (19:59)
[2025-04-08] MEDS: DICLOFENAC EPOLAMINE 1.3% PATCH TOP SCH (21:00)
[2025-04-08] MEDS: SENNOSIDES/DOCUSATE SODIUM 8.6 MG/50MG TAB PO SCH (21:04)
[2025-04-08] MEDS: MAGNESIUM CITRATE 300 ML BTL PO ONE (21:04)
[2025-04-08] MEDS: CYANOCOBALAMIN 500 MCG TAB PO SCH (21:05)
[2025-04-08] MEDS: ROSUVASTATIN 10 MG TAB PO SCH (21:05)
[2025-04-08] MEDS: ASPIRIN 81 MG ENTERIC TABLET PO SCH (21:05)
[2025-04-08] MEDS: MAG SULF 1GM/100ML (MAG RUN) 1 GM in IV 1 EA IV SCH (21:06)
[2025-04-08] MEDS: BISACODYL 10 MG SUPP PR SCH (21:11)
[2025-04-08] MEDS: LATANOPROST 0.005% OPHTH SOLN 2.5 ML OU SCH (21:11)
[2025-04-08] MEDS ORDERED: NALOXONE INJ 0.4 MG/1 ML VIAL IV PRN (21:50)
[2025-04-08] MEDS ORDERED: MORPHINE 4 MG/ML 1 ML VIAL IV PRN (21:50)
[2025-04-08] MEDS ORDERED: RAMELTEON 8 MG TAB PO PRN (21:50)
[2025-04-08] MEDS: ACETAMINOPHEN 500 MG TAB PO SCH (22:00)
[2025-04-08 22:54] VITALS: BP 130/74; TEMP 97.5; O2SAT 91
[2025-04-09 04:37] VITALS: BP 129/73; TEMP 97.5; O2SAT 92
[2025-04-09] MEDS: LEVOTHYROXINE 100 MCG TABLET (0.1 MG) PO SCH (05:28)
[2025-04-09 07:19] LABS: BASO # 0.0 10^3/uL (0.0-0.2); BASO % 0.3 % (0.0-1.0); EOS # 0.1 10^3/uL (0.0-0.5); EOS % 0.7 % (0.0-3.0); LYMPH # 2.1 10^3/uL (1.5-5.0); LYMPH % 15.8 % (24.0-44.0); MONO # 1.4 10^3/uL (0.0-0.8); MONO % 10.7 % (2.0-8.0); NEUTROPHILS # 9.3 10^3/uL (1.5-8.5); NEUTROPHILS % 71.8 % (36.0-66.0); PLATELET COUNT, AUTOMATED 292 10^3/uL (150-450)
[2025-04-09 07:25] LABS: CALCIUM LEVEL 9.4 MG/DL (8.3-10.6); CARBON DIOXIDE LEVEL 23.0 MMOL/L (20-31); CHLORIDE LEVEL 100.0 MMOL/L (98-107); CREATININE FOR GFR 0.67 MG/DL (0.55-1.30); GLOMERULAR FILTRATION RATE 85.1 (>32); MAGNESIUM LEVEL 2.1 MG/DL (1.8-2.4); POTASSIUM SERUM 4.8 MMOL/L (3.5-5.1); SODIUM LEVEL 136.0 MMOL/L (136-145)
[2025-04-09] MEDS: RIVAROXABAN 10MG TAB PO SCH (08:23)
[2025-04-09] MEDS: VITAMIN D 1,000 INTERNATIONAL UNITS TABLET PO SCH (08:23)
[2025-04-09] MEDS: PANTOPRAZOLE 40MG TAB PO SCH (08:24)
[2025-04-09] MEDS: amLODIPine 5 MG TAB PO SCH (08:27)
[2025-04-09] MEDS: LIDOCAINE 5% PATCH TD SCH (08:28)
[2025-04-09 12:00] VITALS: BP 127/71; TEMP 97.7; O2SAT 93
[2025-04-09 19:53] VITALS: BP 127/70; TEMP 98.4; O2SAT 92
[2025-04-10 04:41] VITALS: BP 128/64; TEMP 97.3; O2SAT 94
[2025-04-10 06:25] LABS: BASO # 0.0 10^3/uL (0.0-0.2); BASO % 0.4 % (0.0-1.0); EOS # 0.2 10^3/uL (0.0-0.5); EOS % 2.0 % (0.0-3.0); LYMPH # 2.0 10^3/uL (1.5-5.0); LYMPH % 21.3 % (24.0-44.0); MONO # 1.1 10^3/uL (0.0-0.8); MONO % 11.4 % (2.0-8.0); NEUTROPHILS # 5.9 10^3/uL (1.5-8.5); NEUTROPHILS % 64.2 % (36.0-66.0); PLATELET COUNT, AUTOMATED 249 10^3/uL (150-450)
[2025-04-10 06:57] LABS: ALT/SGPT 20.0 U/L (7.0-40); AST/SGOT 19.0 U/L (<34); CALCIUM LEVEL 9.5 MG/DL (8.3-10.6); CARBON DIOXIDE LEVEL 26.0 MMOL/L (20-31); CHLORIDE LEVEL 101.0 MMOL/L (98-107); CREATININE FOR GFR 0.89 MG/DL (0.55-1.30); GLOMERULAR FILTRATION RATE 63.1 (>32); MAGNESIUM LEVEL 2.0 MG/DL (1.8-2.4); POTASSIUM SERUM 4.5 MMOL/L (3.5-5.1); SODIUM LEVEL 138.0 MMOL/L (136-145)
[2025-04-10 12:00] VITALS: BP 130/64; TEMP 97.6; O2SAT 95
[2025-04-10] MEDS: MOM 30 ML SUSPENSION UDC PO PRN (18:28)
[2025-04-10 19:53] VITALS: BP 130/59; TEMP 98.1; O2SAT 95
[2025-04-11 03:49] VITALS: BP 129/59; TEMP 97.3; O2SAT 94
[2025-04-11] MEDS ORDERED: DICL1PAT6 TOP (07:16)
[2025-04-11] MEDS ORDERED: BISA10SU PR (07:16)
[2025-04-11] MEDS ORDERED: LIDO5TD TD (07:16)
[2025-04-11] MEDS ORDERED: METH-1165 PO (07:16)
[2025-04-11 08:19] VITALS: BP 125/61
== END 2025-04-11 10:57 | DRG 552 ==
LOC: M ED 11:34 → M ED INP 11:35 → M MSPAV 22:48 → OBSVTOIN 04-09 13:42
PROVIDERS: ADMIT Student in an Organized Health Care Education/Training Program; ATTEND Student in an Organized Health Care Education/Training Program
DX: M54.50 Low back pain, unspecified (principal); S22.089D Unspecified fracture of T11-T12 vertebra, subsequent encounter for fracture with routine healing; E11.40 Type 2 diabetes mellitus with diabetic neuropathy, unspecified; M19.90 Unspecified osteoarthritis, unspecified site; G89.29 Other chronic pain; I10 Essential (primary) hypertension; K21.9 Gastro-esophageal reflux disease without esophagitis; E55.9 Vitamin D deficiency, unspecified; G47.33 Obstructive sleep apnea (adult) (pediatric); S42.142D Displaced fracture of glenoid cavity of scapula, left shoulder, subsequent encounter for fracture with routine healing; K59.03 Drug induced constipation; E03.9 Hypothyroidism, unspecified; M62.830 Muscle spasm of back; G47.00 Insomnia, unspecified; H40.9 Unspecified glaucoma; E83.42 Hypomagnesemia; J45.909 Unspecified asthma, uncomplicated; Z79.82 Long term (current) use of aspirin; Z79.890 Hormone replacement therapy; Z79.01 Long term (current) use of anticoagulants; Z79.899 Other long term (current) drug therapy; Z88.0 Allergy status to penicillin; Z86.73 Personal history of transient ischemic attack (TIA), and cerebral infarction without residual deficits; Z88.1 Allergy status to other antibiotic agents; Z88.8 Allergy status to other drugs, medicaments and biological substances; Z91.018 Allergy to other foods; T40.2X5A Adverse effect of other opioids, initial encounter

== ENCOUNTER → 2025-04-18 | Outpatient (CLI) | payer MEDICARE, OTHER ==
[~2025-04-18] MED LIST changes: +BISA10SU PR; +DICL1PAT6 TOP; +LIDO5TD TD; +METH-1165 PO
== END ==
LOC: M SOG 06:54
PROVIDERS: ATTEND Orthopaedic Surgery
DX: M25.511 Pain in right shoulder (principal)

== ENCOUNTER → 2025-04-19 | Outpatient (CLI) | payer MEDICARE, OTHER | LOC: M SOG 06:55 | PROVIDERS: ATTEND Orthopaedic Surgery | DX: M25.511 Pain in right shoulder (principal) ==

== ENCOUNTER → 2025-04-24 | Outpatient (CLI) | payer MEDICARE, OTHER | LOC: M RAD 12:41 | PROVIDERS: ATTEND Physician Assistant | DX: S22.080A Wedge compression fracture of T11-T12 vertebra, initial encounter for closed fracture (principal); X58.XXXA Exposure to other specified factors, initial encounter; Y92.9 Unspecified place or not applicable ==

== ENCOUNTER → 2025-05-02 | Outpatient (CLI) | payer MEDICARE, OTHER ==
[~2025-05-02] MED LIST changes: +DENO60SY2 SC; +[UNRECOGNIZED DRUG - CODE] XX
== END ==
LOC: M ADAMS 10:12
PROVIDERS: ATTEND Family Medicine
DX: J18.9 Pneumonia, unspecified organism (principal)

== ENCOUNTER → 2025-05-07 | Outpatient (CLI) | payer MEDICARE, OTHER ==
[~2025-05-07] MED LIST changes: -DENO60SY2 SC; -[UNRECOGNIZED DRUG - CODE] XX
== END ==
LOC: M RAD 08:04
PROVIDERS: ATTEND Family Medicine
DX: S22.080G Wedge compression fracture of T11-T12 vertebra, subsequent encounter for fracture with delayed healing (principal)

== ENCOUNTER → 2025-05-08 | Outpatient (CLI) | payer MEDICARE, OTHER | LOC: M SOG 06:51 | PROVIDERS: ATTEND Neuromusculoskeletal Medicine, Sports Medicine | DX: M25.512 Pain in left shoulder (principal); E11.21 Type 2 diabetes mellitus with diabetic nephropathy ==

== ENCOUNTER → 2025-05-08 | Outpatient (CLI) | payer MEDICARE, OTHER ==
[2025-05-08 14:48] LABS: ESTIMATED AVERAGE GLUCOSE 151.0 MG/DL (60-110)
[2025-05-08 14:58] LABS: CALCIUM LEVEL 10.1 MG/DL (8.3-10.6); CARBON DIOXIDE LEVEL 28.0 MMOL/L (20-31); CHLORIDE LEVEL 100.0 MMOL/L (98-107); CREATININE FOR GFR 0.83 MG/DL (0.55-1.30); GLOMERULAR FILTRATION RATE 68.6 (>32); POTASSIUM SERUM 4.6 MMOL/L (3.5-5.1); SODIUM LEVEL 136.0 MMOL/L (136-145)
== END ==
LOC: M LABDRWAD 08:25
PROVIDERS: ATTEND Family Medicine
DX: E11.21 Type 2 diabetes mellitus with diabetic nephropathy (principal)

== ENCOUNTER → 2025-05-15 | Outpatient (POV) | payer MEDICARE, OTHER ==
[~2025-05-15] VITALS: Ht 160 cm; Wt 86.2 kg
[~2025-05-15] MED LIST changes: +DENO60SY2 SC; +[UNRECOGNIZED DRUG - CODE] XX
[2025-05-15 14:15] VITALS: BP 142/78; O2SAT 96
== END ==
LOC: M IRPOV 13:56
PROVIDERS: ATTEND Registered Nurse School
DX: S22.089G Unspecified fracture of T11-T12 vertebra, subsequent encounter for fracture with delayed healing (principal); W13.8XXA Fall from, out of or through other building or structure, initial encounter; Y92.008 Other place in unspecified non-institutional (private) residence as the place of occurrence of the external cause; Y93.9 Activity, unspecified; Y99.9 Unspecified external cause status; Z86.73 Personal history of transient ischemic attack (TIA), and cerebral infarction without residual deficits

== ENCOUNTER → 2025-05-23 | Outpatient (CLI) | payer MEDICARE, OTHER | LOC: M RAD 10:34 | PROVIDERS: ATTEND Physician Assistant | DX: S22.080D Wedge compression fracture of T11-T12 vertebra, subsequent encounter for fracture with routine healing (principal) ==

== ENCOUNTER → 2025-05-29 | Outpatient (REF) | payer MEDICARE, OTHER ==
[~2025-05-29] MED LIST changes: +IPRA3SP; +OXYC5CAP56 PO; +TURM500T PO; +VITATAB73 PO; +[UNRECOGNIZED DRUG - CODE] PO; -[UNRECOGNIZED DRUG - CODE] XX
[2025-05-29 14:33] LABS: APPEARANCE, URINE CLEAR (CLEAR); BACTERIA, URINE AUTO NEGATIVE (NEGATIVE); BILIRUBIN, URINE AUTO NEGATIVE (NEGATIVE); BLOOD, URINE BLOOD NEGATIVE (NEGATIVE); GLUCOSE, URINE (UA) AUTO 3+ mg/dL (NEGATIVE); KETONE, URINE AUTO NEGATIVE (NEGATIVE); LEUKOCYTE ESTERASE, URINE AUTO NEGATIVE (NEGATIVE); NITRITE, URINE AUTO NEGATIVE (NEGATIVE); PROTEIN, URINE AUTO NEGATIVE (NEGATIVE); RBC, URINE AUTO 0 /HPF (0-3); SPECIFIC GRAVITY URINE AUTO 1.008 (1.002-1.035); SQUAMOUS EPITHELIAL CELL UR AU 0 /HPF (0-6); UROBILINOGEN, URINE AUTO 0.2 mg/dL (0.0-2.0); WBC, URINE AUTO 1 /HPF (0-3)
== END ==
LOC: M SFHCADAM 13:03
PROVIDERS: ATTEND Family Medicine
DX: R35.0 Frequency of micturition (principal)

== ENCOUNTER → 2025-06-04 | Outpatient (REF) | payer MEDICARE, OTHER ==
[2025-06-04 16:52] LABS: PLATELET COUNT, AUTOMATED 325 10^3/uL (150-450)
[2025-06-04 17:06] LABS: INR 1.28
[2025-06-04 17:10] LABS: ESTIMATED AVERAGE GLUCOSE 137.0 MG/DL (60-110)
[2025-06-04 17:16] LABS: CALCIUM LEVEL 9.9 MG/DL (8.3-10.6); CARBON DIOXIDE LEVEL 27.0 MMOL/L (20-31); CHLORIDE LEVEL 102.0 MMOL/L (98-107); CREATININE FOR GFR 0.92 MG/DL (0.55-1.30); GLOMERULAR FILTRATION RATE 60.6 (>32); POTASSIUM SERUM 4.7 MMOL/L (3.5-5.1); SODIUM LEVEL 137.0 MMOL/L (136-145)
[2025-06-04 17:19] LABS: FREE T4 1.45 NG/DL (0.89-1.76)
== END ==
LOC: M SFHCADAM 14:44
PROVIDERS: ATTEND Family Medicine
DX: Z01.818 Encounter for other preprocedural examination (principal); E11.21 Type 2 diabetes mellitus with diabetic nephropathy; E03.9 Hypothyroidism, unspecified

== ENCOUNTER → 2025-06-04 | Outpatient (CLI) | payer MEDICARE, OTHER | LOC: M ADAMS 15:10 | PROVIDERS: ATTEND Family Medicine | DX: Z01.818 Encounter for other preprocedural examination (principal) ==

== ENCOUNTER → 2025-06-05 | Outpatient (CLI) | payer MEDICARE, OTHER | LOC: M SOG 07:26 | PROVIDERS: ATTEND Neuromusculoskeletal Medicine, Sports Medicine | DX: S42.142D Displaced fracture of glenoid cavity of scapula, left shoulder, subsequent encounter for fracture with routine healing (principal); W18.30XD Fall on same level, unspecified, subsequent encounter ==

== ENCOUNTER → 2025-06-17 | Outpatient (CLI) | payer MEDICARE, OTHER ==
[~2025-06-17] VITALS: Ht 162.6 cm; Wt 86.2 kg
[~2025-06-17] MED LIST changes: +ACET1TAB55 PO; +ALBU8.5H INH; +ALPH200C6 PO; +BACL10TA2 PO; +ISOVUE-300 61% 100 ML VIAL IV SCH; +KETAMINE HCL 200 MG/20 ML VIAL As Ordered ONE; +LIDO1PAD TOP; +LIDOCAINE 1% MDV 20 ML VIAL SC SCH; +LR 1,000 ML IV SCH; +MIDAZOLAM INJ 2 MG/2 ML VIAL As Ordered ONE; +ONDANSETRON 4MG 2ML VIAL IV PRN; +SODIUM CHLORIDE 0.9% 500 ML XX SCH; +TIZA2CAP PO
[2025-06-17 12:46] VITALS: TEMP 98.5
[2025-06-17] MEDS: ACETAMINOPHEN 500 MG TAB PO PRN (15:53)
[2025-06-17 16:30] VITALS: BP 140/63; O2SAT 94
== END ==
LOC: M IRPRO 11:56
PROVIDERS: ATTEND Radiology Diagnostic Radiology
DX: S22.080A Wedge compression fracture of T11-T12 vertebra, initial encounter for closed fracture (principal); X58.XXXA Exposure to other specified factors, initial encounter; Y92.9 Unspecified place or not applicable
CPT/HCPCS: 22513; 72080; C1062; C1889; J2250; J3010

== ENCOUNTER 2025-06-21 09:54 | Inpatient (IN) | payer MEDICARE, OTHER ==
[~2025-06-21] VITALS: Ht 162.6 cm; Wt 79.6 kg
[~2025-06-21 09:54] MED LIST changes: -ACET1TAB55 PO; -ALBU8.5H INH; -ALPH200C6 PO; -ISOVUE-300 61% 100 ML VIAL IV SCH; -KETAMINE HCL 200 MG/20 ML VIAL As Ordered ONE; -LIDO1PAD TOP; -LIDOCAINE 1% MDV 20 ML VIAL SC SCH; -LR 1,000 ML IV SCH; -MIDAZOLAM INJ 2 MG/2 ML VIAL As Ordered ONE; -ONDANSETRON 4MG 2ML VIAL IV PRN; -SODIUM CHLORIDE 0.9% 500 ML XX SCH
[2025-06-21 10:59] LABS: BASO # 0.0 10^3/uL (0.0-0.2); BASO % 0.3 % (0.0-1.0); EOS # 0.1 10^3/uL (0.0-0.5); EOS % 1.5 % (0.0-3.0); LYMPH # 2.6 10^3/uL (1.5-5.0); LYMPH % 28.3 % (24.0-44.0); MONO # 0.7 10^3/uL (0.0-0.8); MONO % 7.8 % (2.0-8.0); NEUTROPHILS # 5.7 10^3/uL (1.5-8.5); NEUTROPHILS % 61.8 % (36.0-66.0); PLATELET COUNT, AUTOMATED 220 10^3/uL (150-450)
[2025-06-21 11:28] LABS: CALCIUM LEVEL 9.4 MG/DL (8.3-10.6); CARBON DIOXIDE LEVEL 24.0 MMOL/L (20-31); CHLORIDE LEVEL 105.0 MMOL/L (98-107); CREATININE FOR GFR 0.74 MG/DL (0.55-1.30); GLOMERULAR FILTRATION RATE 78.7 (>32); MAGNESIUM LEVEL 1.5 MG/DL (1.8-2.4); POTASSIUM SERUM 4.5 MMOL/L (3.5-5.1); SODIUM LEVEL 141.0 MMOL/L (136-145)
[2025-06-21] MEDS ORDERED: ISOVUE-370 76% 100 ML VIAL As Ordered ONE (13:25)
[2025-06-21] MEDS: MAG SULF 1GM/100ML (MAG RUN) 1 GM in IV 1 EA IV ONE ×2 (14:08→15:09)
[2025-06-21] MEDS ORDERED: PROHANCE 279.3MG/ML 15ML VIAL As Ordered ONE (20:14)
[2025-06-21] MEDS ORDERED: PROHANCE 279.3MG/ML 5ML VIAL As Ordered ONE (20:14)
[2025-06-22] MEDS: MORPHINE 2 MG/ML 1 ML VIAL IV ONE (00:42)
[2025-06-22 03:05] VITALS: BP 132/66; TEMP 97.9; O2SAT 92
[2025-06-22] MEDS: PERCOCET 5MG/325MG TAB PO ONE (04:36)
[2025-06-22] MEDS ORDERED: ALBU8.5H INH (05:22)
[2025-06-22] MEDS ORDERED: ACET1TAB55 PO (05:22)
[2025-06-22] MEDS ORDERED: XARE10TA PO (05:22)
[2025-06-22] MEDS ORDERED: ALPH200C6 PO (05:22)
[2025-06-22] MEDS ORDERED: OXYC-517 PO (05:24)
[2025-06-22] MEDS ORDERED: HOME MED LIST COMPLETE! XX SCH (05:25)
[2025-06-22] MEDS ORDERED: LIDO1PAD TOP (05:29)
[2025-06-22] MEDS ORDERED: GLUCOSE 4 GM CHEW PO PRN ×2 (05:50→08:00)
[2025-06-22] MEDS ORDERED: GLUCAGON INJ 1 MG VIAL SC PRN (05:50)
[2025-06-22] MEDS ORDERED: DEXTROSE 50% 50 ML SYRINGE IV PRN ×2 (05:50→08:00)
[2025-06-22 06:00] VITALS: BP 126/64; TEMP 98.1; O2SAT 98
[2025-06-22] MEDS: LEVOTHYROXINE 100 MCG TABLET (0.1 MG) PO SCH (06:00)
[2025-06-22] MEDS ORDERED: NALOXONE INJ 0.4 MG/1 ML VIAL IV PRN (07:55)
[2025-06-22] MEDS ORDERED: MOM 30 ML SUSPENSION UDC PO PRN (07:55)
[2025-06-22] MEDS ORDERED: IPRATROPIUM 0.5 MG/ALBUTEROL 2.5 MG INH SOL UD 3 ML NEB SCH (08:00)
[2025-06-22] MEDS ORDERED: metFORMIN 500 MG TAB PO SCH (09:00)
[2025-06-22] MEDS: VITAMIN D 1,000 INTERNATIONAL UNITS TABLET PO SCH (09:00)
[2025-06-22] MEDS: ASCORBIC ACID 500 MG TAB PO SCH (09:55)
[2025-06-22] MEDS: amLODIPine 5 MG TAB PO SCH (09:55)
[2025-06-22 10:00] VITALS: BP 127/64; TEMP 97.7
[2025-06-22] MEDS: SPIRONOLACTONE 12.5MG PER 1/2 TABLET PO SCH (10:58)
[2025-06-22] MEDS: RIVAROXABAN 10MG TAB PO SCH (10:58)
[2025-06-22] MEDS: PANTOPRAZOLE 40MG TAB PO SCH (10:58)
[2025-06-22] MEDS: INSULIN LISPRO (NovoLOG) PER UNIT SC SCH ×2 (11:59→21:00)
[2025-06-22] MEDS: ACETAMINOPHEN 500 MG TAB PO SCH (12:00)
[2025-06-22 14:00] VITALS: BP 129/63; TEMP 97.3
[2025-06-22 18:00] VITALS: BP 158/82; TEMP 97.5
[2025-06-22] MEDS: IPRATROPIUM 0.5 MG/ALBUTEROL 2.5 MG INH SOL UD 3 ML NEB SCH (19:27)
[2025-06-22] MEDS: ASPIRIN 81 MG ENTERIC TABLET PO SCH (20:47)
[2025-06-22] MEDS: ROSUVASTATIN 10 MG TAB PO SCH (20:47)
[2025-06-22] MEDS: FLUTICASONE PROPIONATE 0.05% NASAL SPRAY 16 GM SCH (20:49)
[2025-06-22] MEDS: CYANOCOBALAMIN 500 MCG TAB PO SCH (20:49)
[2025-06-22] MEDS: LATANOPROST 0.005% OPHTH SOLN 2.5 ML OU SCH (20:50)
[2025-06-22] MEDS ORDERED: LIDOCAINE 5% PATCH TOP PRN (21:00)
[2025-06-22 21:12] VITALS: BP 109/69; TEMP 97; O2SAT 97
[2025-06-23 01:49] VITALS: BP 132/53; TEMP 97.2; O2SAT 93
[2025-06-23] MEDS: MORPHINE 4 MG/ML 1 ML VIAL IV PRN (04:42)
[2025-06-23 06:12] VITALS: BP 125/59; TEMP 97.7; O2SAT 98
[2025-06-23 07:01] LABS: PLATELET COUNT, AUTOMATED 224 10^3/uL (150-450)
[2025-06-23 07:34] LABS: ALT/SGPT 18.0 U/L (7.0-40); AST/SGOT 16.0 U/L (<34); CALCIUM LEVEL 9.5 MG/DL (8.3-10.6); CARBON DIOXIDE LEVEL 24.0 MMOL/L (20-31); CHLORIDE LEVEL 108.0 MMOL/L (98-107); CREATININE FOR GFR 0.84 MG/DL (0.55-1.30); GLOMERULAR FILTRATION RATE 67.6 (>32); MAGNESIUM LEVEL 1.6 MG/DL (1.8-2.4); POTASSIUM SERUM 4.4 MMOL/L (3.5-5.1); SODIUM LEVEL 142.0 MMOL/L (136-145)
[2025-06-23] MEDS ORDERED: MORPHINE 4 MG/ML 1 ML VIAL IV PRN (08:40)
[2025-06-23] MEDS: MIRALAX *UNIT DOSE* 17 GM PACKET PO PRN (10:20)
[2025-06-23] MEDS: SENNOSIDES/DOCUSATE SODIUM 8.6 MG/50MG TAB PO PRN (10:24)
[2025-06-23 14:00] VITALS: BP 125/60; TEMP 97.7
[2025-06-23] MEDS ORDERED: PILL CUTTER 1 EACH XX ONE (14:14)
[2025-06-23 21:09] VITALS: BP_SYST 139; BP_SYST 154; BP_DIAS 64; BP_DIAS 73; TEMP 97.3; O2SAT 96; O2SAT 98
[2025-06-24] VITALS (8 sets, daily range): BP systolic 112–138; BP diastolic 57–65; TEMP 97.3–97.8; O2SAT 95–99
[2025-06-24] MEDS: RAMELTEON 8 MG TAB PO ONE (22:13)
[2025-06-25 05:20] VITALS: BP 119/54; TEMP 97; O2SAT 95
[2025-06-25 09:33] VITALS: BP 119/54
[2025-06-25 10:00] VITALS: BP 123/76; TEMP 97.7; O2SAT 95
[2025-06-25] MEDS ORDERED: BISACODYL 10 MG SUPP PR PRN (11:40)
[2025-06-25] MEDS: LACTULOSE 20 GM/30 ML SYRUP UDC PO ONE (12:02)
[2025-06-25 14:00] VITALS: BP 126/75; TEMP 97.2; O2SAT 96
[2025-06-25 16:54] VITALS: O2SAT 97
== END 2025-06-25 16:55 | disposition home health service (06) | DRG 552 ==
LOC: EDBD 09:54 → M ED 09:54 → M ED INP 09:55 → M MS5PR 06-22 02:59 → OBSVTOIN 06-24 08:47
PROVIDERS: ADMIT Student in an Organized Health Care Education/Training Program; ATTEND Student in an Organized Health Care Education/Training Program
DX: M54.6 Pain in thoracic spine (principal); S22.081D Stable burst fracture of T11-T12 vertebra, subsequent encounter for fracture with routine healing; E11.42 Type 2 diabetes mellitus with diabetic polyneuropathy; G89.18 Other acute postprocedural pain; G89.29 Other chronic pain; I10 Essential (primary) hypertension; K21.9 Gastro-esophageal reflux disease without esophagitis; J45.909 Unspecified asthma, uncomplicated; M19.90 Unspecified osteoarthritis, unspecified site; G47.33 Obstructive sleep apnea (adult) (pediatric); Z86.73 Personal history of transient ischemic attack (TIA), and cerebral infarction without residual deficits; Z79.82 Long term (current) use of aspirin; Z79.890 Hormone replacement therapy; Z79.84 Long term (current) use of oral hypoglycemic drugs; Z79.01 Long term (current) use of anticoagulants; Z79.899 Other long term (current) drug therapy; Z88.0 Allergy status to penicillin; Z88.1 Allergy status to other antibiotic agents; Z88.8 Allergy status to other drugs, medicaments and biological substances

== ENCOUNTER → 2025-07-03 | Outpatient (POV) | payer MEDICARE, OTHER ==
[~2025-07-03] MED LIST changes: +ACET1TAB55 PO; +ALBU8.5H INH; +ALPH200C6 PO; +LIDO1PAD TOP
[2025-07-03 15:35] VITALS: BP 184/81; O2SAT 96
== END ==
LOC: M IRPOV 14:50
PROVIDERS: ATTEND Registered Nurse School
DX: Z47.89 Encounter for other orthopedic aftercare (principal); S22.088A Other fracture of T11-T12 vertebra, initial encounter for closed fracture; M81.0 Age-related osteoporosis without current pathological fracture; Z79.891 Long term (current) use of opiate analgesic; Z88.0 Allergy status to penicillin; Z88.1 Allergy status to other antibiotic agents; Z88.8 Allergy status to other drugs, medicaments and biological substances; Z91.018 Allergy to other foods

== ENCOUNTER → 2025-07-05 | Outpatient (CLI) | payer MEDICARE, OTHER | LOC: M RAD 10:26 | PROVIDERS: ATTEND Physician Assistant | DX: S22.08 Fracture of T11-T12 vertebra (principal); M47.814 Spondylosis without myelopathy or radiculopathy, thoracic region ==

== ENCOUNTER → 2025-07-15 | Outpatient (CLI) | payer MEDICARE, OTHER ==
[~2025-07-15] VITALS: Ht 162.6 cm; Wt 81.6 kg
[~2025-07-15] MED LIST changes: +LIDOCAINE 2% 100 MG/5 ML SDV (FOR ANES.) As Ordered ONE; +MIDAZOLAM INJ 2 MG/2 ML VIAL As Ordered ONE; +ONDANSETRON 4MG/2ML VIAL IV PRN
[2025-07-15] MEDS: SODIUM CHLORIDE 0.9% 500 ML XX SCH (09:10)
[2025-07-15] MEDS: ISOVUE-300 61% 100 ML VIAL IV SCH (09:10)
[2025-07-15 09:18] VITALS: TEMP 97.3
[2025-07-15 09:55] LABS: PLATELET COUNT, AUTOMATED 261 10^3/uL (150-450)
[2025-07-15 10:28] LABS: INR 0.97
[2025-07-15] MEDS: LIDOCAINE 1% MDV 20 ML VIAL SC SCH (12:32)
[2025-07-15] MEDS: ACETAMINOPHEN 500 MG TAB PO PRN (13:12)
[2025-07-15 15:30] VITALS: BP 126/64; O2SAT 95
== END ==
LOC: M IRPRO 08:54
PROVIDERS: ATTEND Radiology Diagnostic Radiology
DX: S32.010A Wedge compression fracture of first lumbar vertebra, initial encounter for closed fracture (principal); X58.XXXA Exposure to other specified factors, initial encounter; Y92.9 Unspecified place or not applicable
CPT/HCPCS: 22514; 71100; 72100; 85027; 85610; C1889; J2250; J3010

== ENCOUNTER → 2025-07-16 | Outpatient (CLI) | payer MEDICARE, OTHER ==
[~2025-07-16] MED LIST changes: -LIDOCAINE 2% 100 MG/5 ML SDV (FOR ANES.) As Ordered ONE; -MIDAZOLAM INJ 2 MG/2 ML VIAL As Ordered ONE; -ONDANSETRON 4MG/2ML VIAL IV PRN
== END ==
LOC: M WUC 15:00
PROVIDERS: ATTEND Physician Assistant
DX: J06.9 Acute upper respiratory infection, unspecified (principal)

== ENCOUNTER 2025-07-20 13:48 | Emergency (ER) | payer MEDICARE, OTHER ==
[~2025-07-20] VITALS: Ht 162.6 cm; Wt 88.7 kg
[2025-07-20] MEDS ORDERED: PRED20TA PO (14:25)
[2025-07-20] MEDS ORDERED: DOXY-440 PO (14:25)
[2025-07-20 14:38] LABS: BASO # 0.0 10^3/uL (0.0-0.2); BASO % 0.3 % (0.0-1.0); EOS # 0.0 10^3/uL (0.0-0.5); EOS % 0.1 % (0.0-3.0); LYMPH # 2.4 10^3/uL (1.5-5.0); LYMPH % 21.0 % (24.0-44.0); MONO # 0.8 10^3/uL (0.0-0.8); MONO % 6.7 % (2.0-8.0); NEUTROPHILS # 8.2 10^3/uL (1.5-8.5); NEUTROPHILS % 70.9 % (36.0-66.0); PLATELET COUNT, AUTOMATED 304 10^3/uL (150-450)
[2025-07-20 14:51] LABS: VENOUS BASE EXCESS -3.9 (-2.0-2.0); VENOUS HCO3 19.6 MMOL/L (23.0-27.0); VENOUS O2 SATURATION 96.2 % (60.0-80.0); VENOUS PARTIAL PRESSURE CO2 31.4 mmHg (38.0-50.0); VENOUS PARTIAL PRESSURE O2 83.0 mmHg (30.0-50.0); VENOUS PH 7.413 UNITS (7.330-7.430); VENOUS STANDARD HCO3 21.3 MMOL/L; VENOUS TOTAL CO2 20.6 MMOL/L (24.0-28.0)
[2025-07-20 15:03] LABS: INR 1.3
[2025-07-20 15:07] LABS: CK-MB VALUE MASS 1.2 NG/ML (<3.6)
[2025-07-20 15:09] LABS: ALT/SGPT 19.0 U/L (7.0-40); AST/SGOT 13.0 U/L (<34); CALCIUM LEVEL 9.9 MG/DL (8.3-10.6); CARBON DIOXIDE LEVEL 24.0 MMOL/L (20-31); CHLORIDE LEVEL 102.0 MMOL/L (98-107); CPK CREATINE PHOSPHOKINASE 33.0 U/L (34-145); CREATININE FOR GFR 0.72 MG/DL (0.55-1.30); GLOMERULAR FILTRATION RATE 81.4 (>32); MB/CK RELATIVE INDEX 3.63 (< OR =4); POTASSIUM SERUM 4.5 MMOL/L (3.5-5.1); SODIUM LEVEL 136.0 MMOL/L (136-145)
[2025-07-20 15:11] LABS: THYROXINE (T4) 9.9 UG/DL (4.5-10.9)
[2025-07-20 15:15] LABS: KETONE, URINE AUTO RFX NEGATIVE (NEGATIVE); LEUKOCYTE ESTERASE UR AUTO RFX NEGATIVE (NEGATIVE); NITRITE, URINE AUTO RFX NEGATIVE (NEGATIVE); RBC, URINE AUTO RFX 0 /HPF (0-3); SQUAM EPITHELIAL CELL UR AURFX 0 /HPF (0-6); WBC, URINE AUTO RFX 0 /HPF (0-3)
[2025-07-20] MEDS: NS 500 ML IV ONE (17:02)
[2025-07-20 18:07] LABS: CK-MB VALUE MASS 1.5 NG/ML (<3.6)
[2025-07-20 18:08] LABS: CPK CREATINE PHOSPHOKINASE 26.0 U/L (34-145); MB/CK RELATIVE INDEX 5.76 (< OR =4)
[2025-07-20] MEDS: ACETAMINOPHEN *IV* 1,000 MG in IV 1 EA IV ONE (18:57)
[2025-07-20 21:03] VITALS: BP 181/82; TEMP 97.9; O2SAT 98
== END 2025-07-20 21:21 | disposition home or self-care (01) ==
LOC: M ED 13:48
DX: G89.18 Other acute postprocedural pain (principal); I44.7 Left bundle-branch block, unspecified; E11.9 Type 2 diabetes mellitus without complications; I10 Essential (primary) hypertension; E03.9 Hypothyroidism, unspecified; G47.33 Obstructive sleep apnea (adult) (pediatric); Z88.0 Allergy status to penicillin; Z88.1 Allergy status to other antibiotic agents; Z88.8 Allergy status to other drugs, medicaments and biological substances; Z91.018 Allergy to other foods; Z79.1 Long term (current) use of non-steroidal anti-inflammatories (NSAID); Z79.51 Long term (current) use of inhaled steroids; Z79.2 Long term (current) use of antibiotics; Z79.84 Long term (current) use of oral hypoglycemic drugs; Z79.899 Other long term (current) drug therapy; Z79.01 Long term (current) use of anticoagulants
CPT/HCPCS: 71045; 72148; 80047; 80048; 80076; 81001; 82550; 82553; 82803; 83605; 83880; 84145; 84436; 84443; 84484; 85025; 85610; 85730; 86850; 86870; 86900; 86901; 87040; 87486; 87581; 87633; 87798; 93005; 93041; 94760; 96361; 96365; 99285; J0134

== ENCOUNTER → 2025-07-29 | Outpatient (POV) | payer MEDICARE, OTHER ==
[~2025-07-29] MED LIST changes: +DOXY-440 PO
== END ==
LOC: M IRPOV 10:00
PROVIDERS: ATTEND Registered Nurse School
DX: S32.010G Wedge compression fracture of first lumbar vertebra, subsequent encounter for fracture with delayed healing (principal); Z79.82 Long term (current) use of aspirin; Z79.51 Long term (current) use of inhaled steroids; Z79.84 Long term (current) use of oral hypoglycemic drugs; Z79.891 Long term (current) use of opiate analgesic; Z79.01 Long term (current) use of anticoagulants; Z79.899 Other long term (current) drug therapy; Z82.49 Family history of ischemic heart disease and other diseases of the circulatory system; Z83.6 Family history of other diseases of the respiratory system; Z83.3 Family history of diabetes mellitus; Z88.0 Allergy status to penicillin; Z88.1 Allergy status to other antibiotic agents; Z88.8 Allergy status to other drugs, medicaments and biological substances; Z91.048 Other nonmedicinal substance allergy status; W19.XXXD Unspecified fall, subsequent encounter; Y92.9 Unspecified place or not applicable; Y93.9 Activity, unspecified; Y99.9 Unspecified external cause status

== ENCOUNTER → 2025-08-19 | Outpatient (CLI) | payer MEDICARE, OTHER | LOC: M RAD 10:00 | PROVIDERS: ATTEND Physician Assistant | DX: S22.080D Wedge compression fracture of T11-T12 vertebra, subsequent encounter for fracture with routine healing (principal) ==

== ENCOUNTER → 2025-08-21 | Outpatient (POV) | payer MEDICARE, OTHER | LOC: M IRPOV 09:00 | PROVIDERS: ATTEND Radiology Diagnostic Radiology | DX: S22.080G Wedge compression fracture of T11-T12 vertebra, subsequent encounter for fracture with delayed healing (principal); S32.010D Wedge compression fracture of first lumbar vertebra, subsequent encounter for fracture with routine healing; M80.00XG Age-related osteoporosis with current pathological fracture, unspecified site, subsequent encounter for fracture with delayed healing; Z82.49 Family history of ischemic heart disease and other diseases of the circulatory system; Z83.3 Family history of diabetes mellitus; Z83.6 Family history of other diseases of the respiratory system; Z79.82 Long term (current) use of aspirin; Z79.51 Long term (current) use of inhaled steroids; Z79.84 Long term (current) use of oral hypoglycemic drugs; Z79.891 Long term (current) use of opiate analgesic; Z79.899 Other long term (current) drug therapy; Z88.0 Allergy status to penicillin; Z88.1 Allergy status to other antibiotic agents; Z88.8 Allergy status to other drugs, medicaments and biological substances; X58.XXXD Exposure to other specified factors, subsequent encounter; Y92.9 Unspecified place or not applicable; Y93.9 Activity, unspecified; Y99.9 Unspecified external cause status ==

== ENCOUNTER → 2025-08-27 | Outpatient (REF) | payer MEDICARE, OTHER ==
[2025-08-27 17:26] LABS: PLATELET COUNT, AUTOMATED 277 10^3/uL (150-450)
[2025-08-27 17:47] LABS: ALT/SGPT 17.0 U/L (7.0-40); AST/SGOT 21.0 U/L (<34); CALCIUM LEVEL 9.9 MG/DL (8.3-10.6); CARBON DIOXIDE LEVEL 28.0 MMOL/L (20-31); CHLORIDE LEVEL 105.0 MMOL/L (98-107); CHOLESTEROL LEVEL 157.0 MG/DL (<200); CHOLESTEROL RISK RATIO 3.18 (<5); CREATININE FOR GFR 0.87 MG/DL (0.55-1.30); GLOMERULAR FILTRATION RATE 64.8 (>32); LDL CHOLESTEROL 64.7 MG/DL (<100); NON-HDL-C 107.7 MG/DL; POTASSIUM SERUM 5.0 MMOL/L (3.5-5.1); SODIUM LEVEL 142.0 MMOL/L (136-145); TRIGLYCERIDES LEVEL 215.0 MG/DL (<150)
[2025-08-27 17:50] LABS: TOTAL 25(OH) VITAMIN D 54.4 NG/ML (20.0-100.0)
[2025-08-27 17:52] LABS: FREE T4 1.6 NG/DL (0.89-1.76)
[2025-08-27 18:29] LABS: ESTIMATED AVERAGE GLUCOSE 151.0 MG/DL (60-110)
== END ==
LOC: M SFHCADAM 15:14
PROVIDERS: ATTEND Family Medicine
DX: M81.0 Age-related osteoporosis without current pathological fracture (principal); Z86.73 Personal history of transient ischemic attack (TIA), and cerebral infarction without residual deficits; E78.5 Hyperlipidemia, unspecified; E03.9 Hypothyroidism, unspecified; E11.21 Type 2 diabetes mellitus with diabetic nephropathy